=== PATIENT | male | born 1945 | race Caucasian/White ===

== ENCOUNTER 2017-11-07 10:35 | Inpatient (IN) | payer MEDICARE, OTHER ==
[~2017-11-07] VITALS: Ht 175.3 cm; Wt 120.2 kg
[2017-11-07] MEDS ORDERED: SODIUM CHLORIDE 0.9% 1000ML 1,000 ML IV STA ×2 (11:22→12:30)
[2017-11-07] MEDS ORDERED: ASPIRIN 81 MG CHEW TAB PO ONE (11:30)
[2017-11-07 11:51] LABS: BASOPHILS % 0.3 % (0.0-1.0); EOSINOPHILS # (AUTO) 0.1 (0.0-0.4); EOSINOPHILS % 0.4 % (0.0-6.0); HEMOGLOBIN 16.9 g/dL (14.0-18.0); LYMPHOCYTES # (AUTO) 1.8 (1.0-3.2); LYMPHOCYTES % 12.8 % (18.0-39.1); MEAN CORPUSCULAR HEMOGLOBIN 32.1 pg (28-32); MEAN CORPUSCULAR HGB CONC 33.8 g/dL (31-35); MEAN CORPUSCULAR VOLUME 95.1 fL (81-99); NEUTROPHILS # (AUTO) 10.8 (2.1-6.9); NEUTROPHILS % 78.9 % (38.7-80.0); PLATELET COUNT 319 x10e3/uL (140-360); RED BLOOD COUNT 5.26 x10e6/uL (4.3-5.7); RED CELL DISTRIBUTION WIDTH 13.7 % (11.7-14.4)
[2017-11-07 12:06] LABS: INR 1.09; PROTHROMBIN TIME 13.3 seconds (11.9-14.5)
[2017-11-07 12:07] LABS: PARTIAL THROMBOPLASTIN TIME 24.9 seconds (23.8-35.5)
[2017-11-07 12:14] LABS: ALBUMIN 3.8 g/dL (3.5-5.0); ALBUMIN/GLOBULIN RATIO 1.1 (0.8-2.0); ANION GAP 17.7 mmol/L (8-16); CALCIUM 10.5 mg/dL (8.4-10.2); CREATININE, SERUM 1.89 mg/dL (0.72-1.25); MAGNESIUM 1.9 MG/DL (1.3-2.1); POTASSIUM 4.7 mmol/L (3.5-5.1)
--- NOTE | 2017-11-07 12:25 | Diagnostic Imaging Report ---
PROCEDURE:CHEST SINGLE (PORTABLE) TECHNIQUE:Portable AP chest INDICATION:Low blood pressure COMPARISON:None. FINDINGS: Lungs are clear and symmetrically inflated. No pleural effusions. Normal heart size, mediastinal contour, and pulmonary vasculature for technique. Mild aortic arch calcification. Grossly intact skeleton. CONCLUSION: No acute abnormality. Dictated by: Gurpreet Schrader M.D. on 11/07/2017 at 12:25 Electronically approved by: Gurpreet Schrader M.D. on 11/07/2017 at 12:25
[2017-11-07 12:34] LABS: CREATINE KINASE MB 5.2 ng/mL (0-5.0); THYROID STIMULATING HORMONE 4.863 uIU/mL (0.350-4.940)
[2017-11-07] MEDS ORDERED: SODIUM CHLORIDE FLUSH 10 ML SYR INJ PRN (16:30)
[2017-11-07] MEDS ORDERED: ASPIRIN 81 MG CHEW TAB PO NR ×2 (16:30)
[2017-11-07] MEDS ORDERED: SIMVASTATIN20 MG PO (20:04)
[2017-11-07] MEDS ORDERED: METFORMIN HCL500 MG PO (20:04)
[2017-11-07] MEDS: SODIUM CHLORIDE 0.9% 1000ML 1,000 ML IV SCH (20:05)
--- OUTSIDE RECORDS SUMMARY | 2017-11-07 20:24 | XMS REPORT ---
Author Author [facility] Address Unknown Phone Unavailable Care Team Providers Care Marketing Services Vice President Name Role Phone ALCIDES LATIF Unavailable Unavailable Problems This patient has no known problems. Allergies, Adverse Reactions, Alerts This patient has no known allergies or adverse reactions. Medications This patient has no known medications. Results Test Description Test Time Test Comments Text Results Atomic Results Result Comments CHEST SINGLE (PORTABLE) [place] [id number] Patient Name: VILLA LINDSAY JR MR #: [id number] : 1945 Age/Sex: 72/M Req #: [id number] Adm Physician: Ordered by: VILLA WHELAN PROFESSOR OF SOCIAL WORK Report #: [id number] Location: ER Room/Bed: Procedure: [id number] DX/CHEST SINGLE (PORTABLE) Exam Date: 11/07/17 Exam Time: 1155 REPORT STATUS: Signed PROCEDURE: CHEST SINGLE (PORTABLE) TECHNIQUE: Portable AP chest INDICATION: Low blood pressure COMPARISON: None. FINDINGS: Lungs are clear and symmetrically inflated. No pleural effusions. Normal heart size, mediastinal contour, and pulmonary vasculature for technique. Mild aortic arch calcification. Grossly intact skeleton. CONCLUSION: No acute abnormality. Dictated by: Timo Schrader M.D. on 11/07/2017 at 12:25 Electronically approved by: Timo Schrader M.D. on 2017 at 12:25 Dictated By: TIMO SCHRADER MD 1226 Transcribed By: LORRAINE on 1226 COPY TO: VILLA WHELAN NP
[2017-11-07 20:29] LABS: CREATINE KINASE MB 5.4 ng/mL (0-5.0)
[2017-11-07] MEDS ORDERED: DEXTROSE 50% SYRINGE 50 ML IV PRN (20:30)
--- NOTE | 2017-11-07 21:12 | Consultation ---
DATE OF CONSULTATION: No Dictation 00:03 seconds. Job#: [id number]
[2017-11-07] MEDS: INSULIN REGULAR, HUMAN 100 UNIT/1 ML 3ML VIAL SQ SCH (22:30)
[2017-11-08] VITALS (7 sets, daily range): BP systolic 120–141; BP diastolic 66–82
[2017-11-08] MEDS: SODIUM CHLORIDE 0.9% 1000ML 1,000 ML IV SCH (02:30)
[2017-11-08 05:33] LABS: BILIRUBIN,URINE NEGATIVE (NEGATIVE); KETONES,URINE NEGATIVE (NEGATIVE); LEUKOCYTE ESTERASE ,URINE 2+ (NEGATIVE); URINE UROBILINOGEN 0.2 mg/dL (0.2 - 1)
[2017-11-08 05:34] LABS: CLARITY,URINE CLOUDY (CLEAR); COLOR,URINE YELLOW (YELLOW); NITRITE,URINE POSITIVE (NEGATIVE); PROTEIN,URINE DIPSTICK 1+ (NEGATIVE)
[2017-11-08 05:47] LABS: BACTERIA,URINE MODERATE /HPF; EPITHELIAL CELLS,URINE RARE /LPF; WBC,URINE (MAN) >50 /HPF (0-5)
[2017-11-08 06:22] LABS: BASOPHILS % 0.4 % (0.0-1.0); EOSINOPHILS # (AUTO) 0.1 (0.0-0.4); EOSINOPHILS % 1.3 % (0.0-6.0); HEMOGLOBIN 14.5 g/dL (14.0-18.0); LYMPHOCYTES # (AUTO) 1.7 (1.0-3.2); LYMPHOCYTES % 16.2 % (18.0-39.1); MEAN CORPUSCULAR HEMOGLOBIN 32.1 pg (28-32); MEAN CORPUSCULAR HGB CONC 32.2 g/dL (31-35); MEAN CORPUSCULAR VOLUME 99.6 fL (81-99); MONOCYTES # (AUTO) 1.1 (0.2-0.8); MONOCYTES % 10.8 % (4.4-11.3); NEUTROPHILS # (AUTO) 7.2 (2.1-6.9); NEUTROPHILS % 70.2 % (38.7-80.0); PLATELET COUNT 269 x10e3/uL (140-360); RED BLOOD COUNT 4.52 x10e6/uL (4.3-5.7)
[2017-11-08 06:56] LABS: CREATINE KINASE MB 4.3 ng/mL (0-5.0)
[2017-11-08] MEDS: INSULIN REGULAR, HUMAN 100 UNIT/1 ML 3ML VIAL SQ SCH ×2 (07:54→12:41)
--- NOTE | 2017-11-08 09:33 | History and Physical ---
CHIEF COMPLAINT: Dizziness, syncope. HPI: Mr. Mackey is a 72-year-old male who presented to the emergency room with episode of dizziness and syncope and blackout. He has been having difficulty balancing himself for last few days, but today he had this near syncopal episode, so he decided to come to the emergency room. He has a history of diabetes, hypertension, and coronary artery disease. He also has carotid stents, and his address change clerk has told him that he has peripheral arterial disease as well. He denies any chest pain, nausea, vomiting, diarrhea. REVIEW OF SYSTEMS: GENERAL: Denies any fever or chills. HEAD: Denies any head trauma, head injury. ENT: Denies any earache, nosebleed, throat pain. CVS: Denies any chest pain. RESPIRATORY: Denies any shortness of breath. GI: Denies any nausea, vomiting. The rest of the review of systems is negative except as in HPI. PAST MEDICAL HISTORY: Hypertension, coronary artery disease. PAST SURGICAL HISTORY: Knee replacement and tonsillectomy. FAMILY AND SOCIAL HISTORY: He lives by himself. 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 He never smoked in his life. Denies any alcohol use. Family history is significant for hypertension and heart disease. PHYSICAL EXAMINATION: VITAL SIGNS: Temperature 97.6, pulse is 78, blood pressure 127/67, respiratory rate of 18, O2 sat 96% on 2 liters. SKIN: Warm and dry. CHEST: Clear to auscultation bilaterally. No wheezing. NECK: Supple. No JVD. Thyroid not enlarged. No cervical lymphadenopathy. ABDOMEN: Soft, nontender, nondistended. Bowel sounds audible. No hepatosplenomegaly. EXTREMITIES: No clubbing, cyanosis. Trace pedal edema. NEUROLOGICAL: Awake and alert. No focal neurologic deficits. Cranial nerves II through XII intact. LABS: White count of 13,000; hemoglobin 16.9; platelets 319,000. Chemistry: Sodium 142, potassium 4.7, chloride 103, bicarb 26, BUN 30, creatinine 1.89. AST and ALT normal. CK-MB 5.20. BNP 748.2. INR is 1.09. Influenza is negative. Chest x-ray is not showing any infiltrate. ASSESSMENT: Mr. Mackey is a 72-year-old male who presented to the emergency room with syncope. Patient has history of coronary artery disease, could be cardiogenic versus neurogenic, episodes of dizziness and imbalance for last few days. PLAN: 1. Neurology consult, cardiology consult. 2. MRI of the head. 3. Will continue the patient on IV hydration. Patient's creatinine is 1.89. Will follow closely. May need nephrology evaluation as well, and the symptoms can be due to dehydration. Job#: [id number]
[2017-11-08 09:35] LABS: ANION GAP 16.3 mmol/L (8-16); CALCIUM 9.2 mg/dL (8.4-10.2); CREATININE, SERUM 1.26 mg/dL (0.72-1.25); POTASSIUM 5.3 mmol/L (3.5-5.1)
--- NOTE | 2017-11-08 12:40 | Consultation ---
DATE OF CONSULTATION: November 08, 2017 CARDIOLOGY CONSULTATION ATTENDING PHYSICIAN: Dr. Sommers. Thank you so much for asking me to see this nice man in consultation. Mr. Mackey is a pleasant 72-year-old man who has been retired for many years and has adult-onset diabetes. CHIEF COMPLAINT: He presented to the emergency room. 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 By morning, he reports that he did not feel any better, feeling weak and decided to come to the emergency room where they found hypotension. HISTORY OF PRESENT ILLNESS: Patient denies any chest pain, palpitations or madeleine syncope. He denies any dysuria. PAST MEDICAL HISTORY: Is complex. Longstanding diabetes that he reports that he had his diabetic medications changed in the last weeks and months due to insurance change. He had previously been using Levemir and Humalog but changed these to a combination of Novolin N and regular insulin. He was cautioned against low blood sugars and checks his fingerstick blood sugar about 4 times a day. Past medical history otherwise significant for carotid stenting in 1994 and with a coronary stent in 2002, both performed at [facility] in [facility] by Dr. Bartlett. He has had remote tonsillectomy and remote knee surgeries with arthroscope on the right knee and open left knee surgery 1976. He reports that he has had bilateral cataract surgeries with the right one going well, but on the left one in January of 2016 he has had continued problems with poor healing of his cornea or sclera. Takes multiple eyedrops and insulins as mentioned above plus metformin 500 mg b.i.d. and simvastatin 20 mg daily. PERSONAL AND SOCIAL HISTORY: He does not smoke nor drink. He lives at home with his . REVIEW OF SYSTEMS: CARDIAC: He denies any chest pain or palpitations since his coronary stenting. NEUROLOGIC: He reports that before the carotid stenting he had amaurosis but no repeat since that time. PHYSICAL EXAMINATION: GENERAL: At this time shows a pleasant, obese man who is 5 feet 9 inches tall and weighs 265 pounds, sitting in a chair. VITALS: Blood pressure 130/80. Temp is 99.8. HEENT: Unremarkable. NECK: No jugular venous distention, no bruits. THORAX: Heart sounds S1 and S2 are equal. No murmurs. Lungs are clear. ABDOMEN: Markedly protuberant. Normal bowel sounds. EXTREMITIES: Show the healed incision on the left knee but no cyanosis, clubbing or edema. EKG shows sinus rhythm with PVCs and nonspecific ST and T-wave changes. Echocardiogram shows good left ventricular function and mild left ventricular hypertrophy. Urinalysis shows 11 to 20 red blood cells per high power field, greater than 50 white cells, with 4+ blood and positive for nitrites. Cardiac enzymes are normal times 3. BNP is elevated at 748. TSH is normal. ASSESSMENT: 1. Hypotensive episode with blood pressure recorded at 71/41 on presenting to the emergency room. 2. Urinary tract infection. 3. Type 2 adult-onset diabetes with complex regimen including metformin and insulin. 4. Carotid disease, clinically stable after carotid stenting. 5. Coronary disease, clinically stable after coronary stenting. PLAN: Will await urine culture and check carotid Doppler scan and monitor on telemetry. Thank you for asking me to see him in consultation. Job#: [id number] DARLENE
[2017-11-08] MEDS: CEFTRIAXONE SOD 1 GM VIAL IV SCH ×2 (12:44→21:00)
--- NOTE | 2017-11-08 13:10 | Diagnostic Imaging Report ---
Examination: MRI BRAIN WITHOUT CONTRAST History: Dizziness. Imbalance. Near syncope. Comparison studies: None Technique: Sagittal T2; axial DWI, FLAIR, GRE or SWI, T1, Coronal FLAIR. Intravenous contrast: None Findings: Scalp: No abnormal signal. No masses. Bone marrow: Normal in signal intensity. Brain volume: Mild volume loss volume loss. Ventricles: Normal in size and configuration. No hydrocephalus. Extra-axial spaces: No abnormalities. Parenchyma: There are patchy and confluent areas of T2/FLAIR hyperintensity in the periventricular and subcortical white matter, nonspecific. Chronic lacunar infarct (7.5 mm anteroposterior dimension) in the left lateral putamen. No masses, hemorrhage, or acute vascular insults. Suprasellar and sellar region: No abnormalities. Craniocervical junction: No abnormalities. The foramen magnum is patent. No Chiari malformations. Vessels: Normal flow-voids in the arteries and sinuses. Additional findings:Bilateral slitlike orbital lenses. IMPRESSION: 1. No acute intracranial abnormalities. 2. Mild volume loss and microvascular ischemic change. 3. Chronic lacunar infarct of the left putamen. Signed by: Dr. Anna Borja M.D. on 11/08/2017 1:07 PM
--- NOTE | 2017-11-08 14:22 | Diagnostic Imaging Report ---
PROCEDURE: CHEST SINGLE (PORTABLE) COMPARISON: Patients [facility], DX, CHEST SINGLE (PORTABLE), 11/07/2017, 11:58. INDICATIONS: SHORTNESS OF BREATH FINDINGS: LUNGS: Exam is characterized by a poor inspiration. There is right basilar subsegmental atelectasis. No consolidation. PLEURA: No effusions or pneumothorax. HEART \T\ MEDIASTINUM: The heart is within normal size-limits. BONES \T\ SOFT TISSUES: No acute findings. CONCLUSION: Right basilar subsegmental atelectasis. César Alonso D.O. Dictated by: César Alonso D.O. on 11/08/2017 at 14:21 Electronically approved by: César Alonso D.O. on 11/08/2017 at 14:21
--- NOTE | 2017-11-08 14:24 | Consultation ---
DATE OF CONSULTATION: November 08, 2017 ENDOCRINE CONSULTATION This is a patient of Dr. Sommers. Thank you very much for referring this patient. HISTORY OF PRESENT ILLNESS: This is a 72-year-old white male who is referred to me for evaluation of diabetes mellitus. The patient reported he is a known diabetic for almost 12 years and takes a combination of Levemir insulin 100 units at bedtime and 30 to 60 units of Humalog with each meal depending upon the blood sugars. Patient came to the hospital with a history of syncopal episode and was found to have a urinary tract infection. Patient also has history of coronary artery disease, congestive cardiac failure and stent placement. He also has history of hyperlipidemia. Patient also takes metformin at home. PHYSICAL EXAMINATION: GENERAL: Today the patient is alert, awake, a little bit apprehensive. He is moderately overweight. VITAL SIGNS: His heart rate is around 78. His blood pressure is 140/80 mmHg. HEENT: Examination essentially unremarkable. Thyroid is palpable. Clinically he is near euthyroid. CHEST: Bilateral vesicular breathing. He has mild bronchospasm. CARDIAC: Both 1st and 2nd heart sounds. There is no 3rd or 4th heart sound. Ejection sound grade 2/6. EXTREMITIES: Patient has evidence of diabetic sensory neuropathy in both lower extremities. CLINICAL IMPRESSION: 1. Diabetes mellitus type 2, uncontrolled with complications. 2. Syncopal episode. 3. Hypotension. 4. Urinary tract infection. 5. Coronary artery disease and congestive cardiac failure. The plan at this time is to do a hemoglobin A1c, thyroid function test. Hold the metformin for now because his creatinine was significantly elevated at the time of admission. Will just start him on the Humalog and the Levemir combination but much lower dose. Thanks for referring this patient. I will be following this patient with you. Job#: [id number] EV AMRITA
[2017-11-08 14:25] LABS: FREE T4 (FREE THYROXINE) 0.99 ng/dL (0.9-1.8); THYROID STIMULATING HORMONE 0.803 uIU/mL (0.350-4.940)
[2017-11-08] MEDS: INSULIN LISPRO 100 UNIT/1 ML 3ML VIAL SQ SCH ×2 (16:18→21:00)
--- NOTE | 2017-11-08 16:44 | Consultation ---
DATE OF CONSULTATION: November 08, 2017, at 2:15 in the evening. NEUROLOGICAL CONSULTATION This is a patient of Dr. Lalit Sommers. REASON FOR CONSULTATION: Hypertension, presyncope. This is a 72-year-old male who has a many-year history of diabetes. In the last several days, he started feeling generalized weak. Because of that, they brought him to the hospital for further evaluation and management. The blood pressure apparently was low in the 70s. The patient feels like he is going to black out but never passes out. PAST HISTORY: He denies history of hypertension. He has a history of diabetes mellitus and heart condition. He has a history of coronary artery stent and carotid artery stent. He has also a history of bilateral cataract surgery and tonsillectomy. PERSONAL AND SOCIAL HISTORY: He lives alone. He does not smoke or drink. PHYSICAL EXAMINATION VITAL SIGNS: At the time of this examination, blood pressure is 141/82, pulse 78, temperature 100.5. The patient is overweight. He weighs about 265 pounds. LUNGS: Clear to auscultation. HEART: Regular sinus rhythm. No murmur. ABDOMEN: Soft and nontender. No organomegaly. MUSCULOSKELETAL: Lower extremities have no edema, no cyanosis and no clubbing. NEUROLOGIC EXAMINATION: He is alert. He is oriented times 3. Speech is clear. No dysarthria. No dysphagia. CRANIAL NERVES: Pupils are both equal and reactive. The extraocular movements are full. Visual cox are normal. No facial weakness. Facial sensation noted. Tongue protrudes in the midline. Palatal movement is normal bilaterally. MOTOR POWER: Upper extremities show no evidence of muscle wasting in either the proximal or distal muscles. Abduction of the arms 5/5. Flexion and extension of the arms 5/5. Dorsiflexion of the wrists 5/5. Finger extension 5/5. Hand professional system administrator 5/5. Lower extremities: Flexion of the hips 5/5. Flexion and extension of the knees 5/5. Dorsiflexion of the ankles 5/5. Plantar flexion 5/5. Toe extension 5/5 bilaterally. DEEP TENDON REFLEXES: Triceps, biceps and radials are 1+. Knee jerks absent. Ankle jerks absent bilaterally. Plantar stimulation is down bilaterally. COORDINATION: [id number]-mj-[id number] is normal. The patient has been ambulating with help of physical therapy today. HEAD: Normocephalic. NECK: Supple. Carotid pulsations are present bilaterally. There are no bruits. LABORATORY WORKUP: CBC shows white count 10,200 with hemoglobin 14.5, hematocrit 45, platelets 269,000. Chemistry: Sodium and potassium normal. BUN 31.8, creatinine 1.26. Glucose 157. Calcium 9.2. Liver enzymes are normal. Urinalysis: Protein 1+, blood 4+, number of WBCs greater than 50, bacteria moderately high. MRI of the brain shows no evidence of acute pathology. No acute infarction or acute hemorrhage. There is moderate small vessel disease seen bilaterally. MRI of the brain, as mentioned, shows no evidence of acute pathology. Carotid Doppler shows no evidence of any major stenosis. IMPRESSION 1. Episode of hypertension. 2. Rule out hypoglycemia. 3. Presyncope. 4. Diabetes mellitus, type 2. 5. Obesity. 6. Status post right carotid stent and coronary artery stent. We discussed with the patient. I do not think we are dealing with any cerebrovascular problem, no symptoms of TIA, no symptoms of possibility of stroke. The patient was instructed to follow the advice, take his medications regularly, follow a diet to control the blood sugar and undergo any required laboratory evaluation. Job#: [id number]
[2017-11-08] MEDS ORDERED: METFORMIN HCL 500 MG TAB PO SCH (17:00)
[2017-11-08] MEDS ORDERED: INSULIN DETEMIR 100 UNIT/ML PEN SQ SCH ×2 (21:00)
[2017-11-08] MEDS: SIMVASTATIN 20 MG TAB PO SCH (21:00)
[2017-11-09] VITALS (7 sets, daily range): BP systolic 112–167; BP diastolic 72–90
[2017-11-09 06:38] LABS: BASOPHILS % 0.3 % (0.0-1.0); EOSINOPHILS # (AUTO) 0.2 (0.0-0.4); HEMATOCRIT 45.3 % (38.2-49.6); HEMOGLOBIN 14.7 g/dL (14.0-18.0); LYMPHOCYTES # (AUTO) 1.5 (1.0-3.2); LYMPHOCYTES % 16.2 % (18.0-39.1); MEAN CORPUSCULAR HEMOGLOBIN 31.7 pg (28-32); MEAN CORPUSCULAR HGB CONC 32.5 g/dL (31-35); MEAN CORPUSCULAR VOLUME 97.6 fL (81-99); MONOCYTES # (AUTO) 0.9 (0.2-0.8); MONOCYTES % 9.4 % (4.4-11.3); NEUTROPHILS # (AUTO) 6.7 (2.1-6.9); NEUTROPHILS % 71.6 % (38.7-80.0); PLATELET COUNT 237 x10e3/uL (140-360); RED BLOOD COUNT 4.64 x10e6/uL (4.3-5.7); RED CELL DISTRIBUTION WIDTH 13.8 % (11.7-14.4)
[2017-11-09 06:56] LABS: ANION GAP 12.5 mmol/L (8-16); BLOOD UREA NITROGEN 27 mg/dL (7-26); BUN/CREATININE RATIO 29 (6-25); CALCIUM 9.2 mg/dL (8.4-10.2); CARBON DIOXIDE 27 mmol/L (22-29); CHLORIDE 105 mmol/L (98-107); CREATININE, SERUM 0.92 mg/dL (0.72-1.25); EST GLOMERULAR FILTRATION RATE > 60 ML/MIN (60-); GLUCOSE 159 mg/dL (74-118); POTASSIUM 4.5 mmol/L (3.5-5.1); SODIUM 140 mmol/L (136-145)
[2017-11-09] MEDS: INSULIN LISPRO 100 UNIT/1 ML 3ML VIAL SQ SCH ×5 (07:30→20:51)
[2017-11-09] MEDS: CEFTRIAXONE SOD 1 GM VIAL IV SCH ×2 (08:18→20:50)
[2017-11-09] MEDS: ALBUTEROL SULF 0.083% NEB SOLN 3 ML NEB NEB SCH ×2 (13:00→19:06)
[2017-11-09] MEDS ORDERED: SALMETEROL/FLUTICASONE 500/50 INH SCH (19:00)
--- NOTE | 2017-11-09 20:06 | Cardiology Report ---
DATE OF STUDY: November 08, 2017 DOPPLER SCAN OF CAROTIDS Left carotid artery shows velocity 1.4 meters per second in the left distal internal carotid artery. Left vertebral flow appears antegrade. Right carotid artery shows a stent in the mid right internal carotid artery with velocity 1.8 meters per second consistent with mild stenosis. Right vertebral flow appears to be antegrade. CONCLUSIONS 1. A stent is present in the right mid internal carotid artery with velocity of 1.84 meters per second consistent with mild to moderate stenosis in the range of 50% to 70%. 2. Mild stenosis involving the left distal internal carotid artery with velocity of 1.4 meters per second. The degree of stenosis is once again in the range of 50% to 70%. 3. Borderline elevated velocity in the right external carotid artery with velocity of 1.3 meters per second. 4. Vertebral flow appears to be in normal direction bilaterally. Job#: [id number] cc:HEMANT BALDWIN M.D.
[2017-11-09] MEDS: SIMVASTATIN 20 MG TAB PO SCH (20:51)
[2017-11-09] MEDS ORDERED: MONTELUKAST SODIUM 10 MG TAB PO SCH (21:00)
[2017-11-09] MEDS ORDERED: INSULIN DETEMIR 100 UNIT/ML PEN SQ SCH (21:00)
[2017-11-09] MEDS ORDERED: THEOPHYLLINE 300 MG TABSR PO SCH (21:00)
[2017-11-09] MEDS ORDERED: ATORVASTATIN 20 MG TAB PO SCH (21:00)
[2017-11-09] MEDS ORDERED: ISOSORBIDE DINITRATE 20 MG TAB PO SCH (21:00)
[2017-11-10 00:10] VITALS: BP 169/97
[2017-11-10] MEDS: ALBUTEROL SULF 0.083% NEB SOLN 3 ML NEB NEB SCH ×2 (02:40→07:00)
[2017-11-10 04:00] VITALS: BP 153/67
[2017-11-10] MEDS ORDERED: LEVOTHYROXINE SODIUM 50 MCG TAB PO SCH (06:00)
[2017-11-10 07:00] VITALS: BP 149/87
[2017-11-10] MEDS: INSULIN LISPRO 100 UNIT/1 ML 3ML VIAL SQ SCH ×4 (07:30→12:00)
--- NOTE | 2017-11-10 07:58 | Diagnostic Imaging Report ---
EXAM: Single AP view of the chest (Portable). COMPARISON: Chest radiograph from 11/08/2017 INDICATION: Hypoxia FINDINGS: Single portable AP view of the chest. The visualized bones and soft tissues, cardiac silhouette , pleura appear unchanged. IMPRESSION: 1. Lines/tubes: None 2. Worsening bibasilar airspace opacity with mild volume loss due to worsening atelectasis or interval aspiration. Signed by: Dr. Prema Mcneal M.D. on 11/10/2017 7:55 AM
[2017-11-10] MEDS: CEFTRIAXONE SOD 1 GM VIAL IV SCH (08:40)
[2017-11-10] MEDS ORDERED: LOSARTAN POTASSIUM 25 MG TAB PO SCH (09:00)
[2017-11-10] MEDS ORDERED: VERAPAMIL HCL 240 MG TABSR PO SCH (09:00)
[2017-11-10] MEDS ORDERED: CLOPIDOGREL BISULFATE 75 MG TAB PO SCH (09:00)
[2017-11-10 11:19] VITALS: BP 149/87
[2017-11-10] MEDS ORDERED: LEVAQUIN500 MG PO (14:08)
--- NOTE | 2017-11-10 14:17 | Discharge Summary ---
FINAL DIAGNOSES 1. Urinary tract infection. 2. Carotid stenosis. 3. Hypertension. 4. Diabetes. 5. Dehydration. 6. Acute kidney injury, resolved with IV hydration. ADMISSION HISTORY AND HOSPITAL COURSE: Mr. Mackey is a 72-year-old man who presented to the emergency room with dizziness and near syncope with hypotensive IV hydration given. The patient was continued with IV Rocephin and the patient improved with treatment. Dizziness resolved and renal failure resolved. Cardiology, neurology and endocrinology evaluated the patient and cleared the patient for discharge. The patient will be discharged home to follow up with his primary care physician. Discharge medication reviewed. HEMANT BALDWIN MD Job#: [id number] GH
[2017-11-10] MEDS ORDERED: HYDRALAZINE HCL 100 MG TABLET PO SCH (19:00)
== END 2017-11-10 15:17 | disposition home or self-care (01) | DRG 690 ==
LOC: ER 10:35 → ERHOLD 20:20 → IMCU 11-08 00:51
PROVIDERS: ADMIT Internal Medicine; ATTEND Internal Medicine
DX: N39.0 Urinary tract infection, site not specified (principal); N17.9 Acute kidney failure, unspecified; E11.65 Type 2 diabetes mellitus with hyperglycemia; I11.9 Hypertensive heart disease without heart failure; I65.29 Occlusion and stenosis of unspecified carotid artery; I25.10 Atherosclerotic heart disease of native coronary artery without angina pectoris; I73.9 Peripheral vascular disease, unspecified; E66.9 Obesity, unspecified; E86.0 Dehydration; Z68.39 Body mass index [BMI] 39.0-39.9, adult
CPT/HCPCS: 36415; 70551; 71045; 71046; 80048; 80053; 81001; 82270; 82550; 82553; 82948; 83036; 83735; 83880; 84439; 84443; 84484; 85025; 85379; 85610; 85730; 86850; 86900; 87086; 87186; 87400; 93005; 93306; 93880; 94640; 96367; 96372; 97139; 99284; J0696; J7030

== ENCOUNTER 2018-08-21 10:42 | Inpatient (IN) | payer MEDICARE, OTHER ==
[~2018-08-21] VITALS: Ht 175.3 cm; Wt 109.3 kg
[~2018-08-21 10:42] MED LIST: LEVAQUIN500 MG PO; METFORMIN HCL500 MG PO; SIMVASTATIN20 MG PO
--- OUTSIDE RECORDS SUMMARY | 2018-08-21 10:47 | XMS REPORT ---
Author Author Yareli Alford Organization [employer] Address Unknown Phone Unavailable Care Team Providers Care Travel Consultant Name Role Phone Yareli Alford CP Unavailable Allergies, Adverse Reactions, Alerts Substance Reaction Event Type N.K.D.A. Info Not Available Non Drug Allergy Problems Problem Type Condition Code Onset Dates Condition Status Problem Diabetes E11.9 Active Problem BPH (benign prostatic hyperplasia) N40.0 Active Problem HTN (hypertension) I10 Active Assessment Diabetes E11.9 Active Assessment HTN (hypertension) I10 Active Problem Carotid arterial disease I77.9 Active Assessment BPH (benign prostatic hyperplasia) N40.0 Active Medications Medication Code System Code Instructions Start Date End Date Status Dosage Clopidogrel Bisulfate [facility] [address]-12 Active not defined Simvastatin [facility] [address]-29 Active not defined Metoprolol Succinate ER [facility] [address]-59 Active not defined Tamsulosin HCl [facility] [address]-07 0.4 MG Orally Once a day Active 1 capsule Ramipril [facility] [address]-78 Active not defined Metformin HCl [facility] [address]-74 Active not defined Vital Signs Date/Time: January 24, 2017 BMI 37.45 Index Weight 261 lbs Height 70 in Temperature 98.3 F Blood Pressure Diastolic 67 mm Hg Blood Pressure Systolic 109 mm Hg Results No Known Results Summary Purpose [employer] Submission
--- OUTSIDE RECORDS SUMMARY | 2018-08-21 10:47 | XMS REPORT ---
Author Author Gil Mar [facility] [employer] Address Unknown Phone Unavailable Care Team Providers Care Ceramic Restorer Name Role Phone Gil Mar Unavailable Allergies, Adverse Reactions, Alerts Substance Reaction Event Type N.K.D.A. Info Not Available Non Drug Allergy Problems Problem Type Condition Code Onset Dates Condition Status Assessment Body mass index (BMI) 38.0-38.9, adult Z68.38 Active Assessment Obesity, unspecified E66.9 Active Problem Postprocedural PCI status V45.82 Active Assessment Type 2 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.51 Active Problem Carotid stenosis 433.10 Active Assessment Abnormal electrocardiogram [ECG] [EKG] R94.31 Active Problem Chronic diastolic heart failure 428.32 Active Problem Occlusion and stenosis of right carotid artery I65.21 Active Problem Abnormal electrocardiogram [ECG] [EKG] R94.31 Active Problem Obesity, unspecified E66.9 Active Problem CHF, chronic systolic I50.22 Active Assessment Occlusion and stenosis of right carotid artery I65.21 Active Assessment Peripheral vascular disease, unspecified I73.9 Active Problem Body mass index (BMI) 38.0-38.9, adult Z68.38 Active Assessment Coronary angioplasty status Z98.61 Active Problem Peripheral vascular disease, unspecified I73.9 Active Problem Type 2 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.51 Active Problem Coronary angioplasty status Z98.61 Active Problem Atherosclerotic heart disease of [place] coronary artery without angina pectoris I25.10 Active Problem Coronary atherosclerosis of [place] coronary artery 414.01 Active Problem Peripheral vascular disease 443.9 Active Assessment CHF, chronic systolic I50.22 Active Assessment Atherosclerotic heart disease of [place] coronary artery without angina pectoris I25.10 Active Problem Diabetes mellitus type II 250.00 Active Problem Abnormal ECG 794.31 Active Problem Morbid obesity 278.01 Active Problem Mixed hyperlipidemia 272.2 Active Medications Medication Code System Code Instructions Start Date End Date Status Dosage Aspirin [facility] 50775579503 81 MG Orally Once a day Active 1 tablet Metformin HCl [facility] 64518989487 500 MG Orally Twice a day Active 1 tablet with meals Metoprolol Succinate ER [facility] 27714635248 50 MG Orally Once a day Active 1 tablet Clopidogrel Bisulfate [facility] 73783871804 75 MG Orally Once a day Active 1 tablet Levemir [facility] 57582806131 100 UNIT/ML Subcutaneous Active not defined Tradjenta [facility] 13291794375 Orally Once a day Active 1 tablet Losartan Potassium [facility] 04534461278 50 MG Orally Once a day Active 1 tablet Ramipril [facility] 17341184883 10 MG Orally Once a day Active 1 capsule Simvastatin [facility] 01712515834 10 mg Orally Once a day Active 1 tablet in the evening Fish Oil [facility] 71202346965 500 MG Orally Twice a day Active 1 capsule Humalog [facility] 43235642260 100 UNIT/ML Subcutaneous Active not defined Vital Signs Date/Time: Jun 13, 2017 BMI 38.02 Index Weight 265 lbs Height 5ft 10in in Cardiac Monitoring Heart Rate 78 /min Blood Pressure Diastolic 65 mm Hg Blood Pressure Systolic 138 mm Hg Results No Known Results Summary Purpose [employer] Submission
--- OUTSIDE RECORDS SUMMARY | 2018-08-21 10:47 | XMS REPORT ---
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 Info Not Available Non Drug Allergy Problems Problem Type Condition Code Onset Dates Condition Status Assessment Body mass index (BMI) 38.0-38.9, adult Z68.38 Active Problem Postprocedural PCI status V45.82 Active [...] Z98.61 Active Problem Atherosclerotic heart disease of [place] coronary artery without angina pectoris I25.10 Active Problem Coronary atherosclerosis of [place] coronary artery 414.01 Active Problem Peripheral vascular disease 443.9 Active Assessment CHF, chronic systolic I50.22 Active Assessment Atherosclerotic heart disease of [place] coronary artery without angina pectoris I25.10 Active Problem Diabetes mellitus type II 250.00 Active Problem Abnormal ECG 794.31 Active Problem Morbid obesity 278.01 Active Problem Mixed hyperlipidemia 272.2 Active Medications Medication Code System Code Instructions Start Date End Date Status Dosage Aspirin [facility] 02188821597 81 MG Orally Once a day Active 1 tablet Metoprolol Succinate ER ND 79977976545 50 MG Orally Once a day Active 1 tablet Tradjenta [facility] 05327774821 Orally Once a day Active 1 tablet Metformin HCl [facility] 73236472147 500 MG Orally Twice a day Active 1 tablet with meals Clopidogrel Bisulfate [facility] 04177368870 75 mg Orally Once a day Active 1 tablet Simvastatin [facility] 98585665360 10 mg Orally Once a day Active 1 tablet in the evening Humalog [facility] 26022114697 100 UNIT/ML Subcutaneous Active not defined Levemir [facility] 74229727190 100 UNIT/ML Subcutaneous Active not defined Fish Oil [facility] 82902367745 500 MG Orally Twice a day Active 1 capsule Losartan Potassium [facility] 71234622287 50 MG Orally Once a day Active 1 tablet Vital Signs Date/Time: December 26, 2017 BMI 38.02 Index Weight 265 lbs Height 5ft 10in in Cardiac Monitoring Heart Rate 77 /min Blood Pressure Diastolic 88 mm Hg Blood Pressure Systolic 140 mm Hg Results No Known Results Summary Purpose eClinicalWorks Submission
--- OUTSIDE RECORDS SUMMARY | 2018-08-21 10:47 | XMS REPORT | Summary of Care ---
Author Organization Unknown Address Unknown Phone Unavailable Encounter SANDI Germain(ISAK) [id number] Date(s): 02/24/15 - 02/27/15 [facility] [address] [place] [address]- Discharge Disposition: Home Physician Attending: Moe Garber DO Physician Admitting: Moe Garber DO Vital Signs 1 2 3 Most recent to oldest [Reference Range]: 177.8 cm (02/25/15 5:46 AM) 177.8 cm (02/24/15 9:48 PM) Height 98 DegF (02/27/15 12:03 PM) 98 DegF (02/27/15 8:00 AM) 97.4 DegF (02/27/15 3:36 AM) Temperature Oral [96.4-99.1 DegF] 187/88 mmHg *HI* (02/27/15 12:03 PM) 163/82 mmHg *HI* (02/27/15 3:36 AM) Blood Pressure [90-140/60-90 mmHg] 151 mmHg *HI* (02/27/15 8:00 AM) Systolic Blood Pressure [90-140 mmHg] 95 mmHg *HI* (02/27/15 8:00 AM) Diastolic Blood Pressure [60-90 mmHg] 18 BRMIN (02/27/15 12:03 PM) 18 BRMIN (02/27/15 8:00 AM) 16 BRMIN (02/27/15 7:09 AM) Respiratory Rate [14-20 BRMIN] 46 bpm *LOW* (02/27/15 12:03 PM) 51 bpm *LOW* (02/27/15 8:00 AM) 90 bpm (02/27/15 3:36 AM) Peripheral Pulse Rate [60-100 bpm] 114.318 kg (02/25/15 5:46 AM) 122.727 kg (02/24/15 9:48 PM) Weight 36.16 m2 (02/25/15 5:46 AM) 38.82 m2 (02/24/15 9:48 PM) Body Mass Index Problem List Condition Effective Dates Status Health Status Informant Diabetes(Confirmed) Resolved Diabetes(Confirmed) Active Hypercholesterolemia Active (Confirmed) Hypertension(Confirm Active ed) Allergies, Adverse Reactions, Alerts Substance Reaction Severity Status NKDA Active Medications amLODIPine PO, Daily, 0 Refill(s) Start Date: 02/25/15 Status: Suspended amLODIPine 2.5 mg, 1 tab, Route: PO, Drug form: TAB, Daily, Dosing Weight 114.318, kg, Star t date: 02/26/15 9:00:00, Duration: 30 day, Stop date: 03/27/15 9:00:00 Notes: (Same as: Norvasc) Start Date: 02/26/15 Stop Date: 02/27/15 Status: Discontinued aspirin 81 mg, 1 tab, Route: PO, Drug form: CHEWTAB, Daily, Dosing Weight 114.318, kg, S tart date: 02/26/15 9:00:00, Duration: 30 day, Stop date: 03/27/15 9:00:00 Notes: Take with food. Start Date: 02/26/15 Stop Date: 02/26/15 Status: Discontinued aspirin 81 mg, 1 tab, Route: PO, Drug form: ECTAB, Daily, Dosing Weight 122.727, kg, Sta rt date: 02/25/15 9:00:00, Duration: 30 day, Stop date: 03/26/15 9:00:00 Notes: Do not crush or chew.(Same As: Ecotrin) Start Date: 02/25/15 Stop Date: 02/27/15 Status: Discontinued aspirin 81 mg, PO, Daily, 0 Refill(s) Start Date: 02/25/15 Status: Suspended atropine 0.5 mg, 5 mL, Route: IVP, Drug form: INJ, PRN, PRN Bradycardia, Start date: 02/07 05/24 6:05:00, Duration: 30 day, Stop date: 03/27/15 6:04:00 Start Date: 02/25/15 Stop Date: 02/27/15 Status: Discontinued azithromycin 500 mg, 250 mL, Route: IVPB, Drug form: PDR/INJ, [id number], Dosing Weight 122.727, kg, Start date: 02/25/15 6:00:00, Duration: 30 day, Stop date: 03/26/15 6:00:00 Notes: Same as: Zithromax Start Date: 02/25/15 Stop Date: 02/27/15 Status: Discontinued Crestor PO, Bedtime, 0 Refill(s) Start Date: 02/25/15 Status: Suspended Dextrose 50% Syringe 12.5 gm, 25 mL, Route: IVP, Drug Form: INJ, Dosing Weight 122.727, kg, PRN, PRN Blood Glucose Results, Start date: 02/25/15 5:25:00, Duration: 30 day, Stop date : 03/27/15 5:24:00 Start Date: 02/25/15 Stop Date: 02/25/15 Status: Discontinued Dextrose 50% Syringe 25 gm, 50 mL, Route: IVP, Drug Form: INJ, Dosing Weight 122.727, kg, PRN, PRN Bl ood Glucose Results, Start date: 02/25/15 5:25:00, Duration: 30 day, Stop date: 03/27/15 5:24:00 Start Date: 02/25/15 Stop Date: 02/25/15 Status: Discontinued Dextrose 50% Syringe 12.5 gm, 25 mL, Route: IVP, Drug Form: INJ, Dosing Weight 114.318, kg, PRN, PRN Blood Glucose Results, Start date: 02/25/15 17:24:00, Duration: 30 day, Stop tay e: 03/27/15 17:23:00 Start Date: 02/25/15 Stop Date: 02/27/15 Status: Discontinued Dextrose 50% Syringe 25 gm, 50 mL, Route: IVP, Drug Form: INJ, Dosing Weight 114.318, kg, PRN, PRN Bl ood Glucose Results, Start date: 02/25/15 17:24:00, Duration: 30 day, Stop date: 03/27/15 17:23:00 Start Date: 02/25/15 Stop Date: 02/27/15 Status: Discontinued DuoNeb inhalation solution 3 ml, Route: NEB, Drug Form: SOLN, Dosing Weight 122.727, kg, PRN, PRN Respirato ry Protocol, Start date: 02/25/15 1:25:00, Duration: 30 day, Stop date: 03/27/15 1:24:00 Notes: (Same as: Duoneb) Start Date: 02/25/15 Stop Date: 02/25/15 Status: Discontinued DuoNeb inhalation solution 3 ml, Route: NEB, Drug Form: SOLN, Dosing Weight 122.727, kg, PRN, PRN Respirato ry Protocol, Start date: 02/25/15 1:24:00, Duration: 30 day, Stop date: 03/27/15 1:23:00 Notes: (Same as: Duoneb) Start Date: 02/25/15 Stop Date: 02/25/15 Status: Discontinued glucagon 1 mg, Route: IM, Drug form: PDR/INJ, PRN, Dosing Weight 122.727, kg, PRN Blood G lucose Results, Start date: 02/25/15 5:25:00, Duration: 30 day, Stop date: 03/27 5:24:00 Start Date: 02/25/15 Stop Date: 02/25/15 Status: Discontinued glucagon 1 mg, Route: IM, Drug form: PDR/INJ, PRN, Dosing Weight 114.318, kg, PRN Blood G lucose Results, Start date: 02/25/15 17:24:00, Duration: 30 day, Stop date: 03/09 05/24 17:23:00 Start Date: 02/25/15 Stop Date: 02/27/15 Status: Discontinued Humalog Route: SUB-Q, Before Lunch, Dosing Weight 114.318, kg, Start date: 02/26/15 11:3 0:00, Duration: 30 day, Stop date: 03/27/15 11:30:00 Start Date: 02/26/15 Stop Date: 02/25/15 Status: Deleted Humalog Route: SUB-Q, Before Breakfast, Dosing Weight 114.318, kg, Start date: 02/26/15 7:30:00, Duration: 30 day, Stop date: 03/27/15 7:30:00 Start Date: 02/26/15 Stop Date: 02/25/15 Status: Deleted Humalog Route: SUB-Q, Before Dinner, Dosing Weight 114.318, kg, Start date: 02/25/15 16: 30:00, Duration: 30 day, Stop date: 03/26/15 16:30:00 Start Date: 02/25/15 Stop Date: 02/25/15 Status: Deleted Humalog 20 unit, Route: SUB-Q, PRN, Dosing Weight 114.318, kg, PRN With Snack, Start tay e: 02/25/15 14:52:00, Duration: 30 day, Stop date: 03/27/15 14:51:00 Start Date: 02/25/15 Stop Date: 02/25/15 Status: Discontinued Humalog 100 units/mL 40, SUB-Q, Before Lunch, 0 Refill(s) Start Date: 02/25/15 Status: Suspended Humalog 100 units/mL 20, SUB-Q, PRN, with snacks, 0 Refill(s) Special Instructions: with snacks Start Date: 02/25/15 Stop Date: 02/25/15 Status: Discontinued Humalog 100 units/mL 36, SUB-Q, Before Breakfast, 0 Refill(s) Start Date: 02/25/15 Status: Suspended Humalog 100 units/mL 45, SUB-Q, Before Dinner, 0 Refill(s) Start Date: 02/25/15 Status: Suspended insulin aspart 1 unit, 0.01 mL, Route: SUB-Q, Drug form: SOLN, TID-Before Meals, Dosing Weight 122.727, kg, PRN Blood Glucose Results, Start date: 02/25/15 5:25:00, Duration: 30 day, Stop date: 03/27/15 5:24:00 Notes: Roll in palms of hands gently; Do not shake vigorously. (Same as: NovoLO G)"single patient use only" Stable for 28 days at room temperature.Expires in _ ____ days from Date Start Date: 02/25/15 Stop Date: 02/25/15 Status: Discontinued insulin aspart 2 unit, 0.02 mL, Route: SUB-Q, Drug form: SOLN, TID-Before Meals, Dosing Weight 122.727, kg, PRN Blood Glucose Results, Start date: 02/25/15 5:25:00, Duration: 30 day, Stop date: 03/27/15 5:24:00 Notes: Roll in palms of hands gently; Do not shake vigorously. (Same as: NovoLO G)"single patient use only" Stable for 28 days at room temperature.Expires in _ ____ days from Date Start Date: 02/25/15 Stop Date: 02/25/15 Status: Discontinued insulin aspart 3 unit, 0.03 mL, Route: SUB-Q, Drug form: SOLN, TID-Before Meals, Dosing Weight 122.727, kg, PRN Blood Glucose Results, Start date: 02/25/15 5:25:00, Duration: 30 day, Stop date: 03/27/15 5:24:00 Notes: Roll in palms of hands gently; Do not shake vigorously. (Same as: NovoLO G)"single patient use only" Stable for 28 days at room temperature.Expires in _ ____ days from Date Start Date: 02/25/15 Stop Date: 02/25/15 Status: Discontinued insulin aspart 4 unit, 0.04 mL, Route: SUB-Q, Drug form: SOLN, TID-Before Meals, Dosing Weight 122.727, kg, PRN Blood Glucose Results, Start date: 02/25/15 5:25:00, Duration: 30 day, Stop date: 03/27/15 5:24:00 Notes: Roll in palms of hands gently; Do not shake vigorously. (Same as: NovoLO G)"single patient use only" Stable for 28 days at room temperature.Expires in _ ____ days from Date Start Date: 02/25/15 Stop Date: 02/25/15 Status: Discontinued insulin aspart 5 unit, 0.05 mL, Route: SUB-Q, Drug form: SOLN, TID-Before Meals, Dosing Weight 122.727, kg, PRN Blood Glucose Results, Start date: 02/25/15 5:25:00, Duration: 30 day, Stop date: 03/27/15 5:24:00 Notes: Roll in palms of hands gently; Do not shake vigorously. (Same as: NovoLO G)"single patient use only" Stable for 28 days at room temperature.Expires in _ ____ days from Date Start Date: 02/25/15 Stop Date: 02/25/15 Status: Discontinued insulin aspart 12 unit, 0.12 mL, Route: SUB-Q, Drug form: SOLN, TID-Before Meals, Dosing Weight 114.318, kg, PRN Blood Glucose Results, Start date: 02/25/15 17:24:00, Duration: 30 day, Stop date: 03/27/15 17:23:00 Notes: Roll in palms of hands gently; Do not shake vigorously. (Same as: NovoLO G)"single patient use only" Stable for 28 days at room temperature.Expires in _ ____ days from Date Start Date: 02/25/15 Stop Date: 02/27/15 Status: Discontinued insulin aspart 15 unit, 0.15 mL, Route: SUB-Q, Drug form: SOLN, TID-Before Meals, Dosing Weight 114.318, kg, PRN Blood Glucose Results, Start date: 02/25/15 17:24:00, Duration: 30 day, Stop date: 03/27/15 17:23:00 Notes: Roll in palms of hands gently; Do not shake vigorously. (Same as: NovoLO G)"single patient use only" Stable for 28 days at room temperature.Expires in _ ____ days from Date Start Date: 02/25/15 Stop Date: 02/27/15 Status: Discontinued insulin aspart 6 unit, 0.06 mL, Route: SUB-Q, Drug form: SOLN, TID-Before Meals, Dosing Weight 114.318, kg, PRN Blood Glucose Results, Start date: 02/25/15 17:24:00, Duration: 30 day, Stop date: 03/27/15 17:23:00 Notes: Roll in palms of hands gently; Do not shake vigorously. (Same as: NovoLO G)"single patient use only" Stable for 28 days at room temperature.Expires in _ ____ days from Date Start Date: 02/25/15 Stop Date: 02/27/15 Status: Discontinued insulin aspart 9 unit, 0.09 mL, Route: SUB-Q, Drug form: SOLN, TID-Before Meals, Dosing Weight 114.318, kg, PRN Blood Glucose Results, Start date: 02/25/15 17:24:00, Duration: 30 day, Stop date: 03/27/15 17:23:00 Notes: Roll in palms of hands gently; Do not shake vigorously. (Same as: NovoLO G)"single patient use only" Stable for 28 days at room temperature.Expires in _ ____ days from Date Start Date: 02/25/15 Stop Date: 02/27/15 Status: Discontinued insulin aspart 3 unit, 0.03 mL, Route: SUB-Q, Drug form: SOLN, TID-Before Meals, Dosing Weight 114.318, kg, PRN Blood Glucose Results, Start date: 02/25/15 17:24:00, Duration: 30 day, Stop date: 03/27/15 17:23:00 Notes: Roll in palms of hands gently; Do not shake vigorously. (Same as: NovoLO G)"single patient use only" Stable for 28 days at room temperature.Expires in _ ____ days from Date Start Date: 02/25/15 Stop Date: 02/27/15 Status: Discontinued ipratropium 0.5 mg, 2.5 mL, Route: NEB, Drug form: SOLN, PRN, Dosing Weight 122.727, kg, PRN Respiratory Protocol, Start date: 02/25/15 5:07:00, Duration: 30 day, Stop date: 03/27/15 5:06:00 Notes: SEE RT DOCUMENTATION(Same as:Atrovent) Start Date: 02/25/15 Stop Date: 02/27/15 Status: Discontinued Levemir 110, SUB-Q, Bedtime, 0 Refill(s) Start Date: 02/25/15 Status: Suspended Levemir FlexPen 110 unit, 1.1 mL, Route: SUB-Q, Drug form: INJ, Bedtime, Dosing Weight 114.318, kg, Start date: 02/25/15 21:00:00, Duration: 30 day, Stop date: 03/26/15 21:00:0 0 Notes: Same as LevemirDo not hold insulin without contacting prescriber "single patient use only" Start Date: 02/25/15 Stop Date: 02/27/15 Status: Discontinued metFORMIN 250 mg, PO, BID, 0 Refill(s) Start Date: 02/25/15 Status: Suspended methylPREDNISolone SODium SUCCinate 125 mg, 2 mL, Route: IVP, Drug form: INJ, ONCE, Dosing Weight 122.727, kg, Prior ity: STAT, Start date: 02/25/15 1:25:00, Stop date: 02/25/15 1:25:00 Notes: (Same as:Solu-MEDROL, A-Methapred) Start Date: 02/25/15 Stop Date: 02/25/15 Status: Completed nitroglycerin 0.4 mg sublingual tablet 0.4 mg, 1 tab, Route: SL, Drug form: TAB, Q5Min, PRN Chest Pain, Start date: 6:05:00, Duration: 30 day, Stop date: 03/27/15 6:04:00 Notes: (Same as:Nitroquick, Nitrostat)"Do Not Crush" Sublingual tablet Start Date: 02/25/15 Stop Date: 02/27/15 Status: Discontinued normal saline 0.9% IV 1,000 mL 1,000 mL, Rate: 100 ml/hr, Infuse over: 10 hr, Route: IV, Dosing Weight 122.727 kg, Total Volume: 1,000, Start date: 02/25/15 5:11:00, Duration: 30 day, Stop da te: 03/27/15 5:10:00 Start Date: 02/25/15 Stop Date: 02/27/15 Status: Discontinued NovoLOG FlexPen 45 unit, 0.45 mL, Route: SUB-Q, Drug form: SOLN, Before Dinner, Start date: 02/07 05/24 16:30:00, Duration: 30 day, Stop date: 03/26/15 16:30:00 Notes: Roll in palms of hands gently; Do not shake vigorously. (Same as: NovoLO G)"single patient use only" Stable for 28 days at room temperature.Expires in _ ____ days from Date Start Date: 02/25/15 Stop Date: 02/27/15 Status: Discontinued NovoLOG FlexPen 40 unit, 0.4 mL, Route: SUB-Q, Drug form: SOLN, Before Lunch, Start date: 11:30:00, Duration: 30 day, Stop date: 03/27/15 11:30:00 Notes: Roll in palms of hands gently; Do not shake vigorously. (Same as: NovoVIRGILIO G)"single patient use only" Stable for 28 days at room temperature.Expires in _ ____ days from Date Start Date: 02/26/15 Stop Date: 02/27/15 Status: Discontinued NovoLOG FlexPen 36 unit, 0.36 mL, Route: SUB-Q, Drug form: SOLN, Before Breakfast, Start date: 0 02/26/15 7:30:00, Duration: 30 day, Stop date: 03/27/15 7:30:00 Notes: Roll in palms of hands gently; Do not shake vigorously. (Same as: NovoVIRGILIO G)"single patient use only" Stable for 28 days at room temperature.Expires in _ ____ days from Date Start Date: 02/26/15 Stop Date: 02/27/15 Status: Discontinued NS (Bolus) IV 1,000 mL, 1,000 ml/hr, Infuse Over: 1 hr, Route: IV, 1,000, Drug form: INJ, ONCE , Priority: STAT, Dosing Weight 122.727 kg, Start date: 02/25/15 4:57:00, Durati on: 1 doses or times, Stop date: 02/25/15 4:57:00 Start Date: 02/25/15 Stop Date: 02/27/15 Status: Completed Plavix 75 mg, 1 tab, Route: PO, Drug form: TAB, Daily, Dosing Weight 122.727, kg, Start date: 02/25/15 9:00:00, Duration: 30 day, Stop date: 03/26/15 9:00:00 Notes: (Same As: Plavix) Start Date: 02/25/15 Stop Date: 02/27/15 Status: Discontinued pneumococcal 23-valent vaccine 0.5 mL, Route: IM, Drug Form: INJ, Daily, Start date: 02/25/15 9:00:00, Duration : 1 doses or times, Stop date: 02/25/15 9:00:00 Notes: (Same as: Pneumovax 23) Refrigerate Start Date: 02/25/15 Stop Date: 02/25/15 Status: Completed predniSONE 60 mg, 3 tab, Route: PO, Drug form: TAB, Breakfast, Dosing Weight 122.727, kg, S tart date: 02/25/15 8:00:00, Duration: 30 day, Stop date: 03/26/15 8:00:00 Notes: Take with food. Start Date: 02/25/15 Stop Date: 02/25/15 Status: Discontinued ramipril 10 mg, PO, BID, 0 Refill(s) Start Date: 02/25/15 Status: Suspended Saline Flush 0.9% 10 mL, Route: IVP, Drug Form: INJ, Dosing Weight 122.727, kg, PRN, PRN Line Flus h, Start date: 02/24/15 22:46:00, Duration: 30 day, Stop date: 03/26/15 22:45:00 Notes: preservative free. Start Date: 02/24/15 Stop Date: 02/26/15 Status: Discontinued Xopenex 1.25 mg, 3 mL, Route: NEB, Drug form: SOLN, PRN, Dosing Weight 122.727, kg, PRN Respiratory Protocol, Start date: 02/25/15 5:07:00, Duration: 30 day, Stop date: 03/27/15 5:06:00 Notes: SEE RT DOCUMENTATION (Same as:Xopenex)Non-Formulary Start Date: 02/25/15 Stop Date: 02/27/15 Status: Discontinued Zithromax 500 mg, 250 mL, Route: IVPB, Drug form: PDR/INJ, ONCE, Dosing Weight 122.727, kg , Priority: STAT, Start date: 02/25/15 4:10:00, Stop date: 02/25/15 4:10:00 Notes: Same as: Zithromax Start Date: 02/25/15 Stop Date: 02/25/15 Status: Completed Results ELECTROLYTES 1 2 3 Most recent to oldest [Reference Range]: 143 mEq/L (02/27/15 4:00 AM) 138 mEq/L (02/26/15 5:06 AM) 137 mEq/L (02/25/15 5:11 AM) Sodium Lvl [135-145 mEq/L] 4.4 mEq/L (02/27/15 4:00 AM) 4.8 mEq/L (02/26/15 5:06 AM) 4.6 mEq/L (02/25/15 5:11 AM) Potassium Lvl [3.5-5.1 mEq/L] 109 mEq/L (02/27/15 4:00 AM) 104 mEq/L (02/26/15 5:06 AM) 103 mEq/L (02/25/15 5:11 AM) Chloride Lvl [95-109 mEq/L] 30 mEq/L (02/27/15 4:00 AM) 25 mEq/L (02/26/15 5:06 AM) 27 mEq/L (02/25/15 5:11 AM) CO2 [24-32 mEq/L] 8.4 mEq/L *LOW* (02/27/15 4:00 AM) 13.8 mEq/L (02/26/15 5:06 AM) 11.6 mEq/L (02/25/15 5:11 AM) AGAP [10.0-20.0 mEq/L] CHEM PANEL 1 2 3 Most recent to oldest [Reference Range]: 1.1 mg/dL (02/27/15 4:00 AM) 1.4 mg/dL (02/26/15 5:06 AM) 1.4 mg/dL (02/25/15 5:11 AM) Creatinine Lvl [0.5-1.4 mg/dL] 68 mL/min/1.73m2 1 *NA* (02/27/15 4:00 AM) 51 mL/min/1.73m2 2 *NA* (02/26/15 5:06 AM) 51 mL/min/1.73m2 3 *NA* (02/25/15 5:11 AM) eGFR 39 mg/dL *HI* (02/27/15 4:00 AM) 46 mg/dL *HI* (02/26/15 5:06 AM) 24 mg/dL *HI* (02/25/15 5:11 AM) BUN [7-22 mg/dL] 35 *HI* (02/27/15 4:00 AM) 15 (02/24/15 9:59 PM) B/C Ratio [6-25] 126 mg/dL 4 *HI* (02/27/15 4:00 AM) 318 mg/dL 5 *HI* (02/26/15 5:06 AM) 261 mg/dL 6 *HI* (02/25/15 5:11 AM) Glucose Lvl [70-99 mg/dL] 5.9 g/dL *LOW* (02/27/15 4:00 AM) 7.1 g/dL (02/24/15 9:59 PM) Total Protein [6.4-8.4 g/dL] 2.7 g/dL *LOW* (02/27/15 4:00 AM) 3.4 g/dL *LOW* (02/24/15 9:59 PM) Albumin Lvl [3.5-5.0 g/dL] 3.2 g/dL (02/27/15 4:00 AM) 3.7 g/dL (02/24/15 9:59 PM) Globulin [2.0-4.0 g/dL] 0.8 (02/27/15 4:00 AM) 0.9 (02/24/15 9:59 PM) A/G Ratio [0.7-1.6] 8.6 mg/dL (02/27/15 4:00 AM) 9.0 mg/dL (02/26/15 5:06 AM) 9.5 mg/dL (02/25/15 5:11 AM) Calcium Lvl [8.5-10.5 mg/dL] 74 unit/L *HI* (02/27/15 4:00 AM) 28 unit/L (02/24/15 9:59 PM) ALT [0-65 unit/L] 78 unit/L *HI* (02/27/15 4:00 AM) 32 unit/L (02/24/15 9:59 PM) AST [0-37 unit/L] 66 unit/L (02/27/15 4:00 AM) 56 unit/L (02/24/15 9:59 PM) Alk Phos [39-136 unit/L] 1.1 mg/dL (02/27/15 4:00 AM) 1.7 mg/dL *HI* (02/24/15 9:59 PM) Bili Total [0.2-1.3 mg/dL] 4.06 ng/mL 7 *CRIT* (02/25/15 10:50 PM) Procalcitonin Lvl [0.00-0.10 ng/mL] 1Result Comment: The eGFR is calculated using the CKD-EPI formula. In most young, healthy individuals the eGFR will be >90 mL/min/1.73m2. The eGFR declines with age. An eGFR of 60-89 may be normal in some populations, particularly the elderly, for whom the CKD-EPI formula has not been extensively validated. Use of the eGFR is not recommended in the following populations: Individuals with unstable creatinine concentrations, including patients and those with serious co-morbid conditions. Patients with extremes in muscle mass or diet. The data above are obtained from the National Kidney Disease Education Program ( NKDEP) which additionally recommends that when the eGFR is used in patients with extremes of body mass index for purposes of drug dosing, the eGFR should be mul tiplied by the estimated BMI. 2Result Comment: The eGFR is calculated using the CKD-EPI formula. In most young, healthy individuals the eGFR will be >90 mL/min/1.73m2. The eGFR declines with age. An eGFR of 60-89 may be normal in some populations, particularly the elderly, for whom the CKD-EPI formula has not been extensively validated. Use of the eGFR is not recommended in the following populations: Individuals with unstable creatinine concentrations, including patients and those with serious co-morbid conditions. Patients with extremes in muscle mass or diet. The data above are obtained from the National Kidney Disease Education Program ( NKDEP) which additionally recommends that when the eGFR is used in patients with extremes of body mass index for purposes of drug dosing, the eGFR should be mul tiplied by the estimated BMI. 3Result Comment: The eGFR is calculated using the CKD-EPI formula. In most young, healthy individuals the eGFR will be >90 mL/min/1.73m2. The eGFR declines with age. An eGFR of 60-89 may be normal in some populations, particularly the elderly, for whom the CKD-EPI formula has not been extensively validated. Use of the eGFR is not recommended in the following populations: Individuals with unstable creatinine concentrations, including patients and those with serious co-morbid conditions. Patients with extremes in muscle mass or diet. The data above are obtained from the National Kidney Disease Education Program ( NKDEP) which additionally recommends that when the eGFR is used in patients with extremes of body mass index for purposes of drug dosing, the eGFR should be mul tiplied by the estimated BMI. 4Interpretive Data: Adult reference range values reflect the clinical guidelines of the [place] [employer]. 5Interpretive Data: Adult reference range values reflect the clinical guidelines of the [place] [employer]. 6Interpretive Data: Adult reference range values reflect the clinical guidelines of the [place] [employer]. 7Result Comment: Critical Result(s) called to Cecilia Keyes at 02/26/2015 10:00 byky. Read back OK. CARDIAC ENZYMES 1 2 3 Most recent to oldest [Reference Range]: 909 unit/L *HI* (02/27/15 4:00 AM) 1494 unit/L *HI* (02/26/15 5:06 AM) 1805 unit/L *HI* (02/25/15 10:50 PM) Total CK [12-191 unit/L] 6.8 ng/mL *HI* (02/25/15 10:51 AM) 4.1 ng/mL *HI* (02/25/15 5:11 AM) 2.8 ng/mL (02/24/15 9:59 PM) CK MB [0.5-3.6 ng/mL] 0.4 (02/25/15 10:51 AM) 0.2 (02/25/15 5:11 AM) 0.3 (02/24/15 9:59 PM) CK MB Index [0.0-2.5] 0.04 ng/mL (02/25/15 10:51 AM) 0.05 ng/mL (02/25/15 5:11 AM) 0.05 ng/mL (02/24/15 9:59 PM) Troponin-I [0.00-0.40 ng/mL] 565 pg/mL 8 *HI* (02/24/15 9:59 PM) BNP [<=100 pg/mL] 8Interpretive Data: Elevated results are in line with increasing severity of congestive heart failure. Minor elevations between 100 and 300 may be seen with Myocardial Ischemia, Sodium retaining drugs, and compensated/treated heart failure. LIPIDS 1 2 3 Most recent to oldest [Reference Range]: 9.44 *HI* (02/26/15 5:06 AM) CHD Risk [4.00-7.30] 85 mg/dL (02/26/15 5:06 AM) Chol [<=199 mg/dL] 257 mg/dL *HI* (02/26/15 5:06 AM) Trig [<=149 mg/dL] 9 mg/dL *LOW* (02/26/15 5:06 AM) HDL [>=61 mg/dL] 25 mg/dL (02/26/15 5:06 AM) LDL (Calculated) [<=99 mg/dL] 51 *NA* (02/26/15 5:06 AM) VLDL SPECIAL CHEMISTRY 1 2 3 Most recent to oldest [Reference Range]: 6.6 % *HI* (02/25/15 5:11 AM) Hgb A1C [<=5.6 %] URINE AND STOOL 1 2 3 Most recent to oldest [Reference Range]: Marked *ABN* (02/26/15 6:42 AM) UA Turbidity [Clear] Yellow *NA* (02/26/15 6:42 AM) UA Color [Yellow] 5.0 (02/26/15 6:42 AM) UA pH [5.0-8.0] 1.020 (02/26/15 6:42 AM) UA Spec Grav [<=1.030] 500 mg/dL *ABN* (02/26/15 6:42 AM) UA Glucose [Negative mg/dL] Large *ABN* (02/26/15 6:42 AM) UA Blood [Negative] Negative mg/dL *NA* (02/26/15 6:42 AM) UA Ketones [Negative mg/dL] 30 mg/dL *ABN* (02/26/15 6:42 AM) UA Protein [Negative mg/dL] <=1.0 mg/dL *NA* (02/26/15 6:42 AM) UA Urobilinogen [0.1-1.0 mg/dL] Negative *NA* (02/26/15 6:42 AM) UA Bili [Negative] Trace *ABN* (02/26/15 6:42 AM) UA Leuk Est [Negative] Negative (02/26/15 6:42 AM) UA Nitrite [Negative] 26 /HPF *HI* (02/26/15 6:42 AM) UA WBC [0-5 /HPF] 1 /HPF (02/26/15 6:42 AM) UA RBC [0-2 /HPF] Many /HPF *ABN* (02/26/15 6:42 AM) UA Bacteria [None Seen /HPF] Occasional /LPF *NA* (02/26/15 6:42 AM) UA Sq Epi [Few /LPF] 3 /LPF *HI* (02/26/15 6:42 AM) UA Hyal Cast [0-2 /LPF] Few /LPF *NA* (02/26/15 6:42 AM) UA Mucus [None Seen /LPF] IMMUNOLOGY 1 2 3 Most recent to oldest [Reference Range]: Negative *NA* (02/25/15 5:09 AM) [place]-Hep C Ab [Negative] HEMATOLOGY 1 2 3 Most recent to oldest [Reference Range]: 15.2 K/CMM *HI* (02/27/15 4:00 AM) 24.6 K/CMM *HI* (02/26/15 5:06 AM) 24.3 K/CMM *HI* (02/25/15 5:11 AM) WBC [3.7-10.4 K/CMM] 4.57 M/CMM *LOW* (02/27/15 4:00 AM) 4.55 M/CMM *LOW* (02/26/15 5:06 AM) 4.89 M/CMM (02/25/15 5:11 AM) RBC [4.70-6.10 M/CMM] 14.4 g/dL (02/27/15 4:00 AM) 14.6 g/dL (02/26/15 5:06 AM) 15.5 g/dL (02/25/15 5:11 AM) Hgb [14.0-18.0 g/dL] 43.2 % (02/27/15 4:00 AM) 43.1 % (02/26/15 5:06 AM) 45.9 % (02/25/15 5:11 AM) Hct [42.0-54.0 %] 94.5 fL *HI* (02/27/15 4:00 AM) 94.7 fL *HI* (02/26/15 5:06 AM) 94.0 fL (02/25/15 5:11 AM) MCV [80.0-94.0 fL] 31.5 pg *HI* (02/27/15 4:00 AM) 32.1 pg *HI* (02/26/15:06 AM) 31.8 pg *HI* (02/25/15:11 AM) MCH [27.0-31.0 pg] 33.3 g/dL (02/27/15 4:00 AM) 33.9 g/dL (02/26/15:06 AM) 33.8 g/dL (02/25/15 5:11 AM) MCHC [32.0-36.0 g/dL] 15.8 % *HI* (02/27/15 4:00 AM) 15.9 % *HI* (02/26/15:06 AM) 15.9 % *HI* (02/25/15 5:11 AM) RDW [11.5-14.5 %] 211 K/CMM (02/27/15 4:00 AM) 201 K/CMM (02/26/15 5:06 AM) 196 K/CMM (02/25/15 5:11 AM) Platelet [133-450 K/CMM] 8.3 fL (02/27/15 4:00 AM) 8.6 fL (02/26/15 5:06 AM) 8.0 fL (02/25/15 5:11 AM) MPV [7.4-10.4 fL] 84.1 % *HI* (02/27/15 4:00 AM) 90.7 % *HI* (02/26/15 5:06 AM) 95.1 % *HI* (02/25/15 5:11 AM) Segs [45.0-75.0 %] 7.0 % *LOW* (02/27/15 4:00 AM) 3.4 % *LOW* (02/26/15 5:06 AM) 1.9 % *LOW* (02/25/15 5:11 AM) Lymphocytes [20.0-40.0 %] 8.7 % (02/27/15 4:00 AM) 5.8 % (02/26/15 5:06 AM) 3.0 % (02/25/15 5:11 AM) Monocytes [2.0-12.0 %] 0.1 % (02/27/15 4:00 AM) Eosinophils [0.0-4.0 %] 0.1 % (02/27/15 4:00 AM) 0.1 % (02/26/15 5:06 AM) 0.1 % (02/24/15 9:59 PM) Basophils [0.0-1.0 %] 12.7 K/CMM *HI* (02/27/15 4:00 AM) 22.3 K/CMM *HI* (02/26/15 5:06 AM) 23.1 K/CMM *HI* (02/25/15 5:11 AM) Segs-Bands # [1.5-8.1 K/CMM] 1.1 K/CMM (02/27/15 4:00 AM) 0.8 K/CMM *LOW* (02/26/15 5:06 AM) 0.5 K/CMM *LOW* (02/25/15 5:11 AM) Lymphocytes # [1.0-5.5 K/CMM] 1.3 K/CMM *HI* (02/27/15 4:00 AM) 1.4 K/CMM *HI* (02/26/15 5:06 AM) 0.7 K/CMM (02/25/15 5:11 AM) Monocytes # [0.0-0.8 K/CMM] Normal (02/25/15 5:11 AM) RBC Morph Normal (02/25/15 5:11 AM) Plt Morph 16.7 seconds *HI* (02/24/15 9:59 PM) PT [12.0-14.7 seconds] 1.34 9 *HI* (02/24/15 9:59 PM) INR [0.85-1.17] 32.0 seconds 10 (02/24/15 9:59 PM) PTT [22.9-35.8 seconds] 9Interpretive Data: RECOMMENDED RANGES FOR PROTIME INR: 2.0-3.0 for most medical and surgical thromboembolic states. 2.5-3.5 for artificial heart valves and recurrent embolism. INR SHOULD BE USED ONLY FOR PATIENTS ON STABLE ANTICOAGULANT THERAPY. 10Interpretive Data: Heparin Therapeutic Range: 57 - 92 Seconds Immunizations Vaccine Date Refusal Reason pneumococcal 23-valent vaccine 02/27/15 Patient Refuses Procedures Procedure Date Related Diagnosis Body Site Procedure on knee Tonsillectomy Social History Social History Type Response Alcohol Never Smoking Status Former smoker; Exposure to Tobacco Smoke None; Cigarette Smoking Last 365 Days No; Reg Smoking Cessation Counseling No Assessment and Plan Extracted from: Title: Clinical Document Author: Moe Garber DO Date: 02/26/15 Progress Daily [facility] SUBJECTIVE Pt is feeling well with no more SOB and ambulating well with no acute complaint. denies fever or chills OBJECTIVE Vital Signs (last 24 hrs) Last Charted Temp Oral98.4 DegF (FEB 26 07:58) Heart Rate Qvfjmipjqe15 bpm (FEB 26 07:58) Resp Rate 17 BRMIN (FEB 26 07:58) SBPH 160mmHg (FEB 26 07:58) DBPH 94mmHg (FEB 26 07:58) Labs (Last four charted values) WBC H 24.6(FEB 20)H 24.3(BENNIE 19)H 24.3(FEB 18) Hgb 14.6(BENNIE 20)15.5(BENNIE 19)15.7(BENNIE 18) Hct 43.1(BENNIE 20)45.9(BENNIE 19)46.0(BENNIE 18) Plt 201(BENNIE 20)196(BENNIE 19)215(BENNIE 18) Na 138(BENNIE 20)137(BENNIE 19)137(BENNIE 18) K 4.8(BENNIE 20)4.6(BENNIE 19)4.3(BENNIE 18) CO2 25(BENNIE 20)27(BENNIE 19)L 22(BENNIE 18) Cl 104(FEB 26)103(FEB 25)104(FEB 24) Cr 1.4(FEB 26)1.4(FEB 25)H 1.5(FEB 24) BUN H 46(FEB 26)H 24(FEB 25)22(FEB 24) Glucose Random H 318(FEB 26)H 261(FEB 25)H 236(FEB 24) Ca 9.0(FEB 26)9.5(FEB 25)9.3(FEB 24) PT H 16.7(FEB 24) INR H 1.34(FEB 24) PTT 32.0(FEB 24) Troponin 0.04(FEB 25)0.05(FEB 25)0.05(FEB 24) CK MB H 6.8(FEB 25)H 4.1(FEB 25)2.8(FEB 24) Total CK H 1494(FEB 26)H 1805(FEB 25)H 2036(FEB 25)H 1914(FEB 25) Input/Output RecordInOutBal 02/1924hr Tot 258 0 258 02/1824hr Tot 58 0 58 ASSESSMENT & EXAM Gen. Pt is AOX4 in no acute distress HEET: Normocephalic, nontraumatic. NECK: Supple, no JVD or Lymphadenopathy LUNGS: Clear on auscultation B/l with no wheezing or crackles HEART: S1, S2.RRR with no murmurs ABDOMEN: Soft, NT/ND with good BS CENTRAL NERVOUS SYSTEM: Patient moving all extremities grossly well. LOWER EXTREMITIES: No C/C/E PLAN & TREATMENT Pt admitted with acute bronchitis and noted with Rhabdomyolysis with KOTA -C/w IVF -Ck remains very elevated -Will D/c crestor which might be causing rabdo -C/w ABX and Neb DIAGNOSES & PROBLEMS Acute Bronchitis Rhabdomyolysis KOTA CAD DM Obesity HTN Scheduled Meds (8):amLODIPine, aspirin, azithromycin, clopidogrel (Plavix), insulin aspart (NovoLOG FlexPen), insulin aspart (NovoLOG FlexPen), insulin aspart (NovoLOG FlexPen), insulin detemir (Levemir FlexPen) Unscheduled Meds: None PRN Meds (13):Dextrose 50% in Water IV (Dextrose 50% Syringe), Dextrose 50% in Water IV (Dextrose 50% Syringe), atropine, glucagon, insulin aspart, insulin aspart, insulin aspart, insulin aspart, insulin aspart, ipratropium, levalbuterol (Xopenex), nitroglycerin (nitroglycerin 0.4 mg sublingual tablet), sodium chloride (Saline Flush 0.9%) One Time Meds (3):(Ordered) Sodium Chloride 0.9% IV (NS (Bolus) IV), (not done) azithromycin (Zithromax), (Completed) methylPREDNISolone (methylPREDNISolone SODium SUCCinate) Continuous Infusions (1):Sodium Chloride 0.9% IV 1,000 mL (normal saline 0.9% IV 1,000 mL) Extracted from: Title: Clinical Document Author: Jeffery Ludwig MD Date: 02/25/15 History and Physical Attending: Moe Garber: Service: Internal Medicine Code status: None Specified=FULL CODE Reason for Admission: DYSPNEA, ACUTE BRONCHITIS Working DRG: None Documented Isolation: None Documented Consulting Physicians: (none on file) CC: difficulty breathing HPI: This is a 69 yo w/ below PMHx who p/w few day h/o SOB. SOB occurs at rest and on exertion, makes no difference. Has cough w/ whitish sputum for a while. Decreased energy. Has not had these symptoms before. Denies CP, lightheadedness/dizziness, abd pain, N/V, bowel/urinary changes, fevers. No sick contacts. In the ER, noted to be hypoxic to upper 80s% on RA during ambulation. PMHx: T2DM CAD HTN HLD PSHx: Tonsillectomy cardiac stent FHx: reviewed and noncontributory SHx: Former heavy drinker, quit 30yrs ago Denies tobacco, illicit drugs Exposed to second hand smoker when younger but not recently Meds: Medication List Active Medications Ordered albuterol-ipratropium: 3 ml, NEB, PRN, PRN: Respiratory Protocol. albuterol-ipratropium: 3 ml, NEB, PRN, PRN: Respiratory Protocol. azithromycin: 500 mg, 250 mL, 166.67 ml/hr, IVPB, ONCE. sodium chloride: 10 mL, IVP, PRN, PRN: Line Flush. Medications Inactivated in the Last 72 Hours iodixanol: 100 mL, PYXIS, ONCE. methylPREDNISolone: 125 mg, 2 mL, IVP, ONCE. methylPREDNISolone: 125 mg, 2 mL, PYXIS, ONCE. Sodium Chloride 0.9% IV: 100 mL, PYXIS, ONCE. Allergies: NKDA ROS: See HPI. All other systems reviewed by myself are negative unless noted above. Physical Exam: VitalsTmp(F)[id number] 02/25 01:42 2297 3.0L/m 02/24 21:[id number]--- 24 Hr Tmax: 98.0F (36.67c) at 02/24 21:48Vital Signs are the last 5 in the past 48 hours. General: NAD, nontoxic appearing HEENT: NCAT, PERRL, MMM, no JVD Cardiovascular: RRR, S1S2 Respiratory: scattered expiratory wheezes Abdomen: +BS, NT/ND Extremities: no b/l LE edema Skin: no rashes Neurologic: comprehension and speech intact, CN III-XII grossly intact Musculoskeletal: symmetric strength in all extremities Labs: 24hr Labs 02/24 2159 Sodium Xax698 Potassium Lvl4.3 Chloride Ojm155 CO222 L AGAP15.3 Glucose Fah364 H Creatinine Lvl1.5 H BUN22 B/C Ratio15 Total Protein7.1 Albumin Lvl3.4 L Globulin3.7 A/G Ratio0.9 Calcium Lvl9.3 ALT28 AST32 Alk Phos56 Bili Total1.7 H eGFR47 Troponin-I0.05 CK MB2.8 Total BN9861 H CK MB Index0.3 ACD096 H WBC24.3 H RBC4.92 Hgb15.7 Hct46.0 MCV93.5 MCH31.8 H MCHC34.0 RDW15.7 H Tnvlsqlp004 MPV7.7 Segs88.5 H Monocytes8.4 Lymphocytes3.0 L Basophils0.1 Segs-Bands #21.5 H Lymphocytes #0.7 L Monocytes #2.0 H PT16.7 H INR1.34 H PTT32.0 Micro: none Imaging: CXR: The hypoinflated lungs are clear of consolidation, pleural effusion, and pneumothorax. Mild bilateral basilar subsegmental atelectasis. Mildly elevated right hemidiaphragm. The heart size is at the upper limits of normal to mildly enlarged. CT chest: 1. Suboptimal contrast opacification of the peripheral pulmonary arteries. No central pulmonary artery embolism is seen. 2. Respiratory motion artifact limits evaluation of the lungs. No definite pneumonia or edema. No pleural effusion. 3. Coronary artery calcifications. Mild cardiomegaly. 4. No bulky adenopathy. 5. Spondylosis thoracic spine. EKG: sinus tachy, no major ST abnormalities Assessment and Plan: 69 yo p/w SOB and cough. No prior h/o COPD/asthma or other pulmonary issues. Pt is admitted because of persistent hypoxia. CK 1000, BNP 500 Pt was hypoxic on RA so requiring NC. No PE or pnuemonia found on imaging. Has leukocytosis w/ elevated segs but no source of bacterial infection found. Has BNP 500 but no fluid seen on chest imaging, no JVD. # acute bronchitis: xopenex, ipratropium, steroids, azithromycin, oxygen # KOTA: iv fluids and recheck # elevated CK but no myalgias or other associated symptoms: iv fluids, reheck CK # DM: SSI # CAD/HTN: c/w home regimen Prophylaxis: ambulation Diet: diabetic Jeffery Ludwig [employer]
--- OUTSIDE RECORDS SUMMARY | 2018-08-21 10:47 | XMS REPORT ---
Author Author Gil Mar [facility] eClinicalWorks Address Unknown Phone Unavailable Care Team Providers Care Imaging Assistant Name Role Phone Gil Mar Unavailable Allergies No Known Allergies Problems Problem Type Condition Code Onset Dates Condition Status Problem Chronic diastolic heart failure 428.32 Active Problem Occlusion and stenosis of right carotid artery I65.21 Active Problem Abnormal electrocardiogram [ECG] [EKG] R94.31 Active Problem Obesity, unspecified E66.9 Active Problem CHF, chronic systolic I50.22 Active Problem Body mass index (BMI) 38.0-38.9, adult Z68.38 Active Problem Peripheral vascular disease, unspecified I73.9 Active Problem Type 2 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.51 Active Problem Coronary angioplasty status Z98.61 Active Problem Atherosclerotic heart disease of [place] coronary artery without angina pectoris I25.10 Active Problem Coronary atherosclerosis of [place] coronary artery 414.01 Active Problem Peripheral vascular disease 443.9 Active Problem Diabetes mellitus type II 250.00 Active Problem Abnormal ECG 794.31 Active Problem Morbid obesity 278.01 Active Problem Postprocedural PCI status V45.82 Active Problem Mixed hyperlipidemia 272.2 Active Problem Carotid stenosis 433.10 Active Medications Medication Code System Code Instructions Start Date End Date Status Dosage Aspirin [facility] 23421398274 81 MG Orally Once a day Active 1 tablet Clopidogrel Bisulfate [facility] 00605054855 75 MG Orally Once a day Active 1 tablet Fish Oil [facility] 26649093581 500 MG Orally Twice a day Active 1 capsule Metformin HCl [facility] 27024479933 500 MG Orally Twice a day Active 1 tablet with meals Metoprolol Succinate ER ND 26243480197 50 MG Orally Once a day Active 1 tablet Simvastatin [facility] 76628831434 10 mg Orally Once a day Active 1 tablet in the evening Humalog [facility] 69700995754 100 UNIT/ML Subcutaneous Active not defined Tradjenta [facility] 95142673148 Orally Once a day Active 1 tablet Levemir [facility] 72091018875 100 UNIT/ML Subcutaneous Active not defined Losartan Potassium [facility] 49483278513 50 MG Orally Once a day Active 1 tablet Results No Known Results Summary Purpose eClinicalWorks Submission
--- OUTSIDE RECORDS SUMMARY | 2018-08-21 10:47 | XMS REPORT ---
Author Author Gil Mar Organization e[employer] Address Unknown Phone Unavailable Care Team Providers Care Machine Precision Etcher Name Role Phone Gil Mar CP Unavailable Allergies No Known Allergies Problems Problem [...] Z98.61 Active Problem Atherosclerotic heart disease of [place] coronary artery without angina pectoris I25.10 Active Problem Coronary atherosclerosis of [place] coronary artery 414.01 Active Problem Peripheral vascular disease 443.9 Active Problem Diabetes mellitus type II 250.00 Active Problem Abnormal ECG 794.31 Active Problem Morbid obesity 278.01 Active Problem Postprocedural PCI status V45.82 Active Problem Mixed hyperlipidemia 272.2 Active Problem Carotid stenosis 433.10 Active Medications Medication Code System Code Instructions Start Date End Date Status Dosage Clopidogrel Bisulfate [facility] 39524797111 75 mg Orally Once a day Active 1 tablet Simvastatin [facility] 93394870950 10 mg Orally Once a day Active 1 tablet in the evening Results No Known Results Summary Purpose eClinicalWorks Submission
--- OUTSIDE RECORDS SUMMARY | 2018-08-21 10:47 | XMS REPORT ---
Author Author Yareli Alford Organization e[employer] Address Unknown Phone Unavailable Care Team Providers Care Screen Handler Name Role Phone Yareli Alford CP Unavailable Allergies, Adverse Reactions, Alerts Substance Reaction Event Type N.K.D.A. Info Not Available Non Drug Allergy Problems Problem Type Condition Code Onset Dates Condition Status Assessment PAD (peripheral artery disease) I73.9 Active Assessment Pain in left knee M25.562 Active Assessment Other chronic pain G89.29 Active Assessment Diabetes E11.9 Active Problem PAD (peripheral artery disease) I73.9 Active Problem Carotid arterial disease I77.9 Active Problem Other chronic pain G89.29 Active Problem Diabetes E11.9 Active Assessment BPH (benign prostatic hyperplasia) N40.0 Active Problem HTN (hypertension) I10 Active Problem BPH (benign prostatic hyperplasia) N40.0 Active Medications Medication Code System Code Instructions Start Date End Date Status Dosage Tamsulosin HCl [facility] 61490274452 0.4 MG Orally Once a day Active 1 capsule Ramipril [facility] [address]-02 Active not defined Metformin HCl [facility] [address]-37 Active not defined Metoprolol Succinate ER [facility] [address]-89 Active not defined Simvastatin [facility] [address]-17 Active not defined Clopidogrel Bisulfate [facility] [address]-30 Active not defined Vital Signs Date/Time: Aug 13, 2017 BMI 38.16 Index Weight 266 lbs Height 70 in Temperature 97.5 F Blood Pressure Diastolic 91 mm Hg Blood Pressure Systolic 164 mm Hg Results No Known Results Summary Purpose eClinicalWorks Submission
--- OUTSIDE RECORDS SUMMARY | 2018-08-21 10:47 | XMS REPORT | Continuity of Care Document ---
Author Author [facility] Interface Address Unknown Phone Unavailable Problems Problem Status Onset Date Classification Date Reported Comments Source SOB Active 02/24/2015 [facility] DYSPNEA, ACUTE BRONCHITIS Active 02/24/2015 [facility] Diabetes Resolved Problem 03/02/2015 [facility] Hypercholesterolemia Active Problem 03/02/2015 [facility] Hypertension Active Problem 03/02/2015 [facility] Diabetes Active Problem 08/15/2018 Enayet Rahim BPH Active Problem 08/15/2018 Enayet Rahim HTN Active Problem 08/15/2018 Enayet Rahim Carotid arterial disease Active Problem 08/15/2018 Enayet Rahim Body mass index 38.0-38.9, adult Active Problem 07/02/2018 Gil Mar MD, PA Obesity, unspecified Active Problem 07/02/2018 Gil Mar MD, [place] Postprocedural PCI status Active Problem 07/02/2018 Gil Mar MD, PA Type 2 diabetes mellitus with 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 gangrene Active Diagnosis 07/02/2018 Gil Mar MD, PA Carotid stenosis Active Problem 07/02/2018 Gil Mar MD, PA Abnormal electrocardiogram [ECG] [EKG] Active Problem 07/02/2018 Gil Mar MD, PA Chronic diastolic heart failure Active Problem 07/02/2018 Gil Mar MD, PA Occlusion and stenosis of right carotid artery Active Diagnosis 07/02/2018 Gil Mar MD, PA CHF, chronic systolic Active Diagnosis 07/02/2018 Gil Mar MD, PA Peripheral vascular disease, unspecified Active Diagnosis 07/02/2018 Gil Mar MD PA Coronary angioplasty status Active Diagnosis 07/02/2018 Gil Mar MD, PA Atherosclerotic heart disease of [place] coronary artery without angina pectoris Active Problem 07/02/2018 Gil Mar MD PA Coronary atherosclerosis of [place] coronary artery Active Problem 07/02/2018 Gil Mar MD, PA Peripheral vascular disease Active Problem 07/02/2018 Gil Mar MD, [place] Diabetes mellitus type II Active Problem 07/02/2018 Gil Mar MD, PA Abnormal ECG Active Problem 07/02/2018 Gil Mar MD, PA Morbid obesity Active Problem 07/02/2018 Gil Mar MD, PA Mixed hyperlipidemia Active Problem 07/02/2018 Gil Mar MD, PA Atrial fibrillation- Chronic Active Problem 07/02/2018 Gil Mar MD, PA Paroxysmal atrial fibrillation Active Problem 07/02/2018 Gil Mar MD, PA PAD Active Problem 08/15/2018 Enayet Rahim Pain in left knee Active Diagnosis 08/21/2017 Enayet Rahim Other chronic pain Active Problem 08/15/2018 Enayet Rahim Perforated right tympanic membrane on examination Active Diagnosis 07/02/2018 Enayet Rahim Fall, initial encounter Active Diagnosis 02/13/2018 Enayet Rahim Acute pain of right shoulder Active Diagnosis 02/13/2018 Enayet Raniurkam Body mass index 37.0-37.9, adult Active Diagnosis 07/02/2018 Gil Mar MD, PA Chronic systolic CHF Active Problem 08/15/2018 Enayet Rahim Well controlled diabetes mellitus Active Problem 08/15/2018 Enayet Rahim PAF Active Problem 08/15/2018 Enayet Rahim Other bilateral secondary osteoarthritis of knee Active Diagnosis 11/01/2016 Enayet Rahim CHF Active Problem 11/10/2017 [facility] Hypotension Active Problem 11/10/2017 [facility] RESPIRATORY ABNORM NEC Active [facility] Medications Medication Details Route Status Patient Instructions Ordering Provider Order Date Source Ciprodex 4 drops into affected ear Otic Active 0.3-0.1 % Otic Twice a day [facility] 06/26/2018 Enayet Rahim Furosemide 1 tablet Orally Active 40 mg Orally Once a day [facility] 03/13/2018 Gil Mar MD, PA Eliquis 1 tablet Orally Active 5 MG Orally twice a day (bid) [facility] 03/13/2018 Gil Mar MD, PA Aspirin 1 tablet Orally Active 81 MG Orally Once a day [facility] 03/13/2018 Gil Mar MD, PA Tramadol HCl 1 tablet as needed Orally Active 50 MG Orally every 12 hrs as needed [facility] 02/06/2018 Enayet Rahihaim Tamsulosin HCl 1 capsule Orally Active 0.4 MG Orally once a day [facility] 10/24/2016 Griselda Jesus Humalog Route: SUB-Q, Before Lunch, Dosing Weight 114.318, kg, Start date: 02/26/15 11:30:00, Duration: 30 day, Stop date: 03/27/15 11:30:00 No Longer Active 02/26/2015 [facility] NovoLOG FlexPen 40 unit, 0.4 mL, Route: SUB-Q, Drug form: SOLN, Before Lunch, Start date: 02/26/15 11:30:00, Duration: 30 day, Stop date: 03/27/15 11:30:00Notes: Roll in palms of hands gently; Do not shake vigorous ly. (Same as: NovoLOG) "single patient use only" Stable for 28 days at room temperature. Expires in days from Date No Longer Active 02/26/2015 [facility] Amlodipine 2.5 mg, 1 tab, Route: PO, Drug form: TAB, Daily, Dosing Weight 114.318, kg, Start date: 02/26/15 9:00:00, Duration: 30 day, Stop date: 03/27/15 9:00:00Notes: (Same as: Norvasc) No Longer Active 02/26/2015 [facility] Aspirin 81 mg, 1 tab, Route: PO, Drug form: CHE[place]AB, Daily, Dosing Weight 114.318, kg, Start date: 02/26/15 9:00:00, Duration: 30 day, Stop date: 03/27/15 9:00:00Notes: Take with food. Inactive 02/26/2015 [facility] Humalog Route: SUB-Q, Before Breakfast, Dosing Weight 114.318, kg, Start date: 02/26/15 7:30:00, Duration: 30 day, Stop date: 03/27/15 7:30:00 No Longer Active 02/26/2015 [facility] NovoLOG FlexPen 36 unit, 0.36 mL, Route: SUB-Q, Drug form: SOLN, Before Breakfast, Start date: 02/26/15 7:30:00, Duration: 30 day, Stop date: 03/27/15 7:30:00Notes: Roll in palms of hands gently; Do not shake vigor ously. (Same as: NovoLOG) "single patient use only" Stable for 28 days at room temperature. Expires in days from Date No Longer Active 02/26/2015 [facility] Levemir FlexPen 110 unit, 1.1 mL, Route: SUB-Q, Drug form: INJ, Bedtime, Dosing Weight 114.318, kg, Start date: 02/25/15 21:00:00, Duration: 30 day, Stop date: 03/26/15 21:00:00Notes: Same as Levemir Do not hold insulin without contacting prescriber "single patient use only" No Longer Active 02/26/2015 [facility] Insulin, Aspart, Human 12 unit, 0.12 mL, Route: SUB-Q, Drug form: SOLN, TID-Before Meals, Dosing Weight 114.318, kg, PRN Blood Glucose Results, Start date: 02/25/15 17:24:00, Duration: 30 day, Stop date: 03/27/15 17:23:00Notes: Roll in palms of hands gently; Do not shake vigorously. (Same as: NovoLOG) "single patient use only" Stable for 28 days at room temperature. Expires in days from Date No Longer Active 02/25/2015 [facility] Dextrose 50% Syringe 12.5 gm, 25 mL, Route: IVP, Drug Form: INJ, Dosing Weight 114.318, kg, PRN, PRN Blood Glucose Results, Start date: 02/25/15 17:24:00, Duration: 30 day, Stop date: 03/27/15 17:23:00 No Longer Active 02/25/2015 [facility] Glucagon 1 mg, Route: IM, Drug form: PDR/INJ, PRN, Dosing Weight 114.318, kg, PRN Blood Glucose Results, Start date: 02/25/15 17:24:00, Duration: 30 day, Stop date: 03/27/15 17:23:00 No Longer Active 02/25/2015 [facility] NovoLOG FlexPen 45 unit, 0.45 mL, Route: SUB-Q, Drug form: SOLN, Before Dinner, Start date: 02/25/15 16:30:00, Duration: 30 day, Stop date: 03/26/15 16:30:00Notes: Roll in palms of hands gently; Do not shake vigorously. (Same as: NovoLOG) "single patient use only" Stable for 28 days at room temperature. Expires in days from Date No Longer Active 02/25/2015 [facility] Humalog Route: SUB-Q, Before Dinner, Dosing Weight 114.318, kg, Start date: 02/25/15 16:30:00, Duration: 30 day, Stop date: 03/26/15 16:30:00 Inactive 02/25/2015 [facility] Humalog 20 unit, Route: SUB-Q, PRN, Dosing Weight 114.318, kg, PRN With Snack, Start date: 02/25/15 14:52:00, Duration: 30 day, Stop date: 03/27/15 14:51:00 Inactive 02/25/2015 [facility] Humalog 100 units/mL 40, SUB-Q, Before Lunch, 0 Refill(s) On Hold 02/25/2015 [facility] Levemir 110, SUB-Q, Bedtime, 0 Refill(s) On Hold 02/25/2015 [facility] Ramipril 10 mg, PO, BID, 0 Refill(s) On Hold 02/25/2015 [facility] Plavix 75 mg, 1 tab, Route: PO, Drug form: TAB, Daily, Dosing Weight 122.727, kg, Start date: 02/25/15 9:00:00, Duration: 30 day, Stop date: 03/26/15 9:00:00Notes: (Same As: Plavix) No Longer Active 02/25/2015 [facility] Aspirin 81 mg, 1 tab, Route: PO, Drug form: ECTAB, Daily, Dosing Weight 122.727, kg, Start date: 02/25/15 9:00:00, Duration: 30 day, Stop date: 03/26/15 9:00:00Notes: Do not crush or chew. (Same As: Ecotrin) No Longer Active 02/25/2015 [facility] pneumococcal capsular polysaccharide type 1 vaccine / pneumococcal capsular polysaccharide type 10A vaccine / pneumococcal capsular polysaccharide type 11A vaccine / pneumococcal capsular polysaccharide type 12F vaccine / pneumococcal capsular polysacchar 0.5 mL, Route: IM, Drug Form: INJ, Daily, Start date: 02/25/15 9:00:00, Duration: 1 doses or times, Stop date: 02/25/15 9:00:00Notes: (Same as: Pneumovax 23) Refrigerate Inactive 02/25/2015 [facility] Prednisone 60 mg, 3 tab, Route: PO, Drug form: TAB, Breakfast, Dosing Weight 122.727, kg, Start date: 02/25/15 8:00:00, Duration: 30 day, Stop date: 03/26/15 8:00:00Notes: Take with food. Inactive 02/25/2015 [facility] nitroglycerin 0.4 mg sublingual tablet 0.4 mg, 1 tab, Route: SL, Drug form: TAB, Q5Min, PRN Chest Pain, Start date: 02/25/15 6:05:00, Duration: 30 day, Stop date: 03/27/15 6:04:00Notes: (Same as:Nitroquick, Nitrostat) "Do Not Crush" Sublingual tablet No Longer Active 02/25/2015 [facility] atropine 0.5 mg, 5 mL, Route: IVP, Drug form: INJ, PRN, PRN Bradycardia, Start date: 02/25/15 6:05:00, Duration: 30 day, Stop date: 03/27/15 6:04:00 No Longer Active 02/25/2015 [facility] Azithromycin 500 mg, 250 mL, Route: IVPB, Drug form: PDR/INJ, [id number], Dosing Weight 122.727, kg, Start date: 02/25/15 6:00:00, Duration: 30 day, Stop date: 03/26/15 6:00:00Notes: Same as: Zithromax No Longer Active 02/25/2015 [facility] Crestor PO, Bedtime, 0 Refill(s) On Hold 02/25/2015 [facility] Amlodipine PO, Daily, 0 Refill(s) On Hold 02/25/2015 [facility] Metformin 250 mg, PO, BID, 0 Refill(s) On Hold 02/25/2015 [facility] Aspirin 81 mg, PO, Daily, 0 Refill(s) On Hold 02/25/2015 [facility] Insulin, Aspart, Human 1 unit, 0.01 mL, Route: SUB-Q, Drug form: SOLN, TID-Before Meals, Dosing Weight 122.727, kg, PRN Blood Glucose Results, Start date: 02/25/15 5:25:00, Duration: 30 day, Stop date: 03/27/15 5:24:00Notes: Roll in palms of hands gently; Do not shake vigorously. (Same as: NovoLOG) "single patient use only" Stable for 28 days at room temperature. Expires in days from Date Inactive 02/25/2015 [facility] Glucagon 1 mg, Route: IM, Drug form: PDR/INJ, PRN, Dosing Weight 122.727, kg, PRN Blood Glucose Results, Start date: 02/25/15 5:25:00, Duration: 30 day, Stop date: 03/27/15 5:24:00 Inactive 02/25/2015 [facility] Dextrose 50% Syringe 12.5 gm, 25 mL, Route: IVP, Drug Form: INJ, Dosing Weight 122.727, kg, PRN, PRN Blood Glucose Results, Start date: 02/25/15 5:25:00, Duration: 30 day, Stop date: 03/27/15 5:24:00 Inactive 02/25/2015 [facility] normal saline 0.9% IV 1,000 mL 1,000 mL, Rate: 100 ml/hr, Infuse over: 10 hr, Route: IV, Dosing Weight 122.727 kg, Total Volume: 1,000, Start date: 02/25/15 5:11:00, Duration: 30 day, Stop date: 03/27/15 5:10:00 No Longer Active 02/25/2015 [facility] Ipratropium 0.5 mg, 2.5 mL, Route: NEB, Drug form: SOLN, PRN, Dosing Weight 122.727, kg, PRN Respiratory Protocol, Start date: 02/25/15 5:07:00, Duration: 30 day, Stop date: 03/27/15 5:06:00Notes: SEE RT DOCUMEN TATION (Same as:Atrovent) No Longer Active 02/25/2015 [facility] Xopenex 1.25 mg, 3 mL, Route: NEB, Drug form: SOLN, PRN, Dosing Weight 122.727, kg, PRN Respiratory Protocol, Start date: 02/25/15 5:07:00, Duration: 30 day, Stop date: 03/27/15 5:06:00Notes: SEE RT DOCUMENT ATION (Same as:Xopenex) Non-Formulary No Longer Active 02/25/2015 [facility] Sodium Chloride 0.154 MEQ/ML Injectable Solution 1,000 mL, 1,000 ml/hr, Infuse Over: 1 hr, Route: IV, 1,000, Drug form: INJ, ONCE, Priority: STAT, Dosing Weight 122.727 kg, Start date: 02/25/15 4:57:00, Duration: 1 doses or times, Stop date: 02/25/15 4:57:00 No Longer Active 02/25/2015 [facility] Zithromax 500 mg, 250 mL, Route: IVPB, Drug form: PDR/INJ, ONCE, Dosing Weight 122.727, kg, Priority: STAT, Start date: 02/25/15 4:10:00, Stop date: 02/25/15 4:10:00Notes: Same as: Zithromax Inactive 02/25/2015 [facility] methylPREDNISolone SODium SUCCinate 125 mg, 2 mL, Route: IVP, Drug form: INJ, ONCE, Dosing Weight 122.727, kg, Priority: STAT, Start date: 02/25/15 1:25:00, Stop date: 02/25/15 1:25:00Notes: (Same as:Solu-MEDROL, A-Methapred) Inactive 02/25/2015 [facility] Albuterol 0.833 MG/ML / Ipratropium [place] 0.167 MG/ML Inhalant Solution [DuoNeb] 3 ml, Route: NEB, Drug Form: SOLN, Dosing Weight 122.727, kg, PRN, PRN Respiratory Protocol, Start date: 02/25/15 1:25:00, Duration: 30 day, Stop date: 03/27/15 1:24:00Notes: (Same as: Duoneb) Inactive 02/25/2015 [facility] Albuterol 0.833 MG/ML / Ipratropium [place] 0.167 MG/ML Inhalant Solution [DuoNeb] 3 ml, Route: NEB, Drug Form: SOLN, Dosing Weight 122.727, kg, PRN, PRN Respiratory Protocol, Start date: 02/25/15 1:24:00, Duration: 30 day, Stop date: 03/27/15 1:23:00Notes: (Same as: Duoneb) Inactive 02/25/2015 [facility] Saline Flush 0.9% 10 mL, Route: IVP, Drug Form: INJ, Dosing Weight 122.727, kg, PRN, PRN Line Flush, Start date: 02/24/15 22:46:00, Duration: 30 day, Stop date: 03/26/15 22:45:00Notes: preservative free. No Longer Active 02/25/2015 [facility] Clopidogrel Bisulfate not defined NA Active [facility] Simvastatin not defined NA Active [facility] Metoprolol Succinate ER not defined NA Active [facility] Tamsulosin HCl 1 capsule Orally Active 0.4 MG Orally Once a day [facility] Ramipril not defined NA Active [facility] Metformin HCl not defined NA Active [facility] Aspirin 1 tablet Orally Active 81 MG Orally Once a day Isabela Mar MD, YVON Metformin HCl 1 tablet with meals Orally Active 500 MG Orally Twice a day Isabela Mar MD, YVON Metoprolol Succinate ER 1 tablet Orally Active 50 MG Orally Once a day Isabela Mar MD, YVON Levemir not defined Subcutaneous Active 100 UNIT/ML Subcutaneous Isabela Mar MD, PA Tradjenta 1 tablet Orally Active Orally Once a day Isabela Mar MD, PA Losartan Potassium 1 tablet Orally Active 50 MG Orally Once a day Isabela Mar MD, PA Ramipril 1 capsule Orally Active 10 MG Orally Once a day Isabela Mar MD, YVON Simvastatin 1 tablet in the evening Orally Active 10 mg Orally Once a day Isabela Mar MD, YVON Fish Oil 1 capsule Orally Active 500 MG Orally Twice a day Isabela Mar MD, YVON Humalog not defined Subcutaneous Active 100 UNIT/ML Subcutaneous Isabela Mar MD, YVON Metoprolol Succinate ER 1 tablet Orally Active 100 MG Orally Once a day Isabela Mar MD, YVON Tamsulosin HCl 1 capsule Orally Active 0.4 MG Orally Once a day [facility] Finchyosef Conroyhilary Metformin HCl 1 tablet with meals Orally Active 500 MG Orally Twice a day Rocíosilas Jesus Losartan Potassium not defined NA Active [facility] Clopidogrel Bisulfate 1 tablet Orally Active 75 MG Orally Once a day Rocío Mar MD, YVON,Enjhet Rahi Simvastatin not defined NA Active [facility] Metoprolol Succinate ER not defined NA Active Rocío Villalobos Raidhaim Furosemide not defined NA Active [facility] Josetteyosef Tawnya Ramipril 1 capsule Orally Active 10 MG Orally Once a day Isabela Mar MD, PA Metoprolol Succinate ER 1 tablet Orally Active 50 MG Orally Once a day Isabela Mar MD, YVON Levemir Unknown Subcutaneous Active 100 UNIT/ML Subcutaneous Isabela Mar MD, PA Metformin HCl 1 tablet with meals Orally Active 500 MG Orally Twice a day Isabela Mar MD, [place] Clopidogrel Bisulfate 1 tablet Orally Active 75 MG Orally Once a day Isabela Mar MD, PA Januvia 2 tablets Orally Active 50 MG Orally Once a day Isabela Mar MD, PA Humalog Unknown Subcutaneous Active 100 UNIT/ML Subcutaneous Isabela Mar MD, PA Fish Oil 1 capsule Orally Active 500 MG Orally Twice a day Isabela Mar MD, PA Simvastatin 1 tablet in the evening Orally Active 10 mg Orally Once a day Isabela Mar MD, PA Tradjenta 1 tablet Orally Active Orally Once a day Isabela Mar MD, PA Aspirin 1 tablet Orally Active 81 MG Orally Once a day Isabela Mar MD, YVON Levofloxacin (Levaquin) [address] [facility] Metformin Hcl 500 Mg Tablet Twice A Day [facility] Simvastatin 20 Mg Tablet Today At 9:00PM [facility] Allergies, Adverse Reactions, Alerts Substance Category Reaction Severity Reaction type Status Date Reported Comments Source N.K.D.A. Adverse Reaction Info Not Available Adverse Reaction Active 08/13/2018 Enayet Rahim Immunizations Immunization Date Given Site Status Last Updated Comments Source pneumococcal 23-valent vaccine 02/27/2015 Not Given Wali Uriostegui Results Order Name Results Value Reference Range Date Interpretation Comments Source Capillary blood glucose measurement by glucometer (mass/volume) Capillary blood glucose measurement by glucometer (mass/volume) 160 70 - 120 11/10/2017 [facility] Fibrin D-dimer DDU measurement in platelet poor plasma (mass/volume) Fibrin D-dimer DDU measurement in platelet poor plasma (mass/volume) 0.48 0.00 - 0.45 11/09/2017 [facility] B-Type Natriuretic Peptide 115.9 0 - 100 11/09/2017 [facility] Automated blood basophil count (count/volume) Automated blood basophil count (count/volume) 0.0 0.0 - 0.1 11/09/2017 [facility] Automated blood basophil count as percentage of total leukocytes Automated blood basophil count as percentage of total leukocytes 0.3 0.0 - 1.0 11/09/2017 [facility] Automated blood eosinophil count Automated blood eosinophil count 0.2 0.0 - 0.4 11/09/2017 [facility] Automated blood eosinophil count as percentage of total leukocytes Automated blood eosinophil count as percentage of total leukocytes 2.0 0.0 - 6.0 11/09/2017 [facility] Automated blood hematocrit (volume fraction) Automated blood hematocrit (volume fraction) 45.3 38.2 - 49.6 11/09/2017 [facility] Automated blood lymphocyte count as percentage ot total leukocytes Automated blood lymphocyte count as percentage ot total leukocytes 16.2 18.0 - 39.1 11/09/2017 [facility] Automated blood monocyte count as percentage of total leukocytes Automated blood monocyte count as percentage of total leukocytes 9.4 4.4 - 11.3 11/09/2017 [facility] Automated blood neutrophil count Automated blood neutrophil count 6.7 2.1 - 6.9 11/09/2017 [facility] Automated blood platelet count (count/volume) Automated blood platelet count (count/volume) 237 140 - 360 11/09/2017 [facility] Automated blood segmented neutrophil count as percentage of total leukocytes Automated blood segmented neutrophil count as percentage of total leukocytes 71.6 38.7 - 80.0 11/09/2017 [facility] Automated erythrocyte mean corpuscular hemoglobin (mass per erythrocyte) Automated erythrocyte mean corpuscular hemoglobin (mass per erythrocyte) 31.7 28 - 32 11/09/2017 [facility] Automated erythrocyte mean corpuscular hemoglobin concentration measurement (mass/volume) Automated erythrocyte mean corpuscular hemoglobin concentration measurement (mass/volume) 32.5 31 - 35 11/09/2017 [facility] Automated erythrocyte mean corpuscular volume Automated erythrocyte mean corpuscular volume 97.6 81 - 99 11/09/2017 [facility] Blood erythrocytes automated count (number/volume) Blood erythrocytes automated count (number/volume) 4.64 4.3 - 5.7 11/09/2017 [facility] Blood hemoglobin measurement (moles/volume) Blood hemoglobin measurement (moles/volume) 14.7 14.0 - 18.0 11/09/2017 [facility] Blood leukocytes automated count (number/volume) Blood leukocytes automated count (number/volume) 9.34 4.8 - 10.8 11/09/2017 [facility] Blood lymphocytes count (number/volume) Blood lymphocytes count (number/volume) 1.5 1.0 - 3.2 11/09/2017 [facility] Blood monocytes automated count (number/volume) Blood monocytes automated count (number/volume) 0.9 0.2 - 0.8 11/09/2017 [facility] Estimated glomerular filtration rate (GFR) determination Estimated glomerular filtration rate (GFR) determination null 60 11/09/2017 [facility] Glucose measurement Glucose measurement 159 74 - 118 11/09/2017 [facility] Serum or plasma anion gap Serum or plasma anion gap 12.5 8 - 16 11/09/2017 [facility] Serum or plasma calcium measurement (mass/volume) Serum or plasma calcium measurement (mass/volume) 9.2 8.4 - 10.2 11/09/2017 [facility] Serum or plasma carbon dioxide, total measurement (moles/volume) Serum or plasma carbon dioxide, total measurement (moles/volume) 27 22 - 29 11/09/2017 [facility] Serum or plasma chloride measurement (moles/volume) Serum or plasma chloride measurement (moles/volume) 105 98 - 107 11/09/2017 [facility] Serum or plasma creatinine measurement (mass/volume) Serum or plasma creatinine measurement (mass/volume) 0.92 0.72 - 1.25 11/09/2017 [facility] Serum or plasma potassium measurement (moles/volume) Serum or plasma potassium measurement (moles/volume) 4.5 3.5 - 5.1 11/09/2017 [facility] Serum or plasma sodium measurement (moles/volume) Serum or plasma sodium measurement (moles/volume) 140 136 - 145 11/09/2017 [facility] Serum or plasma urea nitrogen measurement (mass/volume) Serum or plasma urea nitrogen measurement (mass/volume) 27 7 - 26 11/09/2017 [facility] Serum or plasma urea nitrogen/creatinine mass ratio Serum or plasma urea nitrogen/creatinine mass ratio 29 6 - 25 11/09/2017 [facility] Red Cell Distribution Width 13.8 11.7 - 14.4 11/09/2017 [facility] IM GRANULOCYTES % 0.5 0.0 - 1.0 11/09/2017 [facility] Absolute Immature Granulocyte (auto 0.05 0 - 0.1 11/09/2017 [facility] Serum or plasma creatine kinase MB measurement (mass/volume) Serum or plasma creatine kinase MB measurement (mass/volume) 4.30 0 - 5.0 11/08/2017 [facility] Serum or plasma creatine kinase measurement (enzymatic activity/volume) Serum or plasma creatine kinase measurement (enzymatic activity/volume) 236 30 - 200 11/08/2017 [facility] Serum or plasma thyrotropin measurement by detection limit <=0.005 miu/l (units/volume) Serum or plasma thyrotropin measurement by detection limit <=0.005 miu/l (units/volume) 0.803 0.350 - 4.940 11/08/2017 [facility] Serum or plasma thyroxine (T4) free measurement (mass/volume) Serum or plasma thyroxine (T4) free measurement (mass/volume) 0.99 0.9 - 1.8 11/08/2017 [facility] Troponin I measurement by highly sensitive enzyme immunoassay Troponin I measurement by highly sensitive enzyme immunoassay 0.047 0 - 0.300 11/08/2017 [facility] Hemoglobin A1c Percent 6.9 4.0 - 7.0 11/08/2017 [facility] Automated urine sediment leukocyte count by microscopy (number/high power field) Automated urine sediment leukocyte count by microscopy (number/high power field) null 0 - 5 11/08/2017 [facility] Bacteria detection in urine sediment by light microscopy Bacteria detection in urine sediment by light microscopy MODERATE NONE 11/08/2017 [facility] Bacterial urine culture Bacterial urine culture Organism: ESCHERICHIA COLI 11/08/2017 [facility] Epithelial cells detection in urine sediment by light microscopy Epithelial cells detection in urine sediment by light microscopy RARE NONE 11/08/2017 [facility] Erythrocytes detection in urine sediment by light microscopy Erythrocytes detection in urine sediment by light microscopy null 0 - 5 11/08/2017 [facility] Specific gravity of Urine by Test strip Specific gravity of Urine by Test strip 1.020 1.010 - 1.025 11/08/2017 [facility] Urine clarity Urine clarity CLOUDY CLEAR 11/08/2017 [facility] Urine color determination Urine color determination YELLOW YELLOW 11/08/2017 [facility] Urine erythrocytes detection Urine erythrocytes detection 4+ NEGATIVE 11/08/2017 [facility] Urine glucose detection Urine glucose detection NEGATIVE NEGATIVE 11/08/2017 [facility] Urine ketones detection by automated test strip Urine ketones detection by automated test strip NEGATIVE NEGATIVE 11/08/2017 [facility] Urine leukocyte esterase detection by dipstick Urine leukocyte esterase detection by dipstick 2+ NEGATIVE 11/08/2017 [facility] Urine nitrite detection Urine nitrite detection POSITIVE NEGATIVE 11/08/2017 [facility] Urine pH measurement by automated test strip Urine pH measurement by automated test strip 5 5 - 7 11/08/2017 [facility] Urine protein measurement by test strip (mass/volume) Urine protein measurement by test strip (mass/volume) 1+ NEGATIVE 11/08/2017 [facility] Urine total bilirubin measurement (mass/volume) Urine total bilirubin measurement (mass/volume) NEGATIVE NEGATIVE 11/08/2017 [facility] Urine urobilinogen measurement by test strip (mass/volume) Urine urobilinogen measurement by test strip (mass/volume) 0.2 0.2 - 1 11/08/2017 [facility] Stool gastrointestinal hemoglobin detection Stool gastrointestinal hemoglobin detection NEGATIVE NEGATIVE 11/07/2017 [facility] Influenza virus A and B antigen identification by immunofluorescence Influenza virus A and B antigen identification by immunofluorescence NEGATIVE NEGATIVE 11/07/2017 [facility] Activated partial thromboplastin time (aPTT) in platelet poor plasma bycoagulation assay Activated partial thromboplastin time (aPTT) in platelet poor plasma bycoagulation assay 24.9 23.8 - 35.5 11/07/2017 [facility] INR in Platelet poor plasma by Coagulation assay INR in Platelet poor plasma by Coagulation assay 1.09 11/07/2017 [facility] Plasma globulin measurement (mass/volume) Plasma globulin measurement (mass/volume) 3.6 2.3 - 3.5 11/07/2017 [facility] Prothrombin time (PT) in platelet poor plasma by coagulation assay Prothrombin time (PT) in platelet poor plasma by coagulation assay 13.3 11.9 - 14.5 11/07/2017 [facility] Serum or plasma alanine aminotransferase measurement (enzymatic activity/volume) Serum or plasma alanine aminotransferase measurement (enzymatic activity/volume) 27 0 - 55 11/07/2017 [facility] Serum or plasma albumin measurement (mass/volume) Serum or plasma albumin measurement (mass/volume) 3.8 3.5 - 5.0 11/07/2017 [facility] Serum or plasma albumin/globulin mass ratio Serum or plasma albumin/globulin mass ratio 1.1 0.8 - 2.0 11/07/2017 [facility] Serum or plasma alkaline phosphatase measurement (enzymatic activity/volume) Serum or plasma alkaline phosphatase measurement (enzymatic activity/volume) 46 40 - 150 11/07/2017 [facility] Serum or plasma magnesium measurement (mass/volume) Serum or plasma magnesium measurement (mass/volume) 1.9 1.3 - 2.1 11/07/2017 [facility] Serum or plasma protein measurement (mass/volume) Serum or plasma protein measurement (mass/volume) 7.4 6.5 - 8.1 11/07/2017 [facility] Serum or plasma total bilirubin measurement (mass/volume) Serum or plasma total bilirubin measurement (mass/volume) 0.9 0.2 - 1.2 11/07/2017 [facility] Aspartate Amino Transf (AST/SGOT) 24 5 - 34 11/07/2017 [facility] Liver US Liver US Liver US HX: Abdominal pain, chronic COMPARISON: NONE FINDINGS: Views the gallbladder show no evidence of cholelithiasis or dilatation of bile ducts. The gallbladder is mildly distended. The liver homogeneous. The common hepatic duct measures 4 mm in diameter which is within normal limits. The pancreas is not well-seen due to midline bowel gas. The patient was also unable to cooperate with breath hold instructions. IMPRESSION: 1. No focal liver lesion identified. 2. Mildly distended gallbladder is otherwise unremarkable. 3. Pancreas not well-seen. SL: 12 02/27/2015 - - Read by: Octavio Torres MD Dictated Date/time: 02/27/15 14:12 Electronically Signed by: Octavio Torres MD 02/27/15 14:13 FINAL REPORT [facility] CARDIAC ENZYMES Total CK 909 unit/L 12 - 191 02/27/2015 [facility] ELECTROLYTES AGAP 8.4 meq/L 10.0 - 20.0 02/27/2015 [facility] ELECTROLYTES CO2 30 meq/L 24 - 32 02/27/2015 [facility] ELECTROLYTES AST 78 unit/L 0 - 37 02/27/2015 [facility] ELECTROLYTES Bili Total 1.1 mg/dL 0.2 - 1.3 02/27/2015 [facility] ELECTROLYTES Alk Phos 66 unit/L 39 - 136 02/27/2015 [facility] ELECTROLYTES B/C Ratio 35 6 - 25 02/27/2015 [facility] ELECTROLYTES Albumin Lvl 2.7 g/dL 3.5 - 5.0 02/27/2015 [facility] ELECTROLYTES Total Protein 5.9 g/dL 6.4 - 8.4 02/27/2015 [facility] ELECTROLYTES Globulin 3.2 g/dL 2.0 - 4.0 02/27/2015 [facility] ELECTROLYTES ALT 74 unit/L 0 - 65 02/27/2015 [facility] ELECTROLYTES A/G Ratio 0.8 0.7 - 1.6 02/27/2015 [facility] ELECTROLYTES Glucose Lvl 126 mg/dL 70 - 99 02/27/2015 4Interpretive Data: Adult reference range values reflect the clinical guidelines of the [place] [employer]. [facility] ELECTROLYTES BUN 39 mg/dL 7 - 22 02/27/2015 [facility] ELECTROLYTES eGFR 68 mL/min/1.73m2 02/27/2015 1Result Comment: The eGFR is calculated using [...] from the National Kidney Disease Education Program (NKDEP) which additionally recommends that when the eGFR is used in patients with extremes of body mass index for purposes of drug dosing, the eGFR should be multiplied by the estimated BMI. [facility] ELECTROLYTES Sodium Lvl 143 meq/L 135 - 145 02/27/2015 [facility] ELECTROLYTES Creatinine Lvl 1.1 mg/dL 0.5 - 1.4 02/27/2015 [facility] ELECTROLYTES Calcium Lvl 8.6 mg/dL 8.5 - 10.5 02/27/2015 [facility] ELECTROLYTES Chloride Lvl 109 meq/L 95 - 109 02/27/2015 [facility] ELECTROLYTES Potassium Lvl 4.4 meq/L 3.5 - 5.1 02/27/2015 [facility] HEMATOLOGY Monocytes # 1.3 K/CMM 0.0 - 0.8 02/27/2015 [facility] HEMATOLOGY Basophils 0.1 % 0.0 - 1.0 02/27/2015 [facility] HEMATOLOGY Segs-Bands # 12.7 K/CMM 1.5 - 8.1 02/27/2015 [facility] HEMATOLOGY Lymphocytes # 1.1 K/CMM 1.0 - 5.5 02/27/2015 [facility] HEMATOLOGY Eosinophils 0.1 % 0.0 - 4.0 02/27/2015 [facility] HEMATOLOGY Monocytes 8.7 % 2.0 - 12.0 02/27/2015 [facility] HEMATOLOGY Lymphocytes 7.0 % 20.0 - 40.0 02/27/2015 [facility] HEMATOLOGY Segs 84.1 % 45.0 - 75.0 02/27/2015 [facility] HEMATOLOGY Hct 43.2 % 42.0 - 54.0 02/27/2015 [facility] HEMATOLOGY MCV 94.5 fL 80.0 - 94.0 02/27/2015 [facility] HEMATOLOGY MCH 31.5 pg 27.0 - 31.0 02/27/2015 [facility] MCHC 33.3 g/dL 32.0 - 36.0 02/27/2015 [facility] HEMATOLOGY Hgb 14.4 g/dL 14.0 - 18.0 02/27/2015 [facility] HEMATOLOGY WBC 15.2 K/CMM 3.7 - 10.4 02/27/2015 [facility] HEMATOLOGY RBC 4.57 M/CMM 4.70 - 6.10 02/27/2015 [facility] HEMATOLOGY Platelet 211 K/CMM 133 - 450 02/27/2015 [facility] HEMATOLOGY MPV 8.3 fL 7.4 - 10.4 02/27/2015 [facility] HEMATOLOGY RDW 15.8 % 11.5 - 14.5 02/27/2015 [facility] URINE AND STOOL UA Turbidity Marked *ABN* (02/26/15 6:42 AM) Clear 02/26/2015 [facility] URINE AND STOOL UA Spec Grav 1.020 <=1.030 02/26/2015 [facility] URINE AND STOOL UA WBC 26 /HPF 0 - 5 02/26/2015 [facility] URINE AND STOOL UA Bacteria Many /HPF None Seen /HPF 02/26/2015 [facility] URINE AND STOOL UA Mucus Few /LPF None Seen /LPF 02/26/2015 [facility] URINE AND STOOL UA Hyal Cast 3 /LPF 0 - 2 02/26/2015 [facility] URINE AND STOOL UA Nitrite Negative (02/26/15 6:42 AM) Negative 02/26/2015 [facility] URINE AND STOOL UA Leuk Est Trace *ABN* (02/26/15 6:42 AM) Negative 02/26/2015 [facility] URINE AND STOOL UA Sq Epi Occasional /LPF Few /LPF 02/26/2015 [facility] URINE AND STOOL UA RBC 1 /HPF 0 - 2 02/26/2015 [facility] URINE AND STOOL UA Protein 30 mg/dL Negative mg/dL 02/26/2015 [facility] URINE AND STOOL UA Color Yellow *NA* (02/26/15 6:42 AM) Yellow 02/26/2015 [facility] URINE AND STOOL UA Ketones Negative mg/dL Negative mg/dL 02/26/2015 [facility] URINE AND STOOL UA Glucose 500 mg/dL Negative mg/dL 02/26/2015 [facility] URINE AND STOOL UA Bili Negative *NA* (02/26/15 6:42 AM) Negative 02/26/2015 [facility] URINE AND STOOL UA Blood Large *ABN* (02/26/15 6:42 AM) Negative 02/26/2015 [facility] URINE AND STOOL UA pH 5.0 5.0 - 8.0 02/26/2015 [facility] URINE AND STOOL UA Urobilinogen <=1.0 mg/dL 0.1 - 1.0 02/26/2015 [facility] CARDIAC ENZYMES Total CK 1494 unit/L 12 - 191 02/26/2015 [facility] CHEM PANEL eGFR 51 mL/min/1.73m2 02/26/2015 2Result Comment: The eGFR is calculated using [...] from the National Kidney Disease Education Program (NKDEP) which additionally recommends that when the eGFR is used in patients with extremes of body mass index for purposes of drug dosing, the eGFR should be multiplied by the estimated BMI. [facility] CHEM PANEL BUN 46 mg/dL 7 - 22 02/26/2015 [facility] CHEM PANEL CO2 25 meq/L 24 - 32 02/26/2015 [facility] CHEM PANEL Creatinine Lvl 1.4 mg/dL 0.5 - 1.4 02/26/2015 [facility] CHEM PANEL AGAP 13.8 meq/L 10.0 - 20.0 02/26/2015 [facility] CHEM PANEL Calcium Lvl 9.0 mg/dL 8.5 - 10.5 02/26/2015 [facility] CHEM PANEL Glucose Lvl 318 mg/dL 70 - 99 02/26/2015 5Interpretive Data: Adult reference range values reflect the clinical guidelines of the [place] [employer]. [facility] CHEM PANEL Chloride Lvl 104 meq/L 95 - 109 02/26/2015 [facility] CHEM PANEL Potassium Lvl 4.8 meq/L 3.5 - 5.1 02/26/2015 [facility] CHEM PANEL Sodium Lvl 138 meq/L 135 - 145 02/26/2015 [facility] HEMATOLOGY Monocytes 5.8 % 2.0 - 12.0 02/26/2015 [facility] HEMATOLOGY Basophils 0.1 % 0.0 - 1.0 02/26/2015 [facility] Lymphocytes 3.4 % 20.0 - 40.0 02/26/2015 [facility] HEMATOLOGY Segs 90.7 % 45.0 - 75.0 02/26/2015 [facility] Lymphocytes # 0.8 K/CMM 1.0 - 5.5 02/26/2015 [facility] HEMATOLOGY Monocytes # 1.4 K/CMM 0.0 - 0.8 02/26/2015 [facility] Segs-Bands # 22.3 K/CMM 1.5 - 8.1 02/26/2015 [facility] WBC 24.6 K/CMM 3.7 - 10.4 02/26/2015 [facility] Hgb 14.6 g/dL 14.0 - 18.0 02/26/2015 [facility] RBC 4.55 M/CMM 4.70 - 6.10 02/26/2015 [facility] HEMATOLOGY MPV 8.6 fL 7.4 - 10.4 02/26/2015 [facility] HEMATOLOGY Platelet 201 K/CMM 133 - 450 02/26/2015 [facility] HEMATOLOGY RDW 15.9 % 11.5 - 14.5 02/26/2015 [facility] HEMATOLOGY MCV 94.7 fL 80.0 - 94.0 02/26/2015 [facility] HEMATOLOGY Hct 43.1 % 42.0 - 54.0 02/26/2015 [facility] HEMATOLOGY MCHC 33.9 g/dL 32.0 - 36.0 02/26/2015 [facility] HEMATOLOGY MCH 32.1 pg 27.0 - 31.0 02/26/2015 [facility] LIPIDS LDL (Calculated) 25 mg/dL <=99 mg/dL 02/26/2015 [facility] LIPIDS VLDL 51 02/26/2015 [facility] LIPIDS CHD Risk 9.44 4.00 - 7.30 02/26/2015 [facility] LIPIDS HDL 9 mg/dL >=61 mg/dL 02/26/2015 [facility] LIPIDS Trig 257 mg/dL <=149 mg/dL 02/26/2015 [facility] LIPIDS Chol 85 mg/dL <=199 mg/dL 02/26/2015 [facility] CARDIAC ENZYMES Total CK 1805 unit/L 12 - 191 02/26/2015 [facility] CHEM PANEL Procalcitonin Lvl 4.06 ng/mL 0.00 - 0.10 02/26/2015 7Result Comment: Critical Result(s) called to Cecilia Keyes at 02/26/2015 10:00 bykyh. Read back OK. [facility] CARDIAC ENZYMES Troponin-I 0.04 ng/mL 0.00 - 0.40 02/25/2015 [facility] CARDIAC ENZYMES CK MB Index 0.4 0.0 - 2.5 02/25/2015 [facility] CARDIAC ENZYMES CK MB 6.8 ng/mL 0.5 - 3.6 02/25/2015 [facility] CARDIAC ENZYMES Troponin-I 0.05 ng/mL 0.00 - 0.40 02/25/2015 [facility] CARDIAC ENZYMES CK MB Index 0.2 0.0 - 2.5 02/25/2015 [facility] CARDIAC ENZYMES CK MB 4.1 ng/mL 0.5 - 3.6 02/25/2015 [facility] ELECTROLYTES AGAP 11.6 meq/L 10.0 - 20.0 02/25/2015 [facility] ELECTROLYTES eGFR 51 mL/min/1.73m2 02/25/2015 3Result Comment: The eGFR is calculated using [...] from the National Kidney Disease Education Program (NKDEP) which additionally recommends that when the eGFR is used in patients with extremes of body mass index for purposes of drug dosing, the eGFR should be multiplied by the estimated BMI. [facility] ELECTROLYTES CO2 27 meq/L 24 - 32 02/25/2015 [facility] ELECTROLYTES Chloride Lvl 103 meq/L 95 - 109 02/25/2015 [facility] ELECTROLYTES BUN 24 mg/dL 7 - 22 02/25/2015 [facility] ELECTROLYTES Potassium Lvl 4.6 meq/L 3.5 - 5.1 02/25/2015 [facility] ELECTROLYTES Sodium Lvl 137 meq/L 135 - 145 02/25/2015 [facility] ELECTROLYTES Creatinine Lvl 1.4 mg/dL 0.5 - 1.4 02/25/2015 [facility] ELECTROLYTES Glucose Lvl 261 mg/dL 70 - 99 02/25/2015 6Interpretive Data: Adult reference range values reflect the clinical guidelines of the [place] [employer]. [facility] ELECTROLYTES Calcium Lvl 9.5 mg/dL 8.5 - 10.5 02/25/2015 [facility] HEMATOLOGY Segs-Bands # 23.1 K/CMM 1.5 - 8.1 02/25/2015 [facility] HEMATOLOGY Monocytes 3.0 % 2.0 - 12.0 02/25/2015 [facility] HEMATOLOGY Monocytes # 0.7 K/CMM 0.0 - 0.8 02/25/2015 [facility] HEMATOLOGY Lymphocytes # 0.5 K/CMM 1.0 - 5.5 02/25/2015 [facility] HEMATOLOGY Segs 95.1 % 45.0 - 75.0 02/25/2015 [facility] HEMATOLOGY Plt Morph Normal (02/25/15 5:11 AM) 02/25/2015 [facility] Lymphocytes 1.9 % 20.0 - 40.0 02/25/2015 [facility] HEMATOLOGY RBC Morph Normal (02/25/15 5:11 AM) 02/25/2015 [facility] HEMATOLOGY MPV 8.0 fL 7.4 - 10.4 02/25/2015 [facility] HEMATOLOGY Platelet 196 K/CMM 133 - 450 02/25/2015 [facility] HEMATOLOGY RDW 15.9 % 11.5 - 14.5 02/25/2015 [facility] HEMATOLOGY MCHC 33.8 g/dL 32.0 - 36.0 02/25/2015 [facility] HEMATOLOGY MCH 31.8 pg 27.0 - 31.0 02/25/2015 [facility] HEMATOLOGY MCV 94.0 fL 80.0 - 94.0 02/25/2015 [facility] HEMATOLOGY WBC 24.3 K/CMM 3.7 - 10.4 02/25/2015 [facility] HEMATOLOGY Hgb 15.5 g/dL 14.0 - 18.0 02/25/2015 [facility] Hct 45.9 % 42.0 - 54.0 02/25/2015 [facility] RBC 4.89 M/CMM 4.70 - 6.10 02/25/2015 [facility] SPECIAL CHEMISTRY Hgb A1C 6.6 % <=5.6 % 02/25/2015 [facility] IMMUNOLOGY Cecil-Hep C Ab Negative *NA* (02/25/15 5:09 AM) Negative 02/25/2015 [facility] CARDIAC ENZYMES CK MB Index 0.3 0.0 - 2.5 02/25/2015 [facility] CARDIAC ENZYMES BNP 565 pg/mL <=100 pg/mL 02/25/2015 8Interpretive Data: Elevated results are in line with increasing severity of congestive heart failure. Minor elevations between 100 and 300 may be seen with Myocardial Ischemia, Sodium retaining drugs, and compensated/treated heart failure. [facility] CARDIAC ENZYMES Troponin-I 0.05 ng/mL 0.00 - 0.40 02/25/2015 [facility] CARDIAC ENZYMES CK MB 2.8 ng/mL 0.5 - 3.6 02/25/2015 [facility] CHEM PANEL A/G Ratio 0.9 0.7 - 1.6 02/25/2015 [facility] CHEM PANEL Globulin 3.7 g/dL 2.0 - 4.0 02/25/2015 [facility] CHEM PANEL Bili Total 1.7 mg/dL 0.2 - 1.3 02/25/2015 [facility] CHEM PANEL AST 32 unit/L 0 - 37 02/25/2015 [facility] CHEM PANEL Alk Phos 56 unit/L 39 - 136 02/25/2015 [facility] CHEM PANEL B/C Ratio 15 6 - 25 02/25/2015 [facility] CHEM PANEL Total Protein 7.1 g/dL 6.4 - 8.4 02/25/2015 [facility] CHEM PANEL Albumin Lvl 3.4 g/dL 3.5 - 5.0 02/25/2015 [facility] CHEM PANEL ALT 28 unit/L 0 - 65 02/25/2015 [facility] PTT 32.0 s 22.9 - 35.8 02/25/2015 10Interpretive Data: Heparin Therapeutic Range: 57 - 92 Seconds [facility] INR 1.34 0.85 - 1.17 02/25/2015 9Interpretive Data: RECOMMENDED RANGES FOR PROTIME INR: 2.0-3.0 for most medical and surgical thromboembolic states. 2.5-3.5 for artificial heart valves and recurrent embolism. INR SHOULD BE USED ONLY FOR PATIENTS ON STABLE ANTICOAGULANT THERAPY. [facility] HEMATOLOGY PT 16.7 s 12.0 - 14.7 02/25/2015 [facility] Basophils 0.1 % 0.0 - 1.0 02/25/2015 [facility] Chest Pulmonary Embolism CTA Chest Pulmonary Embolism CTA EXAM: CT pulmonary arteries and routine CT chest HISTORY: Chest pain, possible pulmonary embolism. COMPARISON: Chest regress 02/24/2015. TECHNIQUE: Thin collimation axial images obtained through the pulmonary arteries with sagittal and coronal reformats and 3D volume rendered images; routine CT chest then performed. IV contrast given. FINDINGS: 1. Suboptimal contrast opacification of the peripheral pulmonary arteries. No central pulmonary artery embolism is seen. 2. Respiratory motion artifact limits evaluation of the lungs. No definite pneumonia or edema. No pleural effusion. 3. Coronary artery calcifications. Mild cardiomegaly. 4. No bulky adenopathy. 5. Spondylosis thoracic spine. SL: 12 02/25/2015 - - Read by: Shakeel Bowen MD Dictated Date/time: 02/25/15 01:00 Electronically Signed by: Shakeel Bowen MD 02/25/15 01:04 FINAL REPORT [facility] Chest 1view DX Chest 1view DX EXAMINATION: Chest 1view CLINICAL HISTORY: Shortness of Breath COMPARISON: No prior similar examinations are currently available for comparison. The hypoinflated lungs are clear of consolidation, pleural effusion, and pneumothorax. Mild bilateral basilar subsegmental atelectasis. Mildly elevated right hemidiaphragm. The heart size is at the upper limits of normal to mildly enlarged. SL:17 02/24/2015 - - Read by: Sarmad Parikh MD Dictated Date/time: 02/24/15 22:27 Electronically Signed by: Sarmad Parikh MD 02/24/15 22:28 FINAL REPORT [facility] Bacterial urine culture Bacterial urine culture Urine Culture [facility] Vital Signs Vital Sign Value Date Comments Source Weight 258 08/13/2018 Enayet Rahim Height 70 08/13/2018 Enayet Rahim Temperature Oral (F) 98.6 F 08/13/2018 Enayet Rahim Diastolic (mm Hg) 67 08/13/2018 Enayet Rahim Systolic (mm Hg) 107 08/13/2018 Enayet Rahim Weight 258 07/01/2018 Gil Mar MD, [place] Heart Rate 63 07/01/2018 Gil Mar MD, [place] Diastolic (mm Hg) 80 07/01/2018 Gil Mar MD, [place] Systolic (mm Hg) 141 07/01/2018 Gil Mar MD, [place] Weight 258 06/26/2018 Enayet Rahim Height 70 06/26/2018 Enayet Rahim Temperature Oral (F) 98.7 F 06/26/2018 Enayet Rahim Diastolic (mm Hg) 66 06/26/2018 Enayet Rahim Systolic (mm Hg) 116 06/26/2018 Enayet Rahim Weight 260 03/27/2018 Gil Mar MD, [place] Heart Rate 84 03/27/2018 Gil Mar MD, [place] Diastolic (mm Hg) 70 03/27/2018 Gil Mar MD, [place] Systolic (mm Hg) 110 03/27/2018 Gil Mar MD, [place] Weight 270 03/13/2018 Gil Mar MD, [place] Heart Rate 92 03/13/2018 Gil Mar MD, [place] Diastolic (mm Hg) 80 03/13/2018 Gil Mar MD, [place] Systolic (mm Hg) 140 03/13/2018 Gil Mar MD, [place] Weight 263 02/06/2018 Enayet Rahim Height 70 02/06/2018 Enayet Rahim Temperature Oral (F) 98.4 F 02/06/2018 Enayet Rahim Diastolic (mm Hg) 89 02/06/2018 Enayet Rahim Systolic (mm Hg) 150 02/06/2018 Enayet Rahim Weight 265 12/26/2017 Gil Mar MD, [place] Heart Rate 77 12/26/2017 Gil Mar MD, [place] Diastolic (mm Hg) 88 12/26/2017 Gil Mar MD, [place] Systolic (mm Hg) 140 12/26/2017 Gil Mar MD, [place] Weight 266 08/13/2017 Enayet Rahim Height 70 08/13/2017 Enayet Rahim Temperature Oral (F) 97.5 F 08/13/2017 Enayet Rahim Diastolic (mm Hg) 91 08/13/2017 Enayet Rahim Systolic (mm Hg) 164 08/13/2017 Enayet Rahim Weight 265 06/13/2017 Gil Mar MD, [place] Heart Rate 78 06/13/2017 Gil Mar MD, [place] Diastolic (mm Hg) 65 06/13/2017 Gil Mar MD, [place] Systolic (mm Hg) 138 06/13/2017 Gil Mar MD, [place] Weight 261 01/24/2017 Enayet Rahim Height 70 01/24/2017 Enayet Rahim Temperature Oral (F) 98.3 F 01/24/2017 Enayet Rahim Diastolic (mm Hg) 67 01/24/2017 Enayet Rahim Systolic (mm Hg) 109 01/24/2017 Enayet Rahim Weight 265 09/13/2016 Gil Mar MD, [place] Heart Rate 76 09/13/2016 Gil Mar MD, [place] Diastolic (mm Hg) 85 09/13/2016 Gil Mar MD, [place] Systolic (mm Hg) 133 09/13/2016 Gil Mar MD, [place] Weight 264 04/27/2016 Enayet Rahim Height 70 04/27/2016 Enayet Rahim Temperature Oral (F) 99.1 F 04/27/2016 Enayet Rahim Diastolic (mm Hg) 55 04/27/2016 Enayet Rahim Systolic (mm Hg) 140 04/27/2016 Enayet Rahim Weight 270 03/15/2016 Gil Mar MD, [facility] Heart Rate 85 03/15/2016 Gil Mar MD, [facility] Diastolic (mm Hg) 85 03/15/2016 Gil Mar MD, [facility] Systolic (mm Hg) 115 03/15/2016 Gil Mar MD, [facility] Weight 270 09/12/2015 Gil Mar MD, [facility] Heart Rate 78 09/12/2015 Gil Mar MD, [facility] Diastolic (mm Hg) 70 09/12/2015 Gil Mar MD, [facility] Systolic (mm Hg) 125 09/12/2015 Gil Mar MD, [facility] Systolic (mm Hg) 187 02/27/2015 [facility] Diastolic (mm Hg) 88 02/27/2015 [facility] Temperature Oral (F) 98 F 02/27/2015 [facility] Respitory Rate 18 02/27/2015 [facility] Heart Rate 46 02/27/2015 [facility] Temperature Oral (F) 98 F 02/27/2015 [facility] Respitory Rate 18 02/27/2015 [facility] Diastolic (mm Hg) 95 02/27/2015 [facility] Heart Rate 51 02/27/2015 [facility] Systolic (mm Hg) 151 02/27/2015 [facility] Respitory Rate 16 02/27/2015 [facility] Systolic (mm Hg) 163 02/27/2015 [facility] Diastolic (mm Hg) 82 02/27/2015 [facility] Heart Rate 90 02/27/2015 [facility] Temperature Oral (F) 97.4 F 02/27/2015 [facility] Height 177.8 cm 02/25/2015 [facility] Weight 114.318 02/25/2015 [facility] BMI Calculated 36.16 02/25/2015 [facility] BMI Calculated 38.82 02/25/2015 [facility] Height 177.8 cm 02/25/2015 [facility] Weight 122.727 02/25/2015 [facility] Encounters Location Location Details Encounter Type Encounter Number Reason For Visit Attending Provider ADM Date DC Date Status Source [facility] Inpatient [id number] Moe Teqwimuah 02/25/2015 02/27/2015 [facility] TROUBLE URINATING [id number] 03/14/2015 03/14/2015 Gil Mar MD, PA [facility] TROUBLE URINATING [id number] 03/14/2015 03/14/2015 Gil Mar MD, [facility] TROUBLE URINATING [id number] 03/14/2015 03/14/2015 Griselda [facility] TROUBLE URINATING [id number] 03/14/2015 03/14/2015 Gil Mar MD, PA [facility] TROUBLE URINATING [id number] 03/14/2015 03/14/2015 Gil Mar MD, [facility] Unknown [id number] 06/03/2015 06/03/2015 Gil Mar MD, PA [facility] Unknown [id number] 06/03/2015 06/03/2015 Gil Mar MD, PA [facility] Unknown [id number] 06/03/2015 06/03/2015 [facility] [id number] 06/03/2015 06/03/2015 Gil Mar MD, PA [facility] Unknown [id number] 06/03/2015 06/03/2015 Gil Mar MD, PA Gil Mar MD, PA Follow-Up [id number] 09/12/2015 09/12/2015 Gil Mar MD, PA Gil Mar MD, PA Follow-Up [id number] 09/12/2015 09/12/2015 Gil Mar MD, PA Gli Mar MD, PA Follow-Up [id number] 09/12/2015 09/12/2015 Griselda Mar MD, PA Follow-Up [id number] 09/12/2015 09/12/2015 Gil Mar MD, PA Gil Mar MD, PA Follow-Up [id number] 09/12/2015 09/12/2015 Gil Mar MD, PA Gil Mar MD, PA Follow-Up [id number] 03/15/2016 03/15/2016 Gil Mar MD, PA Gil Mar MD, PA echo/carotid/arterial dopplers [id number] 03/15/2016 03/15/2016 Gil Mar MD, PA Gil Mar MD, PA echo/carotid/arterial dopplers [id number] 03/15/2016 03/15/2016 Gil Mar MD, PA Gil Mar MD, PA Follow-Up [id number] 03/15/2016 03/15/2016 Griselda Mar MD, PA Follow-Up [id number] 03/15/2016 03/15/2016 Gil Mar MD, PA Gil Mar MD, PA echo/carotid/arterial dopplers [id number] 03/15/2016 03/15/2016 Griselda Mar MD, PA echo/carotid/arterial dopplers [id number] 03/15/2016 03/15/2016 Gil Mar MD, PA Griselda Jesus MD, PA NEW PT [id number] 04/27/2016 04/27/2016 Griselda Mar MD, PA Follow-Up [id number] 09/13/2016 09/13/2016 Griselda Mar MD, PA Follow-Up [id number] 09/13/2016 09/13/2016 Gil Mar MD, PA Discharged Inpatient [id number] HEMANT BALDWIN MD 11/07/2017 11/10/2017 [facility] Procedures Procedure Code Date Perfomer Comments Source X-ray of chest, two views [id number] 11/10/2017 CECILIA [facility] Magnetic resonance imaging of brain without contrast [id number] 11/08/2017 DENNY [facility] Procedure on knee [id number] [facility] Tonsillectomy [id number] [facility]
--- OUTSIDE RECORDS SUMMARY | 2018-08-21 10:48 | XMS REPORT ---
Author Author Yareli Alford Organization e[employer] Address Unknown Phone Unavailable Care Team Providers Care Cloud Software Engineer Name Role Phone Yareli Alford CP Unavailable Allergies, Adverse Reactions, Alerts Substance Reaction Event Type N.K.D.A. Info Not Available Non Drug Allergy Problems Problem Type Condition Code Onset Dates Condition Status Assessment Fall, initial encounter W19.XXXA Active Assessment BPH (benign prostatic hyperplasia) N40.0 Active Problem PAD (peripheral artery disease) I73.9 Active Problem Carotid arterial disease I77.9 Active Problem Other chronic pain G89.29 Active Problem Diabetes E11.9 Active Assessment Acute pain of right shoulder M25.511 Active Problem HTN (hypertension) I10 Active Problem BPH (benign prostatic hyperplasia) N40.0 Active Medications Medication Code System Code Instructions Start Date End Date Status Dosage Clopidogrel Bisulfate [facility] [address]-60 Active not defined Metoprolol Succinate ER [facility] [address]-80 Active not defined Metformin HCl [facility] 02647679682 500 MG Orally Twice a day Active 1 tablet with meals Tamsulosin HCl [facility] 75506375986 0.4 MG Orally Once a day Active 1 capsule Simvastatin [facility] [address]-89 Active not defined Ramipril [facility] [address]-37 Active not defined Losartan Potassium [facility] [address]-77 Active not defined Tramadol HCl [facility] 39154290189 50 MG Orally every 12 hrs as needed February 06, 2018 February 16, 2018 Active 1 tablet as needed Vital Signs Date/Time: February 06, 2018 BMI 37.73 Index Weight 263 lbs Height 70 in Temperature 98.4 F Blood Pressure Diastolic 89 mm Hg Blood Pressure Systolic 150 mm Hg Results No Known Results Summary Purpose eClinicalWorks Submission
--- OUTSIDE RECORDS SUMMARY | 2018-08-21 10:48 | XMS REPORT ---
Author Author Gil Mar [facility] eClinicalWorks Address Unknown Phone Unavailable Care Team Providers Care Automation Qa Tester Name Role Phone Gil Mar Unavailable Allergies, Adverse Reactions, Alerts Substance Reaction Event Type N.K.D.A. Info Not Available Non Drug Allergy Problems Problem Type Condition Code Onset Dates Condition Status Assessment Body mass index (BMI) 38.0-38.9, adult Z68.38 Active Assessment Type 2 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.51 Active Problem Carotid stenosis 433.10 Active Assessment Coronary angioplasty status Z98.61 Active Problem Chronic diastolic heart failure 428.32 Active Assessment Peripheral vascular disease, unspecified I73.9 Active Problem Coronary angioplasty status Z98.61 Active Problem Abnormal electrocardiogram [ECG] [EKG] R94.31 Active Problem CHF, chronic systolic I50.22 Active Problem Obesity, unspecified E66.9 Active Problem Body mass index (BMI) 38.0-38.9, adult Z68.38 Active Assessment Atherosclerotic heart disease of [place] coronary artery without angina pectoris I25.10 Active Assessment CHF, chronic systolic I50.22 Active Problem Atrial fibrillation- Chronic I48.2 Active Assessment Occlusion and stenosis of right carotid artery I65.21 Active Problem Type 2 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.51 Active Problem Occlusion and stenosis of right carotid artery I65.21 Active Problem Atherosclerotic heart disease of [place] coronary artery without angina pectoris I25.10 Active Problem Peripheral vascular disease, unspecified I73.9 Active Problem Peripheral vascular disease 443.9 Active Problem Morbid obesity 278.01 Active Assessment Atrial fibrillation- Chronic I48.2 Active Problem Coronary atherosclerosis of [place] coronary artery 414.01 Active Problem Abnormal ECG 794.31 Active Problem Postprocedural PCI status V45.82 Active Problem Mixed hyperlipidemia 272.2 Active Problem Diabetes mellitus type II 250.00 Active Medications Medication Code System Code Instructions Start Date End Date Status Dosage Clopidogrel Bisulfate [facility] 57984459407 75 mg Orally Once a day Active 1 tablet Losartan Potassium NDC 79721237650 50 MG Orally Once a day Active 1 tablet Fish Oil [facility] 44347281958 500 MG Orally Twice a day Active 1 capsule Metformin HCl [facility] 93728819175 500 MG Orally Twice a day Active 1 tablet with meals Tradjenta [facility] 65195059679 Orally Once a day Active 1 tablet Metoprolol Succinate ER [facility] 63394871675 100 MG Orally Once a day Active 1 tablet Furosemide [facility] 08985123068 40 mg Orally Once a day March 13, 2018 Active 1 tablet Humalog [facility] 43633573500 100 UNIT/ML Subcutaneous Active not defined Simvastatin [facility] 17445336655 10 mg Orally Once a day Active 1 tablet in the evening Levemir [facility] 99552923926 100 UNIT/ML Subcutaneous Active not defined Aspirin [facility] 83953119390 81 MG Orally Once a day March 13, 2018 Inactive 1 tablet Eliquis [facility] 12731394641 5 MG Orally twice a day (bid) March 13, 2018 Active 1 tablet Vital Signs Date/Time: March 13, 2018 BMI 38.74 Index Weight 270 lbs Height 5ft 10in in Cardiac Monitoring Heart Rate 92 /min Blood Pressure Diastolic 80 mm Hg Blood Pressure Systolic 140 mm Hg Results No Known Results Summary Purpose eClinicalWorks Submission
--- OUTSIDE RECORDS SUMMARY | 2018-08-21 10:48 | XMS REPORT ---
Author Author Gil Mar Organization e[employer] Address Unknown Phone Unavailable Care Team Providers Care Business Case Analyst Name Role Phone Gil aMr CP Unavailable Encounters Encounter Location Date echo/carotid/arterial dopplers Gil Mar MD, [place] March 15, 2016 TROUBLE URINATING [facility] March 14, 2015 Unknown [facility] Jun 03, 2015 Follow-Up Gil Mar MD, [place] Sep 12, 2015 Problems Problem Type Condition ICD-9 Code Onset Dates Condition Status Problem Postprocedural PCI status V45.82 Active Problem Chronic diastolic heart failure 428.32 Active Problem Coronary atherosclerosis of [place] coronary artery 414.01 Active Problem CHF, chronic systolic I50.22 Active Problem Occlusion and stenosis of right carotid artery I65.21 Active Problem Atherosclerotic heart disease of [place] coronary artery without angina pectoris I25.10 Active Problem Abnormal electrocardiogram [ECG] [EKG] R94.31 Active Problem Type 2 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.51 Active Problem Peripheral vascular disease, unspecified I73.9 Active Problem Coronary angioplasty status Z98.61 Active Problem Mixed hyperlipidemia 272.2 Active Problem Abnormal ECG 794.31 Active Problem Diabetes mellitus type II 250.00 Active Problem Carotid stenosis 433.10 Active Problem Morbid obesity 278.01 Active Problem Peripheral vascular disease 443.9 Active Social History Social History Element Qualifiers Date Reported Tobacco Use: . Are you a: never smoker March 15, 2016 Marital Status: . March 15, 2016 Do you drink alcohol? . Status: No March 15, 2016 Summary Purpose eClinicalWorks Submission
--- OUTSIDE RECORDS SUMMARY | 2018-08-21 10:48 | XMS REPORT ---
Author Author Yareli Alford Organization [employer] Address Unknown Phone Unavailable Care Team Providers Care Sales Donor Recruitment Representative Name Role Phone Yareli Alford CP Unavailable Allergies, Adverse Reactions, Alerts Substance Reaction Event Type N.K.D.A. Info Not Available Non Drug Allergy Problems Problem Type Condition Code Onset Dates Condition Status Assessment Perforated right tympanic membrane on examination H72.91 Active Problem PAD (peripheral artery disease) I73.9 Active Problem Carotid arterial disease I77.9 Active Problem Other chronic pain G89.29 Active Problem Diabetes E11.9 Active Problem HTN (hypertension) I10 Active Problem BPH (benign prostatic hyperplasia) N40.0 Active Medications Medication Code System Code Instructions Start Date End Date Status Dosage Metformin HCl [facility] 13215777587 500 MG Orally Twice a day Active 1 tablet with meals Ciprodex [facility] 48436581276 0.3-0.1 % Otic Twice a day Jun 26, 2018 Active 4 drops into affected ear Losartan Potassium [facility] [address]-15 Active not defined Tamsulosin HCl [facility] 33587207014 0.4 MG Orally Once a day Active 1 capsule Clopidogrel Bisulfate [facility] 53409854914 75 MG Orally Once a day Active 1 tablet Simvastatin [facility] [address]-65 Active not defined Vital Signs Date/Time: Jun 26, 2018 BMI 37.02 Index Weight 258 lbs Height 70 in Temperature 98.7 F Blood Pressure Diastolic 66 mm Hg Blood Pressure Systolic 116 mm Hg Results No Known Results Summary Purpose eClinicalWorks Submission
--- OUTSIDE RECORDS SUMMARY | 2018-08-21 10:48 | XMS REPORT ---
Author Author Gil Mar [facility] eClinicalWorks Address Unknown Phone Unavailable Care Team Providers Care Outboard Motor Tester Name Role Phone Gil Mar CP Unavailable Allergies No Known Allergies Problems Problem Type Condition Code Onset Dates Condition Status Problem CHF, chronic systolic I50.22 Active Problem Occlusion and stenosis of right carotid artery I65.21 Active Problem Abnormal electrocardiogram [ECG] [EKG] R94.31 Active Problem Atrial fibrillation- Chronic I48.2 Active Problem Obesity, unspecified E66.9 Active Problem Paroxysmal atrial fibrillation I48.0 Active Problem Peripheral vascular disease, unspecified I73.9 Active Problem Type 2 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.51 Active Problem Body mass index (BMI) 38.0-38.9, adult Z68.38 Active Problem Atherosclerotic heart disease of [place] coronary artery without angina pectoris I25.10 Active Problem Morbid obesity 278.01 Active Problem Mixed hyperlipidemia 272.2 Active Problem Coronary atherosclerosis of [place] coronary artery 414.01 Active Problem Peripheral vascular disease 443.9 Active Problem Postprocedural PCI status V45.82 Active Problem Carotid stenosis 433.10 Active Problem Diabetes mellitus type II 250.00 Active Problem Chronic diastolic heart failure 428.32 Active Problem Abnormal ECG 794.31 Active Problem Coronary angioplasty status Z98.61 Active Medications Medication Code System Code Instructions Start Date End Date Status Dosage Humalog [facility] 30989359381 100 UNIT/ML Subcutaneous Active not defined Losartan Potassium ND 20269513408 50 MG Orally Once a day Active 1 tablet Clopidogrel Bisulfate ND 26120550191 75 mg Orally Once a day Active 1 tablet Levemir ND 93161953923 100 UNIT/ML Subcutaneous Active not defined Furosemide ND 84020435770 40 mg Orally Once a day March 13, 2018 Active 1 tablet Simvastatin ND 27396708741 10 mg Orally Once a day Active 1 tablet in the evening Eliquis [facility] 53866044073 5 MG Orally twice a day (bid) March 13, 2018 Active 1 tablet Tradjenta [facility] 39264371697 Orally Once a day Active 1 tablet Metformin HCl [facility] 05292769217 500 MG Orally Twice a day Active 1 tablet with meals Metoprolol Succinate ER [facility] 92984939555 100 MG Orally Once a day Active 1 tablet Fish Oil [facility] 41712632325 500 MG Orally Twice a day Active 1 capsule Results No Known Results Summary Purpose eClinicalWorks Submission
--- OUTSIDE RECORDS SUMMARY | 2018-08-21 10:48 | XMS REPORT ---
Author Author Gil Mar Organization eClinicalWorks Address Unknown Phone Unavailable Care Team Providers Care Membership Director Name Role Phone Gil Mar Unavailable Allergies, Adverse Reactions, Alerts Substance Reaction Event Type N.K.D.A. Info Not Available Non Drug Allergy Problems Problem Type Condition Code Onset Dates Condition Status Assessment Body mass index (BMI) 37.0-37.9, adult Z68.37 Active Assessment Type 2 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.51 Active Assessment Coronary angioplasty status Z98.61 Active Assessment Peripheral vascular disease, unspecified I73.9 Active Assessment Occlusion and stenosis of right carotid artery I65.21 Active Problem Peripheral vascular disease, unspecified I73.9 Active Assessment CHF, chronic systolic I50.22 Active Problem Atherosclerotic heart disease of [place] coronary artery without angina pectoris I25.10 Active Assessment Atherosclerotic heart disease of [place] coronary artery without angina pectoris I25.10 Active Problem Abnormal electrocardiogram [ECG] [EKG] R94.31 Active Problem Type 2 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.51 Active Problem Occlusion and stenosis of right carotid artery I65.21 Active Problem Atrial fibrillation- Chronic I48.2 Active Problem Body mass index (BMI) 37.0-37.9, adult Z68.37 Active Problem Coronary atherosclerosis of [place] coronary artery 414.01 Active Problem Paroxysmal atrial fibrillation I48.0 Active Assessment Paroxysmal atrial fibrillation I48.0 Active Problem CHF, chronic systolic I50.22 Active Problem Coronary angioplasty status Z98.61 Active Problem Body mass index (BMI) 38.0-38.9, adult Z68.38 Active Problem Obesity, unspecified E66.9 Active Problem Mixed hyperlipidemia 272.2 Active Problem Diabetes mellitus type II 250.00 Active Problem Peripheral vascular disease 443.9 Active Problem Morbid obesity 278.01 Active Problem Carotid stenosis 433.10 Active Problem Chronic diastolic heart failure 428.32 Active Problem Abnormal ECG 794.31 Active Problem Postprocedural PCI status V45.82 Active Medications Medication Code System Code Instructions Start Date End Date Status Dosage Metformin HCl [facility] 30918688099 500 MG Orally Twice a day Active 1 tablet with meals Tradjenta [facility] 36806211642 Orally Once a day Active [address] [facility] 66181640180 10 mg Orally Once a day Active 1 tablet in the evening Fish Oil [facility] 35198416874 500 MG Orally Twice a day Active [address] [facility] 69986821943 5 MG Orally twice a day (bid) March 13, 2018 Active 1 tablet Clopidogrel Bisulfate [facility] 45597322430 75 mg Orally Once a day Active [address] [facility] 71712778364 40 mg Orally Once a day March 13, 2018 Active 1 tablet Losartan Potassium [facility] 74504157254 50 MG Orally Once a day Active [address] [facility] 84807270116 100 UNIT/ML Subcutaneous Active not defined Levemir [facility] 04263262212 100 UNIT/ML Subcutaneous Active not defined Metoprolol Succinate ER [facility] 45114195206 100 MG Orally Once a day Active 1 tablet Vital Signs Date/Time: Jul 01, 2018 BMI 37.02 Index Weight 258 lbs Height 5ft 10in in Cardiac Monitoring Heart Rate 63 /min Blood Pressure Diastolic 80 mm Hg Blood Pressure Systolic 141 mm Hg Results No Known Results Summary Purpose eClinicalWorks Submission
--- OUTSIDE RECORDS SUMMARY | 2018-08-21 10:48 | XMS REPORT ---
Author Author Gil Mar Organization eClinicalWorks Address Unknown Phone Unavailable Care Team Providers Care Buckler And Lacer Name Role Phone Gil Mar Unavailable Allergies, Adverse Reactions, Alerts Substance Reaction Event Type N.K.D.A. Info Not Available Non Drug Allergy Encounters Encounter Location Date echo/carotid/arterial dopplers Gil Mar MD, [place] March 15, 2016 Follow-Up Gil Mar [place], [place] March 15, 2016 TROUBLE URINATING [facility] March 14, 2015 Unknown [facility] Jun 03, 2015 Follow-Up Gil Mar MD, [place] Sep 12, 2015 Problems Problem Type Condition ICD-9 Code Onset Dates Condition Status Problem Postprocedural PCI status V45.82 Active Problem Chronic diastolic heart failure 428.32 Active Problem Coronary atherosclerosis of [place] coronary artery 414.01 Active Problem CHF, chronic systolic I50.22 Active Assessment Coronary angioplasty status Z98.61 Active Problem Occlusion and stenosis of right carotid artery I65.21 Active Assessment Abnormal electrocardiogram [ECG] [EKG] R94.31 Active Assessment Type 2 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.51 Active Problem Atherosclerotic heart disease of [place] coronary artery without angina pectoris I25.10 Active Problem Abnormal electrocardiogram [ECG] [EKG] R94.31 Active Problem Type 2 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.51 Active Problem Peripheral vascular disease, unspecified I73.9 Active Problem Coronary angioplasty status Z98.61 Active Assessment CHF, chronic systolic I50.22 Active Assessment Atherosclerotic heart disease of [place] coronary artery without angina pectoris I25.10 Active Assessment Peripheral vascular disease, unspecified I73.9 Active Assessment Occlusion and stenosis of right carotid artery I65.21 Active Problem Mixed hyperlipidemia 272.2 Active Problem Abnormal ECG 794.31 Active Problem Diabetes mellitus type II 250.00 Active Problem Carotid stenosis 433.10 Active Problem Morbid obesity 278.01 Active Problem Peripheral vascular disease 443.9 Active Medications Medication Code System Code Instructions Start Date End Date Status Dosage Simvastatin [facility] [address]-80 10 mg Orally Once a day Active 1 tablet in the evening Ramipril [facility] [address]-90 10 MG Orally Once a day Active 1 capsule Levemir [facility] [address]-85 100 UNIT/ML Subcutaneous Active Unknown Humalog [facility] [address]-47 100 UNIT/ML Subcutaneous Active Unknown Metoprolol Succinate ER [facility] [address]-31 50 MG Orally Once a day Active 1 tablet Clopidogrel Bisulfate [facility] [address]-16 75 MG Orally Once a day Active 1 tablet Metformin HCl [facility] [address]-09 500 MG Orally Twice a day Active 1 tablet with meals Tradjenta [facility] [address]-43 Orally Once a day Active 1 tablet Fish Oil [facility] [address]-21 500 MG Orally Twice a day Active 1 capsule Aspirin [facility] [address]35-[address]33 81 MG Orally Once a day Active 1 tablet Social History Social History Element Qualifiers Date Reported Tobacco Use: . Are you a: never smoker March 15, 2016 Marital Status: . March 15, 2016 Do you drink alcohol? . Status: No March 15, 2016 Vital Signs Date/Time: March 15, 2016 Weight 270 lbs Cardiac Monitoring Heart Rate 85 /min Blood Pressure Diastolic 85 mm Hg Blood Pressure Systolic 115 mm Hg Summary Purpose eClinicalWorks Submission
--- OUTSIDE RECORDS SUMMARY | 2018-08-21 10:48 | XMS REPORT ---
Author Author Yareli Alford [facility] eClinicalWorks Address Unknown Phone Unavailable Care Team Providers Care Attache Name Role Phone Yareli Alford Unavailable Allergies, Adverse Reactions, Alerts Substance Reaction Event Type N.K.D.A. Info Not Available Non Drug Allergy Encounters Encounter Location Date echo/carotid/arterial dopplers [place] March 15, 2016 Follow-Up [place], [place] March 15, 2016 Follow-Up Gil Mar [place], [place] Sep 13, 2016 NEW PT Griselda Jesus [place], [place] Apr 27, 2016 TROUBLE URINATING [facility] March 14, 2015 Unknown [facility] Jun 03, 2015 Follow-Up [place] Mar [place], [place] Sep 12, 2015 Problems Problem Type Condition ICD-9 Code Onset Dates Condition Status Assessment Carotid arterial disease I77.9 Active Assessment Other bilateral secondary osteoarthritis of knee M17.4 Active Problem Diabetes E11.9 Active Problem BPH (benign prostatic hyperplasia) N40.0 Active Problem HTN (hypertension) I10 Active Assessment Diabetes E11.9 Active Assessment BPH (benign prostatic hyperplasia) N40.0 Active Problem Carotid arterial disease I77.9 Active Assessment HTN (hypertension) I10 Active Medications Medication Code System Code Instructions Start Date End Date Status Dosage Tamsulosin HCl [facility] [address]-28 0.4 MG Orally once a day Oct 24, 2016 Active 1 capsule Social History Social History Element Qualifiers Date Reported Tobacco Use: . Are you a: Never Smoker Apr 27, 2016 Marital Status: . Apr 27, 2016 Caffeine intake? . Status: Yes, What type: Tea Apr 27, 2016 Do you exercise? . Answer: No Apr 27, 2016 Do you drink alcohol? . Do you drink alcohol? No Apr 27, 2016 Travel outside [place]: . NO Apr 27, 2016 Occupation: . retired Apr 27, 2016 Family history Qualifier Description Comment Date Reported Maternal Grandmother Comment not available Apr 27, 2016 Paternal Grandmother Comment not available Apr 27, 2016 Children Comment not available Apr 27, 2016 Maternal Grandfather Comment not available Apr 27, 2016 Father Comment not available Apr 27, 2016 Brother(s) Comment not available Apr 27, 2016 Mother Comment not available Apr 27, 2016 Paternal Grandfather Comment not available Apr 27, 2016 Sister(s) alive Comment not available Apr 27, 2016 Other: Comment not available Apr 27, 2016 General Family History Comment not available Apr 27, 2016 Vital Signs Date/Time: Apr 27, 2016 Weight 264 lbs Height 70 in Temperature 99.1 F Blood Pressure Diastolic 55 mm Hg Blood Pressure Systolic 140 mm Hg Summary Purpose eClinicalWorks Submission
--- OUTSIDE RECORDS SUMMARY | 2018-08-21 10:48 | XMS REPORT ---
Author Author Yareli Alford Organization eClinicalWorks Address Unknown Phone Unavailable Care Team Providers Care Vegetable Scullion Name Role Phone Yareli Alford Unavailable Allergies, Adverse Reactions, Alerts Substance Reaction Event Type N.K.D.A. Info Not Available Non Drug Allergy Problems Problem Type Condition Code Onset Dates Condition Status Problem Diabetes E11.9 Active Problem Carotid arterial disease I77.9 Active Problem Chronic systolic CHF (congestive heart failure) I50.22 Active Problem Well controlled diabetes mellitus E11.9 Active Problem PAF (paroxysmal atrial fibrillation) I48.0 Active Problem HTN (hypertension) I10 Active Problem BPH (benign prostatic hyperplasia) N40.0 Active Problem PAD (peripheral artery disease) I73.9 Active Problem Other chronic pain G89.29 Active Assessment Well controlled diabetes mellitus E11.9 Active Assessment Chronic systolic CHF (congestive heart failure) I50.22 Active Assessment PAF (paroxysmal atrial fibrillation) I48.0 Active Assessment BPH (benign prostatic hyperplasia) N40.0 Active Medications Medication Code System Code Instructions Start Date End Date Status Dosage Furosemide [facility] [address]-43 Active not defined Simvastatin [facility] [address]-10 Active not defined Metformin HCl [facility] 59605635372 500 MG Orally Twice a day Active 1 tablet with meals Tamsulosin HCl [facility] 59781442601 0.4 MG Orally Once a day Active 1 capsule Clopidogrel Bisulfate [facility] 70983973442 75 MG Orally Once a day Active 1 tablet Losartan Potassium [facility] [address]-12 Active not defined Ciprodex [facility] 17589754008 0.3-0.1 % Otic Twice a day Jun 26, 2018 Active 4 drops into affected ear Vital Signs Date/Time: Aug 13, 2018 BMI 37.02 Index Weight 258 lbs Height 70 in Temperature 98.6 F Blood Pressure Diastolic 67 mm Hg Blood Pressure Systolic 107 mm Hg Results No Known Results Summary Purpose eClinicalWorks Submission
--- OUTSIDE RECORDS SUMMARY | 2018-08-21 10:48 | XMS REPORT ---
Author Author Gil Mar [facility] eClinicalWorks Address Unknown Phone Unavailable Care Team Providers Care Eastern Philosophy Professor Name Role Phone Gil Mar Unavailable Allergies, Adverse Reactions, Alerts Substance Reaction Event Type N.K.D.A. Info Not Available Non Drug Allergy Encounters Encounter Location Date echo/carotid/arterial dopplers [place] Mar [place], [place] March 15, 2016 Follow-Up Gil Mar [place], [place] March 15, 2016 Follow-Up Gil Mar [place], [place] Sep 13, 2016 TROUBLE URINATING [facility] March 14, 2015 Unknown [facility] Jun 03, 2015 Follow-Up [place] Mar [place], [place] Sep 12, 2015 Problems Problem Type Condition ICD-9 Code Onset Dates Condition Status Problem Postprocedural PCI status V45.82 Active Problem Chronic diastolic heart failure 428.32 Active Problem Coronary atherosclerosis of [place] coronary artery 414.01 Active Problem CHF, chronic systolic I50.22 Active Assessment Coronary angioplasty status Z98.61 Active Problem Occlusion and stenosis of right carotid artery I65.21 Active Assessment Abnormal electrocardiogram [ECG] [EKG] R94.31 Active Assessment Type 2 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.51 Active Problem Atherosclerotic heart disease of [place] coronary artery without angina pectoris I25.10 Active Problem Abnormal electrocardiogram [ECG] [EKG] R94.31 Active Problem Type 2 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.51 Active Problem Peripheral vascular disease, unspecified I73.9 Active Problem Coronary angioplasty status Z98.61 Active Assessment CHF, chronic systolic I50.22 Active Assessment Atherosclerotic heart disease of [place] coronary artery without angina pectoris I25.10 Active [...] Instructions Start Date End Date Status Dosage Levemir [facility] [address]-11 100 UNIT/ML Subcutaneous Active Unknown Metformin HCl [facility] [address]-27 500 MG Orally Twice a day Active 1 tablet with meals Fish Oil [facility] [address]-79 500 MG Orally Twice a day Active 1 capsule Metoprolol Succinate ER [facility] [address]-33 50 MG Orally Once a day Active 1 tablet Tradjenta [facility] [address]-71 Orally Once a day Active 1 tablet Clopidogrel Bisulfate [facility] [address]-46 75 MG Orally Once a day Active 1 tablet Simvastatin [facility] [address]-98 10 mg Orally Once a day Active 1 tablet in the evening Humalog [facility] [address]-78 100 UNIT/ML Subcutaneous Active Unknown Ramipril [facility] [address]-20 10 MG Orally Once a day Active 1 capsule Aspirin [facility] 43991-30546 81 MG Orally Once a day Active 1 tablet Social History Social History Element Qualifiers Date Reported Tobacco Use: . Are you a: never smoker Sep 13, 2016 Marital Status: . Sep 13, 2016 Do you drink alcohol? . Status: No Sep 13, 2016 Vital Signs Date/Time: Sep 13, 2016 Weight 265 lbs Cardiac Monitoring Heart Rate 76 /min Blood Pressure Diastolic 85 mm Hg Blood Pressure Systolic 133 mm Hg Summary Purpose eClinicalWorks Submission
--- OUTSIDE RECORDS SUMMARY | 2018-08-21 10:48 | XMS REPORT ---
Author Author Gil Mar [facility] eClinicalWorks Address Unknown Phone Unavailable Care Team Providers Care Cream Ripener Name Role Phone Gil Mar CP Unavailable Allergies, Adverse Reactions, Alerts Substance [...] Problem Coronary angioplasty status Z98.61 Active Assessment Occlusion and stenosis of right carotid artery I65.21 Active Problem CHF, chronic systolic I50.22 Active Problem Occlusion and stenosis of right carotid artery I65.21 Active Problem Abnormal electrocardiogram [ECG] [EKG] R94.31 Active Problem Atrial fibrillation- Chronic I48.2 Active Problem Obesity, unspecified E66.9 Active Assessment Paroxysmal atrial fibrillation I48.0 Active Assessment Atherosclerotic heart disease of [place] coronary artery without angina pectoris I25.10 Active Problem Paroxysmal atrial fibrillation I48.0 Active Assessment CHF, chronic systolic I50.22 Active Problem Peripheral vascular disease, unspecified I73.9 Active Problem Type 2 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.51 Active Problem Body mass index (BMI) 38.0-38.9, adult Z68.38 Active Problem Atherosclerotic heart disease of [place] coronary artery without angina pectoris I25.10 Active Problem Morbid obesity 278.01 Active Problem Mixed hyperlipidemia 272.2 Active Problem Coronary atherosclerosis of [place] coronary artery 414.01 Active Problem Peripheral vascular disease 443.9 Active Problem Postprocedural PCI status V45.82 Active Problem Carotid stenosis 433.10 Active Problem Diabetes mellitus type II 250.00 Active Problem Abnormal ECG 794.31 Active Medications Medication Code System Code Instructions Start Date End Date Status Dosage Simvastatin [facility] 90233843792 10 mg Orally Once a day Active 1 tablet in the evening Fish Oil [facility] 35827400569 500 MG Orally Twice a day Active 1 capsule Eliquis [facility] 78828217240 5 MG Orally twice a day (bid) March 13, 2018 Active 1 tablet Clopidogrel Bisulfate [facility] 83157002876 75 mg Orally Once a day Active 1 tablet Humalog [facility] 88961920453 100 UNIT/ML Subcutaneous Active not defined Levemir [facility] 27354896603 100 UNIT/ML Subcutaneous Active not defined Tradjenta [facility] 44882015572 Orally Once a day Active 1 tablet Losartan Potassium [facility] 09511804256 50 MG Orally Once a day Active 1 tablet Metoprolol Succinate ER [facility] 51332338988 100 MG Orally Once a day Active 1 tablet Furosemide [facility] 72046914107 40 mg Orally Once a day March 13, 2018 Active 1 tablet Metformin HCl [facility] 49250749334 500 MG Orally Twice a day Active 1 tablet with meals Vital Signs Date/Time: March 27, 2018 BMI 37.30 Index Weight 260 lbs Height 5ft 10in in Cardiac Monitoring Heart Rate 84 /min Blood Pressure Diastolic 70 mm Hg Blood Pressure Systolic 110 mm Hg Results No Known Results Summary Purpose eClinicalWorks Submission
--- OUTSIDE RECORDS SUMMARY | 2018-08-21 10:48 | XMS REPORT ---
Author Author Gil Mar Organization eClinicalWorks Address Unknown Phone Unavailable Care Team Providers Care Trial Paralegal Name Role Phone Gil Mar Unavailable Allergies, Adverse Reactions, Alerts Substance Reaction Event Type N.K.D.A. Info Not Available Non Drug Allergy Encounters Encounter Location Date TROUBLE URINATING [facility] March 14, 2015 Unknown [facility] Jun 03, 2015 Follow-Up Gil Mar [place], [place] Sep 12, 2015 Problems Problem Type Condition ICD-9 Code Onset Dates Condition Status Problem Postprocedural PCI status V45.82 Active Problem Chronic diastolic heart failure 428.32 Active Problem Coronary atherosclerosis of [place] coronary artery 414.01 Active Problem CHF, chronic systolic I50.22 Active Assessment Coronary angioplasty status Z98.61 Active Problem Occlusion and stenosis of right carotid artery I65.21 Active Assessment Abnormal electrocardiogram [ECG] [EKG] R94.31 Active Assessment Type 2 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.51 Active Problem Atherosclerotic heart disease of [place] coronary artery without angina pectoris I25.10 Active Problem Abnormal electrocardiogram [ECG] [EKG] R94.31 Active Problem Type 2 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.51 Active Problem Peripheral vascular disease, unspecified I73.9 Active Problem Coronary angioplasty status Z98.61 Active Assessment CHF, chronic systolic I50.22 Active Assessment Atherosclerotic heart disease of [place] coronary artery without angina pectoris I25.10 Active [...] Instructions Start Date End Date Status Dosage Ramipril [facility] [address]-48 10 MG Orally Once a day Active 1 capsule Metoprolol Succinate [facility] [address]-49 50 MG Orally Once a day Active [address] [facility] [address]-95 100 UNIT/ML Subcutaneous Active Unknown Metformin HCl [facility] [address]-61 500 MG Orally Twice a day Active 1 tablet with meals Clopidogrel Bisulfate [facility] [address]-33 75 MG Orally Once a day Active [address] [facility] [address]-77 50 MG Orally Once a day Active [address]al[address] [facility] [address]-72 100 UNIT/ML Subcutaneous Active Unknown Fish Oil [facility] [address]-10 500 MG Orally Twice a day Active 1 capsule Simvast[address] [facility] [address]-67 10 mg Orally Once a day Active 1 tablet in the evening Tradjenta [facility] [address]-59 Orally Once a day Active [address] [facility] 94788-81281 81 MG Orally Once a day Active 1 tablet Social History Social History Element Qualifiers Date Reported Tobacco Use: . Are you a: never smoker Sep 13, 2015 Marital Status: . Sep 13, 2015 Do you drink alcohol? . Status: No Sep 13, 2015 Vital Signs Date/Time: Sep 12, 2015 Weight 270 lbs Cardiac Monitoring Heart Rate 78 /min Blood Pressure Diastolic 70 mm Hg Blood Pressure Systolic 125 mm Hg Summary Purpose eClinicalWorks Submission
[2018-08-21] MEDS ORDERED: ALBUTEROL/IPRATROPIUM 3 ML NEB NEB ONE (11:15)
[2018-08-21] MEDS ORDERED: METHYLPREDNISOLONE SOD SUCC 125 MG/2ML VIAL IV ONE (11:15)
[2018-08-21] MEDS ORDERED: SODIUM CHLORIDE 0.9% 1000ML 1,000 ML IV SCH ×3 (11:15→12:15)
--- NOTE | 2018-08-21 11:22 | NUR ---
RT aware of ABG and Bipap order
[2018-08-21 11:24] LABS: BASOPHILS # (AUTO) 0.1 (0.0-0.1); BASOPHILS % 0.5 % (0.0-1.0); HEMATOCRIT 46.5 % (38.2-49.6); HEMOGLOBIN 15.5 g/dL (14.0-18.0); LYMPHOCYTES # (AUTO) 1.7 (1.0-3.2); MEAN CORPUSCULAR HEMOGLOBIN 33.3 pg (28-32); MEAN CORPUSCULAR HGB CONC 33.3 g/dL (31-35); MEAN CORPUSCULAR VOLUME 99.8 fL (81-99); MONOCYTES # (AUTO) 1.5 (0.2-0.8); MONOCYTES % 8.4 % (4.4-11.3); NEUTROPHILS # (AUTO) 13.5 (2.1-6.9); NEUTROPHILS % 78.6 % (38.7-80.0); PLATELET COUNT 380 x10e3/uL (140-360); RED BLOOD COUNT 4.66 x10e6/uL (4.3-5.7)
[2018-08-21] MEDS ORDERED: VANCOMYCIN 1GM/NS 250 ML 250 ML IV NR (11:30)
[2018-08-21 11:38] LABS: INR 1.76; PARTIAL THROMBOPLASTIN TIME 30.9 seconds (23.8-35.5); PROTHROMBIN TIME 21.9 seconds (11.9-14.5)
--- NOTE | 2018-08-21 11:44 | Diagnostic Imaging Report ---
Examination: Single AP view of the chest. COMPARISON: 11/10/2017 INDICATION: Short of breath DISCUSSION: Lungs are well-inflated. No consolidation, pleural effusion, or pneumothorax. Tortuosity of the thoracic aorta with otherwise normal cardiomediastinal contour for portable, AP technique. No acute osseous abnormality. IMPRESSION: 1. No acute cardiopulmonary abnormalities. Signed by: Dr. Gus Alvarenga M.D. on 08/21/2018 11:41 AM
[2018-08-21 11:47] LABS: ALBUMIN 2.6 g/dL (3.5-5.0); ALBUMIN/GLOBULIN RATIO 0.5 (0.8-2.0); ANION GAP 18.2 mmol/L (8-16); CREATININE, SERUM 1.28 mg/dL (0.72-1.25); MAGNESIUM 2.2 MG/DL (1.3-2.1); POTASSIUM 4.2 mmol/L (3.5-5.1)
[2018-08-21 11:53] LABS: B-TYPE NATRIURETIC PEPTIDE2 338.7 pg/mL (0-100)
[2018-08-21 11:55] LABS: CREATINE KINASE MB 10.9 ng/mL (0-5.0)
[2018-08-21] MEDS ORDERED: CEFEPIME HCL 1 GM VIAL IV SCH ×2 (12:15→14:00)
[2018-08-21] MEDS ORDERED: VANCOMYCIN HCL 1GM/NS 250 ML BAG IV SCH (12:15)
[2018-08-21 12:45] LABS: BAND NEUTROPHILS % (MANUAL) 1 %; LYMPHOCYTES % (MANUAL) 5 % (19-48); MONOCYTES % (MANUAL) 9 % (3.4-9.0); NEUTROPHILS % (MANUAL) 84 % (40-74)
[2018-08-21 12:46] LABS: ANISOCYTOSIS SLIGHT; PLATELET ESTIMATE ADEQUATE; PLATELET MORPHOLOGY COMMENT NORMAL; POLYCHROMASIA FEW; RBC MORPHOLOGY COMMENT NORMAL
--- NOTE | 2018-08-21 13:10 | Diagnostic Imaging Report ---
EXAMINATION: CT of the chest with contrast, PE protocol. TECHNIQUE: Spiral CT images of the chest were performed from the lung apices through the level of the adrenal glands after the IV administration of 100 cc of Isovue-370. Thin section reconstructions were obtained with special concentration on the pulmonary arteries. COMPARISON: Chest radiograph same day CLINICAL HISTORY:Shortness of breath, concern for pulmonary embolus DISCUSSION: Vasculature: The main pulmonary artery, right and left pulmonary arteries, and their visualized lobar and segmental pulmonary arteries are patent, without filling defect. The pulmonary outflow tract is of normal caliber. No ectasia or aneurysmal dilatation of the thoracic aorta. Atherosclerotic calcification of the thoracic aorta and great vessel origins, with great vessel origin tortuosity. [place] coronary artery calcifications. Lungs: Groundglass and reticular opacities in the dependent lower lobes left greater than right, compatible with subsegmental atelectasis. Scattered left upper lobe groundglass opacities for example on series 3 image 47. Linear opacity medially within the right middle lobe and in the inferior lingula, compatible with subsegmental atelectasis. Airways: Trachea, mainstem bronchi, and central lobar and segmental bronchi are patent. Pleura: <There is no evidence of pleural effusion or pneumothorax.> Heart and mediastinum: No hilar, mediastinal, or axillary lymphadenopathy. There is concentric wall thickening of the esophagus at the thoracic inlet, exemplified on series 2 image 23. Normal heart size. Abdomen: Visualized portions of the liver, gallbladder, spleen, pancreas, adrenals are unremarkable. Left upper pole renal cyst partially visualized. Bones and soft tissues: No focal soft tissue abnormalities. No osseous destructive lesions. IMPRESSION: No CT evidence of pulmonary embolus to the level of the segmental branch pulmonary arteries. Groundglass opacities in the left upper and lower lobes may indicate atelectasis, aspiration pneumonitis, or atypical infection in the appropriate clinical setting. Questionable esophageal wall thickening at the thoracic inlet may relate to peristalsis. Correlate for symptoms of dysphagia. Gastroenterology consultation for potential upper endoscopy is suggested to exclude presence of a mass lesion. Atherosclerotic vascular disease. Signed by: Dr. Gus Alvarenga M.D. on 08/21/2018 1:07 PM
[2018-08-21] MEDS: SODIUM CHLORIDE 0.9% 1000ML 1,000 ML IV SCH (13:15)
[2018-08-21] MEDS: CEFEPIME 1GM/NS 0.9% 50 ML 50 ML IV SCH (13:15)
[2018-08-21 14:06] LABS: CLARITY,URINE SL CLOUDY (CLEAR); COLOR,URINE YELLOW (YELLOW)
[2018-08-21 14:07] LABS: BILIRUBIN,URINE NEGATIVE (NEGATIVE); KETONES,URINE 1+ (NEGATIVE); LEUKOCYTE ESTERASE ,URINE NEGATIVE (NEGATIVE); NITRITE,URINE NEGATIVE (NEGATIVE); PROTEIN,URINE DIPSTICK NEGATIVE (NEGATIVE); URINE UROBILINOGEN 0.2 mg/dL (0.2 - 1)
[2018-08-21 14:17] LABS: BACTERIA,URINE MODERATE /HPF; EPITHELIAL CELLS,URINE FEW /LPF; RBC,URINE 0-5 /HPF (0-5)
[2018-08-21] MEDS ORDERED: SODIUM CHLORIDE 0.9% 50ML 50 ML ONE ×2 (14:20→19:37)
[2018-08-21] MEDS ORDERED: IOPAMIDOL 370 MG/ML 200 ML INFUS..BTL INJ ONE ×2 (14:20→19:37)
[2018-08-21] MEDS ORDERED: METOPROLOL SUC100 MG PO (15:48)
[2018-08-21] MEDS ORDERED: ELIQUIS PO (15:48)
[2018-08-21] MEDS ORDERED: LOSARTAN POTASS50 MG PO (15:48)
[2018-08-21] MEDS ORDERED: TAMSULOSIN HCL0.4 MG PO (15:48)
[2018-08-21] MEDS ORDERED: NOVOLIN R100 UNIT/1 SQ (15:48)
[2018-08-21] MEDS ORDERED: FUROSEMIDE40 MG PO (15:48)
[2018-08-21 17:30] LABS: ABG HCO3 30 mmol/L (23-28); ABG PCO2 54 mmHg (41-51); ABG PH 7.35 (7.31-7.41); ABG PO2 200 mmHg (80-105)
[2018-08-21 18:38] LABS: CREATINE KINASE MB 9.9 ng/mL (0-5.0)
[2018-08-21 21:00] VITALS: BP 110/69
[2018-08-22] MEDS: SODIUM CHLORIDE 0.9% 1000ML 1,000 ML IV SCH ×3 (00:17→18:30)
[2018-08-22] MEDS: CEFEPIME 1GM/NS 0.9% 50 ML 50 ML IV SCH ×2 (02:50→12:27)
[2018-08-22 03:18] LABS: CREATINE KINASE MB 10.5 ng/mL (0-5.0)
[2018-08-22 04:50] LABS: ABG HCO3 29 mmol/L (23-28); ABG PCO2 60 mmHg (41-51); ABG PH 7.29 (7.31-7.41); ABG PO2 89 mmHg (80-105)
--- NOTE | 2018-08-22 05:49 | NUR ---
WALKING ROUNDS WITH DR PARMAR, INFORMED HIM OF THIS SHIFTS ABG OCCURENCE AND BIPAP ADJUSTEMENTS MADE IN THE ED.
--- NOTE | 2018-08-22 06:03 | History and Physical ---
REASONS FOR ADMISSION 1. Respiratory failure. 2. Sepsis. HISTORY OF PRESENT ILLNESS: Patient is , who presented with acute respiratory distress, who was noted to have evidence of possible sepsis with an elevated white count. Patient was placed on BiPAP, as well as IV antibiotics. He has been admitted for further evaluation. Currently states he is doing much better. PAST MEDICAL HISTORY: Significant for diabetes, chronic kidney disease history. MEDICATIONS: See MAR. ALLERGIES: SEE MAR. SOCIAL: Nonsmoker and nondrinker. FAMILY HISTORY: Noncontributory. PHYSICAL EXAM VITALS: 98.6, blood pressure 126/74, pulse of 110 and irregular, sats are 94% on BiPAP. GENERAL: He is no apparent distress, lying in bed. around while he is on the BiPAP. NECK: Supple. No lymphadenopathy. CARDIOVASCULAR: Irregularly irregular. LUNGS: Decreased breath sounds bilaterally. No wheezing or rhonchi noted. ABDOMEN: Good bowel sounds, soft and nontender. EXTREMITIES: No clubbing or cyanosis. NEUROLOGICAL: Nonfocal. ASSESSMENT AND PLAN 1. Acute respiratory failure. Will continue bilevel positive airway pressure and consult pulmonary. 2. Sepsis. Will continue with antibiotics . 3. Leukocytosis. Will continue to monitor white count. 4. Chronic kidney disease, stage 3. Continue to monitor. 5. Diabetes. Continue with the current care and monitoring. 6. Atrial fibrillation with rapid ventricular response. Will consult cardiology. Continue with telemetry. Please see hospital chart for full details. Job#: [id number]
[2018-08-22 06:44] LABS: BASOPHILS # (AUTO) 0.1 (0.0-0.1); BASOPHILS % 0.4 % (0.0-1.0); HEMATOCRIT 41.3 % (38.2-49.6); HEMOGLOBIN 13.2 g/dL (14.0-18.0); LYMPHOCYTES # (AUTO) 1.1 (1.0-3.2); LYMPHOCYTES % 8.5 % (18.0-39.1); MEAN CORPUSCULAR HEMOGLOBIN 32.8 pg (28-32); MEAN CORPUSCULAR VOLUME 102.5 fL (81-99); MONOCYTES % 8.1 % (4.4-11.3); NEUTROPHILS # (AUTO) 10.2 (2.1-6.9); NEUTROPHILS % 80.3 % (38.7-80.0); PLATELET COUNT 312 x10e3/uL (140-360); RED BLOOD COUNT 4.03 x10e6/uL (4.3-5.7); RED CELL DISTRIBUTION WIDTH 14.2 % (11.7-14.4)
[2018-08-22 06:53] LABS: ANION GAP 15.5 mmol/L (8-16); BLOOD UREA NITROGEN 37 mg/dL (7-26); BUN/CREATININE RATIO 40 (6-25); CALCIUM 8.4 mg/dL (8.4-10.2); CARBON DIOXIDE 22 mmol/L (22-29); CHLORIDE 106 mmol/L (98-107); CREATININE, SERUM 0.92 mg/dL (0.72-1.25); EST GLOMERULAR FILTRATION RATE > 60 ML/MIN (60-); GLUCOSE 319 mg/dL (74-118); POTASSIUM 4.5 mmol/L (3.5-5.1); SODIUM 139 mmol/L (136-145)
--- NOTE | 2018-08-22 07:10 | NUR ---
ASSUMED CARE AT THIS TIME. PATIENT LAYING IN BED WITH EYES CLOSED. SKIN WARM AND DRY. RESP EVEN AND UNLABORED. NO SIGNS OF ACUTE DISTRESS NOTED AT THIS TIME. BIPAP IN PLACE, TOLERATING WELL.
--- NOTE | 2018-08-22 07:48 | NUR ---
RESPIRATORY AT BEDSIDE FOR ABG.
--- NOTE | 2018-08-22 07:49 | NUR ---
DR ANTON AT BEDSIDE FOR PATIENT EVAL
[2018-08-22 08:06] LABS: ABG HCO3 27 mmol/L (23-28); ABG PCO2 54 mmHg (41-51); ABG PH 7.31 (7.31-7.41); ABG PO2 114 mmHg (80-105)
[2018-08-22] MEDS ORDERED: METOPROLOL TARTRATE INJ 1 MG/ML VIAL IV PRN (08:30)
--- NOTE | 2018-08-22 08:30 | NUR ---
PATIENT AWAKE AND ALERT SITTING IN BED. RESP EVEN AND UNLABORED. SKIN WARM AND DRY. NO SIGNS OF ACUTE DISTRESS NOTED AT THIS TIME. STATES, "I FEEL BETTER", BIPAP REMOVED, ORAL CARE PROVIDED, TOLERATED WELL. BIPAP MASK READJUSTED AND PLACED, TOLERATING WELL.
--- NOTE | 2018-08-22 08:50 | NUR ---
BIPAP REMOVED FOR PATIENT TO EAT BREAKFAST TRAY, N/C 4L APPLIED, TOLERATING WELL. INSTRUCTED PATIENT TO NOTIFY NURSE FOR SOB OR DIFFICULTY BREATHING, VERBALIZED UNDERSTANDNG. NO SIGNS OF ACUTE DISTRESS NOTED AT THIS TIME.
[2018-08-22] MEDS ORDERED: NON-FORMULARY MEDICATION (Losartan Potassium 50 MG) PO SCH (09:00)
[2018-08-22] MEDS ORDERED: NON-FORMULARY MEDICATION ([Eliquis] 5 MG) PO SCH (09:00)
[2018-08-22] MEDS ORDERED: LOSARTAN POTASSIUM 25 MG TAB PO SCH (09:00)
[2018-08-22] MEDS ORDERED: NON-FORMULARY MEDICATION (Metoprolol Succinate 100 MG) PO SCH (09:00)
[2018-08-22 09:21] LABS: CREATINE KINASE MB 9.5 ng/mL (0-5.0)
--- NOTE | 2018-08-22 09:50 | NUR ---
PT DOES NOT WANT TO PUT HIS BIPAP MASK BACK ON STATING "I NEED A BREAK" - PT CURRENTLY 98% RA, SITTING ON EDGE OF BED WITH NAD NOTED; WILL CONTINUE TO MONITOR - PT INSTRUCTED TO USE CALL LIGHT FOR ASSISTANCE
[2018-08-22 09:53] LABS: LYMPHOCYTES % (MANUAL) 7 % (19-48); MONOCYTES % (MANUAL) 7 % (3.4-9.0); MYELOCYTES % (MANUAL) 1 % (0-0); NEUTROPHILS % (MANUAL) 82 % (40-74); NUCLEATED RED BLOOD CELLS 2
[2018-08-22 09:54] LABS: ANISOCYTOSIS SLIGHT; HYPOCHROMASIA SLIGHT; PLATELET ESTIMATE ADEQUATE; PLATELET MORPHOLOGY COMMENT NORMAL; RBC MORPHOLOGY COMMENT NORMAL
--- NOTE | 2018-08-22 10:19 | NUR ---
PATIENT AWAKE AND ALERT SITTING IN BED, RESP EVEN AND UNLABORED. SKIN WARM AND DRY. NO SIGNS OF ACUTE DISTRESS NOTED AT THIS TIME. PATIENT REFUSING TO WEAR BIPAP AT THIS TIME, STATES "I NEED A BREAK". N/C 4L IN PLACE, TOLERATING WELL. INSTRUCTED TO NOTIFY NURSE FOR C/O SOB OR DIFFICULTY BREATHING, VERBALIZED UNDERSTANDING.
--- NOTE | 2018-08-22 10:19 | Consultation ---
DATE OF CONSULTATION: August 22, 2018 REASON FOR CONSULTATION: AFib. CONSULTING PHYSICIAN: Dr. Skaggs HPI: This is a morbidly obese 73-year-old male that presented with dyspnea. According to the patient, for 1 week now he has shortness of breath, difficulty to carry out activities of daily living that he decided to come into the emergency room for evaluation. He stated that he was treated with some antibiotics, some steroids for bronchitis, but the symptoms keep getting worse. He has a history of diastolic CHF, carotid disease in the past. He denied any chest pain, any palpitation, any diaphoresis, or headache. He stated also lately he has been having multiple falls. Troponin was negative. EKG showed AFib. BNP was 338. He was found to be in AFib with RVR, and cardiology was consulted. PAST MEDICAL HISTORY: Hypertension, diabetes, diastolic CHF, carotid disease, obesity, and falls. PAST SURGICAL HISTORY: Bilateral carotid stenting. FAMILY HISTORY: Positive for CAD. SOCIAL HISTORY: No smoking, no drinking. He lives at home with the . MEDICATIONS: He was on Lasix, insulin, metformin, losartan, metoprolol, simvastatin, Eliquis, and tamsulosin. ALLERGIES: HE IS NOT ALLERGIC TO ANY MEDICATION. REVIEW OF THE SYSTEMS: He was positive for shortness of breath and dyspnea. PHYSICAL EXAMINATION: VITAL SIGNS: Temperature 97, heart rate 102, blood pressure 125/72, respirations 23, on BiPAP. GENERAL: He is awake, alert, and oriented x3, but very lethargic. HEENT: Mucous membranes moist. NECK: Supple. LUNGS: Bilaterally with decreased breath sounds. CARDIOVASCULAR: Irregularly irregular. ABDOMEN: Soft. NEUROLOGICAL: He is able to move all extremities. EXTREMITIES: Bilateral lower extremities with no edema. LABS: Sodium 139, potassium 4.5, chloride 106, CO2 22, BUN 37, creatinine 0.92, glucose 319. CK 611, CK-MB 10.50, and troponin was negative. IMPRESSION: 1. Atrial fibrillation. 2. Chronic diastolic heart failure. 3. Hypertension. 4. Diabetes. 5. Obesity. 6. Respiratory distress. 7. Elevated liver function tests. 8. Elevated CK and CK-MB. 9. History of carotid disease and stenting. 10. History of fall. ASSESSMENT AND PLAN: Will go ahead and continue IV diuresis. He had an echocardiogram done in November 2017 that showed normal systolic function, EF 50 to 55%. Will continue beta [place]. He was on Eliquis, will go ahead and resume the same. Will check his liver function tests, and he is on BiPAP, will continue the same. Due to the elevated liver function tests, will go ahead and hold the statin. Further cardiac workup pending clinical course. Thank you for this consultation. Dictated by: Idris Estrada NP Job#: [id number]
[2018-08-22] MEDS: METOPROLOL SUCCINATE 50 MG TAB XL PO SCH (10:36)
[2018-08-22] MEDS: APIXABAN 5 MG TABLET PO SCH ×2 (10:36→17:00)
[2018-08-22] MEDS: TAMSULOSIN HCL 0.4 MG CAP PO SCH (10:50)
--- NOTE | 2018-08-22 11:27 | NUR ---
VERBAL REPORT GIVEN TO AYANA DE LA CRUZ.
--- NOTE | 2018-08-22 11:27 | NUR ---
rec'd report in walking rounds with dennis sol
[2018-08-22] MEDS: VANCOMYCIN 1GM/NS 250 ML 250 ML IV SCH (14:04)
--- NOTE | 2018-08-22 16:33 | Consultation ---
DATE OF CONSULTATION: August 22, 2018 PULMONARY CONSULTATION REASON FOR THE CONSULT: Shortness of breath. HISTORY OF PRESENT ILLNESS: Mr. Mackey is a 73-year-old male who presented to the emergency room with worsening shortness of breath. Patient reports that for 3 to 4 days he was having cough productive of greenish phlegm. He felt that he was getting cold. He denies any chest pain, nausea, vomiting. He went to his primary care physician where he was prescribed prednisone and possibly antibiotic. He had an echocardiogram done here last time which showed EF of 55% with LVH, left atrium dilatation. He had a CT scan done in the emergency room which showed evidence of pneumonia and did not show any PE. He denies any chest pain, nausea, vomiting or diarrhea. He has been having cough and shortness of breath. He is a lifelong nonsmoker. REVIEW OF SYSTEMS GENERAL: Denies any fever or chills. HEAD: Denies any head trauma. ENT: Denies any earache. CVS: Denies any chest pain. RESPIRATORY: Shortness of breath. GI: Denies any nausea or vomiting. REMAINDER: The rest of the review of systems are negative except as in the HPI. PAST MEDICAL HISTORY 1. Hypertension. 2. Hyperlipidemia. 3. Chronic kidney disease. 4. Diastolic heart failure. 5. Previous echo here shows evidence of diastolic heart failure with LA dilated. 6. History of coronary artery disease, cardiac cath in the past. His leather production artisan is Dr. Bartlett. PAST SURGICAL HISTORY 1. Knee replacement. 1. Tonsillectomy. FAMILY AND SOCIAL HISTORY: He lives by himself. 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 Never smoked in his life. He denies any alcohol use. Family history is significant for hypertension and heart disease. PHYSICAL EXAMINATION VITAL SIGNS: Temperature 98.6, pulse of 104, blood pressure 105/84, respiratory rate of 18, O2 sat 99%. HEENT: Head atraumatic, normocephalic. NECK: Supple. CHEST: Clear to auscultation bilaterally. No wheezing. His air entry is reduced. Crackles bilaterally in the upper lobe. HEART: S1/S2 audible. ABDOMEN: Soft, nontender, nondistended. EXTREMITIES: No pedal edema. NEUROLOGICALLY: He is awake and alert. LABS: White count of 17,000 has come down to 12.75. Hemoglobin 15.5. Platelets 380. CHEMISTRY: Sodium 139, potassium 4.5, chloride 106, BUN 37, creatinine 0.92. Creatine kinase 657, CK-MB was 9.50, troponin negative. BNP 338.7. His liver function tests showed AST of 45, ALT of 60, alk phos of 83. Lactic acid was [address] of the chest: I have reviewed the images showing evidence of pneumonia in the upper lobes. Serum Gram stain has been sent and is pending. Urine is also pending. Creatinine 1.28, BUN 43. Creatinine was 0.92 in November when he was discharged and today again is 0.92. He came in with this creatinine. He received IV hydration. It has normalized. ASSESSMENT: Mr. Mackey is a 73-year-old male who presented with increasing cough, phlegm, leukocytosis. Failed outpatient treatment for pneumonia. He received Zithromax and prednisone by his primary care physician. CURRENT PROBLEMS 1. Sepsis due to pneumonia which was present on admission. 2. Respiratory failure. 3. High likelihood of obstructive sleep apnea. 4. Hypertension. 5. Hyperlipidemia. 6. History of coronary artery disease. 7. History of chronic diastolic heart failure. 8. Elevated CK-MB and CK with liver function test abnormality could be due to medications. PLAN 1. Agree with IV vancomycin and cefepime that has been ordered. 2. BiPAP use as needed. 3. Continue home medications with apixaban, metoprolol. Patient is on anticoagulation. 4. Cardiology consult reviewed. Critical care time spent 40 minutes. Job#: [id number] DARLENE
[2018-08-22 20:30] VITALS: BP 110/69
[2018-08-22 21:00] VITALS: BP 110/69
[2018-08-22] MEDS ORDERED: SIMVASTATIN 20 MG TAB PO SCH (21:00)
[2018-08-22] MEDS ORDERED: DEXTROSE 50% SYRINGE 50 ML IV PRN (21:00)
[2018-08-22] MEDS: INSULIN LISPRO 100 UNIT/1 ML 3ML VIAL SQ SCH (22:09)
[2018-08-23] VITALS (9 sets, daily range): BP systolic 107–164; BP diastolic 56–96
[2018-08-23] MEDS: CEFEPIME 1GM/NS 0.9% 50 ML 50 ML IV SCH ×2 (01:50→13:06)
[2018-08-23] MEDS: SODIUM CHLORIDE 0.9% 1000ML 1,000 ML IV SCH ×3 (04:21→23:24)
[2018-08-23] MEDS ORDERED: INSULIN REGULAR, HUMAN 100 UNIT/1 ML 3ML VIAL SQ SCH (07:30)
--- NOTE | 2018-08-23 07:35 | Progress Note ---
DATE: August 23, 2018 COVERING FOR: Dr. Skaggs. SUBJECTIVE: Patient comes in with congestive heart failure and also bronchitis. Patient is currently doing better. Shortness of breath is much better. No chest pains. No orthopnea. No PND. Slight exertional dyspnea is noted. OBJECTIVE VITAL SIGNS: Temperature is 98.6, pulse of 75, blood pressure 144/78, and pulse ox is 98%. GENERAL: The patient is alert and oriented x3. HEENT: Normocephalic, atraumatic. Patient has O2 support, was on BiPAP, currently on O2 via nasal cannula. CVS: S1 and S2 normal. Regular rate and rhythm. Positive for an S3. LUNGS: Good air entry. Positive for some minimal inspiratory wheezes present. ABDOMEN: Soft, nontender, and protuberant. EXTREMITIES: Trace edema present. LABORATORY DATA: Patient's last was yesterday, white count of 12,000, which is trending down from 17,000, neutrophil count 80.3. Coags were normal. INR is 1.76. Chemistries, sodium of 139, potassium is 4.5, glucose is 319. Creatinine kinase was elevated at 497, troponin has always trended down, and CK-MB was 9.50. MICROBIOLOGY: Sputum culture is pending. Urine culture preliminary was no growth after the 48 hours. Blood cultures, no growth after 24 hours for 2 of them. IMAGING STUDIES: Patient's echocardiogram shows an EF of 50%-55% with mild concentric left ventricular hypertrophy, left atrium mild dilatation. ASSESSMENT 1. Sepsis due to pneumonia, which we will continue on antibiotics. The patient is on Cefepime. 2. Respiratory failure, on BiPAP and also on oxygen support. Patient has a very high likelihood of sleep apnea with morbid obesity. We will continue monitoring it and possibly need a CPAP evaluation as an outpatient. 3. Hypertension: Antihypertensive will be continued. 4. Hyperlipidemia: We will continue on his antihyperlipidemic agents. 5. Patient has a history of coronary artery disease: Follow up with Dr. Patel on an outpatient basis. Patient can continue doing that. IV diuresis and also cardiology representation in-house by Dr. Patel. Further recommendations per clinical course. We will continue to diurese the patient. A GI consult has also been done. For possible aspiration, patient is to have an MBS to be done on Doug. Further recommendations per clinical course. Patient's medications at this time are Cefepime, vancomycin, metoprolol 100 mg, apixaban 5 mg twice a day (Eliquis), metformin 500 mg twice a day, hydralazine 10 mg q.6h. p.r.n., and as needed. Patient is also diabetic and is currently on an insulin sliding scale. We will also restart his home medications. For further information, look in the chart. Job#: [id number] MITALI
[2018-08-23] MEDS: TAMSULOSIN HCL 0.4 MG CAP PO SCH (07:50)
[2018-08-23] MEDS: METOPROLOL SUCCINATE 50 MG TAB XL PO SCH (07:50)
[2018-08-23] MEDS: METFORMIN HCL 500 MG TAB PO SCH ×2 (07:50→16:50)
[2018-08-23] MEDS: APIXABAN 5 MG TABLET PO SCH ×2 (07:50→16:50)
[2018-08-23] MEDS: INSULIN LISPRO 100 UNIT/1 ML 3ML VIAL SQ SCH ×4 (07:52→20:48)
--- NOTE | 2018-08-23 12:22 | NUR ---
Nutrition Screen Note RD Recommendation for Physician: Continue diet as ordered Plan of Care: RD following, monitoring for adequacy and tolerance Nutrition reason for involvement: Nutrition Risk Trigger MST score Primary Diagnose(s): acute respiratory failure Ht:69 in Wt:lbs BMI:39.2 kg/m2 IBW:145lbs RD Assessment:08/23/2018 Initial encounter with patient. Pt denies having any nausea, vomiting or diarrhea, nor has any difficulty chewing or swallowing. Pt reports a good appetite. Pt denies any wt changes Current Diet: Cardiac diet Malnutrition Evaluation (08/23/2018) The patient does not meet criteria for a specified degree of malnutrition at this time. Will re-evaluate at follow-up as appropriate. Diet Education Needs Assessment: Diet education not indicated. Diet Adequacy: Meeting calorie needs, Meeting protein needs Tolerance: Tolerating PO Nutrition Care Level: Melquiades Wilson RD, LD, CNSC
[2018-08-23] MEDS: VANCOMYCIN 1GM/NS 250 ML 250 ML IV SCH (13:06)
--- NOTE | 2018-08-23 19:50 | NUR ---
Report received from AM nurse Audrey. Patient received sitting at edge of the bed. Denied pain and no SOB. No respiratory distress noted, continued on 3liters oxygen via nasal canula/ BIPAP PRN. Bed in lower position,locked. Call leung within reach. Will continue to monitor.
[2018-08-23] MEDS: HYDRALAZINE HCL 20 MG/ML VIAL IV PRN (20:48)
[2018-08-24] VITALS (8 sets, daily range): BP systolic 81–170; BP diastolic 41–90
[2018-08-24] MEDS: CEFEPIME 1GM/NS 0.9% 50 ML 50 ML IV SCH ×2 (00:54→12:52)
[2018-08-24 04:41] LABS: BASOPHILS # (AUTO) 0.1 (0.0-0.1); BASOPHILS % 0.4 % (0.0-1.0); EOSINOPHILS # (AUTO) 0.1 (0.0-0.4); EOSINOPHILS % 0.4 % (0.0-6.0); HEMATOCRIT 42.9 % (38.2-49.6); HEMOGLOBIN 13.6 g/dL (14.0-18.0); LYMPHOCYTES # (AUTO) 1.6 (1.0-3.2); MEAN CORPUSCULAR HEMOGLOBIN 33.1 pg (28-32); MEAN CORPUSCULAR HGB CONC 31.7 g/dL (31-35); MEAN CORPUSCULAR VOLUME 104.4 fL (81-99); MONOCYTES # (AUTO) 1.4 (0.2-0.8); MONOCYTES % 9.9 % (4.4-11.3); NEUTROPHILS # (AUTO) 10.9 (2.1-6.9); NEUTROPHILS % 76.9 % (38.7-80.0); PLATELET COUNT 284 x10e3/uL (140-360); RED BLOOD COUNT 4.11 x10e6/uL (4.3-5.7)
[2018-08-24 04:50] LABS: ANION GAP 13.5 mmol/L (8-16); BLOOD UREA NITROGEN 23 mg/dL (7-26); BUN/CREATININE RATIO 29 (6-25); CALCIUM 8.7 mg/dL (8.4-10.2); CARBON DIOXIDE 26 mmol/L (22-29); CHLORIDE 108 mmol/L (98-107); CREATININE, SERUM 0.78 mg/dL (0.72-1.25); EST GLOMERULAR FILTRATION RATE > 60 ML/MIN (60-); GLUCOSE 185 mg/dL (74-118); POTASSIUM 4.5 mmol/L (3.5-5.1); SODIUM 143 mmol/L (136-145)
[2018-08-24] MEDS: HYDRALAZINE HCL 20 MG/ML VIAL IV PRN (05:10)
[2018-08-24 05:13] LABS: FREE THYROXINE INDEX 3.9694 (1.4-3.8); THYROID STIMULATING HORMONE 0.031 uIU/mL (0.350-4.940)
--- NOTE | 2018-08-24 07:02 | NUR ---
Report given to upcoming nurse Audrey.
[2018-08-24] MEDS: METOPROLOL SUCCINATE 50 MG TAB XL PO SCH (07:55)
--- NOTE | 2018-08-24 07:58 | Progress Note ---
DATE: August 24, 2018 SUBJECTIVE: Patient is here for congestive heart failure, acute respiratory failure, and sepsis. Patient is currently doing better. Shortness of breath is better, still feels weak and tired and is only able to walk few steps with the walker. On O2 support and BiPAP at night time. OBJECTIVE VITAL SIGNS: Temperature is 97.9, pulse of 84, blood pressure is 160/90, and pulse oximetry 90% on 3 liters of oxygen. HEENT: Normocephalic, atraumatic. Pupils are reactive to light and accommodation. CVS: S1 and S2, regular. ABDOMEN: Nontender, nondistended. EXTREMITIES: No clubbing. No cyanosis. No edema. Positive for edema in the lower extremities. LABORATORY VALUES: Today, his white count is 14,000, hemoglobin of 13.6, and hematocrit of 42.9. Chemistries; sodium 143, potassium 4.5, chloride 108, BUN of 23, and creatinine of 0.78. Glucose has been running high at 264. TSH is 0.031. MEDICATIONS: Include; 1. Hydralazine p.r.n. 2. Cefepime 1 g b.i.d. 3. Sodium chloride, patient is on 100 mL per hour, we will go ahead and stop that. 4. Lisinopril. 5. Insulin lispro. 6. Metformin 500 mg. 7. Apixaban 5 mg. 8. Vancomycin 1 g. 9. Metoprolol 100 mg. 10. Tamsulosin 0.4 mg. 11. Dextrose 50. 12. Metoprolol 25 as needed. IMAGING STUDIES: Chest x-ray from is ground-glass opacities. No CT evidence of pulmonary embolism and questionable esophageal wall thickening. ASSESSMENT 1. Sepsis secondary to pneumonia. We will continue on antibiotics, patient is on two, cefepime and vancomycin. 2. Respiratory failure, on BiPAP and oxygen support. We will continue with possible home O2 evaluation. 3. Hypertension. Antihypertensives. 4. Hyperlipidemia. Continue with medications. 5. Patient also has coronary artery disease. Patient is on Eliquis. We will continue with Eliquis. 6. Patient also has an esophageal thickening, probably need an outpatient evaluation for this and it has been stressed to the patient. Needs physical therapy for conditioning and also his fluids will be stopped at this time. Further recommendations per clinical course. We will continue monitoring the patient along with the consultants. Job#: [id number] MITALI
[2018-08-24] MEDS: INSULIN LISPRO 100 UNIT/1 ML 3ML VIAL SQ SCH ×4 (08:02→21:56)
[2018-08-24] MEDS: TAMSULOSIN HCL 0.4 MG CAP PO SCH (08:02)
[2018-08-24] MEDS: METFORMIN HCL 500 MG TAB PO SCH ×2 (08:02→16:09)
[2018-08-24] MEDS: APIXABAN 5 MG TABLET PO SCH ×2 (08:02→16:09)
[2018-08-24] MEDS: VANCOMYCIN 1GM/NS 250 ML 250 ML IV SCH (13:03)
[2018-08-24] MEDS: FUROSEMIDE INJ 10 MG/ML 4 ML VIAL IV SCH (16:09)
[2018-08-24] MEDS: POTASSIUM CHLORIDE 10MEQ EA PO SCH (16:10)
--- NOTE | 2018-08-24 19:05 | NUR ---
Report received from AM nurse Audrey. Patient received sitting on chair at the bedside with continuing 3liters oxygen via nasal canula, Spo2 maintained 92%. Denied pain and no SOB. No respiratory distress noted. Patient had blisters on bilateral lower legs( metatarsal phalangeal site). Patient assisted to sit in bed and elevated legs with helps of pillows. Patient assisted to changed gown and put diaper on as patient's wish. Patient stated "I feel so good now". Bed in lower position,locked. Call leung within reach. Will continue to monitor. Addendum: 08/25/18 at 0016 by Adilene Esteban RN double charting
--- NOTE | 2018-08-24 23:15 | NUR ---
Patient took off all leads and oxygen, sitting at edge of the bed and hanged foot on the floor. Patient complained that "I feel upset,when Dr. rubio see my feet". Patient assisted to connected all leads back and reassure to make him calm down. V/S WNL. Patient refused to go back to bed and elevated legs att his time.Patient friend arrived in the room. Patient seemed calm down after see his friends. Bed in lower position,locked. Call leung within reach. Will continue to monitor.
[2018-08-25] MEDS: CEFEPIME 1GM/NS 0.9% 50 ML 50 ML IV SCH ×2 (01:21→13:00)
[2018-08-25 04:53] VITALS: BP 127/86
--- NOTE | 2018-08-25 07:08 | NUR ---
Report given to AM nurse Milly,walking round done.
[2018-08-25] MEDS: INSULIN LISPRO 100 UNIT/1 ML 3ML VIAL SQ SCH ×4 (07:30→20:13)
[2018-08-25] MEDS: METFORMIN HCL 500 MG TAB PO SCH ×2 (07:47→17:00)
[2018-08-25 07:55] VITALS: BP 143/71
[2018-08-25] MEDS: APIXABAN 5 MG TABLET PO SCH ×2 (09:00→19:15)
[2018-08-25] MEDS: POTASSIUM CHLORIDE 10MEQ EA PO SCH ×2 (09:00→19:14)
[2018-08-25 10:07] LABS: ANION GAP 14.6 mmol/L (8-16); BLOOD UREA NITROGEN 21 mg/dL (7-26); BUN/CREATININE RATIO 27 (6-25); CARBON DIOXIDE 26 mmol/L (22-29); CHLORIDE 107 mmol/L (98-107); CREATININE, SERUM 0.79 mg/dL (0.72-1.25); EST GLOMERULAR FILTRATION RATE > 60 ML/MIN (60-); GLUCOSE 190 mg/dL (74-118); POTASSIUM 4.6 mmol/L (3.5-5.1); SODIUM 143 mmol/L (136-145)
[2018-08-25 10:32] VITALS: BP 143/71
[2018-08-25 11:42] LABS: FOLATE 16.4 ng/mL (7.0-15.4)
[2018-08-25 12:40] VITALS: BP 140/70
[2018-08-25] MEDS: FUROSEMIDE INJ 10 MG/ML 4 ML VIAL IV SCH ×2 (13:46→19:15)
[2018-08-25] MEDS: VANCOMYCIN 1GM/NS 250 ML 250 ML IV SCH ×2 (13:46→13:50)
--- NOTE | 2018-08-25 14:16 | NUR ---
WOUND CARE CONSULTATION: THIS IS A 73 YEAR OLD MALE PATIENT ADMITTED TO [facility] FOR ACUTE RESPIRATORY FAILURE, DYSPNEA, AND SEPSIS. HEAD TO TOE SKIN ASSESSMENT PERFORMED. PATIENT HAS BILATERAL LOWER EXTRIMITY 3+ PITTING EDEMA; PULSES PALPABLE AND STRONG BILATERALLY. PATIENT HAS A RIGHT DORSAL FOOT BLISTER MEASURING 7X12.5CM. PATIENT HAS A LEFT DORSAL FOOT BLISTER MEASURING 3.4X7.8CM. PATIENT HAS A BRUISE NOTED TO HIS RIGHT FOREARM. LABS: WBC14.13 [id number] SPUTUM CULTURE (+) YEAST. URINE AND BLOOD CULTURE BOTH NEGATIVE. MEDICATIONS: CEFEPIME VANCOMYCIN RECOMMENDED: -CONTINUE ALTERNATING PRESSURE RELIEF MATTRESS. -APPLY BILATERAL HEEL PROTECTORS WITH PILLOW SUSPENSION. -TURN EVERY 2 HOURS AND PRN. -NURSING TO CONTINUE TO MONITOR BLISTERS TO BILATERAL FEET. THANK YOU FOR THIS WOUND CARE CONSULT. Addendum: 08/25/18 at 1438 by Alanna Mendez RN Amended: Links added.
--- NOTE | 2018-08-25 16:50 | Diagnostic Imaging Report ---
PROCEDURE: BARIUM SWALLOW was performed with Sodium Carbonate and Barium. OPERATORS: COMPARISON: CT scan of the chest dated 08/21/2018 INDICATIONS: Esophageal wall thickening FINDINGS: The swallowing mechanism was grossly normal. The esophagus was normally distensible and the mucosa was within normal limits. Esophageal motility was within normal limits. No intrinsic or extrinsic abnormality involving the esophagus. No mucosal abnormality or intraluminal mass. There is a small hiatal hernia present. No reflux identified. The visualized portion of the stomach and proximal small bowel are unremarkable. Fluoroscopy time: 1.3 minutes. Total dose: 54.66 mGy IMPRESSION: 1. Small hiatal hernia. 2. No esophageal mass. César Alonso D.O. Dictated by: César Alonso D.O. on 08/25/2018 at 17:00 Electronically approved by: César Alonso D.O. on 08/25/2018 at 17:00
--- NOTE | 2018-08-25 17:00 | NUR ---
PATIENT DID NOT EAT DINNER HELD GLUCOPHAGE
[2018-08-25] MEDS: TAMSULOSIN HCL 0.4 MG CAP PO SCH (19:12)
[2018-08-25] MEDS: METOPROLOL SUCCINATE 50 MG TAB XL PO SCH (19:13)
[2018-08-25 20:00] VITALS: BP 177/92
--- NOTE | 2018-08-25 20:32 | NUR ---
Received change of shift report from AM nurse. Walking rounds completed.
--- NOTE | 2018-08-25 22:17 | NUR ---
Patient in bed. AAOx3 ambulates to bathroom with use of walker. Denies pain at this time. O2 at 2-3L via n/c. IV to left AC dry, intact and patent. Patient frequent urination. +2 edema to lower legs. Blisters noted to feet bilaterally. BS 158 insulin given as ordered by MD to left upper arm. Patient with no noted distress. Continue monitor.
[2018-08-26] VITALS (7 sets, daily range): BP systolic 130–184; BP diastolic 68–99
[2018-08-26] MEDS: CEFEPIME 1GM/NS 0.9% 50 ML 50 ML IV SCH ×3 (00:19→15:00)
--- NOTE | 2018-08-26 03:50 | NUR ---
Patient became confused and removed all connection and IV. Pt sat at 91% at this time. Patient placed on bipap. Will restart IV. Oriented patient. Patient state "I dont know why I did this".
--- NOTE | 2018-08-26 05:50 | NUR ---
Dr Skaggs on the floor to see patient. F/U on any orders.
[2018-08-26] MEDS: INSULIN LISPRO 100 UNIT/1 ML 3ML VIAL SQ SCH ×4 (08:21→21:00)
[2018-08-26] MEDS: METFORMIN HCL 500 MG TAB PO SCH ×2 (08:23→17:17)
[2018-08-26] MEDS: APIXABAN 5 MG TABLET PO SCH ×2 (09:51→17:17)
[2018-08-26] MEDS: FUROSEMIDE INJ 10 MG/ML 4 ML VIAL IV SCH ×2 (09:51→18:33)
[2018-08-26] MEDS: POTASSIUM CHLORIDE 10MEQ EA PO SCH ×2 (09:51→17:18)
[2018-08-26] MEDS: TAMSULOSIN HCL 0.4 MG CAP PO SCH (09:51)
[2018-08-26] MEDS: METOPROLOL SUCCINATE 50 MG TAB XL PO SCH (09:52)
[2018-08-26] MEDS: VANCOMYCIN 1GM/NS 250 ML 250 ML IV SCH (12:46)
--- NOTE | 2018-08-26 19:17 | NUR ---
Received change of shift report from AM nurse. Walking rounds completed.
--- NOTE | 2018-08-26 20:21 | NUR ---
Patient in bed in sitting position. Family at bedside. IV intact to left FA 20G. O2 on at 2-3L n/c. Dressing to feet bilaterally intact. Patient denies pain at this time. Continue monitor.
[2018-08-27] VITALS (8 sets, daily range): BP systolic 124–163; BP diastolic 70–96
[2018-08-27] MEDS: CEFEPIME 1GM/NS 0.9% 50 ML 50 ML IV SCH ×2 (03:00→16:04)
[2018-08-27] MEDS ORDERED: SODIUM CHLORIDE 0.9% 250ML 250 ML ONE (03:14)
[2018-08-27] MEDS: INSULIN LISPRO 100 UNIT/1 ML 3ML VIAL SQ SCH ×4 (08:30→21:00)
[2018-08-27] MEDS: METFORMIN HCL 500 MG TAB PO SCH ×2 (09:04→17:33)
[2018-08-27] MEDS: FUROSEMIDE INJ 10 MG/ML 4 ML VIAL IV SCH ×2 (09:05→17:33)
[2018-08-27] MEDS: TAMSULOSIN HCL 0.4 MG CAP PO SCH (09:05)
[2018-08-27] MEDS: APIXABAN 5 MG TABLET PO SCH ×2 (09:05→17:33)
[2018-08-27] MEDS: METOPROLOL SUCCINATE 50 MG TAB XL PO SCH (09:07)
[2018-08-27] MEDS: POTASSIUM CHLORIDE 10MEQ EA PO SCH ×2 (09:08→17:34)
[2018-08-27] MEDS: VANCOMYCIN 1GM/NS 250 ML 250 ML IV SCH (13:12)
--- NOTE | 2018-08-27 19:00 | NUR ---
Report received from AM nurse Audrey. Patient received resting in his bed. Denied pain and no SOB. No respiration distress noted. Bed in lower position,locked. Call leung within reach. Call leung within reach.
[2018-08-27] MEDS: HYDRALAZINE HCL 20 MG/ML VIAL IV PRN ×2 (23:42→23:45)
[2018-08-28] VITALS (7 sets, daily range): BP systolic 143–160; BP diastolic 77–90
--- NOTE | 2018-08-28 01:00 | NUR ---
round the patient at this time.NNO.
--- NOTE | 2018-08-28 02:40 | NUR ---
Patient Spo2 88% with 2liters oxygen via NC during sleeping.Patient refused BIPAP at this time. Assisted to increased oxygen @4liters via NC. Notified to charge nurse Yahaira and RT.Will continue to monitor.
[2018-08-28] MEDS: CEFEPIME 1GM/NS 0.9% 50 ML 50 ML IV SCH (03:46)
[2018-08-28 05:08] LABS: BASOPHILS % 0.4 % (0.0-1.0); EOSINOPHILS # (AUTO) 0.1 (0.0-0.4); EOSINOPHILS % 1.3 % (0.0-6.0); HEMATOCRIT 41.6 % (38.2-49.6); HEMOGLOBIN 13.4 g/dL (14.0-18.0); LYMPHOCYTES # (AUTO) 1.3 (1.0-3.2); LYMPHOCYTES % 11.8 % (18.0-39.1); MEAN CORPUSCULAR HEMOGLOBIN 32.3 pg (28-32); MEAN CORPUSCULAR HGB CONC 32.2 g/dL (31-35); MEAN CORPUSCULAR VOLUME 100.2 fL (81-99); MONOCYTES % 8.9 % (4.4-11.3); NEUTROPHILS # (AUTO) 8.2 (2.1-6.9); NEUTROPHILS % 76.9 % (38.7-80.0); PLATELET COUNT 265 x10e3/uL (140-360); RED BLOOD COUNT 4.15 x10e6/uL (4.3-5.7); RED CELL DISTRIBUTION WIDTH 13.7 % (11.7-14.4)
[2018-08-28 05:39] LABS: ANION GAP 14.7 mmol/L (8-16); BLOOD UREA NITROGEN 20 mg/dL (7-26); BUN/CREATININE RATIO 24 (6-25); CALCIUM 9.1 mg/dL (8.4-10.2); CARBON DIOXIDE 31 mmol/L (22-29); CHLORIDE 96 mmol/L (98-107); CREATININE, SERUM 0.85 mg/dL (0.72-1.25); EST GLOMERULAR FILTRATION RATE > 60 ML/MIN (60-); GLUCOSE 207 mg/dL (74-118); POTASSIUM 3.7 mmol/L (3.5-5.1); SODIUM 138 mmol/L (136-145)
--- NOTE | 2018-08-28 06:12 | Diagnostic Imaging Report ---
CHEST 2 VIEWS, Technique: CHEST 2 VIEWS Comparison: 08/21/2018 Clinical history: Follow-up CHF DISCUSSION: Limited by soft tissue attenuation. Contrast is noted in the bowel in the upper abdomen. IMPRESSION: 1. Stable mildly enlarged cardiomediastinal silhouette. 2. Low lung volumes with bibasilar vascular crowding/atelectasis. 3. No effusion or pneumothorax. Signed by: Dr Yudith Lyon MD on 08/28/2018 6:09 AM
--- NOTE | 2018-08-28 06:58 | NUR ---
Bedside report given to upcoming nurse Alla.No issued noted.
[2018-08-28] MEDS: METFORMIN HCL 500 MG TAB PO SCH ×2 (08:26→17:19)
[2018-08-28] MEDS: INSULIN LISPRO 100 UNIT/1 ML 3ML VIAL SQ SCH ×4 (08:26→21:50)
[2018-08-28] MEDS: APIXABAN 5 MG TABLET PO SCH ×2 (08:26→17:19)
[2018-08-28] MEDS: POTASSIUM CHLORIDE 10MEQ EA PO SCH ×2 (08:26→17:19)
[2018-08-28] MEDS: TAMSULOSIN HCL 0.4 MG CAP PO SCH (08:26)
[2018-08-28] MEDS: FUROSEMIDE INJ 10 MG/ML 4 ML VIAL IV SCH ×2 (08:26→17:19)
[2018-08-28] MEDS: METOPROLOL SUCCINATE 50 MG TAB XL PO SCH (08:27)
[2018-08-28] MEDS: VANCOMYCIN 1GM/NS 250 ML 250 ML IV SCH (11:40)
--- NOTE | 2018-08-28 12:15 | NUR ---
Orders received from attending physician for LTAC evaluation. Case management made aware.
--- NOTE | 2018-08-28 14:14 | NUR ---
Nutrition Screen Note RD Recommendation for Physician: -Continue cardiac diet as ordered Plan of Care: RD following, monitoring for adequacy and tolerance Nutrition reason for involvement: Follow up Primary Diagnose(s): acute respiratory failure Ht:69 in Wt: 241.06lbs BMI:35.6 kg/m2 IBW: 154lbs RD Assessment: 08/28 Chart reviewed. Labs and meds reviewed. Currently on IV abx and diuretics. Visited pt in the room. Pt reports fair appetite with ~50% observed meal intake. Pt doesnt like hospital foods therefore he is not eating as much as he used to. Pt complains of constipation with LBM 08/25. No other GI complains noted. RN is notified. Will continue to monitor and follow. 08/23/2018 Initial encounter with patient. Pt denies having any nausea, vomiting or diarrhea, nor has any difficulty chewing or swallowing. Pt reports a good appetite. Pt denies any wt changes Current Diet: Cardiac diet Malnutrition Evaluation (08/23/2018) The patient does not meet criteria for a specified degree of malnutrition at this time. Will re-evaluate at follow-up as appropriate. Diet Education Needs Assessment: Diet education not indicated. Diet Adequacy: Meeting calorie needs, Meeting protein needs Tolerance: Tolerating PO Nutrition Care Level: Low Latisha Munroe MS, RD, LD Addendum: 08/28/18 at 1418 by Latisha Munroe DIET Consider Ensure Compact BID if PO <50% consistently.
--- NOTE | 2018-08-28 14:42 | Consultation ---
DATE OF CONSULTATION: August 26, 2018 CHIEF COMPLAINT/HISTORY OF CHIEF COMPLAINT: Mr. Mackey is a most pleasant 73-year-old gentleman who is in today complaining of very large bullous lesions on the dorsal aspect of both left and right feet, greater on the right than on the left. These lesions he states have been present for the last several days and are getting larger. He was hospitalized for congestive heart failure, acute respiratory failure, sepsis. The patient feels he is doing much better. He is on IV antibiotics and continued support. Primary history with regards to his pneumonia is available through chart review. PHYSICAL EXAMINATION OF LOWER EXTREMITIES VASCULAR STATUS: The patient has mildly palpable pedal pulses, both dorsalis pedis and posterior tib. Skin temperature is warm. Cap refill is adequate. NEUROLOGIC: The patient has what appears to be a loss of protective sensation bilaterally with some D[place] Katiuska testing. Bilateral pedal edema is present as well. DERMATOLOGIC: Very large bullous lesions. The right measuring 8 cm x 5 cm and 5 cm in depth. There is a thin appearance to the dorsal skin over this mass with an obvious liquid underneath, clear in nature. Similar lesion is present on the dorsum of the left foot. This one is 7 cm x 4 cm x 4 cm in depth. MUSCULOSKELETAL: Otherwise deferred at this point. The patient is sitting in a chair with his feet hanging down. He states he is able to walk on a walker, but has been limiting that due to the bullous lesions on his feet. DIAGNOSIS: Superficial bulla, bilateral feet in a diabetic patient with pneumonia, chronic obstructive pulmonary disease and excessive pedal edema. TREATMENT TODAY: An I and D was performed utilizing a sterile prep and a #15 blade and expression of a significant volume of superficial fluid from these large bullous lesions on the dorsal aspect of both feet. In order to facilitate drying, a Betadine wet-to-dry dressing was applied. This is to be changed twice daily. The patient complained of no discomfort from the procedure. Did feel a mild burning with application of the Betadine, but this was primarily on the right foot and not on the left. The wound depth once de-roofed was noted to be full-thickness skin, but without significant extension into deep tissues. No extension into subcutaneous tissue. No exposed tendon or muscle. This should heal fairly quickly at this point. The patient is on Eliquis. There was no bleeding whatsoever. The appropriate topical dressings are initiated. We will follow while he is in-house. Job#: [id number] RI
--- NOTE | 2018-08-28 14:45 | Operative Report ---
DATE OF PROCEDURE: August 28, 2018 PODIATRY PROGRESS NOTE SUBJECTIVE: The patient is in today for followup of the I&D of the superficial bullous lesions on the dorsal aspect of both left and right feet. The patient is sitting once again with feet dependent. There is pedal edema but no new significant fluid buildup within the superficial tissues of the distal forefoot. The lancing and deroofing of the bulla appear to have successfully drained the excess fluid from both left and right bullous lesions. The left foot is almost completely void of redness. However, the right foot still has a fairly significant amount of redness surrounding the bullous lesion. The patient is currently wearing wet-to-dry dressings with Betadine to dry. Will try something more soothing and switch to a Silvadene wet-to-dry and discontinue the Betadine at this point. The patient is well on his way to full recovery and will need to see me within 2 weeks of discharge. It is understood that he has put in a request to go to [facility] and will likely be heading out for [facility] before or on the weekend. The same wound care there with Silvadene wet-to-dry. Culture results are still pending from the bullous lesion and will be evaluated and reacted to appropriately. Job#: [id number] DARLENE
--- NOTE | 2018-08-28 16:12 | NUR ---
CM SPOKE TO PATIENT AT BEDSIDE REGARDING ASSISTED ACUTE CARE PLACEMENT ORDER. CM INFORMED PATIENT OF LTAC SERVICES AND LOC. PATIENT VERBALLY UNDERSTOOD AND AGREED TO TRANSFER TO LTAC. PATIENT GIVEN CHOICES FOR LTAC. PATIENT CHOSE [facility] IN [place], [place]. CHOICE LETTER SIGNED AND PLACED IN CHART. CLINICAL PICKED UP BY LEONIDES LARES, LIAISON FOR [facility]. PENDING ACCEPTANCE. MOT INITIATED AND PLACED IN PACKET ON CHART PATIENT TO BE TRANSFERRED TO [facility]IENT [facility] FACILITY: [facility] Address: [address], [place] [address]
[2018-08-28] MEDS: SILVER SULFADIAZINE 50GM CREAM TOP SCH (17:20)
--- NOTE | 2018-08-28 23:57 | NUR ---
Report given to AYANA Mancini. Patient transferred to medical surgical unit([id number])at 2350 by bed with stable condition. V/S WNL.
[2018-08-29] VITALS: BP 126/73
[2018-08-29 04:00] VITALS: BP 155/83
[2018-08-29] MEDS: INSULIN LISPRO 100 UNIT/1 ML 3ML VIAL SQ SCH ×3 (07:30→17:00)
[2018-08-29 08:00] VITALS: BP 147/76
[2018-08-29] MEDS: SILVER SULFADIAZINE 50GM CREAM TOP SCH ×2 (09:00→17:45)
--- NOTE | 2018-08-29 09:22 | NUR ---
Patient left the floor to the OR.
--- NOTE | 2018-08-29 10:52 | NUR ---
Received recovery report from Kassie. Patient is s/p EGD and is coming to room 205.
--- NOTE | 2018-08-29 11:18 | NUR ---
Patient arrived back to the floor from recovery. He is awake alert and oriented x3, he is not in any distress. He has no complaints at this time. He knows he is no longer NPO. He was given some fresh ice water and denies needing anything else at this time, family member is in the room, call light in reach, bed locked.
--- NOTE | 2018-08-29 11:27 | Operative Report ---
DATE OF PROCEDURE: August 29, 2018 REFERRING PHYSICIAN: Dr. Mihir Parmar PROCEDURE PERFORMED: Esophagogastroduodenoscopy. INDICATIONS FOR EGD: Focal thickening of esophagus on CT scan of the chest. MEDICATION: Patient was done under MAC. Please see anesthesiologist's note. PROCEDURE: With the patient in the left lateral decubitus position, the flexible fiberoptic Olympus gastroscope was introduced into the esophagus under direct visualization without any difficulty. There was some patchy erythema noted in the distal esophagus. There was no obvious thickening noted in the esophageal mucosa noted throughout the esophagus. The scope was then advanced with ease into the stomach, traversing a small hiatal hernia. Mucosa overlying the antrum and the body revealed some patchy erythema and low-grade edema, and biopsies were obtained and sent to stain for H. pylori. The pylorus was of normal contour and shape. It was intubated with ease, and the scope was advanced all the way to the 2nd portion of the duodenum. The scope was then withdrawn slowly. Mucosa overlying the proximal 2nd portion and the duodenal bulb appeared to be within normal limits. The scope was then withdrawn back into the stomach and retroflexed. Mucosa overlying the fundus and cardia appeared to be within normal limits. The scope was then straightened out. It was subsequently withdrawn. Patient tolerated the procedure well. IMPRESSION 1. Mild distal esophagitis and no obvious focal thickening noted. 2. Small sliding hiatal hernia. 3. Gastritis, biopsied. Biopsies sent to stain for H. pylori. PLAN: Follow up histology. Initiate Protonix 40 mg 1 p.o. q.a.m. a.c. Job#: [id number] cc:MIHIR PARMAR MD
[2018-08-29 12:00] VITALS: BP 154/73
[2018-08-29] MEDS: APIXABAN 5 MG TABLET PO SCH ×2 (12:05→17:44)
[2018-08-29] MEDS: TAMSULOSIN HCL 0.4 MG CAP PO SCH (12:05)
[2018-08-29] MEDS: METOPROLOL SUCCINATE 50 MG TAB XL PO SCH (12:05)
[2018-08-29] MEDS: POTASSIUM CHLORIDE 10MEQ EA PO SCH ×2 (12:05→17:44)
[2018-08-29] MEDS: FUROSEMIDE INJ 10 MG/ML 4 ML VIAL IV SCH ×2 (12:05→17:00)
[2018-08-29] MEDS: METFORMIN HCL 500 MG TAB PO SCH ×2 (12:05→17:44)
--- NOTE | 2018-08-29 12:54 | NUR ---
RECEIVED MOT FOR LTAC [facility] Address: [address], [place] [address] Mihir Skaggs to attend Admin: Lester Valadez, [employer] MOT information received from Babita Baptiste with [place] [facility] completed and placed at nurses station. Nursing notified.
--- NOTE | 2018-08-29 14:25 | NUR ---
Telemetry reported 8 beat run of v-tach. Paged Dr. Patel, awaiting call back.
--- NOTE | 2018-08-29 14:25 | NUR ---
Patient has a room ready at [place]. Dr Skaggs also notified of tele reporting run of v tach. Will hold off on transfer until cardiology is notified.
--- NOTE | 2018-08-29 14:48 | NUR ---
Notified cardiology that patient tele reported 8 beat run of v-tach. New orders received
[2018-08-29] MEDS ORDERED: GLUCAGON FOR INJ 1 MG VIAL ONE (15:32)
[2018-08-29] MEDS ORDERED: PROPOFOL IV EMULSION 10 MG/ML 50 ML VIAL ONE (15:32)
--- NOTE | 2018-08-29 15:35 | NUR ---
12 lead ekg was obtained and tele strip was reviewed by . According to cardiology no SVT Per cardiology OK to transfer patient to [place] at this time. Dr. Skaggs also notified
[2018-08-29 16:00] VITALS: BP 164/71
--- NOTE | 2018-08-29 17:08 | NUR ---
Report called to Vern , he is going to room 219
[2018-08-29 18:45] VITALS: BP 164/71
== END 2018-08-29 19:21 | DRG 871 ==
LOC: ER 10:42 → ERHOLD 12:15 → IMCU 08-22 20:19 → MED/SURG2 08-28 23:51
PROVIDERS: ADMIT Internal Medicine; ATTEND Internal Medicine
PROC: 0H9NXZX Drainage of Left Foot Skin, External Approach, Diagnostic (ICD-10-PCS; principal; 2018-08-26)
PROC: 0H9MXZX Drainage of Right Foot Skin, External Approach, Diagnostic (ICD-10-PCS; 2018-08-26)
PROC: 0DB78ZX Excision of Stomach, Pylorus, Via Natural or Artificial Opening Endoscopic, Diagnostic (ICD-10-PCS; 2018-08-29)
DX: A41.9 Sepsis, unspecified organism (principal); J18.9 Pneumonia, unspecified organism; J96.00 Acute respiratory failure, unspecified whether with hypoxia or hypercapnia; J44.0 Chronic obstructive pulmonary disease with (acute) lower respiratory infection; J44.1 Chronic obstructive pulmonary disease with (acute) exacerbation; I13.0 Hypertensive heart and chronic kidney disease with heart failure and stage 1 through stage 4 chronic kidney disease, or unspecified chronic kidney disease; I50.32 Chronic diastolic (congestive) heart failure; L02.612 Cutaneous abscess of left foot; L02.611 Cutaneous abscess of right foot; E66.01 Morbid (severe) obesity due to excess calories; Z68.35 Body mass index [BMI] 35.0-35.9, adult; Z79.4 Long term (current) use of insulin; K22.8 Other specified diseases of esophagus; E78.5 Hyperlipidemia, unspecified; G47.33 Obstructive sleep apnea (adult) (pediatric); N18.3 Chronic kidney disease, stage 3 (moderate); E11.22 Type 2 diabetes mellitus with diabetic chronic kidney disease; K44.9 Diaphragmatic hernia without obstruction or gangrene; K29.70 Gastritis, unspecified, without bleeding; E11.628 Type 2 diabetes mellitus with other skin complications; R65.20 Severe sepsis without septic shock
CPT/HCPCS: 36415; 36600; 43239; 71045; 71046; 71260; 74220; 80048; 80053; 80202; 81001; 82550; 82553; 82607; 82746; 82805; 82948; 83036; 83090; 83605; 83735; 83880; 84436; 84443; 84479; 84484; 85025; 85610; 85730; 87040; 87070; 87071; 87086; 87205; 88305; 88312; 93005; 93970; 94640; 94660; 96372; 99284; J0360; J0692; J1610; J1940; J2930; J3370; J7030; J7050; Q9967

== ENCOUNTER 2020-08-06 12:38 | Inpatient (IN) | payer MEDICARE, OTHER ==
[~2020-08-06] VITALS: Ht 175.3 cm; Wt 115.0 kg
[~2020-08-06 12:38] MED LIST changes: +ELIQUIS PO; +FUROSEMIDE40 MG PO; +LOSARTAN POTASS50 MG PO; +METOPROLOL SUC100 MG PO; +NOVOLIN R100 UNIT/1 SQ; +TAMSULOSIN HCL0.4 MG PO
--- OUTSIDE RECORDS SUMMARY | 2020-08-06 12:48 | XMS REPORT | Continuity of Care Document ---
Author Author [facility] t Organization [facility] Address [address] [place] [address] [address] [place] [address] Phone Unavailable Care Team Providers Care Physical Testing Supervisor Name Role Phone LUZ ELENA ELLISON M.D. PCP BARBIE PARMAR Attphys Unavailable DENNY, MARCOS Attphys Unavailable BARBIE PARMAR Admphys Unavailable DENNY, MARCOS Admphys Unavailable Payers Payer Name Policy Type Policy Number Effective Date Expiration Date S kalli Miscellaneous o [id number] 2015 00:00:00 [facility] Medicare A & B [id number] 2010 00:00:00 [facility] Problems Condition Name Condition Details Condition Category Status Onset Date Resolution Date Last Treatment Date Treating Clinician Comments Source Congestive heart failure CHF (congestive heart failure) Problem Active [facility] Hypotension Hypotension Problem Active [facility] Acute respiratory failure Acute respiratory failure Problem Active [facility] Dyspnea Dyspnea Problem Active [facility] Sepsis Sepsis Problem Active [facility] Diabetes Diab etes Active Problem 08/03/2020 Enayet Rahim Problem Active 2020-08-03 05:11:04 [facility] BPH (benign prostatic hyperplasia) BPH (benign prostatic hyperplasia) Active Problem 08/03/2020 Enayet Rahim Problem Active 2020-08-03 05:11:04 [facility] HTN (hypertension) HTN (hypertension) Active Problem 08/03/2020 Enayet Rahim Problem Active 2020-08-03 05:11:04 [facility] Carotid arterial disease Chicas tid arterial disease Active Problem 08/03/2020 Enayet Rahim Problem Active 2020-08-03 05:1 1:04 Kita Dwyer PAD (peripheral artery disease) PAD (peripheral artery disease) Active Problem 08/03/2020 Griselda Jesus Problem Active 2020-08-03 05:11:04 Kita Dwyer Pain in left knee Pain in left knee Active Diagnosis 08/21/2017 Griselda Jesus Diagnosis Active 2017-08-21 05:10:49 Kita Dwyer Other chronic pain Othe r chronic pain Active Problem 08/03/2020 Griselda Jesus Problem Active 2020-08-03 05:11:04 Kita Dwyer Fall, initial encounter Fall , initial encounter Active Diagnosis 08/03/2020 Griselda Jesus Diagnosis Active 2020-08-03 05 :10:53 Kita Dwyer Acute pain of right shoulder A cute pain of right shoulder Active Diagnosis 02/13/2018 Griselda Jesus Diagnosis Active 2018-02-13 04:11:19 Kita Reymundo Chronic diastolic heart failure Chronic diastolic heart failure Active Problem 05/20/2020 Gil Mar MD, PA Problem Active 2020-05-20 04:10:09 Kita Dwyer Occlusion and stenosis of right carotid artery Occlusion and stenosis of right carotid artery Active Problem 05/20/2020 Gil Mar MD, PA Problem Active 2020-05-20 04:10:09 Robert Dwyer Abnormal electrocardiogram [ECG] [EKG] Abnormal electrocardiogram [ECG] [EKG] Active Problem 05/20/2020 Gil Mar MD, PA Problem Active 2020-05-20 04:10:09 Kita Dwyer Obesity, unspecified Obes ity, unspecified Active Problem 05/20/2020 Gil Mar MD, PA Problem Active 2020-05-20 04 :10:09 [facility] Body mass index (BMI) 38.0-38.9, adult Body mass index (BMI) 38.0-38.9, adult Active Problem 05/20/2020 Gil Mar MD, PA Problem Active 2020-05-20 04:10:09 Bea Dwyer Type 2 diabetes mellitus with diabetic peripheral juany opathy without gangrene Type 2 diabetes mellitus with 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 gangrene Active Problem 05/20/2020 Gil Mar MD, PA Problem Active 2020-05-20 04:10:09 Kita Dwyer Coronary angioplasty status Co ronary angioplasty status Active Problem 05/20/2020 Gil Mar MD, PA Problem Active 2020-05-20 04:10:09 [facility] Coronary atherosclerosis of citizen [place] coronary artery Coronary atherosclerosis of [place] coronary artery Active Problem 05/20/2020 Gil Mar MD, PA Problem Active 2020-05-20 04:10:09 [facility] Peripheral vascular disease Pe ripheral vascular disease Active Problem 05/20/2020 Gil Mar MD, PA Problem Active 2020-05-20 04:10:09 [facility] Diabetes mellitus type II Diab etes mellitus type II Active Problem 05/20/2020 Gil Mar MD, PA Problem Active 2020-05-20 04:10:09 [facility] Abnormal ECG Abno rmal ECG Active Problem 05/20/2020 Gil Mar MD, PA Problem Active 2020-05-20 04:10:09 [facility] Morbid obesity Morb id obesity Active Problem 05/20/2020 Gil Mar MD, PA Problem Active 2020-05-20 04:10:09 [facility] Postprocedural PCI status Post procedural PCI status Active Problem 05/20/2020 Gil Mar MD, PA Problem Active 2020-05-20 04:10:09 [facility] Mixed hyperlipidemia Mixe d hyperlipidemia Active Problem 05/20/2020 Gil Mar MD, PA Problem Active 2020-05-20 04 :10:09 [facility] Carotid stenosis Chicas tid stenosis Active Problem 05/20/2020 Gil Mar MD, PA Problem Active 2020-05-20 04:10:09 [facility] Chronic systolic CHF (congestive heart failure) Chronic systolic CHF (congestive heart failure) Active Problem 08/03/2020 Enayet Rahim Problem Active 2020-08-03 05:11:04 [facility] PAF (paroxysmal atrial fibrillation) PAF (paroxysmal atrial fibrillation) Active Problem 08/03/2020 Enayet Rahim Problem Active 2020-08-03 05:11:04 [facility] Atrial fibrillation- Chronic A trial fibrillation- Chronic Active Problem 05/20/2020 Gil Mar MD, PA Problem Active 2020-05-20 04:10:09 [facility] Perforated right tympanic membrane on examination Perforated right tympanic membrane on examination Active Diagnosis 07/02/2018 Enayet Rahim Diagnosis Active 2018-07-02 04:10:34 [facility] Body mass index (BMI) 37.0-37.9, adult Body mass index (BMI) 37.0-37.9, adult Active Problem 05/20/2020 Gil Mar MD, PA Problem Active 2020-05-20 04:10:09 Shauncharlene mckeonlorna Dwyer Other bilateral secondary osteoarthritis of knee Other bilateral secondary osteoarthritis of knee Active Diagnosis 11/01/2016 Endougie Bowlingm Diagnosis Active 2016-11-01 05:33:23 Kita Dwyer Acute tracheobronchitis Acut e tracheobronchitis Active Problem 08/03/2020 Enjhet Rahim Problem Active 2020-08-03 05:1 1:04 Kita Dwyer Other obesity due to excess calories Other obesity due to excess calories Active Problem 05/20/2020 Gil Mar MD, PA Problem Active 2020-05-20 04:10:09 [facility] [place] BMI 35.0-35.9,adult BMI 35.0-35.9,adult Active Problem 08/03/2020 Endougie Bowlingm Problem Active 2020-08-03 05:11:04 Kita Dwyer Flu vaccine need Flu vaccine need Active Diagnosis 08/21/2019 Endouige Bowlingm Diagnosis Active 2019-08-21 05:11:17 Kita Dwyer Risk for falls Risk for falls Active Diagnosis 08/03/2020 Endougie Bowlingm Diagnosis Active 2020-08-03 05:10:53 Kita Dwyer Eye exam abnormal Eye exam abnormal Active Diagnosis 05/19/2019 Griselda Bowlingm Diagnosis Active 2019-05-19 04:10:50 Kita wDyer Pulmonary hypertension, unspecified Pulmonary hypertension, unspecified Active Problem 05/20/2020 Gil Mar MD, PA Problem Active 2020-05-20 04:10:09 Kita Dwyer CAD (coronary artery disease) CAD (coronary artery disease) Active Problem 08/03/2020 Enjhet him Problem Active 2020-08-03 05:11:04 Kita Dwyer Bilateral leg edema Bila teral leg edema Active Diagnosis 12/03/2019 Enjhet Tawnyam Diagnosis Active 2019-12-03 04:11:12 [facility] BMI 36.0-36.9,adult BMI 36.0-36.9,adult Active Problem 08/03/2020 Enjhet Tawnyam Problem Active 2020-08-03 05:11:04 [facility] Cellulitis of leg without foot, left Cellulitis of leg without foot, left Active Diagnosis 07/27/2020 Griselda Jesus Diagnosis Acti ve 2020-07-27 05:11:08 Kita golden Hematoma of left lower extremity, initial encounter Hematoma of left lower extremity, initial encounter Active Diagnosis 08/03/2020 Griselda Jesus Diagnosis Active 2020-08-03 05:10:53 [facility] Transient Ischemic Attack Wilder sient Ischemic Attack Active 11/18/2013 [facility] Problem Active 2013-11-18 22:03: 04 [facility] Diabetes Mellitus With Peripheral Circulatory Disorder 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 11/18/2013 [facility] Problem Active 2013-11-18 22:03:04 [facility] Hypertension Hype rtension Active 11/18/2013 [facility] Problem Active 2013-11-18 22:03:04 [facility] Coronary Artery Disease Sia nary Artery Disease Active 11/18/2013 [facility] Problem Active 2013-11-18 22:03: 04 [facility] Thyroid Function Tests Nonspecific Abnormal Findings Thyroid Function Tests Nonspecific Abnormal Findings Active 11/18/2013 [facility] Problem Active 2013-11-18 22:03:04 [facility] Vaccines Prophylactic Need Against Influenza Vaccines Prophylactic Need Against Influenza Active 11/18/2013 [facility] Problem Active 2013-11-18 22:03:04 Bea Dwyer Vitamin D Deficiency Cece min D Deficiency Active 11/18/2013 [facility] Problem Active 2013-11-18 22:03:04 [facility] Acute Bronchitis Acut e Bronchitis Active 11/18/2013 [facility] Problem Active 2013-11-18 22:03:04 [facility] Allergies, Adverse Reactions, Alerts Allergy Name Allergy Type Status Severity Reaction(s) Onset Date Inacti ve Date Treating Clinician Comments Source N.Brennon.A. N.K.D.A. Active Info Not Available 2020-08-02 00:00:00 Kita Dwyer No Known Drug Allergies No Known Drug Allergies Active [facility] Family History Family Member Diagnosis Comments Start Date Stop Date Source Unknown Family Member Family History 2012-12-19 04:46:23 2 04:46:23 [facility] Social History Social Habit Start Date Stop Date Quantity Comments Source TobaccoUse: 2016-04-27 00:00:00 2016-04-27 00:00:00 [facility] Social History 2013-11-18 22:03:04 2013-11-18 22:03:04 [facility] Medications Ordered Medication Name Filled Medication Name Start Date Stop Da te Current Medication? Ordering Clinician Indication Dosage Frequency Signature (SIG) Comments Components Source Metformin HCl 2020-08-03 05:10:53 Yes Luz Elena Rocío 1 tablet with meals [facility] Clopidogrel Bisulfate 2020-08-03 05:10:53 Yes Luz Elena Rocío 1 tablet [facility] Losartan Potassium 2020-08-03 05:10:53 Yes Luz Elena Rocío 1 tablet [facility] Furosemide 2020-08-03 05:10:53 Yes Luz Elena Rocío 1 tablet [facility] Novolin N 2020-08-03 05:10:53 Yes Luz Elena Rocío 20 -25 units [facility] Novolin R 2020-08-03 05:10:53 Yes Luz Elena Rocío 36 units [facility] Eliquis 2020-08-03 05:10:53 Yes Luz Elena Rocío 1 ta blet [facility] Simvastatin 2020-08-03 05:10:53 Yes Luz Elena Rocío 1 tablet in the evening [facility] Tamsulosin HCl 2020-08-03 05:10:53 Yes Luz Elena Rocío 1 capsule [facility] Cephalexin 2020-07-19 00:00:00 Yes Luz Elena Rocío 1 capsule [facility] Fish Oil 2020-05-20 04:10:09 Yes Gil Braxtonyan 1 capsule [facility] Metformin HCl 2020-05-20 04:10:09 Yes Gil Chiang n 1 tablet with meals [facility] Humalog 2020-05-20 04:10:09 Yes Gil Minan Tayyan not defined [facility] Tradjenta 2020-05-20 04:10:09 Yes Gilsilas Billingswan Tayyan 1 tablet [facility] Levemir 2020-05-20 04:10:09 Yes Gil Minan Tayyan not defined [facility] Losartan Potassium 2020-05-20 04:10:09 Yes Gil Billingswan Tayyan 1 tablet [facility] Simvastatin 2020-05-20 04:10:09 Yes Gilsilas [place] Tayyan 1 tablet in the evening [facility] Furosemide 2020-05-20 04:10:09 Yes Gil Billingswan Tayyan 1 tablet [facility] Metoprolol Succinate ER 2020-05-20 04:10:09 Yes Gilsilas Bahena africanivia Tayyan 1 tablet [facility] Metoprolol Succinate ER 2020-04-30 04:10:12 Yes Gil Josef damaris Mar 1 tablet [facility] Furosemide 2020-03-29 04:10:27 Yes Gil Melina Mar TAKE 1 TABLET BY MOUTH ONCE DAILY FOR 30 DAYS [facility] Tamsulosin HCl 2020-03-04 04:11:14 Yes Luz Elena Rocío 1 capsule [facility] Simvastatin 2020-03-04 04:11:14 Yes Luz Elena Rocío 1 tablet in the evening [facility] Tamsulosin HCl 2020-02-13 00:00:00 Yes Luz Elena Rocío 1 capsule [facility] Isosorbide Mononitrate 2019-10-28 00:00:00 Yes Gil Mar 1 tablet [facility] Metoprolol Succinate ER 2018-12-10 04:10:07 Yes Gil Josef africanivia Isabela 1 tablet [facility] Simvastatin 2018-08-23 05:10:52 Yes Luz Elena Rocío not defined [facility] Losartan Potassium 2018-08-23 05:10:52 Yes Luz Elena Rocío not defined [facility] Azithromycin 2018-08-15 00:00:00 Yes Luz Elena Rocío 2 tablets on the first day, then 1 tablet daily for 4 days [facility] PredniSONE 2018-08-15 00:00:00 Yes Luz Elena Rocío 1 tablet [facility] Ciprodex 2018-06-26 00:00:00 Yes Luz Elenaleta Ellison 4 drops into affected ear [facility] Furosemide 2018-03-13 00:00:00 Yes Gil Mar 1 tablet [facility] Eliquis 2018-03-13 00:00:00 Yes Gil Mar 1 tablet [facility] Aspirin 2018-03-13 00:00:00 Yes Gil Mar 1 tablet [facility] Clopidogrel Bisulfate 2018-02-13 04:11:19 Yes Luz Elenaleta Stoddardw ar not defined [facility] Ramipril 2018-02-13 04:11:19 Yes Luz Elena Rocío not defined [facility] Metoprolol Succinate ER 2018-02-13 04:11:19 Yes Luz Elena Sa rwar not defined [facility] Tramadol HCl 2018-02-06 00:00:00 Yes Luz Elena Rocío 1 tablet as needed [facility] [place] Aspirin 2017-12-27 04:10:10 Yes Gil Braxtonyan 1 tablet [facility] [place] Metoprolol Succinate ER 2017-12-27 04:10:10 Yes Gil legernivia Tayyan 1 tablet [facility] Simvastatin 2017-08-21 05:10:49 Yes Luz Elena Rocío not defined [facility] Metoprolol Succinate ER 2017-08-21 05:10:49 Yes Luz Elena Sa rwar not defined [facility] Metformin HCl 2017-08-21 05:10:49 Yes Luz Elena Rocío not defined [facility] Ramipril 2017-06-21 04:10:15 Yes Gil Braxtonyan 1 capsule [facility] Tamsulosin HCl 2017-01-26 04:10:17 Yes Luz Elena Rocío 1 capsule [facility] Tamsulosin HCl 2016-10-24 00:00:00 Yes Luz Elena Rocío 1 capsule [facility] Ramipril 2016-09-14 05:14:09 Yes Gil Braxtonyan 1 capsule [facility] Metoprolol Succinate ER 2016-09-14 05:14:09 Yes Gil elgernivia Tayyan 1 tablet [facility] Levemir 2016-09-14 05:14:09 Yes Gil Braxtonyan Unknown [facility] Metformin HCl 2016-09-14 05:14:09 Yes Gil Chiang n 1 tablet with meals [facility] Clopidogrel Bisulfate 2016-09-14 05:14:09 Yes Gil gonzáles Tayyan 1 tablet [facility] Humalog 2016-09-14 05:14:09 Yes Gil Braxtonyan Unknown [facility] Fish Oil 2016-09-14 05:14:09 Yes Gil Braxtonyan 1 capsule [facility] Simvastatin 2016-09-14 05:14:09 Yes Gil Braxtonyan 1 tablet in the evening [facility] [place] Tradjenta 2016-09-14 05:14:09 Yes Gil Minan Tayyan 1 tablet [facility] Aspirin 2016-09-14 05:14:09 Yes Gil Minan Tayyan 1 tablet [facility] Januvia 2015-09-14 05:14:14 Yes Gil Braxtonyan 2 tablets [facility] Azithromycin 250 MG Oral Tablet 2013-08-27 06:00:00 Yes ; Start Date: 08/27/2013; End Date: (Active) Kita Dwyer Dexamethasone 4 MG Oral Tablet 2013-08-27 06:00:00 Yes ; Start Date: 08/27/2013; End Date: 09/06/2013 (Active) Kita Dwyer Accu-Chek Kamila In Vitro Strip 2012-07-11 05:00:00 Yes ; Start Date: 07/11/2012 (Active) Kita Dwyer Accu-Chek Multiclix Lancets Miscellaneous 2012-07-11 05:00:00 Yes ; Start Date: 07/11/2012 (Active) Kita Dwyer Pen [place] 5/16" 31G X 8 MM Miscellaneous 2012-07-11 05:00:00 Yes ; Start Date: 07/11/2012 (Active) [facility] Januvia 100 MG Oral Tablet 2012-07-11 05:00:00 Yes ; Start Date: 07/11/2012 (Active) Kita Dwyer MetFORMIN HCl 1000 MG Oral Tablet 2012-07-11 05:00:00 Yes ; Start Date: 07/11/2012 (Active) Kita Patel nn Levemir FlexPen 100 UNIT/ML Subcutaneous Solution 2012-07-11 05:00:00 Yes ; Start Date: 07/11/2012 (Active) Kita Dwyer Cyanocobalamin 2500 MCG Sublingual Tablet Sublingual 2 05:00:00 Yes ; Start Date: 07/11/2012 (Active) Kita Dwyer Clopidogrel Bisulfate 75 MG Oral Tablet 2012-07-11 05:00:00 Yes ; Start Date: 07/11/2012 (Active) Kita Dwyer Hydrochlorothiazide 12.5 MG Oral Tablet 2012-07-11 05:00:00 Yes ; Start Date: 07/11/2012 (Active) Kita Dwyer HumaLOG KwikPen 100 UNIT/ML Subcutaneous Solution 2012-07-11 05:00:00 Yes ; Start Date: 07/11/2012 (Active) Kita Dwyer Metoprolol Succinate ER 50 MG Oral Tablet Extended Release 2 4 Hour 2012-07-11 05:00:00 Yes ; Start Date: 07/11/2012 (Act kenji) Kita Dwyer Ramipril 10 MG Oral Capsule 2012-07-11 05:00:00 Yes ; Start Date: 07/11/2012 (Active) Kita Dwyer Crestor 20 MG Oral Tablet 2012-07-11 05:00:00 Yes ; Start Date: 07/11/2012 (Active) Kita Shortann Vitamin D 2000 UNIT Oral Capsule 2012-07-11 05:00:00 Yes ; Start Date: 07/11/2012 (Active) Kita Patel nn AmLODIPine Besylate 2.5 MG Oral Tablet 2012-07-11 05:00:00 Yes ; Start Date: 07/11/2012 (Active) Kita Dwyer Eliquis Eliquis Yes [address] [facility] Furosemide 40 Mg Tablet Furosemide 40 Mg Tablet Yes 40 Daily [facility] Losartan Potassium 50 Mg Tablet Losartan Potassium 50 Mg Tablet Yes 50 Daily [facility] Metformin Hcl 500 Mg Tablet Metformin Hcl 500 Mg Tablet Yes 500 Twice A Day [facility] Metoprolol Succinate 100 Mg Tab.er.24h Metoprolol Succinate 100 Mg Tab.er.24h Yes 100 Daily [facility] Simvastatin 20 Mg Tablet Simvastatin 20 Mg Tablet Yes 20 Today At 9:00PM [facility] Tamsulosin Hcl 0.4 Mg Cap.er.24h Tamsulosin Hcl 0.4 Mg Cap.er.24h Yes .4 Daily [facility] Insulin Regular, Human (Novolin R) 100 Unit/1 Ml Vial, 36 Units Sub-Q Insulin Regular, Human (Novolin R) 100 Unit/1 Ml Vial, 36 Units Sub-Q 2018-08-24 00:00:[address] [facility] Levofloxacin (Levaquin) 500 Mg Tablet, 500 Mg Oral Lev ofloxacin (Levaquin) 500 Mg Tablet, 500 Mg Oral 2018-08-21 00:00:00 No 500 D aily [facility] Vital Signs Vital Name Observation Time Observation Value Comments Source Weight 2020-08-02 21:15:00 Kita Dwyer Height 2020-08-02 21:15:00 Kita Dwyer Temperature Oral (F) 2020-08-02 21:15:00 97.4 F Kita Dwyer Diastolic (mm Hg) 2020-08-02 21:15:00 [facility] Systolic (mm Hg) 2020-08-02 21:15:00 Robert rial [facility] Weight 2020-07-19 20:30:00 [facility] Height 2020-07-19 20:30:00 [facility] Temperature Oral (F) 2020-07-19 20:30:00 98 F [facility] Diastolic (mm Hg) 2020-07-19 20:30:00 [facility] Systolic (mm Hg) 2020-07-19 20:30:00 Robert rial [facility] Weight 2020-07-05 21:15:00 [facility] [place] Height 2020-07-05 21:15:00 [facility] Temperature Oral (F) 2020-07-05 21:15:00 97.5 F [facility] [place] Diastolic (mm Hg) 2020-07-05 21:15:00 [facility] [place] Systolic (mm Hg) 2020-07-05 21:15:00 Robert [facility] [place] Weight 2020-04-27 18:15:00 [facility] [place] [facility] Heart Rate 2020-04-27 18:15:00 [facility] Diastolic (mm Hg) 2020-04-27 18:15:00 [facility] [place] Systolic (mm Hg) 2020-04-27 18:15:00 Robert rial [facility] Weight 2020-03-03 20:00:00 [facility] Height 2020-03-03 20:00:00 [facility] [place] [facility] Temperature Oral (F) 2020-03-03 20:00:00 97.3 F [facility] [place] [facility] Diastolic (mm Hg) 2020-03-03 20:00:00 [facility] Systolic (mm Hg) 2020-03-03 20:00:00 Robert rial [facility] Weight 2019-12-10 19:00:00 [facility] [place] Heart Rate 2019-12-10 19:00:00 [facility] Diastolic (mm Hg) 2019-12-10 19:00:00 [facility] Systolic (mm Hg) 2019-12-10 19:00:00 Robert rial [place] Weight 2019-11-23 14:00:00 [facility] [place] Height 2019-11-23 14:00:00 [facility] [place] Temperature Oral (F) 2019-11-23 14:00:00 97.5 F [facility] Diastolic (mm Hg) 2019-11-23 14:00:00 [facility] [place] Systolic (mm Hg) 2019-11-23 14:00:00 Robert rial [place] Weight 2019-10-28 20:15:00 [facility] Heart Rate 2019-10-28 20:15:00 [facility] Diastolic (mm Hg) 2019-10-28 20:15:00 [facility] [place] Systolic (mm Hg) 2019-10-28 20:15:00 Robert rial [place] Weight 2019-10-07 20:15:00 [facility] Heart Rate 2019-10-07 20:15:00 [facility] Diastolic (mm Hg) 2019-10-07 20:15:00 [facility] Systolic (mm Hg) 2019-10-07 20:15:00 Robert rial [place] Weight 2019-08-17 19:45:00 [facility] [place] Height 2019-08-17 19:45:00 [facility] [place] Temperature Oral (F) 2019-08-17 19:45:00 97.5 F [facility] [place] Diastolic (mm Hg) 2019-08-17 19:45:00 [facility] Systolic (mm Hg) 2019-08-17 19:45:00 Robert rial [place] Weight 2019-06-10 18:30:00 [facility] Heart Rate 2019-06-10 18:30:00 [facility] [place] Diastolic (mm Hg) 2019-06-10 18:30:00 [facility] Systolic (mm Hg) 2019-06-10 18:30:00 Robert rial [facility] Weight 2019-05-13 21:00:00 [facility] [place] Height 2019-05-13 21:00:00 [facility] Temperature Oral (F) 2019-05-13 21:00:00 98.2 F [facility] [place] Diastolic (mm Hg) 2019-05-13 21:00:00 [facility] [place] Systolic (mm Hg) 2019-05-13 21:00:00 Robert rial [place] Weight 2019-03-05 20:15:00 [facility] Height 2019-03-05 20:15:00 [facility] [place] Temperature Oral (F) 2019-03-05 20:15:00 97.0 F [facility] [place] Diastolic (mm Hg) 2019-03-05 20:15:00 [facility] [place] Systolic (mm Hg) 2019-03-05 20:15:00 Robert heber [place] Weight 2018-12-09 15:15:00 [facility] [place] Heart Rate 2018-12-09 15:15:00 [facility] Diastolic (mm Hg) 2018-12-09 15:15:00 [facility] Systolic (mm Hg) 2018-12-09 15:15:00 Robert darwinl [place] Weight 2018-08-15 15:45:00 [facility] Height 2018-08-15 15:45:00 [facility] Temperature Oral (F) 2018-08-15 15:45:00 102.1 F [facility] [place] Diastolic (mm Hg) 2018-08-15 15:45:00 [facility] Systolic (mm Hg) 2018-08-15 15:45:00 Robert darwinl [place] Weight 2018-08-13 20:00:00 [facility] [place] Height 2018-08-13 20:00:00 [facility] Temperature Oral (F) 2018-08-13 20:00:00 98.6 F [facility] Diastolic (mm Hg) 2018-08-13 20:00:00 [facility] Systolic (mm Hg) 2018-08-13 20:00:00 Robert rial [place] Weight 2018-07-01 16:00:00 [facility] Heart Rate 2018-07-01 16:00:00 [facility] [place] Diastolic (mm Hg) 2018-07-01 16:00:00 [facility] [place] Systolic (mm Hg) 2018-07-01 16:00:00 Robert rial [facility] Weight 2018-06-26 18:45:00 [facility] [place] Height 2018-06-26 18:45:00 [facility] [place] Temperature Oral (F) 2018-06-26 18:45:00 98.7 F [facility] Diastolic (mm Hg) 2018-06-26 18:45:00 [facility] Systolic (mm Hg) 2018-06-26 18:45:00 Robert heber [place] Weight 2018-03-27 19:15:00 [facility] [place] Heart Rate 2018-03-27 19:15:00 [facility] Diastolic (mm Hg) 2018-03-27 19:15:00 [facility] Systolic (mm Hg) 2018-03-27 19:15:00 Robert heber [facility] Weight 2018-03-13 21:00:00 [facility] Heart Rate 2018-03-13 21:00:00 [facility] [place] Diastolic (mm Hg) 2018-03-13 21:00:00 [facility] [place] Systolic (mm Hg) 2018-03-13 21:00:00 Robert rial [facility] Weight 2018-02-06 18:15:00 [facility] Height 2018-02-06 18:15:00 [facility] Temperature Oral (F) 2018-02-06 18:15:00 98.4 F [facility] Diastolic (mm Hg) 2018-02-06 18:15:00 [facility] Systolic (mm Hg) 2018-02-06 18:15:00 [facility] Weight 2017-12-26 18:15:00 [facility] Heart Rate 2017-12-26 18:15:00 [facility] Diastolic (mm Hg) 2017-12-26 18:15:00 [facility] Systolic (mm Hg) 2017-12-26 18:15:00 [facility] Weight 2017-08-13 20:45:00 [facility] Height 2017-08-13 20:45:00 [facility] Temperature Oral (F) 2017-08-13 20:45:00 97.5 F [facility] Diastolic (mm Hg) 2017-08-13 20:45:00 [facility] Systolic (mm Hg) 2017-08-13 20:45:00 [facility] Weight 2017-06-13 18:45:00 [facility] Heart Rate 2017-06-13 18:45:00 [facility] Diastolic (mm Hg) 2017-06-13 18:45:00 [facility] Systolic (mm Hg) 2017-06-13 18:45:00 [facility] Weight 2017-01-24 15:45:00 [facility] Height 2017-01-24 15:45:00 [facility] Temperature Oral (F) 2017-01-24 15:45:00 98.3 F [facility] Diastolic (mm Hg) 2017-01-24 15:45:00 [facility] Systolic (mm Hg) 2017-01-24 15:45:00 [facility] Weight 2016-09-13 20:00:00 [facility] Heart Rate 2016-09-13 20:00:00 [facility] Diastolic (mm Hg) 2016-09-13 20:00:00 [facility] Systolic (mm Hg) 2016-09-13 20:00:00 [facility] Weight 2016-04-27 22:02:00 [facility] Height 2016-04-27 22:02:00 [facility] Temperature Oral (F) 2016-04-27 22:02:00 99.1 F [facility] Diastolic (mm Hg) 2016-04-27 22:02:00 [facility] Systolic (mm Hg) 2016-04-27 22:02:00 [facility] Weight 2016-03-15 19:15:00 [facility] Heart Rate 2016-03-15 19:15:00 [facility] Diastolic (mm Hg) 2016-03-15 19:15:00 [facility] Systolic (mm Hg) 2016-03-15 19:15:00 [facility] Weight 2015-09-12 20:30:00 [facility] Heart Rate 2015-09-12 20:30:00 [facility] Diastolic (mm Hg) 2015-09-12 20:30:00 [facility] Systolic (mm Hg) 2015-09-12 20:30:00 [facility] Procedures Procedure Date / Time Performed Performing Clinician [facility] e EGD with biopsy 2018-08-29 00:00:00 ÁNGEL ANDREW [facility] X-ray of chest, two views 2018-08-28 00:00:00 MARIA G BROOKS CH [facility] Computed tomography of chest with contrast 2018-08-21 00:00:00 JUS TORRES [facility] X-ray of chest, two views 2017-11-10 00:00:00 MARIA G BROOKS CH [facility] Magnetic resonance imaging of brain without contrast 2017-11 00:00:00 HEMANT BALDWIN [facility] Plan of Care Planned Activity Planned Date Details Comments Source Future Scheduled Test 2013-05-18 15:34:07 Plan of Care [code = 1877 6-5] [facility] Encounters Start Date/Time End Date/Time Encounter Type Admission Type [facility] Department Encounter ID Source 2020-08-02 15:15:00 2020-08-02 15:15:00 Outpatient Inpatient Providers [facility] Inpatient [facility] [id number] eClinicalWo rk 2020-08-02 15:03:00 2020-08-02 15:03:00 Outpatient Inpatient Providers [facility] Inpatient [facility] [id number] eClinicalWo rk 2020-07-19 14:30:00 2020-07-19 14:30:00 [facility] [place] [facility] [id number] eClinicalWo rk 2020-07-05 15:15:00 2020-07-05 15:15:00 Outpatient Inpatient Providers [facility] [id number] eClinicalWo rk 2020-05-19 13:00:00 2020-05-19 13:00:00 Outpatient [facility] [id number] eClinicalWorks 2020-04-27 13:15:00 2020-04-27 13:15:00 [place] [id number] eClinicalWorks 2020-03-28 16:20:00 2020-03-28 16:20:00 [place] [id number] eClinicalWorks 2020-03-03 15:00:00 2020-03-03 15:00:00 Outpatient Inpatient Providers [facility] [id number] eClinicalWo rks 2019-12-10 14:00:00 2019-12-10 14:00:00 [place] [id number] eClinicalWorks 2019-11-23 09:00:00 2019-11-23 09:00:00 Outpatient Inpatient Providers [facility] [id number] eClinicalWo rks 2019-11-03 14:00:00 2019-11-03 14:00:00 [place] [id number] eClinicalWorks 2019-10-28 14:15:00 2019-10-28 14:15:00 Out[place] [id number] eClinicalWorks 2019-10-15 08:03:00 2019-10-15 08:03:00 Outpatient [id number] 2019-10-07 14:15:00 2019-10-07 14:15:00 Outpatient Gil Mello [id number] eClinicalWorks 2019-08-17 13:45:00 2019-08-17 13:45:00 [facility] [place] [facility]patient Providers [facility] [id number] eClinicalWo rk 2019-06-11 10:00:00 2019-06-11 10:00:00 [place] [id number] eClinicalWorks 2019-06-10 13:30:00 2019-06-10 13:30:00 [place] [id number] eClinicalWorks 2019-05-13 16:00:00 2019-05-13 16:00:00 [facility] [place] [facility] [id number] eClinicalWo rk 2019-03-05 15:15:00 2019-03-05 15:15:00 Outpatient Inpatient Providers of [facility] [id number] eClinicalWo rk 2019-03-05 09:15:00 2019-03-05 09:15:00 Out[place] [id number] eClinicalWorks 2018-12-09 10:15:00 2018-12-09 10:15:00 [place] [id number] eClinicalWorks 2018-09-18 10:22:00 2018-09-18 10:22:00 Outpatient [facility] [id number] eClinicalWor wi 2018-08-21 12:15:00 2018-08-29 19:21:00 Discharged Inpatient 1 AGATABARBIE [facility] [id number] [facility] 2018-08-15 09:45:00 2018-08-15 09:45:00 [facility] [place] [facility] Providers [facility] [id number] eClinicalWo rk 2018-08-13 14:00:00 2018-08-13 14:00:00 [facility]patient [facility] [place] [facility]patient Prov[facility] [id number] eClinicalWo rk 2018-07-01 11:00:00 2018-07-01 11:00:00 [place] [id number] eClinicalWorks 2018-06-26 13:45:00 2018-06-26 13:45:00 [facility]patient [facility] [place] Inpatient Providers [facility] [id number] eClinicalWo rks 2018-06-17 10:00:00 2018-06-17 10:00:00 Outpatient Gil Mello [id number] eClinicalWorks 2018-03-27 14:15:00 2018-03-27 14:15:00 [place] [id number] eClinicalWorks 2018-03-13 16:00:00 2018-03-13 16:00:00 [place] [id number] eClinicalWorks 2018-02-06 13:15:00 2018-02-06 13:15:00 Outpatient Inpatient Providers [facility] [id number] eClinicalWo rks 2017-12-26 13:15:00 2017-12-26 13:15:00 [place] [id number] eClinicalWorks 2017-11-12 11:47:00 2017-11-12 11:47:00 [place] [id number] eClinicalWorks 2017-11-07 20:20:00 2017-11-10 15:17:00 Discharged Inpatient HEMANT MANN [facility] [id number] [facility] 2017-08-13 14:45:00 2017-08-13 14:45:00 Outpatient Inpatient Providers of [facility] Providers [facility] [id number] eClinicalWo rks 2017-06-25 11:00:00 2017-06-25 11:00:00 [place] [id number] eClinicalWorks 2017-06-13 13:45:00 2017-06-13 13:45:00 [place] [id number] eClinicalWorks 2017-01-24 10:45:00 2017-01-24 10:45:00 Outpatient Inpatient Providers [facility] [id number] eClinicalWo rks 2016-09-13 14:00:00 2016-09-13 14:00:00 Out[place], [place] [id number] eClinicalWorks 2016-04-27 16:02:00 2016-04-27 16:02:00 Outpatient Griselda Jesus [place], [place] [id number] eClinicalWorks 2016-03-15 15:00:00 2016-03-15 15:00:00 Outpatient Gil Mar [place], [place] [id number] eClinicalWorks 2016-03-15 14:15:00 2016-03-15 14:15:00 Outpatient [place], [place] [id number] eClinicalWorks 2015-09-12 14:30:00 2015-09-12 14:30:00 Outpatient Gil Mar [place], [place] [id number] eClinicalWorks 2013-11-18 17:03:05 2013-11-18 17:03:04 Outpatient [facility] [id number] 2013-11-04 15:22:58 2013-11-04 15:22:57 Outpatient [facility] [id number] 2013-08-27 11:33:13 2013-08-27 11:33:13 Outpatient [facility] [id number] 2013-05-20 07:00:13 2013-05-20 07:00:13 Outpatient [facility] [id number] 2013-05-18 10:34:08 2013-05-18 10:34:07 Outpatient [facility] [id number] 2013-05-16 06:30:15 2013-05-16 06:30:14 Outpatient [facility] [id number] 2013-02-10 04:14:03 2013-02-10 04:13:44 Outpatient [facility] [id number] 2012-12-18 23:46:52 2012-12-18 23:46:23 Outpatient [facility] [id number] Results Test Description Test Time Test Comments Results Result Comments Source Bedside Glucose 2018-08-29 17:35:00 Test Item Bedside Glucose (test code = 58643-4) 257 70-120 H Meter ID: [id number] [facility] 2018-08-29 16:41:00* Test Item Value Reference Range Interpretation Comments Magnesium Level (test code = 72210-6) 1.6 1.3-2.1 [facility] CenterVancomycin Level Ntztch0625-58-95 11:10:00* Test Item Value Reference Range Interpretation Comments Vancomycin Level Trough (test code = 4092-3) 6.7 5.0-10.0 [facility] CenterCHEST 2 VBMQW6786-66-04 06:03:00 [facility] [address] [address] Patient Name: VILLA LINDSAY JR MR #: [id number] : 1945 Age/Sex: 73/M Req #: [id number] Adm Physician: BARBIE PARMAR MD Ordered by: MARIA G BROOKS MD Report #: [id number] Location: [facility] Room/Bed: [place] [address] Procedure: [id number] DX/ CHEST 2 VIEWS Exam Date: 08/28/18 Exam Time: 0545 REPORT STATUS: Signed CHEST 2 VIEW S, Technique: CHEST 2 VIEWS Comparison: 08/21/2018 Clinical history : Follow-up CHF DISCUSSION: Limited by soft tissue attenuation. Contras t is noted in the bowel in the upper abdomen. IMPRESSION: 1. Stable mil dly enlarged cardiomediastinal silhouette. 2. Low lung volumes with bibasilar vascular crowding/atelectasis. 3. No effusion or pneumothorax. Signed by: Dr Yina Barboza MD on 08/28/2018 6:09 AM Dictated By: YINA BARBOZA MD 8 Transcribed B y: MARIEL on 08/28/18608 COPY TO: MARIA G BROOKS MD Sodium Level 2018-08-28 05:41:00* Test Item Value Reference Range Interpretation Comments Sodium Level (test code = 2951-2) 138 136-145 [facility] CenterPotassium Bxlbg1500-39-35 05:41:00* Test Item Value Reference Range Interpretation Comments Potassium Level (test code = 2823-3) 3.7 3.5-5.1 [facility] CenterChloride Lpywc6004-02-84 05:41:00* Test Item Value Reference Range Interpretation Comments Chloride Level (test code = 2075-0) 96 98-107 L [facility] CenterCarbon Dioxide Aiypc5597-96-59 05:41:00* Test Item Value Reference Range Interpretation Comments Carbon Dioxide Level (test code = 2028-9) 31 22-29 H [facility] CenterAnion Ykm2696-65-15 05:41:00* Test Item Value Reference Range Interpretation Comments Anion Gap (test code = 65418-0) 14.7 8-16 [facility] CenterBlood Urea Seacqmlc9385-76-58 05:41:00* Test Item Value Reference Range Interpretation Comments Blood Urea Nitrogen (test code = 3094-0) 20 7-26 [facility] CenterCreatinine2018-12-20 05:41:00* Test Item Value Reference Range Interpretation Comments Creatinine (test code = 2160-0) 0.85 0.72-1.25 [facility] CenterBUN/Creatinine Dhnsp6727-70-25 05:41:00* Test Item Value Reference Range Interpretation Comments BUN/Creatinine Ratio (test code = 3097-3) 24 6-25 [facility] CenterEstimat Glomerular Filtration Rate 2018-08-28 05:41:00* Test Item Value Reference Range Interpretation Comments Estimat Glomerular Filtration Rate (test code = 271054596) > 60 >60 Ranges were taken from the National Kidney Disease Education Program and the [facility] Kid[facility] Foundation literature.Reference ranges:60 or greater: Bqfdry15-94 ( for 3 consecutive months): Chronic kidney disease 15 or less: Kidney failureLas Palmas Medical CenterGlucose Dmamv3785-93-04 05:41:00* Test Item Value Reference Range Interpretation Comments Glucose Level (test code = WCY6153) 207 74-118 H [facility] CenterCalcium Vpeex2849-39-56 05:41:00* Test Item Value Reference Range Interpretation Comments Calcium Level (test code = 75129-5) 9.1 8.4-10.2 [facility] CenterWhite Blood Iedyb1950-59-12 05:12:00* Test Item Value Reference Range Interpretation Comments White Blood Count (test code = 6690-2) 10.63 4.8-10.8 [facility] CenterRed Blood Xqujc1200-98-56 05:12:00* Test Item Value Reference Range Interpretation Comments Red Blood Count (test code = 789-8) 4.15 4.3-5.7 L [facility] CenterHemoglobin2018-12-20 05:12:00* Test Item Value Reference Range Interpretation Comments Hemoglobin (test code = 08663-1) 13.4 14.0-18.0 L [facility] CenterHematocrit2018-12-20 05:12:00* Test Item Value Reference Range Interpretation Comments Hematocrit (test code = 4544-3) 41.6 38.2-49.6 [facility] CenterMean Corpuscular Wcrdca2102-46-48 05:12:00* Test Item Value Reference Range Interpretation Comments Mean Corpuscular Volume (test code = 787-2) 100.2 81-99 H [facility] CenterMean Corpuscular Gbkitngqxf3870-91-04 05:12:00* Test Item Value Reference Range Interpretation Comments Mean Corpuscular Hemoglobin (test code = 785-6) 32.3 28-32 H [facility] CenterMean Corpuscular Hemoglobin Concent 2018-08-28 05:12:00* Test Item Value Reference Range Interpretation Comments Mean Corpuscular Hemoglobin Concent (test code = 786-4) 32.2 31-35 [facility] CenterRed Cell Distribution Vjmym1318-71-12 05:12:00* Test Item Value Reference Range Interpretation Comments Red Cell Distribution Width (test code = 98441-8) 13.7 11.7 -14.4 [facility] CenterPlatelet Hddzd1322-34-32 05:12:00* Test Item Value Reference Range Interpretation Comments Platelet Count (test code = 777-3) 265 140-360 [facility] CenterNeutrophils (%) (Auto)2018-08-28 05:12:00 * Test Item Value Reference Range Interpretation Comments Neutrophils (%) (Auto) (test code = 31105-6) 76.9 38.7-80.0 [facility] CenterLymphocytes (%) (Auto)2018-08-28 05:12:00 * Test Item Value Reference Range Interpretation Comments Lymphocytes (%) (Auto) (test code = 736-9) 11.8 18.0-39.1 L [facility] CenterMonocytes (%) (Auto)2018-08-28 05:12:00* Test Item Value Reference Range Interpretation Comments Monocytes (%) (Auto) (test code = 5905-5) 8.9 4.4-11.3 [facility] CenterEosinophils (%) (Auto)2018-08-28 05:12:00 * Test Item Value Reference Range Interpretation Comments Eosinophils (%) (Auto) (test code = 713-8) 1.3 0.0-6.0 [facility] CenterBasophils (%) (Auto)2018-08-28 05:12:00* Test Item Value Reference Range Interpretation Comments Basophils (%) (Auto) (test code = 706-2) 0.4 0.0-1.0 [facility] CenterIM GRANULOCYTES %2018-08-28 05:12:00* Test Item Value Reference Range Interpretation Comments IM GRANULOCYTES % (test code = IM GRANULOCYTES %) 0.7 0.0- 1.0 [facility] CenterNeutrophils # (Auto)2018-08-28 05:12:00* Test Item Value Reference Range Interpretation Comments Neutrophils # (Auto) (test code = 751-8) 8.2 2.1-6.9 H [facility] CenterLymphocytes # (Auto)2018-08-28 05:12:00* Test Item Value Reference Range Interpretation Comments Lymphocytes # (Auto) (test code = 85575-4) 1.3 1.0-3.2 [facility] CenterMonocytes # (Auto)2018-08-28 05:12:00* Test Item Value Reference Range Interpretation Comments Monocytes # (Auto) (test code = 742-7) 1.0 0.2-0.8 H [facility] CenterEosinophils # (Auto)2018-08-28 05:12:00* Test Item Value Reference Range Interpretation Comments Eosinophils # (Auto) (test code = 711-2) 0.1 0.0-0.4 [facility] CenterBasophils # (Auto)2018-08-28 05:12:00* Test Item Value Reference Range Interpretation Comments Basophils # (Auto) (test code = 704-7) 0.0 0.0-0.1 [facility] CenterAbsolute Immature Granulocyte (auto 2018-08-28 05:12:00* Test Item Value Reference Range Interpretation Comments Absolute Immature Granulocyte (auto (nikole t code = Absolute Immature Granulocyte (auto) 0.07 0-0.1 [facility] Clubputum Tlywqhd7303-79-45 07:56:00* Test Item Value Reference Range Interpretation Comments Sputum Culture (test code = 624-7) Organism: PAMELA ALBICANS [facility] CenterBlood Oqsateu9776-20-26 11:21:00* Test Item Value Reference Range Interpretation Comments Blood Culture (test code = 20722339) NO GROWTH AFTER 5 DAYS, FINAL REPORT [facility] CenterHomocysteine2018-12-18 11:19:00* Test Item Value Reference Range Interpretation Comments Homocysteine (test code = 49131-8) 11.3 0.0-15.0 Performed at: [facility] [id number] Director: sIra Carrizales MD, Phone: [phone] Palmas Medical CenterBARIUM KJKBUME1358-00-86 17:00:[address] [address] Patient Name: VILLA LINDSAY JR MR #: [id number] : 1945 Age/Sex: 73/M Req #: [id number] Adm Physician: BARBIE PARMAR MD Ordered by: ÁNGEL ANDREW MD Report #: [id number] Location: [facility] Room/Bed: [place] [address] Procedure: [id number] DX/BARIUM SWALLOW Exam Date: 08/25/18 Exam Time: 161 5 REPORT STATUS: Signed PROCEDUR E: BARIUM SWALLOW was performed with Sodium Carbonate and Barium. OPERA TORS: COMPARISON: CT scan of the chest dated 08/21/2018 INDICATION S: Esophageal wall thickening FINDINGS: The swallowing mechanism was cezar sly normal. The esophagus was normally distensible and the mucosa was within normal limits. Esophageal motility was within normal limits. No intrinsic or extrinsic abnormality involving the esophagus. No mucosal abnormality or intraluminal mass. There is a small hiatal hernia present. No reflux identifi ed. The visualized portion of the stomach and proximal small bowel are unremarkable. Fluoroscopy time: 1.3 minutes. Total dose: 54.66 mGy IMPRESSION: 1. Small hiatal hernia. 2. No esophageal mass. C israel Orellana D.O. Dictated by: César Orellana D.O. on 08/25/2018 at 17:00 Electronically approved by: César Orellana D.O. on 08/25/2018 at 17:00 Dictated By: CÉSAR ORELLANA DO 99 Transcribed By: LORRAINE on 08/25/181699 COPY T O: ÁNGEL ANDREW MD Vitamin B12 Ewvxf6360-81-89 11:44:00* Test Item Value Reference Range Interpretation Comments Vitamin B12 Level (test code = 79982-7) 1225 213-816 H [facility] CenterFolate2018-12-17 11:44:00* Test Item Value Reference Range Interpretation Comments Folate (test code = 2284-8) 16.4 7.0-15.4 H [facility] CenterFree Thyroxine Iqgvb9420-01-82 05:15:00* Test Item Value Reference Range Interpretation Comments Free Thyroxine Index (test code = 84266-3) 3.9694 1.4-3.8 H [facility] CenterThyroxine (T4)2018-08-24 05:15:00* Test Item Value Reference Range Interpretation Comments Thyroxine (T4) (test code = 3026-2) 9.51 4.5-10.9 [facility] CenterTriiodothyronine (T3) Zksjka6452-32-36 05:15:00* Test Item Value Reference Range Interpretation Comments Triiodothyronine (T3) Uptake (test code = 3050-2) 41.74 22.5 -37.0 H [facility] CenterThyroid Stimulating Hormone (TSH) 2018-08-24 05:15:00* Test Item Value Reference Range Interpretation Comments Thyroid Stimulating Hormone (TSH) (test code = 07634-2) 0.031 0.350-4.940 L [facility] CenterHemoglobin A1c Gviuhmf4842-00-66 07:40:00 * Test Item Value Reference Range Interpretation Comments Hemoglobin A1c Percent (test code = Hemoglobin A1c Percent) 7.2 4.0-7.0 H [facility] CenterDifferential Total Cells Counted 2018-08-22 09:55:00* Test Item Value Reference Range Interpretation Comments Differential Total Cells Counted (test code = Differen tial Total Cells Counted) 100 [facility] CenterNeutrophils % (Manual)2018-08-22 09:55:00 * Test Item Value Reference Range Interpretation Comments Neutrophils % (Manual) (test code = 33784-3) 82 40-74 H [facility] CenterLymphocytes % (Manual)2018-08-22 09:55:00 * Test Item Value Reference Range Interpretation Comments Lymphocytes % (Manual) (test code = 737-7) 7 19-48 L [facility] CenterMonocytes % (Manual)2018-08-22 09:55:00* Test Item Value Reference Range Interpretation Comments Monocytes % (Manual) (test code = 744-3) 7 3.4-9.0 [facility] CenterMyelocytes %2018-08-22 09:55:00* Test Item Value Reference Range Interpretation Comments Myelocytes % (test code = 749-2) 1 0-0 H [facility] CenterReactive Xmhflwxxsgf6160-46-73 09:55:00* Test Item Value Reference Range Interpretation Comments Reactive Lymphocytes (test code = 94007-2) 3 [facility] CenterNucleated Red Blood Bvndm8598-34-68 09:55:00* Test Item Value Reference Range Interpretation Comments Nucleated Red Blood Cells (test code = 05818-1) 2 [facility] CenterPlatelet Zfxwszbc7660-36-79 09:55:00* Test Item Value Reference Range Interpretation Comments Platelet Estimate (test code = 68195-9) ADEQUATE [facility] CenterPlatelet Morphology Otodlut5565-95-34 09:55:00* Test Item Value Reference Range Interpretation Comments Platelet Morphology Comment (test code = 08908-7) NORMAL [facility] CenterHypochromasia2018-12-14 09:55:00* Test Item Value Reference Range Interpretation Comments Hypochromasia (test code = 728-6) SLIGHT [facility] CenterAnisocytosis2018-12-14 09:55:00* Test Item Value Reference Range Interpretation Comments Anisocytosis (test code = 702-1) SLIGHT [facility] CenterRed Cell Morphology Btxggaj8792-51-93 09:55:00* Test Item Value Reference Range Interpretation Comments Red Cell Morphology Comment (test code = 6742-1) NORMAL [facility] CenterCreatine Kinase TH2558-93-32 09:22:00* Test Item Value Reference Range Interpretation Comments Creatine Kinase MB (test code = 49951-3) 9.50 0-5.0 H [facility] CenterTroponin C8081-40-96 09:22:00* Test Item Value Reference Range Interpretation Comments Troponin I (test code = EXU3715) 0.054 0-0.300 [facility] CenterCreatine Vbkgso9819-79-43 09:18:00* Test Item Value Reference Range Interpretation Comments Creatine Kinase (test code = 2157-6) 497 30-200 H [facility] CenterArterial Blood sX1213-01-70 08:07:00* Test Item Value Reference Range Interpretation Comments Arterial Blood pH (test code = 2744-1) 7.31 7.31-7.41 [facility] CenterArterial Blood Partial Pressure CO2 2018-08-22 08:07:00* Test Item Value Reference Range Interpretation Comments Arterial Blood Partial Pressure CO2 (test code = 2019-8) 54 41-51 H [facility] CenterArterial Blood Partial Pressure O2 2018-08-22 08:07:00* Test Item Value Reference Range Interpretation Comments Arterial Blood Partial Pressure O2 (test code = 2019-8) 114 80-105 H [facility] CenterArterial Blood UVA97799-98-00 08:07:00* Test Item Value Reference Range Interpretation Comments Arterial Blood HCO3 (test code = 1960-4) 27 23-28 [facility] CenterArterial Blood Base Ysyncw5439-42-38 08:07:00* Test Item Value Reference Range Interpretation Comments Arterial Blood Base Excess (test code = 1925-7) 1.0 -2-3 [facility] CenterArterial Blood Oxygen Saturation 2018-08-22 08:07:00* Test Item Value Reference Range Interpretation Comments Arterial Blood Oxygen Saturation (test code = 2708-6) 98.0 95-98 [facility] CenterFiO22018-12-14 08:07:00* Test Item Value Reference Range Interpretation Comments FiO2 (test code = FiO2) 50 PT ON BIPAP AT 14/6,R14,50%ENR2EYWLas [facility]mas Medical CenterUrine WBC 2018-08-21 14:17:00* Test Item Value Reference Range Interpretation Comments Urine WBC (test code = 5821-4) NONE 0-5 [facility] CenterUrine NIU9243-10-01 14:17:00* Test Item Value Reference Range Interpretation Comments Urine RBC (test code = 65687-5) 0-5 0-5 [facility] CenterUrine Tqrousaq5029-42-22 14:17:00* Test Item Value Reference Range Interpretation Comments Urine Bacteria (test code = 82155-4) MODERATE NONE H [facility] CenterUrine Epithelial Vtuod7091-33-18 14:17:00 * Test Item Value Reference Range Interpretation Comments Urine Epithelial Cells (test code = 42598-7) FEW NONE [facility] CenterUrine Hyaline Swunl8497-35-32 14:17:00* Test Item Value Reference Range Interpretation Comments Urine Hyaline Casts (test code = 42590-6) 6-10 0-1 H [facility] Pvqod3257-24-29 14:07:00* Test Item Value Reference Range Interpretation Comments Urine Color (test code = 5778-6) YELLOW YELLOW [facility] Bpwghod9952-64-95 14:07:00* Test Item Value Reference Range Interpretation Comments Urine Clarity (test code = 52137-5) SL CLOUDY CLEAR H [facility] CenterU[facility] Specific Ndtzxbe9552-18-72 14:07:00 * Test Item Value Reference Range Interpretation Comments Urine Specific [place] (test code = 5811-5) 1.010 1.010-1.02 5 [facility] gV6128-41-34 14:07:00* Test Item Value Reference Range Interpretation Comments Urine pH (test code = 40923-2) 6 5-7 [facility] Leukocyte Jmtockcw5987-59-41 14:07:00* Test Item Value Reference Range Interpretation Comments Urine Leukocyte Esterase (test code = 5799-2) NEGATIVE NEGATIVE [facility] Mjxiefr9035-54-23 14:07:00* Test Item Value Reference Range Interpretation Comments Urine Nitrite (test code = 35039-4) NEGATIVE NEGATIVE [facility] Ifrswez5371-82-85 14:07:00* Test Item Value Reference Range Interpretation Comments Urine Protein (test code = 5804-0) NEGATIVE NEGATIVE [facility] Center[facility] Glucose (UA)2018-08-21 14:07:00* Test Item Value Reference Range Interpretation Comments Urine Glucose (UA) (test code = 2349-9) 2+ NEGATIVE H [facility] CenterU[facility] Jkrykqa4629-47-04 14:07:00* Test Item Value Reference Range Interpretation Comments Urine Ketones (test code = 07351-8) 1+ NEGATIVE H [facility] Center[facility] Nqxryysaivgu3899-42-06 14:07:00* Test Item Value Reference Range Interpretation Comments Urine Urobilinogen (test code = 38384-6) 0.2 0.2-1 [facility] Sguvnaedb0328-59-70 14:07:00* Test Item Value Reference Range Interpretation Comments Urine Bilirubin (test code = 1978-6) NEGATIVE NEGATIVE [facility] Zprts8213-13-69 14:07:00* Test Item Value Reference Range Interpretation Comments Urine Blood (test code = 78678-5) 1+ NEGATIVE H [facility] CenterCT CHEST W1377-36-63 12:56:00 [place] [address] Patient Name: VILLA LINDSAY JR MR #: [id number] : 1945 Age/Sex: 73/M Req #: [id number] Adm Physician: BARBIE PARMAR MD Ordered by: JUS LITTLEJOHN MD Report #: [id number] Location: [facility] Room/Bed: [place] [address] Procedure: [id number] CT/CT CHEST W Exam Date: 08/21/18 Exam Time: 1235 REPORT STATUS: Signed EXAMINATION: CT of the chest with contrast, PE protocol. TECHNIQUE: Spiral CT images of the chest were performed from the lung apices through the level of the adrenal glands after the IV administration of 100 cc of Isovue-370. Thin section r econstructions were obtained with special concentration on the pulmonary arter ies. COMPARISON: Chest radiograph same day CLINICAL HISTORY:Shortness of breath, concern for pulmonary embolus DISCUSSION: Vasculature: The main pulmonary artery, right and left pulmonary arteries, and their visua lized lobar and segmental pulmonary arteries are patent, without filling defec t. The pulmonary outflow tract is of normal caliber. No ectasia or aneurysmal dilatation of the thoracic aorta. Atherosclerotic calcification of the thoraci c aorta and great vessel origins, with great vessel origin tortuosity. [place] coronary artery calcifications. Lungs: Groundglass and reticular opacities in the dependent lower lobes left greater than right, compatible with subsegm ental atelectasis. Scattered left upper lobe groundglass opacities for example on series 3 image 47. Linear opacity medially within the right middle lobe and in the inferior lingula, compatible with subsegmental atelectasis. Airw ays: Trachea, mainstem bronchi, and central lobar and segmental bronchi are p atent. Pleura: <There is no evidence of pleural effusion or pneumothorax.> Heart and mediastinum: No hilar, mediastinal, or axillary lymphadenopathy. There is concentric wall thickening of the esophagus at the thoracic inlet, exemplified on series 2 image 23. Normal heart size. Abdomen: Visualized portions of the liver, gallbladder, spleen, pancreas, adrenals are unremarkab le. Left upper pole renal cyst partially visualized. Bones and soft tissues : No focal soft tissue abnormalities. No osseous destructive lesions. IM PRESSION: No CT evidence of pulmonary embolus to the level of the segmental [place] pulmonary arteries. Groundglass opacities in the left upper and low er lobes may indicate atelectasis, aspiration pneumonitis, or atypical infecti on in the appropriate clinical setting. Questionable esophageal wall thic kening at the thoracic inlet may relate to peristalsis. Correlate for symptoms of dysphagia. Gastroenterology consultation for potential upper endoscopy is suggested to exclude presence of a mass lesion. Atherosclerotic vascular disease. Signed by: Dr. Maria G Alvarenga M.D. on 08/21/2018 1:07 PM Dictated By: MARIA G ALVARENGA MD 1307 Transcribed By: MARIEL on 08/21/18 1307 COPY TO: JUS CORONA MD Band Neutrophils %2018-08-21 12:46:00* Test Item Value Reference Range Interpretation Comments Band Neutrophils % (test code = 764-1) 1 [facility] CenterPolychromasia2018-12-13 12:46:00* Test Item Value Reference Range Interpretation Comments Polychromasia (test code = 96158-1) FEW [facility] CenterB-Type Natriuretic Oenfykg1218-29-45 11:55:00* Test Item Value Reference Range Interpretation Comments B-Type Natriuretic Peptide (test code = 81156-1) 338.7 0-100 H [facility] CenterProthrombin Rzvm3035-40-77 11:53:00* Test Item Value Reference Range Interpretation Comments Prothrombin Time (test code = 5902-2) 21.9 11.9-14.5 H [facility] CenterProthromb Time International Ratio 2018-08-21 11:53:00* Test Item Value Reference Range Interpretation Comments Prothromb Time International Ratio (test code = 6301-6) 1.76 Oral Anticoagulant Therapy INR Values:1. Low Intensity Therapy 1.5 - 2.02 . Moderate Intensity Therapy 2.0 - 3.03. High Intensity Therapy(1) 2.5 - 3. 54. High Intensity Therapy(2) 3.0 - 4.05. Panic Value INR > 5.0 [facility] CenterActivated Partial Thromboplast Time 2018-08-21 11:53:00* Test Item Value Reference Range Interpretation Comments Activated Partial Thromboplast Time (test code = 13388-9) 30.9 23.8-35.5 [facility] CenterTotal Raetttblr3425-70-04 11:52:00* Test Item Value Reference Range Interpretation Comments Total Bilirubin (test code = 1975-2) 1.8 0.2-1.2 H [facility] CenterAspartate Amino Transf (AST/SGOT) 2018-08-21 11:52:00* Test Item Value Reference Range Interpretation Comments Aspartate Amino Transf (AST/SGOT) (test code = Aspartate Amino Transf (AST/SGOT)) 45 5-34 H [facility] CenterAlanine Aminotransferase (ALT/SGPT) 2018-08-21 11:52:00* Test Item Value Reference Range Interpretation Comments Alanine Aminotransferase (ALT/SGPT) (test code = 1742-6) 60 0-55 H [facility] CenterTotal Jkxqbks8048-07-14 11:52:00* Test Item Value Reference Range Interpretation Comments Total Protein (test code = 2885-2) 7.4 6.5-8.1 [facility] CenterAlbumin2018-12-13 11:52:00* Test Item Value Reference Range Interpretation Comments Albumin (test code = 1751-7) 2.6 3.5-5.0 L [facility] CenterGlobulin2018-12-13 11:52:00* Test Item Value Reference Range Interpretation Comments Globulin (test code = 65930-6) 4.8 2.3-3.5 H [facility] CenterAlbumin/Globulin Rejoq5770-67-94 11:52:00 * Test Item Value Reference Range Interpretation Comments Albumin/Globulin Ratio (test code = 1759-0) 0.5 0.8-2.0 L [facility] CenterAlkaline Updtnqrkdcp4186-22-76 11:52:00* Test Item Value Reference Range Interpretation Comments Alkaline Phosphatase (test code = 6768-6) 83 40-150 [facility] CenterLactic Acid Ssrwf0367-35-64 11:40:00* Test Item Value Reference Range Interpretation Comments Lactic Acid Level (test code = Lactic Acid Level) 21.1 4.5- 19.8 NOTIFIED MADDI LOWERY 1140 on 08/21/18 by AN PONCE [facility]2018-08-21 11:40:00 [facility] [address] [place] [address] Patient Name: VILLA LINDSAY JR MR #: [id number] : 1945 Age/Sex: 73/M Req #: [id number] Adm Physician: Ordered by: KIERRA LOWERY FEED RESEARCH AIDE Report #: [id number] Location: ER Room/Bed: Procedure: [id number] DX/CHEST SINGLE (PORTABLE) Exam Date: Exam Time: REPORT STATUS: Signed Examinati on: Single AP view of the chest. COMPARISON: 11/10/2017 INDICATION: Shor t of breath DISCUSSION: Lungs are well-inflated. No consolidation , pleural effusion, or pneumothorax. Tortuosity of the thoracic aorta with oth erwise normal cardiomediastinal contour for portable, AP technique. No [place] osseous abnormality. IMPRESSION: 1. No acute cardiopulmonary ab normalities. Signed by: Dr. Maria G Alvarenga M.D. on 08/21/2018 11:41 AM Dictated By: MARIA G ALVARENGA MD 1141 Transcribed By: MARIEL on 08/21/18 1141 COPY TO: KIERRA LOWERY FEED RESEARCH AIDE Bedside Gwjmjqf9286-25-21 12:03:00* Test Item Value Reference Range Interpretation Comments Bedside Glucose (test code = 25211-5) 160 70-120 H Meter ID: [id number] [facility] Culture 2017-11-10 08:06:00* Test Item Value Reference Range Interpretation Comments Urine Culture (test code = 630-4) Organism: ESCHERICHIA COLI [facility]wallUrine Pmnmfdb6286-30-79 08:06:00* Test Item Value Reference Range Interpretation Comments Urine Culture (test code = 630-4) Organism: ESCHERICHIA COLI [facility]wallB-Type Natriuretic Whrcqzz4831-03-54 11:25:00* Test Item Value Reference Range Interpretation Comments B-Type Natriuretic Peptide (test code = 43827-1) 115.9 0-100 H [facility] CenterD-Dimer Quantitative (PE/DVT)2017-11-09 11:09:00* Test Item Value Reference Range Interpretation Comments D-Dimer Quantitative (PE/DVT) (test code = 75618-5) 0.48 0. 00-0.45 H [facility] CenterD-Dimer Quantitative (PE/DVT)2017-11-09 11:09:00* Test Item Value Reference Range Interpretation Comments D-Dimer Quantitative (PE/DVT) (test code = 17753-3) 0.48 0. 00-0.45 H [facility] Clubodium Afric0811-15-55 06:58:00* Test Item Value Reference Range Interpretation Comments Sodium Level (test code = 2951-2) 140 136-145 [facility] CenterPotassium Jmdgs9720-53-12 06:58:00* Test Item Value Reference Range Interpretation Comments Potassium Level (test code = 2823-3) 4.5 3.5-5.1 [facility] CenterChloride Xsswo3040-21-37 06:58:00* Test Item Value Reference Range Interpretation Comments Chloride Level (test code = 2075-0) 105 98-107 [facility] CenterCarbon Dioxide Vfcsm8104-79-18 06:58:00* Test Item Value Reference Range Interpretation Comments Carbon Dioxide Level (test code = 2028-9) 27 22-29 [facility] CenterAnion Ndr5259-95-27 06:58:00* Test Item Value Reference Range Interpretation Comments Anion Gap (test code = 01870-9) 12.5 8-16 [facility] CenterBlood Urea Tbpczrke8549-51-44 06:58:00* Test Item Value Reference Range Interpretation Comments Blood Urea Nitrogen (test code = 3094-0) 27 7-26 H [facility] CenterCreatinine2018-03-03 06:58:00* Test Item Value Reference Range Interpretation Comments Creatinine (test code = 2160-0) 0.92 0.72-1.25 [facility] CenterBUN/Creatinine Oisyl0307-84-27 06:58:00* Test Item Value Reference Range Interpretation Comments BUN/Creatinine Ratio (test code = 3097-3) 29 6-25 H [facility] CenterEstimat Glomerular Filtration Rate 2017-11-09 06:58:00* Test Item Value Reference Range Interpretation Comments Estimat Glomerular Filtration Rate (test code = 71444-7) 60- >60 Ranges were taken from the National Kidney Disease Education Program and the [facility] [employer] literature.Reference ranges:60 or greater: Hlkoul61-44 ( for 3 consecutive months): Chronic kidney disease 15 or less: Kidney failureLas Palmas Medical CenterGlucose Jvogb4302-43-85 06:58:00* Test Item Value Reference Range Interpretation Comments Glucose Level (test code = CDF2407) 159 74-118 H [facility] CenterCalcium Kkkxf5978-50-83 06:58:00* Test Item Value Reference Range Interpretation Comments Calcium Level (test code = 67309-7) 9.2 8.4-10.2 [facility] CenterWhite Blood Paphl9722-24-15 06:45:00* Test Item Value Reference Range Interpretation Comments White Blood Count (test code = 6690-2) 9.34 4.8-10.8 [facility] CenterRed Blood Kaias7791-61-27 06:45:00* Test Item Value Reference Range Interpretation Comments Red Blood Count (test code = 789-8) 4.64 4.3-5.7 [facility] CenterHemoglobin2018-03-03 06:45:00* Test Item Value Reference Range Interpretation Comments Hemoglobin (test code = 26780-7) 14.7 14.0-18.0 [facility] CenterHematocrit2018-03-03 06:45:00* Test Item Value Reference Range Interpretation Comments Hematocrit (test code = 4544-3) 45.3 38.2-49.6 [facility] CenterMean Corpuscular Wnjbge0428-79-02 06:45:00* Test Item Value Reference Range Interpretation Comments Mean Corpuscular Volume (test code = 787-2) 97.6 81-99 [facility] CenterMean Corpuscular Pridddqjit7539-49-29 06:45:00* Test Item Value Reference Range Interpretation Comments Mean Corpuscular Hemoglobin (test code = 785-6) 31.7 28-32 [facility] CenterMean Corpuscular Hemoglobin Concent 2017-11-09 06:45:00* Test Item Value Reference Range Interpretation Comments Mean Corpuscular Hemoglobin Concent (test code = 786-4) 32.5 31-35 [facility] CenterRed Cell Distribution Xggwx4730-66-97 06:45:00* Test Item Value Reference Range Interpretation Comments Red Cell Distribution Width (test code = 81803-1) 13.8 11.7 -14.4 [facility] CenterPlatelet Qyrby1273-31-48 06:45:00* Test Item Value Reference Range Interpretation Comments Platelet Count (test code = 777-3) 237 140-360 [facility] CenterNeutrophils (%) (Auto)2017-11-09 06:45:00 * Test Item Value Reference Range Interpretation Comments Neutrophils (%) (Auto) (test code = 74476-0) 71.6 38.7-80.0 [facility] CenterLymphocytes (%) (Auto)2017-11-09 06:45:00 * Test Item Value Reference Range Interpretation Comments Lymphocytes (%) (Auto) (test code = 736-9) 16.2 18.0-39.1 L [facility] CenterMonocytes (%) (Auto)2017-11-09 06:45:00* Test Item Value Reference Range Interpretation Comments Monocytes (%) (Auto) (test code = 5905-5) 9.4 4.4-11.3 [facility] CenterEosinophils (%) (Auto)2017-11-09 06:45:00 * Test Item Value Reference Range Interpretation Comments Eosinophils (%) (Auto) (test code = 713-8) 2.0 0.0-6.0 [facility] CenterBasophils (%) (Auto)2017-11-09 06:45:00* Test Item Value Reference Range Interpretation Comments Basophils (%) (Auto) (test code = 706-2) 0.3 0.0-1.0 [facility] CenterIM GRANULOCYTES %2017-11-09 06:45:00* Test Item Value Reference Range Interpretation Comments IM GRANULOCYTES % (test code = IM GRANULOCYTES %) 0.5 0.0- 1.0 [facility] CenterNeutrophils # (Auto)2017-11-09 06:45:00* Test Item Value Reference Range Interpretation Comments Neutrophils # (Auto) (test code = 751-8) 6.7 2.1-6.9 [facility] CenterLymphocytes # (Auto)2017-11-09 06:45:00* Test Item Value Reference Range Interpretation Comments Lymphocytes # (Auto) (test code = 56712-6) 1.5 1.0-3.2 [facility] CenterMonocytes # (Auto)2017-11-09 06:45:00* Test Item Value Reference Range Interpretation Comments Monocytes # (Auto) (test code = 742-7) 0.9 0.2-0.8 H [facility] CenterEosinophils # (Auto)2017-11-09 06:45:00* Test Item Value Reference Range Interpretation Comments Eosinophils # (Auto) (test code = 711-2) 0.2 0.0-0.4 [facility] CenterBasophils # (Auto)2017-11-09 06:45:00* Test Item Value Reference Range Interpretation Comments Basophils # (Auto) (test code = 704-7) 0.0 0.0-0.1 [facility] CenterAbsolute Immature Granulocyte (auto 2017-11-09 06:45:00* Test Item Value Reference Range Interpretation Comments Absolute Immature Granulocyte (auto (nikole t code = Absolute Immature Granulocyte (auto) 0.05 0-0.1 [facility] CenterFree Bgihiuzqv4363-81-44 14:26:00* Test Item Value Reference Range Interpretation Comments Free Thyroxine (test code = 3024-7) 0.99 0.9-1.8 [facility] CenterThyroid Stimulating Hormone (TSH) 2017-11-08 14:26:00* Test Item Value Reference Range Interpretation Comments Thyroid Stimulating Hormone (TSH) (test code = 18062-1) 0.803 0.350-4.940 [facility] CenterFree Kksjvrvzx6276-68-55 14:26:00* Test Item Value Reference Range Interpretation Comments Free Thyroxine (test code = 3024-7) 0.99 0.9-1.8 [facility] CenterHemoglobin A1c Mrelmfj4145-56-91 14:07:00 * Test Item Value Reference Range Interpretation Comments Hemoglobin A1c Percent (test code = Hemoglobin A1c Percent) 6.9 4.0-7.0 [facility] CenterCreatine Kinase GF1940-32-99 06:59:00* Test Item Value Reference Range Interpretation Comments Creatine Kinase MB (test code = 77271-9) 4.30 0-5.0 [facility] CenterTroponin Y7212-99-04 06:59:00* Test Item Value Reference Range Interpretation Comments Troponin I (test code = XCF5212) 0.047 0-0.300 [facility] CenterCreatine Hxgscc2713-07-35 06:48:00* Test Item Value Reference Range Interpretation Comments Creatine Kinase (test code = 2157-6) 236 30-200 H [facility] CenterUrine VAJ3443-14-39 05:47:00* Test Item Value Reference Range Interpretation Comments Urine WBC (test code = 5821-4) 50- 0-5 H [facility] CenterUrine LQF8279-37-50 05:47:00* Test Item Value Reference Range Interpretation Comments Urine RBC (test code = 19686-9) 11-20 0-5 H [facility] CenterUrine Ufhupehh1133-91-37 05:47:00* Test Item Value Reference Range Interpretation Comments Urine Bacteria (test code = 12874-6) MODERATE NONE H [facility] CenterUrine Epithelial Gpbwo9638-99-60 05:47:00 * Test Item Value Reference Range Interpretation Comments Urine Epithelial Cells (test code = 44054-1) RARE NONE [facility] CenterUrine Avyry8119-62-98 05:34:00* Test Item Value Reference Range Interpretation Comments Urine Color (test code = 5778-6) YELLOW YELLOW [facility] CenterUrine Pfdvyal1332-25-64 05:34:00* Test Item Value Reference Range Interpretation Comments Urine Clarity (test code = 77941-7) CLOUDY CLEAR H [facility] Specific Gdrpeol1918-22-75 05:34:00 * Test Item Value Reference Range Interpretation Comments Urine Specific [place] (test code = 5811-5) 1.020 1.010-1.02 5 [facility] CenterUrine vE4353-41-71 05:34:00* Test Item Value Reference Range Interpretation Comments Urine pH (test code = 65125-2) 5 5-7 [facility] Leukocyte Gkcnakal3460-82-62 05:34:00* Test Item Value Reference Range Interpretation Comments Urine Leukocyte Esterase (test code = 5799-2) 2+ NEGATIVE [facility] Qtzmtcb4310-61-27 05:34:00* Test Item Value Reference Range Interpretation Comments Urine Nitrite (test code = 36587-9) POSITIVE NEGATIVE [facility] Nzvvnla5548-53-47 05:34:00* Test Item Value Reference Range Interpretation Comments Urine Protein (test code = 5804-0) 1+ NEGATIVE H [facility] Glucose (UA)2017-11-08 05:34:00* Test Item Value Reference Range Interpretation Comments Urine Glucose (UA) (test code = 2349-9) NEGATIVE NEGATIVE [facility] CenterUrine Fakazjp0493-56-43 05:34:00* Test Item Value Reference Range Interpretation Comments Urine Ketones (test code = 56404-7) NEGATIVE NEGATIVE [facility] Cskuywwvdjlk5495-23-71 05:34:00* Test Item Value Reference Range Interpretation Comments Urine Urobilinogen (test code = 18041-9) 0.2 0.2-1 [facility] CenterUrine Himtqitdo5162-00-37 05:34:00* Test Item Value Reference Range Interpretation Comments Urine Bilirubin (test code = 1978-6) NEGATIVE NEGATIVE [facility] CenterUrine Jydck0047-43-12 05:34:00* Test Item Value Reference Range Interpretation Comments Urine Blood (test code = 96963-1) 4+ NEGATIVE H [facility] Occult Dwwnl5003-95-03 13:16:00* Test Item Value Reference Range Interpretation Comments Stool Occult Blood (test code = 2335-8) NEGATIVE NEGATIVE [facility] Nbhxy5934-88-63 13:16:00* Test Item Value Reference Range Interpretation Comments Stool Occult Blood (test code = 2335-8) NEGATIVE NEGATIVE [facility] CenterInfluenza Virus Types A,B Antigen 2017-11-07 12:42:00* Test Item Value Reference Range Interpretation Comments Influenza Virus Types A,B Antigen (test code = 91883-7) NEGATIVE NEGATIVE [facility] CenterInfluenza Virus Types A,B Antigen 2017-11-07 12:42:00* Test Item Value Reference Range Interpretation Comments Influenza Virus Types A,B Antigen (test code = 90930-9) NEGATIVE NEGATIVE [facility] CenterMagnesium Cthoj1875-68-56 12:16:00* Test Item Value Reference Range Interpretation Comments Magnesium Level (test code = 25447-0) 1.9 1.3-2.1 [facility] CenterTotal Yfkzbfnvk5096-34-81 12:16:00* Test Item Value Reference Range Interpretation Comments Total Bilirubin (test code = 1975-2) 0.9 0.2-1.2 [facility] CenterAspartate Amino Transf (AST/SGOT) 2017-11-07 12:16:00* Test Item Value Reference Range Interpretation Comments Aspartate Amino Transf (AST/SGOT) (test code = Aspartate Amino Transf (AST/SGOT)) 24 5-34 [facility] CenterAlanine Aminotransferase (ALT/SGPT) 2017-11-07 12:16:00* Test Item Value Reference Range Interpretation Comments Alanine Aminotransferase (ALT/SGPT) (test code = 1742-6) 27 0-55 [facility] CenterTotal Ypjmgfa2078-36-43 12:16:00* Test Item Value Reference Range Interpretation Comments Total Protein (test code = 2885-2) 7.4 6.5-8.1 [facility] CenterAlbumin2018-03-01 12:16:00* Test Item Value Reference Range Interpretation Comments Albumin (test code = 1751-7) 3.8 3.5-5.0 [facility] CenterGlobulin2018-03-01 12:16:00* Test Item Value Reference Range Interpretation Comments Globulin (test code = 28804-3) 3.6 2.3-3.5 H [facility] CenterAlbumin/Globulin Uykgj0244-07-62 12:16:00 * Test Item Value Reference Range Interpretation Comments Albumin/Globulin Ratio (test code = 1759-0) 1.1 0.8-2.0 [facility] CenterAlkaline Cgkosjntpkn9029-55-16 12:16:00* Test Item Value Reference Range Interpretation Comments Alkaline Phosphatase (test code = 6768-6) 46 40-150 [facility] CenterProthrombin Jzdf9880-39-52 12:07:00* Test Item Value Reference Range Interpretation Comments Prothrombin Time (test code = 5902-2) 13.3 11.9-14.5 [facility] CenterProthromb Time International Ratio 2017-11-07 12:07:00* Test Item Value Reference Range Interpretation Comments Prothromb Time International Ratio (test code = 6301-6) 1.09 Oral Anticoagulant Therapy INR Values:1. Low Intensity Therapy 1.5 - 2.02 . Moderate Intensity Therapy 2.0 - 3.03. High Intensity Therapy(1) 2.5 - 3. 54. High Intensity Therapy(2) 3.0 - 4.05. Panic Value INR > 5.0 [facility] CenterActivated Partial Thromboplast Time 2017-11-07 12:07:00* Test Item Value Reference Range Interpretation Comments Activated Partial Thromboplast Time (test code = 93164-7) 24.9 23.8-35.5 [facility] CenterCHEST 2 VIEWS [place] [address] Patient Name: VILLA LINDSAY JR MR #: [id number] : 1945 Age/Sex: 72/M Req #: [id number] Adm Physician: HEMANT BALDWIN MD Ordered by: MARIA G BROOKS MD Report #: [id number] Location: [facility] Room/Bed: [place] [address] Procedure: [id number] DX/CHEST 2 VIEWS Exam Date: 11/10/17 Exam Time: 0730 REPORT STATUS: Signed EXAM: Single AP view of the chest (Portable). COMPARISON: Chest radiograph from 11/08/2017 INDICATION: Hypoxia FI NDINGS: Single portable AP view of the chest. The visualized bones and soft ti ssues, cardiac silhouette , pleura appear unchanged. IMPRESSION: 1. Lines/tubes: None 2. Worsening bibasilar airspace opacity with mild volume lo ss due to worsening atelectasis or interval aspiration. Signed by: Dr. Queta Mcneal M.D. on 11/10/2017 7:55 AM Dictated By: CHIDI MCNEAL MD 075 Transcribed By: MARIEL on 11/10/17 0755 COPY TO: MARIA G BROOKS MD MRI BRAIN WO [place] [address] Patient Name: VILLA LINDSAY JR MR #: [id number] : 1945 Age/Sex: 72/M Req #: [id number] Adm Physician: HEMANT BALDWIN MD Ordered by: HEMANT BALDWIN MD Report #: [id number] Location: [facility] Room/Bed: IMCU 197-1 Procedure: 0302-0 005 MRI/MRI BRAIN WO Exam Date: Exam Time: R EPORT STATUS: Signed Examination: MRI BRAIN WITHOUT CONTRAST History: Dizzi ness. Imbalance. Near syncope. Comparison studies: None Technique: Sag ittal T2; axial DWI, FLAIR, GRE or SWI, T1, Coronal FLAIR. Intravenous contras t: None Findings: Scalp: No abnormal signal. No masses. Bone marrow : Normal in signal intensity. Brain volume: Mild volume loss volume loss. Ventricles: Normal in size and configuration. No hydrocephalus. Extra- axial spaces: No abnormalities. Parenchyma: There are patchy and conflu ent areas of T2/FLAIR hyperintensity in the periventricular and subcortical wh ite matter, nonspecific. Chronic lacunar infarct (7.5 mm anteroposterior dime nsion) in the left lateral putamen. No masses, hemorrhage, or acute vascular insults. Suprasellar and sellar region: No abnormalities. Craniocervical junction: No abnormalities. The foramen magnum is patent. No Chiari malformat ions. Vessels: Normal flow-voids in the arteries and sinuses. Additional findings:Bilateral slitlike orbital lenses. IMPRESSION: 1. No acute i ntracranial abnormalities. 2. Mild volume loss and microvascular ischemic change. 3. Chronic lacunar infarct of the left putamen. Signed by: Dr Andriy Borja M.D. on 11/08/2017 1:07 PM Dictated By: ERIC MCMAHON MD [id number] Transcribed By: MARIEL on 11/08/17 3302 COPY TO: HEMANT BALDWIN MD CAROTID DOPPLER [place] [address] Patient Name : VILLA LINDSAY JR MR #: [id number] : 1945 Age/Sex: 72/M Adm Physician : HEMANT BALDWIN MD Admit Date : 11/07/17 Location : [facility] Room/Bed : [place] [address] REPORT: Cardiology R eport DATE OF STUDY: November 08, 2017 DOPPLER SCAN OF CAROTIDS Left carotid artery shows velocity 1.4 meters per second in the left distal internal carotid artery. Left vertebral flow appears antegrade. Right chicas tid artery shows a stent in the mid right internal carotid artery with veloci ty 1.8 meters per second consistent with mild stenosis. Right vertebral flow appears to be antegrade. CONCLUSIONS 1. A stent is present in the right mid internal carotid artery with velocity of 1.84 meters per second consiste nt with mild to moderate stenosis in the range of 50% to 70%. 2. Mild steno sis involving the left distal internal carotid artery with velocity of 1.4 me ters per second. The degree of stenosis is once again in the range of 50% to 70%. 3. Borderline elevated velocity in the right external carotid artery with velocity of 1.3 meters per second. 4. Vertebral flow appears to be in nor mal direction bilaterally. Job#: [id number] cc: HEMANT BALDWIN M.D. Signature Date Dictated By: GEOFFREY GAN MD Transcribed By: [facility] on 11/09/17 <Electronically signed by GEOFFREY GAN MD><<Signature on File>>11/11/17 1052 COPY TO: CHEST [facility] (PORTABLE) [place] [address] Patient Name: VILLA LINDSAY JR MR #: [id number] : 1945 Age/Sex: 72/M Req #: [id number] Adm Physician: HEMANT BALDWIN MD Ordered by: HEMANT BALDWIN MD Report #: [id number] Location: [facility] Room/Bed: [place] [address] Procedure: 0302-0 022 DX/CHEST SINGLE (PORTABLE) Exam Date: 11/08/17 E xam Time: 1000 REPORT STATUS: Signed PROCEDURE: CHEST SINGLE (PORTABLE) COMPARISON: [facility], DX, CHEST SINGLE (PORTABLE), 8, 11:58. INDICATIONS: SHORTNESS OF BREATH FINDINGS: LUNGS: Exam is characterized by a poor inspiration. There is right basilar subsegmental atelectasis. No consolidation. PLEURA: No effusions or pneumothorax. HEART T MEDIASTINUM: The heart is within normal size-limits. BONES T SOFT TISSUES: No acute findings. CONCLUSION: Right basilar subsegmental atelectasis. César Orellana D.O. Dictated by: César Orellana D.O. on 11/08/2017 at 14:21 Electronically approved by: César grubbs D.O. on 11/08/2017 at 14:21 Dictated By: CÉSAR ORELLANA DO 1422 Transcribed By: LORRAINE on 11/08/17 1422 COPY TO: HEMANT BALDWIN MD CHEST SINGLE (PORTABLE) [place] [address] Patient Name: VILLA LINDSAY JR MR #: [id number] : 1945 Age/Sex: 72/M Req #: [id number] Adm Physician: Ordered by: VILLA WHELAN [employer] AIDE Report #: [id number] Location: ER Room/Bed: Procedure: [id number] DX/CHEST SINGLE (PORTABLE) Exam Date: 11/07/17 Exam Time: [address] ATUS: Signed PROCEDURE: CHEST SINGLE (PORTABLE) TECHNIQUE: Portable AP chest INDICATION: Low blood pressure COMPARISON: None. FINDINGS: Lungs are clear and symmetrically inflated. No pleural effusions. Normal hea rt size, mediastinal contour, and pulmonary vasculature for technique. Mild a ortic arch calcification. Grossly intact skeleton. CONCLUSION: No ac [place] abnormality. Dictated by: Timo Schrader M.D. on 11/08/19 18 at 12:25 Electronically approved by: Timo Schrader M.D. on 11/07 at 12:25 Dictated By: TIMO SCHRADER MD 1226 Transcribed By: LORRAINE on 11/07/17 1226 COPY TO: VILLA WHELAN NP
--- OUTSIDE RECORDS SUMMARY | 2020-08-06 12:48 | XMS REPORT | Continuity of Care Document ---
Author Author Dexterra Waqas Steward Organization [employer] Address Unknown Phone Unavailable Care Team Providers Care Sapphire Stylus Grinder Name Role Phone [employer] Unavailable Un available Problems Problem Status Onset Date Classification Date Reported Comments Source Diabetes Active Problem 08/03/2020 Enayet Rahim BPH (benign prostatic hyperplasia) Active Problem Enayet Rahim HTN (hypertension) Active Problem 08/03/2020 Enayet Rahim Carotid arterial disease Active Problem 08/03/2020 Enayet Rahim PAD (peripheral artery disease) Active Problem Enayet Rahim Pain in left knee Active Diagnosis 08/21/2017 Enayet Rahim Other chronic pain Active Problem 08/03/2020 Enayet Rahim Fall, initial encounter Active Diagnosis 08/03/2020 Enayet Rahim Acute pain of right shoulder A ctive Diagnosis 0 02/13/2018 Enayet Rahim Chronic diastolic heart failure Active Problem 07/2020 Gil Mar MD, PA Occlusion and stenosis of right carotid artery Active Problem 05/20/2020 Gil Mar MD, P A Abnormal electrocardiogram [ECG] [EKG] Active Problem 05/20/2020 Gil Mra MD P A Obesity, unspecified Active Problem 05/20/2020 Gil Mar MD, PA CHF, chronic systolic Active Problem 05/20/2020 Gil Mar MD, PA Body mass index (BMI) 38.0-38.9, adult Active Problem 05/20/2020 Gil Mar MD P A Peripheral vascular disease, unspecified Active Problem 05/20/2020 Gil Mar MD, P A Type 2 diabetes mellitus with diabetic p eripheral angiopathy without gangrene Active Problem 05/20/2020 Gil Mar MD, PA Coronary angioplasty status Ac tive Problem 07/2020 Gil Mar MD, PA Atherosclerotic heart disease of [place] coronary artery without angina pectoris Active Problem 05/20/2020 Gil Mar MD, PA Coronary atherosclerosis of [place] coronary artery Active Problem 05/20/2020 Gil Mar MD, PA Peripheral vascular disease Ac tive Problem 07/2020 Gil Mar MD, PA Diabetes mellitus type II Acti ve Problem 07/2020 Gil Mar MD, PA Abnormal ECG Active Problem 05/20/2020 Gil Mar MD, PA Morbid obesity Active Problem 05/20/2020 Gil Mar MD, PA Postprocedural PCI status Acti ve Problem 07/2020 Gil Mar MD, PA Mixed hyperlipidemia Active Problem 05/20/2020 Gil Mar MD, PA Carotid stenosis Active Problem 05/20/2020 Gil Mar MD, PA Chronic systolic CHF (congestive heart failure) Active Problem 08/03/2020 Enjhet Edin Well controlled diabetes mellitus Active Problem Enjhet Edin PAF (paroxysmal atrial fibrillation) Active Problem Endougie Jesus Atrial fibrillation- Chronic A ctive Problem 07/2020 Gil Mar MD, PA Paroxysmal atrial fibrillation Active Problem 07/2020 Gil Mar MD, PA Perforated right tympanic membrane on examination Active Diagnosis 07/02/2018 Griselda Jesus Body mass index (BMI) 37.0-37.9, adult Active Problem 05/20/2020 Gil Mar MD, P A Other bilateral secondary osteoarthritis of knee Active Diagnosis 11/01/2016 Griselda Jesus Acute tracheobronchitis Active Problem 08/03/2020 Griselda Jesus Other obesity due to excess calories Active Problem 07/2020 Gil Mar MD, PA BMI 35.0-35.9,adult Active Problem 08/03/2020 Griselda Jesus Flu vaccine need Active Diagnosis 08/21/2019 Griselda Jesus Risk for falls Active Diagnosis 08/03/2020 Griselda Jesus Eye exam abnormal Active Diagnosis 05/19/2019 Griselda Jesus Pulmonary hypertension, unspecified Active Problem 07/2020 Gil Mar MD, PA CAD (coronary artery disease) Active Problem Endougie Jesus Bilateral leg edema Active Diagnosis 12/03/2019 Griselda Jesus BMI 36.0-36.9,adult Active Problem 08/03/2020 Yohannesjhyosef Conroyniurkahaim Cellulitis of leg without foot, left Active Diagnosis 07/27/2020 Yohannesjhyosef Conroyniurkahaim Hematoma of left lower extremity, initial encounter Active Diagnosis 08/03/2020 Yohannesjhyosef Conroyniurkahaim Transient Ischemic Attack Acti ve 11/18/2013 [facility] 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 11/18/2013 [facility] Hypertension Active 11/18/2013 [facility] Mixed Hyperlipoproteinemia Act kenji 11/18/2013 [facility] Coronary Artery Disease Active 11/18/2013 [facility] Peripheral Vascular Disease Ac tive 11/18/2013 [facility] Thyroid Function Tests Nonspecific Abnormal Findings Active 11/18/2013 [facility] Vaccines Prophylactic Need Against Influenza Active 11/18/2013 [facility] Vitamin D Deficiency Active 11/18/2013 [facility] Acute Bronchitis Active 11/18/2013 [facility] Medications Medication Details Route Status Patient Instructions Ordering Provider Order Date Source Cephalexin 1 capsule Orally Active 500 MG Orally every 12 hrs [facility] 07/19/2020 Griselda Jesus Tamsulosin HCl 1 capsule Orally Active 0.4 MG Orally Once a da y [facility] 02/13/2020 Griselda Jesus Isosorbide Mononitrate 1 tablet Orally Active 10 MG Orally Twice a day [facility] 10/28/2019 Gil Mar MD, PA Azithromycin 2 tablets on the first day, then 1 tablet daily for 4 days Orally Active 250 MG Orally Once a day [facility] 08/15/2018 Griselda Bowlingm PredniSONE 1 tablet Orally Active 20 MG Orally Once a day [facility] 08/15/2018 Griselda Jesus Ciprodex 4 drops into affected ear Otic Active 0.3-0.1 % Otic Twice a day [facility] 06/26/2018 Griselda Bowlnigm Furosemide 1 tablet Orally Active 40 mg Orally Once a day [facility] 03/13/2018 Gil Mar MD, PA Eliquis 1 tablet Orally Active 5 MG Orally twice a day (bid) [facility] 03/13/2018 Gil Mar MD, PA Aspirin 1 tablet Orally Active 81 MG Orally Once a day [facility] 03/13/2018 Gil Mar MD, PA Tramadol HCl 1 tablet as needed Orally Active 50 MG Orally every 12 hrs as needed [facility] 02/06/2018 Griselda Jesus Tamsulosin HCl 1 capsule Orally Active 0.4 MG Orally once a da y [place] 10/24/2016 Griselda Jesus Azithromycin 250 MG Oral Tablet ; Start Date: 08/27/2013; End Date: (Active) Active 08/27/2013 [facility] Dexamethasone 4 MG Oral Tablet ; Start Date: 08/27/2013; End Date: 09/06/2013 (Active) Active 08/27/2013 [facility] Accu-Chek Kamila In Vitro Strip ; Start Date: 07/11/2012 (Active) Active 07/11/2012 [facility] Accu-Chek Multiclix Lancets Miscellaneous ; Start Date: 07/11/2012 (Active) Active 07/11/2012 [facility] Pen [place] 16" 31G X 8 MM Miscellaneous ; Start Date: 07/11/2012 (Active) Active 07/11/2012 [facility] Januvia 100 MG Oral Tablet ; S tart Date: 07/11/2012 (Active) Active 07/11/2012 [facility] MetFORMIN HCl 1000 MG Oral Tablet ; Start Date: 07/11/2012 (Active) Active 07/11/2012 [facility] Levemir FlexPen 100 UNIT/ML Subcutaneous Solution ; Start Date: 07/11/2012 (Active) Active 07/11/2012 [facility] Cyanocobalamin 2500 MCG Sublingual Tablet Sublingual ; Start Date: 07/11/2012 (Active) Active 07/11/2012 [facility] Clopidogrel Bisulfate 75 MG Oral Tablet ; Start Date: 07/11/2012 (Active) Active 07/11/2012 [facility] Hydrochlorothiazide 12.5 MG Oral Tablet ; Start Date: 07/11/2012 (Active) Active 07/11/2012 [facility] HumaLOG KwikPen 100 UNIT/ML Subcutaneous Solution ; Start Date: 07/11/2012 (Active) Active 07/11/2012 [facility] Metoprolol Succinate ER 50 MG Oral Table t Extended Release 24 Hour ; Start Date: 07/11/2012 (Active) Active 07/11/2012 [facility] Ramipril 10 MG Oral Capsule ; Start Date: 07/11/2012 (Active) Active 07/11/2012 [facility] Crestor 20 MG Oral Tablet ; St art Date: 07/11/2012 (Active) Active 07/11/2012 [facility] Vitamin D 2000 UNIT Oral Capsule ; Start Date: 07/11/2012 (Active) Active 07/11/2012 [facility] AmLODIPine Besylate 2.5 MG Oral Tablet ; Start Date: 07/11/2012 (Active) Active 07/11/2012 [facility] Clopidogrel Bisulfate not defi wesly NA Active [place] Finch et Edin Simvastatin not defined NA Active [place] Jesus Metoprolol Succinate ER not de fined NA Active [place] Finch et Edin Tamsulosin HCl 1 capsule Orally Active 0.4 MG Orally Once a da y Rocío Jesus Ramipril not defined NA Active Karri Jesus Metformin HCl not defined NA Active [place] Jesus Tamsulosin HCl 1 capsule Orally Active 0.4 MG Orally Once a da y Rocío Jesus Metoprolol Succinate ER not de fined NA Active [place] Finch et Edin Metformin HCl 1 tablet with me als Orally Active 500 MG Orally Twice a day Rocío Jesus Simvastatin not defined NA Active [place]ío Jesus Losartan Potassium not defined NA Active [place] Finch et Edin Aspirin 1 tablet Orally Active 81 MG Orally Once a day Isabela Mar MD, YVON Fish Oil 1 capsule Orally Active 500 MG Orally Twice a d Isabela Mar MD, YVON Metformin HCl 1 tablet with me als Orally Active 500 MG Orally Twice a day Isabela Mar MD, YVON Metoprolol Succinate ER 1 tabl et Orally Active 50 MG Orally Once a day Isabela Mra MD, YVON Humalog not defined Subcutaneous Active 100 UNIT/ML Subcutaneou s Isabela Mar MD, PA Tradjenta 1 tablet Orally Active Orally Once a day Isabela Mar MD, YVON Levemir not defined Subcutaneous Active 100 UNIT/ML Subcutaneou s Isabela Mar MD, PA Losartan Potassium 1 tablet Orally Active 50 MG Orally Once a day Isabela Mar MD, YVON Ramipril 1 capsule Orally Active 10 MG Orally Once a day Isabela Mar MD, YVON Clopidogrel Bisulfate 1 tablet Orally Active 75 MG Orally Once a day Gil Benson MD, PA Metoprolol Succinate ER 1 tabl et Orally Active 100 MG Orally Once a day Isabela Mar MD, YVON Losartan Potassium 1 tablet Orally Active 50 MG Orally Once a day [place]ío Jesus Furosemide 1 tablet Orally Active 40 MG Orally Once a day [place] Bradley Novolin N 20-25 units Subcutaneous Active 100 UNIT/ML Subcutaneous at night Rocío Jesus Novolin R 36 units Injection Active 100 UNIT/ML Injection T ID Rocío Jesus Eliquis 1 tablet Orally Active 5 MG Orally BID [place] Finch yosef Gil Jesus MD, YVON Simvastatin 1 tablet in the ev ening Orally Active 10 MG Orally Once a day Gil Benson MD, YVON Ramipril 1 capsule Orally Active 10 MG Orally Once a day Isabela Mar MD, YVON Metoprolol Succinate ER 1 tabl et Orally Active 50 MG Orally Once a day Isabela Mar MD, PA Levemir Unknown Subcutaneous Active 100 UNIT/ML Subcutaneou s Isabela Mar MD, YVON Metformin HCl 1 tablet with me als Orally Active 500 MG Orally Twice a day Isabela Mar MD, YVON Clopidogrel Bisulfate 1 tablet Orally Active 75 MG Orally Once a day Isabela Mar MD, YVON Januvia 2 tablets Orally Active 50 MG Orally Once a day Isabela Mar MD, YVON Humalog Unknown Subcutaneous Active 100 UNIT/[facility] Isabela Mar MD, YVON Fish Oil 1 capsule Orally Active 500 MG Orally Twice a d ay Isabela Mar MD, YVON Simvastatin 1 tablet in the ev ening Orally Active 10 mg Orally Once a day Isabela Mar MD, PA Tradjenta 1 tablet Orally Active Orally Once a day Isabela Mar MD, YVON Aspirin 1 tablet Orally Active 81 MG Orally Once a day Isabela Mar MD, YVON Metoprolol Succinate ER 1 tabl et Orally Active 100 mg Orally Once a day Isabela Mar MD, PA Furosemide TAKE 1 TABLET BY [facility] ONCE DAILY FOR 30 DAYS Orally Active 40MG Orally Once a day Isabela Mar MD, YVON Simvastatin 1 tablet in the ev ening Orally Active 10 mg Orally Once a day Isabela Mar MD, PA Simvastatin 1 tablet in the ev ening Orally Active 10 MG Orally Once a day [place] Endougie Conroyniurkahaim Tamsulosin HCl 1 capsule Orally Active 0.4 MG Orally Once a da y [place] Sheffieldjhyosef Conroyni[place] Furosemide 1 tablet Orally Active 40MG Orally Once a day Isabela Finch et Gil Jesus MD, PA Metoprolol Succinate ER 1 tabl et Orally Active 100MG Orally Once a day Isabela Mar MD, PA Allergies, Adverse Reactions, Alerts Substance Category Reaction Severity Reaction type Status Date Reported Comments Source N.K.D.A. Adverse Reaction Info Not Available Adverse Reaction 08/02/2020 Enayet Rahim No Known Drug Allergies drug a llergy drug aller gy Active [facility] Immunizations Immunization Date Given Site Status Last Updated Comments Source 2019 - 2020 FLUZONE IIV4 08/02 completed Enayet Rahim 2019 Single Syringe Fluecelvax Quad 08/17/2019 completed Enayet Rahim Fluzone Intramuscular Injectable 05/18/2013 completed [facility] Influenza completed [facility] Results No Data Provided for This Section Pathology Reports No Data Provided for This Section Diagnostic Reports No Data Provided for This Section Consultation Notes No Data Provided for This Section Discharge Summaries No Data Provided for This Section History and Physicals No Data Provided for This Section Vital Signs Vital Sign Value Date Comments Source Weight 252 08/02/2020 Enayet Rahim Height 70 1 10/02/2019 Enayet Rahim Temperature Oral (F) 97.4 F 08/02/2020 Enayet Rahim Diastolic (mm Hg) 72 08/02/2020 Enayet Rahim Systolic (mm Hg) 128 08/02/2020 Enayet Rahim Weight 254 07/19/2020 Enayet Rahim Height 70 1 09/18/2019 Enayet Rahim Temperature Oral (F) 98 F 07/19/2020 Enayet Rahim Diastolic (mm Hg) 73 07/19/2020 Enayet Rahim Systolic (mm Hg) 126 07/19/2020 Enayet Rahim Weight 257 07/05/2020 Enayet Rahim Height 70 1 Enayet Rahim Temperature Oral (F) 97.5 F 07/05/2020 Enayet Rahim Diastolic (mm Hg) 84 07/05/2020 Enayet Rahim Systolic (mm Hg) 148 07/05/2020 Enayet Rahim Weight 250 04/27/2020 Gil Mar MD, PA Heart Rate 70 04/27/2020 Gil Mar MD, PA Diastolic (mm Hg) 83 04/27/2020 Gil Mar MD, PA Systolic (mm Hg) 119 04/27/2020 Gil Mar MD, PA Weight 245 03/03/2020 Enayet Rahim Height 70 0 03/03/2020 Enayet Rahim Temperature Oral (F) 97.3 F 03/03/2020 Enayet Rahim Diastolic (mm Hg) 90 03/03/2020 Enayet Rahim Systolic (mm Hg) 147 03/03/2020 Enayet Rahim Weight 255 12/10/2019 Gil Mar MD, PA Heart Rate 75 12/10/2019 Gil Mar MD, PA Diastolic (mm Hg) 65 12/10/2019 Gil Mar MD, PA Systolic (mm Hg) 110 12/10/2019 Gil Mar MD, PA Weight 247 11/23/2019 Enayet Rahim Height 70 0 11/23/2019 Enayet Rahim Temperature Oral (F) 97.5 F 11/23/2019 Enayet Rahim Diastolic (mm Hg) 69 11/23/2019 Enayet Rahim Systolic (mm Hg) 124 11/23/2019 Enayet Rahim Weight 255 10/28/2019 Gil Mar MD, PA Heart Rate 79 10/28/2019 Gil Mar MD, PA Diastolic (mm Hg) 62 10/28/2019 Gil Mar MD, PA Systolic (mm Hg) 110 10/28/2019 Gil Mar MD, PA Weight 260 10/07/2019 Gil Mar MD, PA Heart Rate 76 10/07/2019 Gil Mar MD, PA Diastolic (mm Hg) 67 10/07/2019 Gil Mar MD, PA Systolic (mm Hg) 118 10/07/2019 Gil Mar MD, PA Weight 248 08/17/2019 Enayet Rahim Height 70 1 10/18/2018 Enayet Rahim Temperature Oral (F) 97.5 F 08/17/2019 Enayet Rahim Diastolic (mm Hg) 58 08/17/2019 Enayet Rahim Systolic (mm Hg) 92 08/17/2019 Enayet Rahim Weight 255 06/10/2019 Gil Mar MD, PA Heart Rate 59 06/10/2019 Gil Mar MD, PA Diastolic (mm Hg) 67 06/10/2019 Gil Mar MD, PA Systolic (mm Hg) 125 06/10/2019 Gil Mar MD, PA Weight 248 05/13/2019 Enayet Rahim Height 70 0 05/13/2019 Enayet Rahim Temperature Oral (F) 98.2 F 05/13/2019 Enayet Rahim Diastolic (mm Hg) 87 05/13/2019 Enayet Rahim Systolic (mm Hg) 155 05/13/2019 Enayet Rahim Weight 247 03/05/2019 Enayet Rahim Height 70 0 03/05/2019 Enayet Rahim Temperature Oral (F) 97.0 F 03/05/2019 Enayet Rahim Diastolic (mm Hg) 78 03/05/2019 Enayet Rahim Systolic (mm Hg) 126 03/05/2019 Enayet Rahim Weight 255 12/09/2018 Gil Mar MD, PA Heart Rate 66 12/09/2018 Gil Mar MD, PA Diastolic (mm Hg) 60 12/09/2018 Gil Mar MD, PA Systolic (mm Hg) 129 12/09/2018 Gil Mar MD, PA Weight 255 08/15/2018 Enayet Rahim Height 70 1 10/16/2017 Enayet Rahim Temperature Oral (F) 102.1 F 08/15/2018 Enayet Rahim Diastolic (mm Hg) 74 08/15/2018 Enayet Rahim Systolic (mm Hg) 111 08/15/2018 Enayet Rahim Weight 258 08/13/2018 Enayet Rahim Height 70 1 10/14/2017 Enayet Rahim Temperature Oral (F) 98.6 F [...] Weight 258 06/26/2018 Enayet Rahim Height 70 1 Enayet Rahim Temperature Oral (F) 98.7 F [...] Weight 263 02/06/2018 Enayet Rahim Height 70 0 02/06/2018 Enayet Rahim Temperature Oral (F) 98.4 [...] Weight 266 08/13/2017 Enayet Rahim Height 70 1 10/14/2016 Enayet Rahim Temperature Oral (F) 97.5 F [...] Weight 261 01/24/2017 Enayet Rahim Height 70 0 01/24/2017 Enayet Rahim Temperature Oral (F) 98.3 [...] Weight 264 04/27/2016 Enayet Rahim Height 70 0 04/27/2016 Enayet Rahim Temperature Oral (F) 99.1 [...] Hg) 125 09/12/2015 Gil Mar MD, PA Encounters Location Location Details Encounter Type Encounter Number Reason For Visit Attending Provider ADM Date DC Date Status Source AUDIT [id number] 12/18/2012 12/19/2012 [facility] AUDIT [id number] 02/10/2013 02/10/2013 [facility] E30, Provi itzel: WALLY,MOLLY, Status: Pen, Time: 10:15 AM [id number] 02/11/20 13 12/19/2012 [facility] AUDIT [id number] 05/16/2013 05/16/2013 [facility] E30, Provi itzel: WALLY,MOLLY, Status: Pen, Time: 9:45 AM [id number] 05/18/20 13 05/16/2013 [facility] AUDIT [id number] 05/18/2013 05/18/2013 [facility] AUDIT [id number] 05/20/2013 05/20/2013 [facility] E30, Provi itzel: WALLY,MOLLY, Status: Pen, Time: 1:00 PM [id number] 08/24/20 13 05/20/2013 [facility] AUDIT [id number] 08/27/2013 08/27/2013 [facility] AUDIT [id number] 11/04/2013 11/04/2013 [facility] AUDIT [id number] 11/18/2013 11/18/2013 [facility] E30, Provi itzel: WALLY,MOLLY, Status: Pen, Time: 10:15 AM [id number] 11/21/19 14 11/04/2013 [facility] WME, Provi itzel: CAS ARCOS, Status: Pen, Time: 10:15 AM [id number] 11/26/19 14 11/18/2013 [facility] E30, Provi itzel: WALLY,MOLLY, Status: Pen, Time: 1:00 PM [id number] 02/20/20 14 11/18/2013 [facility] TROUBLE URINATING [id number] 03/14/20 15 03/14/2015 Gil Mar MD, PA [facility] TROUBLE URINATING [id number] 03/14/20 15 03/14/2015 Gil Mar MD, PA [facility] TROUBLE URINATING [id number] 03/14/20 15 03/14/2015 Griselda Jesus [facility] TROUBLE URINATING [id number] 03/14/20 15 03/14/2015 Gil Mar MD, PA [facility] TROUBLE URINATING [id number] 03/14/20 15 03/14/2015 Gil Mar MD, PA [facility] Unknown [id number] 06/03/20 15 06/03/2015 Gil Mar MD, PA [facility] Unknown [id number] 06/03/20 15 06/03/2015 Gil Mar MD, PA [facility] Unknown [id number] 06/03/20 15 [facility]03[facility] [id number] 06/03/20 15 06/03/2015 Gil Mar MD, PA [facility] Unknown [id number] 06/03/20 15 06/03/2015 Gil Mar MD, PA Gil Mar MD, PA Follow-Up [id number] 09/12/19 16 09/12/2015 Gil Mar MD, PA Gil Mar MD, PA Follow-Up [id number] 09/12/19 16 09/12/2015 Gil Mar MD, PA Gil Mar MD, PA Follow-Up [id number] 09/12/19 16 09/12/2015 Griselda Mar MD, PA Follow-Up [id number] 09/12/19 16 09/12/2015 Gil aMr MD, PA Gil Mar MD, PA Follow-Up [id number] 09/12/19 16 09/12/2015 Gil Mar MD, PA Gil Mar MD, PA Follow-Up [id number] 03/15/20 16 03/15/2016 Gil Mar MD, PA Gil Mar MD, PA echo/carotid/arterial dopplers [id number] 03/15/2016 03/15/2016 Gil Mar MD, PA Gil Mar MD, PA echo/carotid/arterial dopplers [id number] 03/15/2016 03/15/2016 Gil Mar MD, PA Gil Mar MD, PA Follow-Up [id number] 03/15/20 16 03/15/2016 Griselda Mar MD, PA Follow-Up [id number] 03/15/20 16 03/15/2016 Gil Mar MD, PA Gil Mar MD, PA echo/carotid/arterial dopplers [id number] 03/15/2016 03/15/2016 Griselda Mar MD, PA echo/carotid/arterial dopplers [id number] 03/15/2016 03/15/2016 Gil Mar MD, PA Griselda Jesus MD, PA NEW PT [id number] 04/27/20 16 04/27/2016 Griselda Mar MD, PA Follow-Up [id number] 09/13/19 17 09/13/2016 Griselda Mar MD, PA Follow-Up [id number] 09/13/19 17 09/13/2016 Gil Mar MD, PA Procedures No Data Provided for This Section Assessment and Plan No Data Provided for This Section Plan of Care Plan of Care Date Source [QLH] TSH, 3RD GENERATION 05/18/2013 Rou brant[QLH] T4, FREE 05/18/2013 Routine[QLH] CMP W/EGFR 05/18/2013 Routine[QL] VITAMIN D, 25-HYDROXY, LC/MS/MS 05/18/2013 Routine 05/18/2013 [facility] Social History Social History Date Source Social History ElementQualifiersDate Rep orted Tobacco Use: . Are you a: never smoker Sep 13, 2016 Marital Status: . Sep 13, 2016 Do you drink alcohol? . Status: No Sep 13, 2016 09/13/2016 Gil Mar MD, P A Social History ElementQualifiersDate Rep orted Tobacco Use: . Are you a: Never [...] 2016 Occupation: . retired Apr 27, 2016 04/27/2016 Griselda Jesus Never A Smoker (Active) Never Drank Alcohol (Active) Marital History - (V61.03); (Active) 11/18/2013 [facility] Family History Value Date S ource QualifierDescriptionCommentDate Reported Maternal Grandmother Comment not available Apr [...] History Comment not available Apr 27, 2016 11/01/2016 Griselda Jesus Family history of Coronary Artery Diseas e (V17.49); (Active) Family history of Cerebral Artery Occlusion (Active) Family history of Diabetes Mellitus (V18.0); (Active) Family history of Hypertension (V17.49); (Active) Family history of Hyperlipidemia (Active) No Family history of Pancreatitis (Denied) No Family history of Thyroid Cancer (Denied) No Family history of Bladder Cancer (Denied) 11/18/2013 [facility] Family history of Coronary Artery Diseas e (V17.49); (Active) Family history of Cerebral Artery Occlusion (Active) Family history of Diabetes Mellitus (V18.0); (Active) Family history of Hypertension (V17.49); (Active) Family history of Hyperlipidemia (Active) No Family history of Pancreatitis (Denied) No Family history of Thyroid Cancer (Denied) 11/04/2013 [facility] Family history of Coronary Artery Diseas e (V17.49); (Active) Family history of Cerebral Artery Occlusion (Active) Family history of Diabetes Mellitus (V18.0); (Active) Family history of Hypertension (V17.49); (Active) Family history of Hyperlipidemia (Active) No Family history of Pancreatitis (Denied) No Family history of Thyroid Cancer (Denied) 08/27/2013 [facility] Family history of Coronary Artery Diseas e (V17.49); (Active) Family history of Cerebral Artery Occlusion (Active) Family history of Diabetes Mellitus (V18.0); (Active) Family history of Hypertension (V17.49); (Active) Family history of Hyperlipidemia (Active) No Family history of Pancreatitis (Denied) 05/20/2013 [facility] Family history of Coronary Artery Diseas e (V17.49); (Active) Family history of Cerebral Artery Occlusion (Active) Family history of Diabetes Mellitus (V18.0); (Active) Family history of Hypertension (V17.49); (Active) Family history of Hyperlipidemia (Active) No Family history of Pancreatitis (Denied) 05/18/2013 [facility] Family history of Coronary Artery Diseas e (V17.49); (Active) Family history of Cerebral Artery Occlusion (Active) Family history of Diabetes Mellitus (V18.0); (Active) Family history of Hypertension (V17.49); (Active) Family history of Hyperlipidemia (Active) No Family history of Pancreatitis (Denied) 05/16/2013 [facility] Family history of Coronary Artery Diseas e (V17.49); (Active) Family history of Cerebral Artery Occlusion (Active) Family history of Diabetes Mellitus (V18.0); (Active) Family history of Hypertension (V17.49); (Active) Family history of Hyperlipidemia (Active) No Family history of Pancreatitis (Denied) 02/10/2013 [facility] Family history of Cerebral Artery Occlus ion (Active) Family history of Coronary Artery Disease (V17.49); (Active) Family history of Diabetes Mellitus (V18.0); (Active) Family history of Hypertension (V17.49); (Active) Family history of Hyperlipidemia (Active) 12/19/2012 [facility] Advance Directives Order Name Results Value Date Source Advance Directives Advance Dir ectives No Advance Directives available. 11/18/2013 [facility] Advance Directives Advance Dir ectives No Advance Directives available. 11/04/2013 [facility] Advance Directives Advance Dir ectives No Advance Directives available. 08/27/2013 [facility] Advance Directives Advance Dir ectives No Advance Directives available. 05/20/2013 [facility] Advance Directives Advance Dir ectives No Advance Directives available. 05/18/2013 [facility] Advance Directives Advance Dir ectives No Advance Directives available. 05/16/2013 [facility] Advance Directives Advance Dir ectives No Advance Directives available. 02/10/2013 [facility] Advance Directives Advance Dir ectives No Advance Directives available. 12/19/2012 [facility] Functional Status No Data Provided for This Section
--- NOTE | 2020-08-06 13:24 | NUR ---
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 PATIENT NEEDS VENOUS DOPPLER TO LEFT LEG
[2020-08-06 13:35] LABS: BASOPHILS % 0.3 % (0.0-1.0); EOSINOPHILS % 0.3 % (0.0-6.0); HEMATOCRIT 37.2 % (38.2-49.6); HEMOGLOBIN 11.8 g/dL (14.0-18.0); LYMPHOCYTES # (AUTO) 1.5 (1.0-3.2); LYMPHOCYTES % 14.7 % (18.0-39.1); MEAN CORPUSCULAR HEMOGLOBIN 32.8 pg (28-32); MEAN CORPUSCULAR HGB CONC 31.7 g/dL (31-35); MEAN CORPUSCULAR VOLUME 103.3 fL (81-99); MONOCYTES % 10.2 % (4.4-11.3); NEUTROPHILS # (AUTO) 7.3 (2.1-6.9); NEUTROPHILS % 73.6 % (38.7-80.0); PLATELET COUNT 293 x10e3/uL (140-360); RED CELL DISTRIBUTION WIDTH 16.6 % (11.7-14.4)
[2020-08-06 13:48] LABS: INR 1.19; PROTHROMBIN TIME 15.7 seconds (11.9-14.5)
[2020-08-06 13:49] LABS: PARTIAL THROMBOPLASTIN TIME 26.3 seconds (23.8-35.5)
[2020-08-06 13:50] LABS: ALANINE AMINOTRANSFERASE 39 IU/L (0-55); ALBUMIN 3.2 g/dL (3.5-5.0); ALKALINE PHOSPHATASE 62 IU/L (40-150); ANION GAP 12.5 mmol/L (8-16); BLOOD UREA NITROGEN 32 mg/dL (7-26); BUN/CREATININE RATIO 27 (6-25); CALCIUM 8.8 mg/dL (8.4-10.2); CARBON DIOXIDE 30 mmol/L (22-29); CHLORIDE 104 mmol/L (98-107); CREATININE, SERUM 1.18 mg/dL (0.72-1.25); EST GLOMERULAR FILTRATION RATE 60 ML/MIN (60-); GLUCOSE 186 mg/dL (74-118); POTASSIUM 4.5 mmol/L (3.5-5.1); SODIUM 142 mmol/L (136-145)
[2020-08-06 13:52] LABS: CREATINE KINASE < 7 IU/L (30-200)
[2020-08-06] MEDS ORDERED: SODIUM CHLORIDE 0.9% 50ML 50 ML ONE (14:07)
[2020-08-06] MEDS ORDERED: IOPAMIDOL 370 MG/ML 200 ML INFUS..BTL INJ ONE (14:08)
[2020-08-06 14:24] LABS: CLARITY,URINE SL CLOUDY (CLEAR); COLOR,URINE YELLOW (YELLOW)
[2020-08-06 14:25] LABS: LEUKOCYTE ESTERASE ,URINE NEGATIVE (NEGATIVE); NITRITE,URINE NEGATIVE (NEGATIVE); PROTEIN,URINE DIPSTICK NEGATIVE (NEGATIVE)
[2020-08-06 14:26] LABS: BILIRUBIN,URINE NEGATIVE (NEGATIVE); KETONES,URINE TRACE (NEGATIVE); URINE UROBILINOGEN 1 mg/dL (0.2 - 1)
[2020-08-06 14:36] LABS: BACTERIA,URINE RARE /HPF; EPITHELIAL CELLS,URINE FEW /LPF; WBC,URINE (MAN) 0-5 /HPF (0-5)
--- NOTE | 2020-08-06 15:04 | Diagnostic Imaging Report ---
Exam: Head CT without contrast History: Trauma, fall on Eloquis Comparison studies: Brain MRI 11/08/2017 Technique: Axial images were obtained from the skull base to the vertex. Coronal and sagittal images reconstructed from the axial data. Dose modulation, iterative reconstruction, and/or weight based adjustment of the mA/kV was utilized to reduce the radiation dose to as low as reasonably achievable. Radiation dose: Total DLP: 921 mGy*cm. Estimated effective dose: DLP x 0.015 Intravenous contrast: None Findings: Scalp: No abnormalities. Bones: No fractures, blastic or lytic lesions. Brain sulci: Mildly prominent. Ventricles: Mild compensatory dilatation. No hydrocephalus. Extra-axial spaces: No masses, no fluid collection. Parenchyma: A few scattered hypodensities in the supratentorial white matter are nonspecific but are most compatible with chronic microvascular ischemic changes. Small chronic lacunar infarct in the left lateral putamen is unchanged. No mass, acute hemorrhage or acute or chronic cortical insults. Sellar/suprasellar region: No abnormalities. Craniocervical junction: Patent foramen magnum. No Chiari one malformation. Incidental findings: Bilateral intraocular lens replacements Atherosclerotic calcifications in the distal right cervical internal carotid artery, bilateral carotid siphons and left intradural vertebral artery. IMPRESSION: No acute intracranial abnormalities. Specifically, no acute intracranial hemorrhage. Chronic findings: 1. Minimal generalized parenchymal volume loss. 2. Chronic lacunar infarct in the left putamen. 3. Mild microvascular ischemic changes. Signed by: Dr. Gus Proctor M.D. on 08/06/2020 3:00 PM
--- NOTE | 2020-08-06 15:45 | Diagnostic Imaging Report ---
EXAMINATION: CHEST SINGLE (PORTABLE) INDICATION: ^FALL 9 D AGO ^[id number] ^1415 COMPARISON: Multiple prior chest radiograph including most recent on 08/28/2018. Chest CT on 08/21/2018. FINDINGS: TUBES and LINES: None. LUNGS: Low lung volumes with bronchovascular crowding. There is diffuse patchy airspace opacities and interstitial prominence bilaterally. PLEURA: No pleural effusion or pneumothorax. Left pleural scarring, unchanged. HEART AND MEDIASTINUM: The cardiomediastinal silhouette is unremarkable. There are atherosclerotic calcifications within the aorta. BONES AND SOFT TISSUES: No acute osseous lesion. Soft tissues are unremarkable. UPPER ABDOMEN: No free air under the diaphragm. IMPRESSION: Diffuse interstitial and patchy airspace opacities which may represent combination of bronchovascular crowding and subsegmental atelectasis. However, multifocal pneumonia can have a similar appearance and should be considered in the proper clinical context. Signed by: Yudy Weldon MD on 08/06/2020 3:41 PM
--- NOTE | 2020-08-06 15:55 | Diagnostic Imaging Report ---
EXAM: CT of the site without contrast INDICATION: Status post fall with left lower extremity pain and difficulty bearing weight. COMPARISON: None available. TECHNIQUE: Multidetector CT scanning of the site was performed. Coronal and sagittal multiplanar reformations were obtained. RADIATION DOSE: Total DLP: mGy*cm Estimated effective dose: (DLP x 0.014 x size factor) mSv CTDIvol has been reviewed. It is below the limits set by the Radiation Protocol Committee (RPC). Dose modulation, iterative reconstruction, and/or weight based adjustment of the mA/kV was utilized to reduce the radiation dose to as low as reasonably achievable. FINDINGS: Bones: No acute displaced fracture identified. Joints: There are mild to moderate degenerative changes of the left hip characterized by joint space narrowing and marginal osteophytes. There are severe tricompartmental degenerative changes of the left knee characterized by severe joint space narrowing, subchondral cystic changes, subchondral sclerosis and marginal/fragmented osteophytes. Soft Tissues: There is ill-defined mild prominence of the mid deep quadriceps muscles suggestive of intramuscular hematoma. No evidence of active extravasation. There is moderate to severe atherosclerotic calcification of the lower extremity vasculature. Others: The partially imaged pelvis is normal. IMPRESSION: 1. Ill-defined mild prominence of the mid deep quadriceps muscles suggestive of intramuscular hematoma. No evidence of active extravasation. 2. No acute fracture or evidence of dislocation. 3. Severe tricompartmental osteoarthritis of the left knee. Signed by: Yudy Weldon MD on 08/06/2020 3:51 PM
[2020-08-06] MEDS ORDERED: MORPHINE SULFATE 2 MG/ML SYR 1ML IV PRN (16:15)
[2020-08-06] MEDS ORDERED: ONDANSETRON HCL INJ 2MG/ML 2ML 2 MG/ML VIAL IV PRN (16:15)
--- OUTSIDE RECORDS SUMMARY | 2020-08-06 16:17 | XMS REPORT | Continuity of Care Document ---
Author Author Medabil Waqas Steward Organization [employer] Address Unknown Phone Unavailable Care Team Providers Care Strategic Business Development Name Role Phone [employer] Unavailable Un available Problems Problem [...] [ECG] [EKG] Active Problem 05/20/2020 Gil Mar MD P A Obesity, unspecified Active Problem [...] Mar MD, PA Atherosclerotic heart disease of [place] coronary artery without angina pectoris Active Problem 05/20/2020 Gil Mar MD, PA Coronary atherosclerosis of [place] coronary artery Active Problem 05/20/2020 Gil Mar [...] [place] Transient Ischemic Attack Acti ve 11/18/2013 [facility] 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 11/18/2013 [facility] Hypertension Active 11/18/2013 [facility] Mixed Hyperlipoproteinemia Act kenji 11/18/2013 [facility] Coronary Artery Disease Active 11/18/2013 [facility] Peripheral Vascular Disease Ac tive 11/18/2013 [facility] Thyroid Function Tests Nonspecific Abnormal Findings Active 11/18/2013 [facility] Vaccines Prophylactic Need Against Influenza Active 11/18/2013 [facility] Vitamin D Deficiency Active 11/18/2013 [facility] Acute Bronchitis Active 11/18/2013 [facility] Medications Medication Details Route Status Patient Instructions Ordering Provider Order Date Source Cephalexin 1 capsule Orally Active 500 MG Orally every 12 hrs [facility] 07/19/2020 Griselda Jesus Tamsulosin HCl 1 capsule Orally Active 0.4 MG Orally Once a da y [facility] 02/13/2020 Griselda Jesus Isosorbide Mononitrate 1 tablet Orally Active 10 MG Orally Twice a day [facility] 10/28/2019 Gil Mar MD, PA Azithromycin 2 tablets on the first day, then 1 tablet daily for 4 days Orally Active 250 MG Orally Once a day [facility] 08/15/2018 Griselda Bowlingm PredniSONE 1 tablet Orally Active 20 MG Orally Once a day [facility] 08/15/2018 Griselda Jesus Ciprodex 4 drops into affected ear Otic Active 0.3-0.1 % Otic Twice a day [facility] 06/26/2018 Griselda Bowlingm Furosemide 1 tablet Orally Active 40 mg Orally Once a day [facility] 03/13/2018 Gil Mar MD, PA Eliquis 1 tablet Orally Active 5 MG Orally twice a day (bid) [facility] 03/13/2018 Gil Mar MD, PA Aspirin 1 tablet Orally Active 81 MG Orally Once a day [facility] 03/13/2018 Gil Mar MD, PA Tramadol HCl 1 tablet as needed Orally Active 50 MG Orally every 12 hrs as needed [facility] 02/06/2018 Griselda Jesus Tamsulosin HCl 1 capsule [...] 07/11/2012 (Active) Active 07/11/2012 [facility] [place] 16" 31G X 8 MM Miscellaneous ; Start Date: 07/11/2012 (Active) Active 07/11/2012 [facility] Januvia 100 MG Oral Tablet ; S tart Date: 07/11/2012 (Active) Active 07/11/2012 [facility] MetFORMIN HCl 1000 MG Oral Tablet [...] ; Start Date: 07/11/2012 (Active) Active 07/11/2012 [facility] AmLODIPine Besylate 2.5 MG Oral Tablet ; Start Date: 07/11/2012 (Active) Active 07/11/2012 [facility] Clopidogrel Bisulfate not defi wesly NA [...] YVON Humalog Unknown Subcutaneous Active 100 UNIT/[facility] Isabela Mar MD, YVON Fish [...] MD, PA Furosemide TAKE 1 TABLET BY [facility] ONCE DAILY FOR 30 DAYS Orally Active [...] drug a llergy drug aller gy Active [facility] Immunizations Immunization Date Given Site Status Last Updated Comments Source 2019 - 2020 FLUZONE IIV4 08/02 completed Enayet Rahim 2019 Single Syringe Fluecelvax Quad 08/17/2019 completed Enayet Rahim Fluzone Intramuscular Injectable 05/18/2013 completed [facility] Influenza completed [facility] Results No Data Provided for This [...] PA Systolic (mm Hg) 119 04/27/2020 Gil Mra MD, PA Weight 245 03/03/2020 Enayet Rahim [...] ADM Date DC Date Status Source AUDIT [id number] 12/18/2012 12/19/2012 [facility] AUDIT [id number] 02/10/2013 02/10/2013 [facility] E30, Provi itzel: WALLY,MOLLY, Status: Pen, Time: 10:15 AM [id number] 02/11/20 13 12/19/2012 [facility] AUDIT [id number] 05/16/2013 05/16/2013 [facility] E30, Provi itzel: WALLY,MOLLY, Status: Pen, Time: 9:45 AM [id number] 05/18/20 13 05/16/2013 [facility] AUDIT [id number] 05/18/2013 05/18/2013 [facility] AUDIT [id number] 05/20/2013 05/20/2013 [facility] E30, Provi itzel: WALLY,MOLLY, Status: Pen, Time: 1:00 PM [id number] 08/24/20 13 05/20/2013 [facility] AUDIT [id number] 08/27/2013 08/27/2013 [facility] AUDIT [id number] 11/04/2013 11/04/2013 [facility] AUDIT [id number] 11/18/2013 11/18/2013 [facility] E30, Provi itzel: WALLY,MOLLY, Status: Pen, Time: 10:15 AM [id number] 11/21/19 14 11/04/2013 [facility] WME, Provi itzel: CAS ARCOS, Status: Pen, Time: 10:15 AM [id number] 11/26/19 14 11/18/2013 [facility] E30, Provi itzel: WALLY,MOLLY, Status: Pen, Time: 1:00 PM [id number] 02/20/20 14 11/18/2013 [facility] TROUBLE URINATING [id number] 03/14/20 15 03/14/2015 Gil Mar MD, PA [facility] TROUBLE URINATING [id number] 03/14/20 15 03/14/2015 Gil Mar MD, PA [facility] TROUBLE URINATING [id number] 03/14/20 15 03/14/2015 Griselda Jesus [facility] TROUBLE URINATING [id number] 03/14/20 15 03/14/2015 Gil Mar MD, PA [facility] TROUBLE URINATING [id number] 03/14/20 15 03/14/2015 Gil Mar MD, PA [facility] Unknown [id number] 06/03/20 15 06/03/2015 Gil Mar MD, PA [facility] Unknown [id number] 06/03/20 15 06/03/2015 Gil Mar MD, PA [facility] Unknown [id number] 06/03/20 15 06/03/2015 [facility] [id number] 06/03/20 15 06/03/2015 Gil Mar MD, PA [facility] Unknown [id number] 06/03/20 15 06/03/2015 Gil Mar MD, PA Gil Mar MD, PA Follow-Up [id number] 09/12/19 16 09/12/2015 Gil Mar MD, PA Gil Mar MD, PA Follow-Up [id number] 09/12/19 16 09/12/2015 Gil Mar MD, PA Gil Mar MD, PA Follow-Up [id number] 09/12/19 16 09/12/2015 Griselda Mar MD, PA Follow-Up [id number] 09/12/19 16 09/12/2015 Gil Mar MD, PA Gil Mar MD, PA Follow-Up [id number] 09/12/19 16 09/12/2015 Gil Mar MD, PA Gil Mar MD, PA Follow-Up [id number] 03/15/20 16 03/15/2016 Gil Mar MD, PA Gil Mar MD, PA echo/carotid/arterial dopplers [id number] 03/15/2016 03/15/2016 Gil Mar MD, PA Gil Mar MD, PA echo/carotid/arterial dopplers [id number] 03/15/2016 03/15/2016 Gil Mar MD, PA Gil Mar MD, PA Follow-Up [id number] 03/15/20 16 03/15/2016 Griselda Mar MD, PA Follow-Up [id number] 03/15/20 16 03/15/2016 Gil Mar MD, PA Gil Mar MD, PA echo/carotid/arterial dopplers [id number] 03/15/2016 03/15/2016 Griselda Mar MD, PA echo/carotid/arterial dopplers [id number] 03/15/2016 03/15/2016 Gil Mar MD, PA Griselda Jesus MD, PA NEW PT [id number] 04/27/20 16 04/27/2016 Griselda Mar MD, PA Follow-Up [id number] 09/13/19 17 09/13/2016 Griselda Mar MD, PA Follow-Up [id number] 09/13/19 17 09/13/2016 Gil Mar MD, PA Procedures No Data Provided for This Section Assessment and Plan No Data Provided for This Section Plan of Care Plan of Care Date Source [QLH] TSH, 3RD GENERATION 05/18/2013 Rou brant[QLH] T4, FREE 05/18/2013 Routine[QLH] CMP W/EGFR 05/18/2013 Routine[QL] VITAMIN D, 25-HYDROXY, LC/MS/MS 05/18/2013 Routine 05/18/2013 [facility] Social History Social History Date Source [...] (Active) Marital History - (V61.03); (Active) 11/18/2013 [facility] Family History Value Date S ource [...] Family history of Bladder Cancer (Denied) 11/18/2013 [facility] Family history of Coronary Artery Diseas e (V17.49); (Active) Family history of Cerebral Artery Occlusion (Active) Family history of Diabetes Mellitus (V18.0); (Active) Family history of Hypertension (V17.49); (Active) Family history of Hyperlipidemia (Active) No Family history of Pancreatitis (Denied) No Family history of Thyroid Cancer (Denied) 11/04/2013 [facility] Family history of Coronary Artery Diseas e (V17.49); (Active) Family history of Cerebral Artery Occlusion (Active) Family history of Diabetes Mellitus (V18.0); (Active) Family history of Hypertension (V17.49); (Active) Family history of Hyperlipidemia (Active) No Family history of Pancreatitis (Denied) No Family history of Thyroid Cancer (Denied) 08/27/2013 [facility] Family history of Coronary Artery Diseas e (V17.49); (Active) Family history of Cerebral Artery Occlusion (Active) Family history of Diabetes Mellitus (V18.0); (Active) Family history of Hypertension (V17.49); (Active) Family history of Hyperlipidemia (Active) No Family history of Pancreatitis (Denied) 05/20/2013 [facility] Family history of Coronary Artery Diseas e (V17.49); (Active) Family history of Cerebral Artery Occlusion (Active) Family history of Diabetes Mellitus (V18.0); (Active) Family history of Hypertension (V17.49); (Active) Family history of Hyperlipidemia (Active) No Family history of Pancreatitis (Denied) 05/18/2013 [facility] Family history of Coronary Artery Diseas e (V17.49); (Active) Family history of Cerebral Artery Occlusion (Active) Family history of Diabetes Mellitus (V18.0); (Active) Family history of Hypertension (V17.49); (Active) Family history of Hyperlipidemia (Active) No Family history of Pancreatitis (Denied) 05/16/2013 [facility] Family history of Coronary Artery Diseas e (V17.49); (Active) Family history of Cerebral Artery Occlusion (Active) Family history of Diabetes Mellitus (V18.0); (Active) Family history of Hypertension (V17.49); (Active) Family history of Hyperlipidemia (Active) No Family history of Pancreatitis (Denied) 02/10/2013 [facility] Family history of Cerebral Artery Occlus ion (Active) Family history of Coronary Artery Disease (V17.49); (Active) Family history of Diabetes Mellitus (V18.0); (Active) Family history of Hypertension (V17.49); (Active) Family history of Hyperlipidemia (Active) 12/19/2012 [facility] Advance Directives Order Name Results Value Date Source Advance Directives Advance Dir ectives No Advance Directives available. 11/18/2013 [facility] Advance Directives Advance Dir ectives No Advance Directives available. 11/04/2013 [facility] Advance Directives Advance Dir ectives No Advance Directives available. 08/27/2013 [facility] Advance Directives Advance Dir ectives No Advance Directives available. 05/20/2013 [facility] Advance Directives Advance Dir ectives No Advance Directives available. 05/18/2013 [facility] Advance Directives Advance Dir ectives No Advance Directives available. 05/16/2013 [facility] Advance Directives Advance Dir ectives No Advance Directives available. 02/10/2013 [facility] Advance Directives Advance Dir ectives No Advance Directives available. 12/19/2012 [facility] Functional Status No Data Provided for This Section
--- OUTSIDE RECORDS SUMMARY | 2020-08-06 16:18 | XMS REPORT | Continuity of Care Document ---
Author Author [facility] t Organization [facility] Address [address] [place] [address] [address] [place] [address] Phone Unavailable Care Team Providers Care Industrial Engineer Name Role Phone LUZ ELENA ELLISON M.D. PCP Robinson EARLY Attphys Unavailable AGATA, BARBIE Attphys Unavailable DENNY, MARCOS Attphys Unavailable AGATA, BARBIE Admphys Unavailable DENNY, MARCOS Admphys Unavailable Payers Payer Name Policy Type Policy Number Effective Date Expiration Date Dia mahan Miscellaneous o [id number] 2015 00:00:00 [facility] Medicare A & B [id number] 2010 00:00:[address] [facility] Problems Condition Name Condition Details Condition Category Status Onset Date Resolution Date Last Treatment Date Treating Clinician Comments Source Congestive heart failure CHF (congestive heart failure) Problem Active [facility] Hypotension Hypotension Problem Active [facility] Acute respiratory failure Acute respiratory failure Problem Active [facility] Dyspnea Dyspnea Problem Active [facility] Sepsis Sepsis Problem Active [facility] Diabetes Diab etes Active Problem 08/03/2020 Enayet Rahim Problem Active 2020-08-03 05:11:04 [facility] BPH (benign prostatic hyperplasia) BPH (benign prostatic hyperplasia) Active Problem 08/03/2020 Enayet Rahim Problem Active 2020-08-03 05:11:04 [facility] HTN (hypertension) HTN (hypertension) Active Problem 08/03/2020 Enayet Rahim Problem Active 2020-08-03 05:11:04 [facility] Carotid arterial disease Chicas tid arterial disease Active Problem 08/03/2020 Griselda Jesus Problem Active 2020-08-03 05:1 1:04 Kita Pickering PAD (peripheral artery disease) PAD (peripheral artery disease) Active Problem 08/03/2020 Griselda Jesus Problem Active 2020-08-03 05:11:04 Kita Dwyer Pain in left knee Pain in left knee Active Diagnosis 08/21/2017 Griselda Jesus Diagnosis Active 2017-08-21 05:10:49 Kita Shortann Other chronic pain Othe r chronic pain Active Problem 08/03/2020 Griselda Jesus Problem Active 2020-08-03 05:11:04 Kita Dwyer Fall, initial encounter Fall , initial encounter Active Diagnosis 08/03/2020 Griselda Jesus Diagnosis Active 2020-08-03 05 :10:53 Kita Reymundo Acute pain of right shoulder A cute pain of right shoulder Active Diagnosis 02/13/2018 Griselda Jesus Diagnosis Active 2018-02-13 04:11:19 Kita Dwyer Chronic diastolic heart failure Chronic diastolic heart failure Active Problem 05/20/2020 Gil Mar MD, PA Problem Active 2020-05-20 04:10:09 Kita Dwyre Occlusion and stenosis of right carotid artery [...] MD, PA Problem Active 2020-05-20 04 :10:09 [facility] Body mass index (BMI) 38.0-38.9, adult Body mass index (BMI) 38.0-38.9, adult Active Problem 05/20/2020 Gil Mar MD, PA Problem Active 2020-05-20 04:10:09 Bea Dwyer Type 2 diabetes mellitus with diabetic peripheral juany opathy without gangrene Type 2 diabetes mellitus with 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 gangrene Active Problem 05/20/2020 Gil Mar MD, PA Problem Active 2020-05-20 04:10:09 [facility] Coronary angioplasty status Co ronary angioplasty status Active Problem 05/20/2020 Gil Mar MD, PA Problem Active 2020-05-20 04:10:09 [facility] Coronary atherosclerosis of [place] coronary artery Coronary atherosclerosis of [place] coronary artery Active Problem 05/20/2020 Gil Mar MD, PA Problem Active 2020-05-20 04:10:09 [facility] Peripheral vascular disease Pe ripheral vascular disease Active Problem 05/20/2020 Gil Mar MD, PA Problem Active 2020-05-20 04:10:09 [facility] Diabetes mellitus type II Diab etes mellitus type II Active Problem 05/20/2020 Gil Mar MD, PA Problem Active 2020-05-20 04:10:09 [facility] Abnormal ECG Abno rmal ECG Active Problem 05/20/2020 Gil Mar MD, PA Problem Active 2020-05-20 04:10:09 [facility] Morbid obesity Morb id obesity Active Problem 05/20/2020 Gil Mar MD, PA Problem Active 2020-05-20 04:10:09 [facility] Postprocedural PCI status Post procedural PCI status Active Problem 05/20/2020 Gil Mar MD, PA Problem Active 2020-05-20 04:10:09 [facility] Mixed hyperlipidemia Mixe d hyperlipidemia Active Problem 05/20/2020 Gil Mar MD, PA Problem Active 2020-05-20 04 :10:09 [facility] Carotid stenosis Chicas tid stenosis Active Problem 05/20/2020 Gil Mar MD, PA Problem Active 2020-05-20 04:10:09 [facility] Chronic systolic CHF (congestive heart failure) Chronic systolic CHF (congestive heart failure) Active Problem 08/03/2020 Enjhet Rahim Problem Active 2020-08-03 05:11:04 [facility] PAF (paroxysmal atrial fibrillation) PAF (paroxysmal atrial fibrillation) Active Problem 08/03/2020 Enayet Rahim Problem Active 2020-08-03 05:11:04 [facility] Atrial fibrillation- Chronic A trial fibrillation- Chronic Active Problem 05/20/2020 Gil Mar MD, PA Problem Active 2020-05-20 04:10:09 [facility] Perforated right tympanic membrane on examination Perforated right tympanic membrane on examination Active Diagnosis 07/02/2018 Enayet Rahim Diagnosis Active 2018-07-02 04:10:34 [facility] Body mass index (BMI) 37.0-37.9, adult Body mass index (BMI) 37.0-37.9, adult Active Problem 05/20/2020 Gil Mar MD, PA Problem Active 2020-05-20 04:10:09 Memcharlene Dwyer Other bilateral secondary osteoarthritis of knee [...] PA Problem Active 2020-05-20 04:10:09 Memor ialorna Dwyer BMI 35.0-35.9,adult BMI 35.0-35.9,adult Active Problem 08/03/2020 Endougie Bowlingm Problem Active 2020-08-03 05:11:04 Kita Dwyer Flu vaccine need Flu vaccine need Active Diagnosis 08/21/2019 Enjhet him Diagnosis Active 2019-08-21 05:11:17 Kita Dwyer Risk for falls Risk for falls Active Diagnosis 08/03/2020 Endougie Bowlingm Diagnosis Active 2020-08-03 05:10:53 Kita Dwyer Eye exam abnormal Eye exam abnormal Active Diagnosis 05/19/2019 Endougie Bowlingm Diagnosis Active 2019-05-19 04:10:50 Kita Dwyer Pulmonary hypertension, unspecified Pulmonary hypertension, unspecified Active Problem 05/20/2020 Gil Mar MD, PA Problem Active 2020-05-20 04:10:09 Kita Dwyer CAD (coronary artery disease) CAD (coronary artery disease) Active Problem 08/03/2020 Enayet Rahim Problem Active 2020-08-03 05:11:04 Kita Dwyer Bilateral leg edema Bila teral leg edema Active Diagnosis 12/03/2019 Enjhet Rahim Diagnosis Active 2019-12-03 04:11:12 [facility] BMI 36.0-36.9,adult BMI 36.0-36.9,adult Active Problem 08/03/2020 Griselda Jesus Problem Active 2020-08-03 05:11:04 Kita Dwyer Cellulitis of leg without foot, left Cellulitis of leg without foot, left Active Diagnosis 07/27/2020 Griselda Jesus Diagnosis Acti ve 2020-07-27 05:11:08 Kita golden Hematoma of left lower extremity, initial encounter Hematoma of left lower extremity, initial encounter Active Diagnosis 08/03/2020 Griselda Jesus Diagnosis Active 2020-08-03 05:10:53 [facility] Transient Ischemic Attack Wilder sient Ischemic Attack Active 11/18/2013 [facility] Problem Active 2013-11-18 22:03: 04 [facility] Diabetes Mellitus With Peripheral Circulatory Disorder 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 11/18/2013 [facility] Problem Active 2013-11-18 22:03:04 [facility] Hypertension Hype rtension Active 11/18/2013 [facility] Problem Active 2013-11-18 22:03:04 [facility] Coronary Artery Disease Sia nary Artery Disease Active 11/18/2013 [facility] Problem Active 2013-11-18 22:03: 04 [facility] Thyroid Function Tests Nonspecific Abnormal Findings Thyroid Function Tests Nonspecific Abnormal Findings Active 11/18/2013 [facility] Problem Active 2013-11-18 22:03:04 [facility] Vaccines Prophylactic Need Against Influenza Vaccines Prophylactic Need Against Influenza Active 11/18/2013 [facility] Problem Active 2013-11-18 22:03:04 Bea Dwyer Vitamin D Deficiency Cece min D Deficiency Active 11/18/2013 [facility] Problem Active 2013-11-18 22:03:04 [facility] Acute Bronchitis Acut e Bronchitis Active 11/18/2013 [facility] Problem Active 2013-11-18 22:03:04 [facility] Allergies, Adverse Reactions, Alerts Allergy Name Allergy Type Status Severity Reaction(s) Onset Date Inacti ve Date Treating Clinician Comments Source N.K.D.A. N.K.D.A. Active Info Not Available 2020-08-02 00:00:00 Kita Dwyer No Known Drug Allergies No Known Drug Allergies Active [facility] Family History Family Member Diagnosis Comments Start Date Stop Date Source Unknown Family Member Family History 2012-12-19 04:46:23 2 04:46:23 [facility] Social History Social Habit Start Date Stop Date Quantity Comments Source TobaccoUse: 2016-04-27 00:00:00 2016-04-27 00:00:00 [facility] Social History 2013-11-18 22:03:04 2013-11-18 22:03:04 [facility] Medications Ordered Medication Name Filled Medication Name Start Date Stop Da te Current Medication? Ordering Clinician Indication Dosage Frequency Signature (SIG) Comments Components Source Metformin HCl 2020-08-03 05:10:53 Yes Luz Elena Rocío 1 tablet with meals [facility] Clopidogrel Bisulfate 2020-08-03 05:10:53 Yes Luz Elena Rocío 1 tablet [facility] Losartan Potassium 2020-08-03 05:10:53 Yes Luz Elena Rocío 1 tablet [facility] Furosemide 2020-08-03 05:10:53 Yes Luz Elena Rocío 1 tablet [facility] Novolin N 2020-08-03 05:10:53 Yes Luz Elena Rocío 20 -25 units [facility] Novolin R 2020-08-03 05:10:53 Yes Luz Elena Rocío 36 units [facility] Eliquis 2020-08-03 05:10:53 Yes Luz Elena Rocío 1 ta blet [facility] Simvastatin 2020-08-03 05:10:53 Yes Luz Elena Rocío 1 tablet in the evening [facility] Tamsulosin HCl 2020-08-03 05:10:53 Yes Luz Elena Rocío 1 capsule [facility] Cephalexin 2020-07-19 00:00:00 Yes Luz Elena Rocío 1 capsule [facility] Fish Oil 2020-05-20 04:10:09 Yes Gil Minan Tayyan 1 capsule [facility] Metformin HCl 2020-05-20 04:10:09 Yes Gil Chiang n 1 tablet with meals [facility] Humalog 2020-05-20 04:10:09 Yes Gil Billingswan Tayyan not defined [facility] Tradjenta 2020-05-20 04:10:09 Yes Gil Marwan Tayyan 1 tablet [facility] Levemir 2020-05-20 04:10:09 Yes Gil Billingswan Tayyan not defined [facility] Losartan Potassium 2020-05-20 04:10:09 Yes iGl Billingswan Tayyan 1 tablet [facility] Simvastatin 2020-05-20 04:10:09 Yes Gilsilas Billingswan Tayyan 1 tablet in the evening [facility] Furosemide 2020-05-20 04:10:09 Yes Gil Marwan Tayyan 1 tablet [facility] Metoprolol Succinate ER 2020-05-20 04:10:09 Yes Gil ocampo Foxyan 1 tablet [facility] Metoprolol Succinate ER 2020-04-30 04:10:12 Yes Gil ocampo Foxyan 1 tablet [facility] Furosemide 2020-03-29 04:10:27 Yes Gil Billingsrowena Foxconstanza TAKE 1 TABLET BY MOUTH ONCE DAILY FOR 30 DAYS [facility] Tamsulosin HCl 2020-03-04 04:11:14 Yes Luz Elena Rocío 1 capsule [facility] Simvastatin 2020-03-04 04:11:14 Yes Luz Elena Rocío 1 tablet in the evening [facility] Tamsulosin HCl 2020-02-13 00:00:00 Yes Luz Elena Rocío 1 capsule [facility] Isosorbide Mononitrate 2019-10-28 00:00:00 Yes Gil Awa Mar 1 tablet [facility] Metoprolol Succinate ER 2018-12-10 04:10:07 Yes Gilsilas ocampo Isabela 1 tablet [facility] Simvastatin 2018-08-23 05:10:52 Yes Luz Elena Rocío not defined [facility] Losartan Potassium 2018-08-23 05:10:52 Yes Luz Elena Rocío not defined [facility] Azithromycin 2018-08-15 00:00:00 Yes Luz Elena Rocío 2 tablets on the first day, then 1 tablet daily for 4 days [facility] PredniSONE 2018-08-15 00:00:00 Yes Luz Elena Rocío 1 tablet [facility] Ciprodex 2018-06-26 00:00:00 Yes Luz Elenaleta Stoddardwar 4 drops into affected ear [facility] Furosemide 2018-03-13 00:00:00 Yes Gil Braxtonyan 1 tablet [facility] Eliquis 2018-03-13 00:00:00 Yes Gil Mar 1 tablet [facility] Aspirin 2018-03-13 00:00:00 Yes Gil Mar 1 tablet [facility] Clopidogrel Bisulfate 2018-02-13 04:11:19 Yes Luz Elenaleta Stoddardw ar not defined [facility] Ramipril 2018-02-13 04:11:19 Yes Luz Elena Rocío not defined [facility] Metoprolol Succinate ER 2018-02-13 04:11:19 Yes Luz Elena Sa rwar not defined [facility] Tramadol HCl 2018-02-06 00:00:00 Yes Luz Elena Ellison 1 tablet as needed [facility] Aspirin 2017-12-27 04:10:10 Yes Gil Braxtonyan 1 tablet [facility] Metoprolol Succinate ER 2017-12-27 04:10:10 Yes Gil ocampo Tayyan 1 tablet [facility] Simvastatin 2017-08-21 05:10:49 Yes Luz Elena Rocío not defined [facility] Metoprolol Succinate ER 2017-08-21 05:10:49 Yes Luz Elena Sa rwar not defined [facility] Metformin HCl 2017-08-21 05:10:49 Yes Luz Elena Rocío not defined [facility] Ramipril 2017-06-21 04:10:15 Yes Gil Braxtonyan 1 capsule [facility] Tamsulosin HCl 2017-01-26 04:10:17 Yes Luz Elena Stoddardwar 1 capsule [facility] Tamsulosin HCl 2016-10-24 00:00:00 Yes Luz Elena Rocío 1 capsule [facility] Ramipril 2016-09-14 05:14:09 Yes Gil Braxtonyan 1 capsule [facility] Metoprolol Succinate ER 2016-09-14 05:14:09 Yes Gil legernivia Tayyan 1 tablet [facility] Levemir 2016-09-14 05:14:09 Yes Gil Braxtonyan Unknown [facility] Metformin HCl 2016-09-14 05:14:09 Yes Gil Chiang n 1 tablet with meals [facility] Clopidogrel Bisulfate 2016-09-14 05:14:09 Yes Gil gonzáles Tayyan 1 tablet [facility] Humalog 2016-09-14 05:14:09 Yes Gil Braxtonyan Unknown [facility] Fish Oil 2016-09-14 05:14:09 Yes Gil Braxtonyan 1 capsule [facility] Simvastatin 2016-09-14 05:14:09 Yes Gil Braxtonyan 1 tablet in the evening [facility] Tradjenta 2016-09-14 05:14:09 Yes Gil Braxtonyan 1 tablet [facility] Aspirin 2016-09-14 05:14:09 Yes Gil Summers Tayyan 1 tablet [facility] Januvia 2015-09-14 05:14:14 Yes Gil Braxtonyan 2 tablets [facility] Azithromycin 250 MG Oral Tablet 2013-08-27 06:00:00 Yes ; Start Date: 08/27/2013; End Date: (Active) Kita [facility]ym[facility] Dexamethasone 4 MG Oral Tablet 2013-08-27 06:00:00 Yes ; Start Date: 08/27/2013; End Date: 09/06/2013 (Active) Kita Dwyer Accu-Chek Kamila In Vitro Strip 2012-07-11 05:00:00 Yes ; Start Date: 07/11/2012 (Active) Kita Dwyer Accu-Chek Multiclix Lancets Miscellaneous 2012-07-11 05:00:00 Yes ; Start Date: 07/11/2012 (Active) Kita Dwyer [place] 5/16" 31G X 8 MM Miscellaneous 2012-07-11 [...] ; Start Date: 07/11/2012 (Active) Kita Dwyer Vitamin D 2000 UNIT Oral Capsule 2012-07-11 05:00:00 Yes ; Start Date: 07/11/2012 (Active) Kita Patel nn AmLODIPine Besylate 2.5 MG Oral Tablet 2012-07-11 05:00:00 Yes ; Start Date: 07/11/2012 (Active) Kita Shortann Eliquis Eliquis Yes 5 Twice A Day [facility] Furosemide 40 Mg Tablet Furosemide 40 Mg Tablet Yes 40 Daily [facility] Losartan Potassium 50 Mg Tablet Losartan Potassium 50 Mg Tablet Yes 50 Daily [facility] Metformin Hcl 500 Mg Tablet Metformin Hcl 500 Mg Tablet Yes 500 Twice A Day [facility] Metoprolol Succinate 100 Mg Tab.er.24h Metoprolol Succinate 100 Mg Tab.er.24h Yes 100 Daily [facility] Simvastatin 20 Mg Tablet Simvastatin 20 Mg Tablet Yes 20 Today At 9:00PM [facility] Tamsulosin Hcl 0.4 Mg Cap.er.24h Tamsulosin Hcl 0.4 Mg Cap.er.24h Yes .4 Daily [facility] Insulin Regular, Human (Novolin R) 100 Unit/1 Ml Vial, 36 Units Sub-Q Insulin Regular, Human (Novolin R) 100 Unit/1 Ml Vial, 36 Units Sub-Q 2018-08-24 00:00:00 No 36 Before Meals [facility] Levofloxacin (Levaquin) 500 Mg Tablet, 500 Mg Oral Lev ofloxacin (Levaquin) 500 Mg Tablet, 500 Mg Oral 2018-08-21 00:00:00 No 500 D aily [facility] Vital Signs Vital Name Observation Time Observation Value Comments Source Weight 2020-08-02 21:15:00 [facility] Height 2020-08-02 21:15:00 Kita Dwyer Temperature Oral (F) 2020-08-02 21:15:00 97.4 F [facility] Diastolic (mm Hg) 2020-08-02 21:15:00 [facility] Systolic (mm Hg) 2020-08-02 21:15:00 [facility] Weight 2020-07-19 20:30:00 [facility] Height 2020-07-19 20:30:00 [facility] Temperature Oral (F) 2020-07-19 20:30:00 98 F [facility] Diastolic (mm Hg) 2020-07-19 20:30:00 [facility] Systolic (mm Hg) 2020-07-19 20:30:00 Robert rial [facility] Weight 2020-07-05 21:15:00 [facility] Height 2020-07-05 21:15:00 [facility] Temperature Oral (F) 2020-07-05 21:15:00 97.5 F [facility] Diastolic (mm Hg) 2020-07-05 21:15:00 [facility] Systolic (mm Hg) 2020-07-05 21:15:00 Robert [facility] Weight 2020-04-27 18:15:00 [facility] Heart Rate 2020-04-27 18:15:00 [facility] Diastolic (mm Hg) 2020-04-27 18:15:00 [facility] Systolic (mm Hg) 2020-04-27 18:15:00 Robert [facility] [place] Weight 2020-03-03 20:00:00 [facility] Height 2020-03-03 20:00:00 [facility] Temperature Oral (F) 2020-03-03 20:00:00 97.3 F [facility] Diastolic (mm Hg) 2020-03-03 20:00:00 [facility] Systolic (mm Hg) 2020-03-03 20:00:00 Robert [facility] Weight 2019-12-10 19:00:00 [facility] Heart Rate 2019-12-10 19:00:00 [facility] Diastolic (mm Hg) 2019-12-10 19:00:00 [facility] Systolic (mm Hg) 2019-12-10 19:00:00 Robert [facility] Weight 2019-11-23 14:00:00 [facility] Height 2019-11-23 14:00:00 [facility] Temperature Oral (F) 2019-11-23 14:00:00 97.5 F [facility] Diastolic (mm Hg) 2019-11-23 14:00:00 [facility] Systolic (mm Hg) 2019-11-23 14:00:00 Robert [facility] Weight 2019-10-28 20:15:00 [facility] Heart Rate 2019-10-28 20:15:00 [facility] Diastolic (mm Hg) 2019-10-28 20:15:00 [facility] Systolic (mm Hg) 2019-10-28 20:15:00 [facility] Weight 2019-10-07 20:15:00 [facility] Heart Rate 2019-10-07 20:15:00 [facility] Diastolic (mm Hg) 2019-10-07 20:15:00 [facility] Systolic (mm Hg) 2019-10-07 20:15:00 Robert [facility] Weight 2019-08-17 19:45:00 [facility] Height 2019-08-17 19:45:00 [facility] Temperature Oral (F) 2019-08-17 19:45:00 97.5 F [facility] Diastolic (mm Hg) 2019-08-17 19:45:00 [facility] Systolic (mm Hg) 2019-08-17 19:45:00 Robert [facility] Weight 2019-06-10 18:30:00 [facility] Heart Rate 2019-06-10 18:30:00 [facility] Diastolic (mm Hg) 2019-06-10 18:30:00 [facility] Systolic (mm Hg) 2019-06-10 18:30:00 [facility] darwinl [facility] Weight 2019-05-13 21:00:00 [facility] Height 2019-05-13 21:00:00 [facility] Temperature Oral (F) 2019-05-13 21:00:00 98.2 F [facility] Diastolic (mm Hg) 2019-05-13 21:00:00 [facility] Systolic (mm Hg) 2019-05-13 21:00:00 [facility] Weight 2019-03-05 20:15:00 [facility] Height 2019-03-05 20:15:00 [facility] Temperature Oral (F) 2019-03-05 20:15:00 97.0 F [facility] Diastolic (mm Hg) 2019-03-05 20:15:00 [facility] Systolic (mm Hg) 2019-03-05 20:15:00 Robert [facility] Weight 2018-12-09 15:15:00 [facility] Heart Rate 2018-12-09 15:15:00 [facility] Diastolic (mm Hg) 2018-12-09 15:15:00 [facility] Systolic (mm Hg) 2018-12-09 15:15:00 [facility] Weight 2018-08-15 15:45:00 [facility] Height 2018-08-15 15:45:00 [facility] Temperature Oral (F) 2018-08-15 15:45:00 102.1 F [facility] Diastolic (mm Hg) 2018-08-15 15:45:00 [facility] Systolic (mm Hg) 2018-08-15 15:45:00 Robert [facility] Weight 2018-08-13 20:00:00 [facility] Height 2018-08-13 20:00:00 [facility] Temperature Oral (F) 2018-08-13 20:00:00 98.6 F [facility] Diastolic (mm Hg) 2018-08-13 20:00:00 [facility] Systolic (mm Hg) 2018-08-13 20:00:00 Robert [facility] Weight 2018-07-01 16:00:00 [facility] Heart Rate 2018-07-01 16:00:00 [facility] Diastolic (mm Hg) 2018-07-01 16:00:00 [facility] Systolic (mm Hg) 2018-07-01 16:00:00 [facility] Weight 2018-06-26 18:45:00 [facility] Height 2018-06-26 18:45:00 [facility] Temperature Oral (F) 2018-06-26 18:45:00 98.7 F [facility] Diastolic (mm Hg) 2018-06-26 18:45:00 [facility] Systolic (mm Hg) 2018-06-26 18:45:00 Robert [facility] Weight 2018-03-27 19:15:00 [facility] Heart Rate 2018-03-27 19:15:00 [facility] Diastolic (mm Hg) 2018-03-27 19:15:00 [facility] Systolic (mm Hg) 2018-03-27 19:15:00 Robert [facility] Weight 2018-03-13 21:00:00 [facility] Heart Rate 2018-03-13 21:00:00 [facility] Diastolic (mm Hg) 2018-03-13 21:00:00 [facility] Systolic (mm Hg) 2018-03-13 21:00:00 Robert he[facility] Weight 2018-02-06 18:15:00 [facility] Height 2018-02-06 18:15:00 [facility] Temperature Oral (F) 2018-02-06 18:15:00 98.4 F [facility] Diastolic (mm Hg) 2018-02-06 18:15:00 [facility] Systolic (mm Hg) 2018-02-06 18:15:00 [facility] Weight 2017-12-26 18:15:00 [facility] Heart Rate 2017-12-26 18:15:00 [facility] Diastolic (mm Hg) 2017-12-26 18:15:00 [facility] Systolic (mm Hg) 2017-12-26 18:15:00 Robert he[facility] Weight 2017-08-13 20:45:00 [facility] Height 2017-08-13 20:45:00 [facility] Temperature Oral (F) 2017-08-13 20:45:00 97.5 F [facility] Diastolic (mm Hg) 2017-08-13 20:45:00 [facility] Systolic (mm Hg) 2017-08-13 20:45:00 Robert he[facility] Weight 2017-06-13 18:45:00 [facility] Heart Rate 2017-06-13 18:45:00 [facility] Diastolic (mm Hg) 2017-06-13 18:45:00 [facility] Systolic (mm Hg) 2017-06-13 18:45:00 Robert [facility] Weight 2017-01-24 15:45:00 [facility] Height 2017-01-24 15:45:00 [facility] Temperature Oral (F) 2017-01-24 15:45:00 98.3 F [facility] Diastolic (mm Hg) 2017-01-24 15:45:00 [facility] Systolic (mm Hg) 2017-01-24 15:45:00 Robert [facility] Weight 2016-09-13 20:00:00 [facility] Heart Rate 2016-09-13 20:00:00 [facility] Diastolic (mm Hg) 2016-09-13 20:00:00 [facility] Systolic (mm Hg) 2016-09-13 20:00:00 Robert [facility] Weight 2016-04-27 22:02:00 [facility] Height 2016-04-27 22:02:00 [facility] Temperature Oral (F) 2016-04-27 22:02:00 99.1 F [facility] Diastolic (mm Hg) 2016-04-27 22:02:00 [facility] Systolic (mm Hg) 2016-04-27 22:02:00 [facility] Weight 2016-03-15 19:15:00 [facility] Heart Rate 2016-03-15 19:15:00 [facility] Diastolic (mm Hg) 2016-03-15 19:15:00 [facility] Systolic (mm Hg) 2016-03-15 19:15:00 [facility] Weight 2015-09-12 20:30:00 [facility] Heart Rate 2015-09-12 20:30:00 [facility] Diastolic (mm Hg) 2015-09-12 20:30:00 [facility] Systolic (mm Hg) 2015-09-12 20:30:00 [facility] Procedures Procedure Date / Time Performed Performing Clinician [facility] e EGD with biopsy 2018-08-29 00:00:00 ÁNGEL ANDREW [facility] X-ray of chest, two views 2018-08-28 00:00:00 MARIA G BROOKS [facility] Computed tomography of chest with contrast 2018-08-21 00:00:00 JUS TORRES [facility] X-ray of chest, two views 2017-11-10 00:00:00 MARIA G BROOKS [facility] Magnetic resonance imaging of brain without contrast 2017-11 00:00:00 HEMANT BALDWIN [facility] Plan of Care Planned Activity Planned Date Details Comments Source Future Scheduled Test 2013-05-18 15:34:07 Plan of Care [code = 1877 6-5] [facility] Encounters Start Date/Time End Date/Time Encounter Type Admission Type [facility] Care Facility Care Department Encounter ID Source 2020-08-02 15:15:00 2020-08-02 15:15:00 Outpatient Inpatient Providers [facility] Inpatient [facility] [id number] eClinicalWo rk 2020-08-02 15:03:00 2020-08-02 15:03:00 Outpatient Inpatient Providers [facility] [id number] eClinicalWo rk 2020-07-19 14:30:00 2020-07-19 14:30:00 Outpatient Inpatient Providers [facility] Inpatient [facility] [id number] eClinicalWo rk 2020-07-05 15:15:00 2020-07-05 15:15:00 Outpatient Inpatient Providers [facility] [id number] eClinicalWo rk 2020-05-19 13:00:00 2020-05-19 13:00:00 [place] [id number] eClinicalWorks 2020-04-27 13:15:00 2020-04-27 13:15:00 [place] [id number] eClinicalWorks 2020-03-28 16:20:00 2020-03-28 16:20:00 [place] [id number] eClinicalWorks 2020-03-03 15:00:00 2020-03-03 15:00:00 Outpatient Inpatient Providers [facility] [id number] eClinicalWo rks 2019-12-10 14:00:00 2019-12-10 14:00:00 [place] [id number] eClinicalWorks 2019-11-23 09:00:00 2019-11-23 09:00:00 Outpatient Inpatient Providers [facility] [id number] eClinicalWo rks 2019-11-03 14:00:00 2019-11-03 14:00:00 [place] [id number] eClinicalWorks 2019-10-28 14:15:00 2019-10-28 14:15:00 [place] [id number] eClinicalWorks 2019-10-15 08:03:00 2019-10-15 08:03:00 Outpatient [id number] 2019-10-07 14:15:00 2019-10-07 14:15:00 Outpatient Gil Mello [id number] eClinicalWorks 2019-08-17 13:45:00 2019-08-17 13:45:00 [facility] [place] [facility] [id number] eClinicalWo rks 2019-06-11 10:00:00 2019-06-11 10:00:00 [place] [id number] eClinicalWorks 2019-06-10 13:30:00 2019-06-10 13:30:00 [place] [id number] eClinicalWorks 2019-05-13 16:00:00 2019-05-13 16:00:00 [facility]patient [facility] [place] [facility] [id number] eClinicalWo rks 2019-03-05 15:15:00 2019-03-05 15:15:00 [facility]patient [facility] [place] [facility] [id number] eClinicalWo rks 2019-03-05 09:15:00 2019-03-05 09:15:00 [place] [id number] eClinicalWorks 2018-12-09 10:15:00 2018-12-09 10:15:00 [place] [id number] eClinicalWorks 2018-09-18 10:22:00 2018-09-18 10:22:00 Outpatient [facility] [id number] eClinicalWor wi 2018-08-21 12:15:00 2018-08-29 19:21:00 Discharged Inpatient [address] [facility] [id number] [facility] 2018-08-15 09:45:00 2018-08-15 09:45:00 [facility]patient [facility] [place] [facility] [id number] eClinicalWo rks 2018-08-13 14:00:00 2018-08-13 14:00:00 [facility]patient [facility] [place] [facility] [id number] eClinicalWo rks 2018-07-01 11:00:00 2018-07-01 11:00:00 Outpatient Gil Mello [id number] eClinicalWorks 2018-06-26 13:45:00 2018-06-26 13:45:00 [facility]patient [facility] [place] [facility] [id number] eClinicalWo rks 2018-06-17 10:00:00 2018-06-17 10:00:00 [place] [id number] eClinicalWorks 2018-03-27 14:15:00 2018-03-27 14:15:00 [place] [id number] eClinicalWorks 2018-03-13 16:00:00 2018-03-13 16:00:00 [place] [id number] eClinicalWorks 2018-02-06 13:15:00 2018-02-06 13:15:00 Outpatient Inpatient Providers [facility] [id number] eClinicalWo rks 2017-12-26 13:15:00 2017-12-26 13:15:00 [place] [id number] eClinicalWorks 2017-11-12 11:47:00 2017-11-12 11:47:00 [place] [id number] eClinicalWorks 2017-11-07 20:20:00 2017-11-10 15:17:00 Discharged Inpatient HEMANT MANN [facility] [id number] [facility] 2017-08-13 14:45:00 2017-08-13 14:45:00 Outpatient [facility]patient [facility] Providers [facility] [id number] eClinicalWo rks 2017-06-25 11:00:00 2017-06-25 11:00:00 [place] [id number] eClinicalWorks 2017-06-13 13:45:00 2017-06-13 13:45:00 [place] [id number] eClinicalWorks 2017-01-24 10:45:00 2017-01-24 10:45:00 Outpatient Inpatient Providers [facility] Inpatient [facility] [id number] eClinicalWo rks 2016-09-13 14:00:00 2016-09-13 14:00:00 Outpatient [place], [place] [id number] eClinicalWorks 2016-04-27 16:02:00 2016-04-27 16:02:00 Outpatient Griselda Jesus [place], [place] [id number] eClinicalWorks 2016-03-15 15:00:00 2016-03-15 15:00:00 Outpatient [place], [place] [id number] eClinicalWorks 2016-03-15 14:15:00 2016-03-15 14:15:00 Outpatient [place], [place] [id number] eClinicalWorks 2015-09-12 14:30:00 2015-09-12 14:30:00 Outpatient [place], [place] [id number] eClinicalWorks 2013-11-18 17:03:05 2013-11-18 17:03:04 Outpatient [facility] [id number] 2013-11-04 15:22:58 2013-11-04 15:22:57 Outpatient [facility] [id number] 2013-08-27 11:33:13 2013-08-27 11:33:13 Outpatient [facility] [id number] 2013-05-20 07:00:13 2013-05-20 07:00:13 Outpatient [facility] [id number] 2013-05-18 10:34:08 2013-05-18 10:34:07 Outpatient [facility] [id number] 2013-05-16 06:30:15 2013-05-16 06:30:14 Outpatient [facility] [id number] 2013-02-10 04:14:03 2013-02-10 04:13:44 Outpatient [facility] [id number] 2012-12-18 23:46:52 2012-12-18 23:46:23 Outpatient [facility] [id number] Results Test Description Test Time Test Comments Results Result Comments Source CT LEFT LOWER EXTREMITY W 2020-08-06 15:41:00 [facility] 1945 Sex: M [facility] [address] [address] Patient Name: VILLA LINDSAY JR MR #: [id number] : 1945 Age/Sex: 75/M Req #: [id number] [facility] Physician: Ordered by: SERENITY EARLY MD Report #: [id number] Location: ER Room/Bed: Procedure: [id number] CT/CT LEFT LOWER EXTREMITY W Exam Date: 08/06/20 Exam Time: 1425 REPORT STATUS: Signed EXAM: CT of the site without contrast INDICATION: Status post fall with left lower extremity pain and difficulty bearing weight. COMPARISON: None available. TECHNIQUE: Multidetector CT scanning of the site was performed. Coronal and sagittal multiplanar reformations were obtained. RADIATION DOSE: Total DLP: mGy*cm Estimated effective dose: (DLP x 0.014 x size factor) mSv CTDIvol has been reviewed. It is below the limits set by the Radiation Protocol Committee (RPC). Dose modulation, iterative reconstruction, and/or weight based adjustment of the mA/kV was utilized to reduce the rad iation dose to as low as reasonably achievable. FINDINGS: Bones: No acute displaced fracture identified. Joints: There are mild to moderate degenerative changes of the left hip characterized by joint space narrowing and marginal osteophytes. There are severe tricompartmental degenerative changes of the left knee characterized by severe joint space narrowing, subchondral cystic changes, subchondral sclerosis and marginal/fragmented osteophytes. Soft Tissues: There is ill-defined mild prominence of the mid deep quadriceps muscles suggestive of intramuscular hematoma. No evidence of active extravasation. There is moderate to severe atherosclerotic calcification of the lower extremity vasculature. Others: The partially imaged pelvis is normal. IMPRESSION: 1. Ill-defined mild prominence of the mid deep quadriceps muscles suggestive of intramuscular hematoma. No evidence of active extravasation. 2. No acute fracture or evidence of dislocation. 3. Severe tricompartmental osteoarthritis of the left knee. Signed by: Kita Man MD on 08/06/2020 3:51 PM Dictated By: KITA MAN MD 50 Transcribed By: MARIEL on 08/06/201550 COPY TO: SERENITY EARLY MD [facility] SINGLE (PORTABLE) 2020-08-06 15:38:00 [facility] 1945 Sex: M [facility] [address] [place] [address] Patient Name: VILLA LINDSAY JR MR #: [id number] : 1945 Age/Sex: 75/M Req #: [id number] Adm Physician: Ordered by: SERENITY EARLY MD Report #: [id number] Location: Room/Bed: Procedure: [id number] DX/CHEST SINGLE (PORTABLE) Exam Date: 08/06/20 Exam Time: 1415 REPORT STATUS: Signed EXAMINATION: CHEST SINGLE (PORTABLE) INDICATION: FALL 9 D AGO [id number] COMPARISON: Multiple prior chest radiograph including most recent on 08/28/2018. Chest CT on 08/21/2018. FINDINGS: TUBES and LINES: None. LUNGS: Low lung volumes with bronchovascular crowding. There is diffuse patchy airspace opacities and interstitial prominence bilaterally. PLEURA: No pleural effusion or pneumothorax. Left pleural scarring, unchanged. HEART AND MEDIASTINUM: The cardiomediastinal silhouette is unremarkable. There are atherosclerotic calcifications within the aorta. BONES AND SOFT TISSUES: No acute osseous lesion. Soft tissues are unremarkable. UPPER ABDOMEN: No free air under the diaphragm. IMPRESSION: Diffuse interstitial and patchy airspace opacities which may represent combination of bronchovascular crowding and subsegmental atelectasis. However, multifocal pneumonia can have a similar appearance and should be considered in the proper clinical context. Signed by: Kita Man MD on 08/06/2020 3:41 PM Dictated By: KITA MAN MD 40 Transcribed By: MARIEL on 08/06/201540 COPY TO: SERENITY EARLY MD CT BRAIN WO 2020-08-06 14:53:00 [facility] : 1945 Sex: M [facility] [address] [address] Patient Name: VILLA LINDSAY JR MR #: [id number] : 1945 Age/Sex: 75/M Req #: [id number] Adm Physician: Ordered by: SERENITY EARLY MD Report #: [id number] Location: ER Room/Bed: Procedure: [id number] CT/CT BRAIN WO Exam Date: 08/06/20 Exam Time: 1425 REPORT STATUS: Signed Exam: Head CT without contrast History: Trauma, fall on [place] Comparison studies: Brain MRI 11/08/2017 Technique: Axial images were obtained from the skull base to the vertex. Coronal and sagittal images reconstructed from the axial data. Dose modulation, iterative reconstruction, and/or weight based adjustment of the mA/kV was utilized to reduce the radiation dose to as low as reasonably achievable. Radiation dose: Total DLP: 921 mGy*cm. Estimated effective dose: DLP x 0.015 Intravenous contrast: None Findings: Scalp: No abnormalities. Bones: No fractures, blastic or lytic lesions. Brain sulci: Mildly prominent. Ventricles: Mild compensatory dilatation. No hydrocephalus. Extra-axial spaces: No masses, no fluid collection. Parenchyma: A few scattered hypodensities in the supratentorial white matter are nonspecific but are most compatible with chronic microvascular ischemic changes. Small chronic lacunar infarct in the left lateral putamen is unchanged. No mass, acute hemorrhage or acute or chronic cortical insults. Sellar/suprasellar region: No abnormalities. Craniocervical junction: Patent foramen magnum. No Chiari one malformation. Incidental findings: Bilate ral intraocular lens replacements Atherosclerotic calcifications in the distal right cervical internal carotid artery, bilateral carotid siphons and left intradural vertebral artery. IMPRESSION: No acute intracranial abnormalities. Specifically, no acute intracranial hemorrhage. Chronic findings: 1. Minimal generalized parenchymal volume loss. 2. Chronic lacunar infarct in the left putamen. 3. Mild microvascular ischemic changes. Signed by: Dr. Maria G Valenzuela M.D. on 08/06/2020 3:00 PM Dictated By: MARIA G VALENZUELA MD 99 Transcribed By: MARIEL on 08/06/20 1500 COPY TO: SERENITY EARLY MD Bedside Glucose 2018-08-29 17:35:00 Test Item Bedside Glucose (test code = 83709-6) 257 70-120 H Meter ID: [id number] [facility] Tyler[facility] Level 2018-08-29 16:41:00* Test Item Value Reference Range Interpretation Comments Magnesium Level (test code = 41365-0) 1.6 1.3-2.1 [facility] HospitalVancomycin Level Toqtkn3289-73-99 11:10:00* Test Item Value Reference Range Interpretation Comments Vancomycin Level Trough (test code = 4092-3) 6.7 5.0-10.0 [facility] HospitalCHEST 2 QTPNX4194-83-34 06:03:[address] [address] Patient Name: VILLA LINDSAY JR MR #: [id number] : 1945 Age/Sex: 73/M Req #: [id number] Adm Physician: BARBIE PARMAR MD Ordered by: MARIA G BROOKS MD Report #: [id number] Location: [facility] Room/Bed: [address] [address] Procedure: [id number] DX/ CHEST 2 VIEWS Exam Date: 08/28/18 [...] Level (test code = 2951-2) 138 136-145 [facility] HospitalPotassium Cdezy8482-14-46 05:41:00* Test Item Value Reference Range Interpretation Comments Potassium Level (test code = 2823-3) 3.7 3.5-5.1 [facility] HospitalChloride Djwhk0148-09-43 05:41:00* Test Item Value Reference Range Interpretation Comments Chloride Level (test code = 2075-0) 96 98-107 L [facility] HospitalCarbon Dioxide Brrsr9342-11-73 05:41:00* Test Item Value Reference Range Interpretation Comments Carbon Dioxide Level (test code = 2028-9) 31 22-29 H [facility] HospitalAnion Uci0703-43-02 05:41:00* Test Item Value Reference Range Interpretation Comments Anion Gap (test code = 37776-0) 14.7 8-16 [facility] HospitalBlood Urea Yewdmsru0044-34-36 05:41:00* Test Item Value Reference Range Interpretation Comments Blood Urea Nitrogen (test code = 3094-0) 20 7-26 [facility] HospitalCreatinine2018-12-20 05:41:00* Test Item Value Reference Range Interpretation Comments Creatinine (test code = 2160-0) 0.85 0.72-1.25 [facility] HospitalBUN/Creatinine Zieew3595-79-64 05:41:00* Test Item Value Reference Range Interpretation Comments BUN/Creatinine Ratio (test code = 3097-3) 24 6-25 [facility] HospitalEstimat Glomerular Filtration Rate 2018-08-28 05:41:00* Test Item Value Reference Range Interpretation Comments Estimat Glomerular Filtration Rate (test code = 141200055) > 60 >60 Ranges were taken from the National Kidney Disease Education Program and the [facility] Kidney Foundation literature.Reference ranges:60 or greater: Jtgodz37-95 ( for 3 consecutive months): Chronic kidney disease 15 or less: Kidney failureGonzales Memorial HospitalGlucose Ajhww0413-58-90 05:41:00* Test Item Value Reference Range Interpretation Comments Glucose Level (test code = PLI3596) 207 74-118 H [facility] HospitalCalcium Jjnpz2791-91-44 05:41:00* Test Item Value Reference Range Interpretation Comments Calcium Level (test code = 31569-7) 9.1 8.4-10.2 [facility] HospitalWhite Blood Akaft9446-24-40 05:12:00* Test Item Value Reference Range Interpretation Comments White Blood Count (test code = 6690-2) 10.63 4.8-10.8 [facility] HospitalRed Blood Gujtc9752-32-25 05:12:00* Test Item Value Reference Range Interpretation Comments Red Blood Count (test code = 789-8) 4.15 4.3-5.7 L [facility] HospitalHemoglobin2018-12-20 05:12:00* Test Item Value Reference Range Interpretation Comments Hemoglobin (test code = 58500-5) 13.4 14.0-18.0 L [facility] HospitalHematocrit2018-12-20 05:12:00* Test Item Value Reference Range Interpretation Comments Hematocrit (test code = 4544-3) 41.6 38.2-49.6 [facility] HospitalMean Corpuscular Znzthn7110-19-43 05:12:00* Test Item Value Reference Range Interpretation Comments Mean Corpuscular Volume (test code = 787-2) 100.2 81-99 H [facility] HospitalMean Corpuscular Ftfxmbsbmf9518-26-92 05:12:00* Test Item Value Reference Range Interpretation Comments Mean Corpuscular Hemoglobin (test code = 785-6) 32.3 28-32 H [facility] HospitalMean Corpuscular Hemoglobin Concent 2018-08-28 05:12:00* Test Item Value Reference Range Interpretation Comments Mean Corpuscular Hemoglobin Concent (test code = 786-4) 32.2 31-35 [facility] HospitalRed Cell Distribution Suzbw5604-63-14 05:12:00* Test Item Value Reference Range Interpretation Comments Red Cell Distribution Width (test code = 47017-8) 13.7 11.7 -14.4 [facility] HospitalPlatelet Sfiry5809-56-33 05:12:00* Test Item Value Reference Range Interpretation Comments Platelet Count (test code = 777-3) 265 140-360 [facility] HospitalNeutrophils (%) (Auto)2018-08-28 05:12:00 * Test Item Value Reference Range Interpretation Comments Neutrophils (%) (Auto) (test code = 02198-6) 76.9 38.7-80.0 [facility] HospitalLymphocytes (%) (Auto)2018-08-28 05:12:00 * Test Item Value Reference Range Interpretation Comments Lymphocytes (%) (Auto) (test code = 736-9) 11.8 18.0-39.1 L [facility] HospitalMonocytes (%) (Auto)2018-08-28 05:12:00* Test Item Value Reference Range Interpretation Comments Monocytes (%) (Auto) (test code = 5905-5) 8.9 4.4-11.3 [facility] HospitalEosinophils (%) (Auto)2018-08-28 05:12:00 * Test Item Value Reference Range Interpretation Comments Eosinophils (%) (Auto) (test code = 713-8) 1.3 0.0-6.0 [facility] HospitalBasophils (%) (Auto)2018-08-28 05:12:00* Test Item Value Reference Range Interpretation Comments Basophils (%) (Auto) (test code = 706-2) 0.4 0.0-1.0 [facility] HospitalIM GRANULOCYTES %2018-08-28 05:12:00* Test Item Value Reference Range Interpretation Comments IM GRANULOCYTES % (test code = IM GRANULOCYTES %) 0.7 0.0- 1.0 [facility] HospitalNeutrophils # (Auto)2018-08-28 05:12:00* Test Item Value Reference Range Interpretation Comments Neutrophils # (Auto) (test code = 751-8) 8.2 2.1-6.9 H [facility] HospitalLymphocytes # (Auto)2018-08-28 05:12:00* Test Item Value Reference Range Interpretation Comments Lymphocytes # (Auto) (test code = 26948-0) 1.3 1.0-3.2 [facility] HospitalMonocytes # (Auto)2018-08-28 05:12:00* Test Item Value Reference Range Interpretation Comments Monocytes # (Auto) (test code = 742-7) 1.0 0.2-0.8 H [facility] HospitalEosinophils # (Auto)2018-08-28 05:12:00* Test Item Value Reference Range Interpretation Comments Eosinophils # (Auto) (test code = 711-2) 0.1 0.0-0.4 [facility] HospitalBasophils # (Auto)2018-08-28 05:12:00* Test Item Value Reference Range Interpretation Comments Basophils # (Auto) (test code = 704-7) 0.0 0.0-0.1 [facility] HospitalAbsolute Immature Granulocyte (auto 2018-08-28 05:12:00* Test Item Value Reference Range Interpretation Comments Absolute Immature Granulocyte (auto (nikole t code = Absolute Immature Granulocyte (auto) 0.07 0-0.1 [facility] Centerputum Hmphudm0386-07-08 07:56:00* Test Item Value Reference Range Interpretation Comments Sputum Culture (test code = 624-7) Organism: PAMELA ALBICANS [facility] HospitalBlood Ffoklcm8208-25-55 11:21:00* Test Item Value Reference Range Interpretation Comments Blood Culture (test code = 74492238) NO GROWTH AFTER 5 DAYS, FINAL REPORT [facility] HospitalHomocysteine2018-12-18 11:19:00* Test Item Value Reference Range Interpretation Comments Homocysteine (test code = 84540-6) 11.3 0.0-15.0 Performed at: [facility] [id number] Director: Isra Carrizales MD, Phone: [phone] Memorial HospitalBARIUM QFYSTIT0947-25-53 17:00:00 [facility] [address] [place] [address] Patient Name: VILLA LINDSAY JR MR #: [id number] : 1945 Age/Sex: 73/M Req #: [id number] Adm Physician: BARBIE PARMAR MD Ordered by: ÁNGEL ANDREW MD Report #: [id number] Location: [facility] Room/Bed: [address] [address] Procedure: [id number] DX/BARIUM SWALLOW Exam Date: 08/25/18 Exam Time: [...] Small hiatal hernia. 2. No esophageal mass. Mdaie Orellana D.O. Dictated by: César Orellana D.O. on 08/25/2018 at 17:00 Electronically approved by: César Orellana D.O. on 08/25/2018 at 17:00 Dictated By: CÉSAR ORELLANA DO 99 Transcribed By: LORRAINE on 08/25/181699 COPY T O: ÁNGEL ANDREW MD Vitamin B12 Mnice5951-57-24 11:44:00* Test Item Value Reference Range Interpretation Comments Vitamin B12 Level (test code = 31587-1) 1225 213-816 H [facility] HospitalFolate2018-12-17 11:44:00* Test Item Value Reference Range Interpretation Comments Folate (test code = 2284-8) 16.4 7.0-15.4 H [facility] HospitalFree Thyroxine Gddpa0384-85-82 05:15:00* Test Item Value Reference Range Interpretation Comments Free Thyroxine Index (test code = 74359-0) 3.9694 1.4-3.8 H [facility] HospitalThyroxine (T4)2018-08-24 05:15:00* Test Item Value Reference Range Interpretation Comments Thyroxine (T4) (test code = 3026-2) 9.51 4.5-10.9 [facility] HospitalTriiodothyronine (T3) Skydwd7525-12-03 05:15:00* Test Item Value Reference Range Interpretation Comments Triiodothyronine (T3) Uptake (test code = 3050-2) 41.74 22.5 -37.0 H [facility] HospitalThyroid Stimulating Hormone (TSH) 2018-08-24 05:15:00* Test Item Value Reference Range Interpretation Comments Thyroid Stimulating Hormone (TSH) (test code = 37259-5) 0.031 0.350-4.940 L [facility] HospitalHemoglobin A1c Ysojmul4017-06-17 07:40:00 * Test Item Value Reference Range Interpretation Comments Hemoglobin A1c Percent (test code = Hemoglobin A1c Percent) 7.2 4.0-7.0 H [facility] HospitalDifferential Total Cells Counted 2018-08-22 09:55:00* Test Item Value Reference Range Interpretation Comments Differential Total Cells Counted (test code = Differen tial Total Cells Counted) 100 [facility] HospitalNeutrophils % (Manual)2018-08-22 09:55:00 * Test Item Value Reference Range Interpretation Comments Neutrophils % (Manual) (test code = 80721-0) 82 40-74 H [facility] HospitalLymphocytes % (Manual)2018-08-22 09:55:00 * Test Item Value Reference Range Interpretation Comments Lymphocytes % (Manual) (test code = 737-7) 7 19-48 L [facility] HospitalMonocytes % (Manual)2018-08-22 09:55:00* Test Item Value Reference Range Interpretation Comments Monocytes % (Manual) (test code = 744-3) 7 3.4-9.0 [facility] HospitalMyelocytes %2018-08-22 09:55:00* Test Item Value Reference Range Interpretation Comments Myelocytes % (test code = 749-2) 1 0-0 H [facility] HospitalReactive Baiumemupuj5100-19-38 09:55:00* Test Item Value Reference Range Interpretation Comments Reactive Lymphocytes (test code = 50719-1) 3 [facility] HospitalNucleated Red Blood Ejrpm1318-56-26 09:55:00* Test Item Value Reference Range Interpretation Comments Nucleated Red Blood Cells (test code = 37933-7) 2 [facility] HospitalPlatelet Xxafmsrf4909-54-83 09:55:00* Test Item Value Reference Range Interpretation Comments Platelet Estimate (test code = 42514-5) ADEQUATE [facility] HospitalPlatelet Morphology Cetpcdo8489-49-75 09:55:00* Test Item Value Reference Range Interpretation Comments Platelet Morphology Comment (test code = 41596-3) NORMAL [facility] HospitalHypochromasia2018-12-14 09:55:00* Test Item Value Reference Range Interpretation Comments Hypochromasia (test code = 728-6) [facility]IGHT [facility] HospitalAnisocytosis2018-12-14 09:55:00* Test Item Value Reference Range Interpretation Comments Anisocytosis (test code = 702-1) [facility]IGHT [facility] HospitalRed Cell Morphology Flqtqge3885-36-43 09:55:00* Test Item Value Reference Range Interpretation Comments Red Cell Morphology Comment (test code = 6742-1) NORMAL [facility] HospitalCreatine Kinase EC2790-49-02 09:22:00* Test Item Value Reference Range Interpretation Comments Creatine Kinase MB (test code = 39216-2) 9.50 0-5.0 H [facility] HospitalTroponin J6552-99-80 09:22:00* Test Item Value Reference Range Interpretation Comments Troponin I (test code = PMW8330) 0.054 0-0.300 [facility] HospitalCreatine Rimiaa4390-44-75 09:18:00* Test Item Value Reference Range Interpretation Comments Creatine Kinase (test code = 2157-6) 497 30-200 H [facility] HospitalArterial Blood bN9117-67-04 08:07:00* Test Item Value Reference Range Interpretation Comments Arterial Blood pH (test code = 2744-1) 7.31 7.31-7.41 [facility] HospitalArterial Blood Partial Pressure CO2 2018-08-22 08:07:00* Test Item Value Reference Range Interpretation Comments Arterial Blood Partial Pressure CO2 (test code = 2019-8) 54 41-51 H [facility] HospitalArterial Blood Partial Pressure O2 2018-08-22 08:07:00* Test Item Value Reference Range Interpretation Comments Arterial Blood Partial Pressure O2 (test code = 2019-8) 114 80-105 H [facility] HospitalArterial Blood RRN12951-47-15 08:07:00* Test Item Value Reference Range Interpretation Comments Arterial Blood HCO3 (test code = 1960-4) 27 23-28 [facility] HospitalArterial Blood Base Yppicp7499-25-40 08:07:00* Test Item Value Reference Range Interpretation Comments Arterial Blood Base Excess (test code = 1925-7) 1.0 -2-3 [facility] HospitalArterial Blood Oxygen Saturation 2018-08-22 08:07:00* Test Item Value Reference Range Interpretation Comments Arterial Blood Oxygen Saturation (test code = 2708-6) 98.0 95-98 [facility] HospitalFiO22018-12-14 08:07:00* Test Item Value Reference Range Interpretation Comments FiO2 (test code = FiO2) 50 PT ON BIPAP AT 14/6,R14,50%JSG0MIXGonzales Memorial HospitalUrine WBC 2018-08-21 14:17:00* Test Item Value Reference Range Interpretation Comments Urine WBC (test code = 5821-4) NONE 0-5 [facility] HospitalUrine HVM2767-44-72 14:17:00* Test Item Value Reference Range Interpretation Comments Urine RBC (test code = 71742-6) 0-5 0-5 [facility] HospitalUrine Goswxzei1174-38-88 14:17:00* Test Item Value Reference Range Interpretation Comments Urine Bacteria (test code = 49848-7) MODERATE NONE H [facility] HospitalUrine Epithelial Loejq4817-09-35 14:17:00 * Test Item Value Reference Range Interpretation Comments Urine Epithelial Cells (test code = 28083-5) FEW NONE [facility] HospitalUrine Hyaline Ujsqh6548-71-15 14:17:00* Test Item Value Reference Range Interpretation Comments Urine Hyaline Casts (test code = 17822-6) 6-10 0-1 H [facility] HospitalUrine Rhqoj4025-59-97 14:07:00* Test Item Value Reference Range Interpretation Comments Urine Color (test code = 5778-6) YELLOW YELLOW [facility] HospitalUrine Nolfxwc0538-61-21 14:07:00* Test Item Value Reference Range Interpretation Comments Urine Clarity (test code = 98529-8) SL CLOUDY CLEAR H [facility] HospitalUrine Specific Qmtkcms5667-18-26 14:07:00 * Test Item Value Reference Range Interpretation Comments Urine Specific Colony (test code = 5811-5) 1.010 1.010-1.02 5 [facility] HospitalUrine kY1064-30-29 14:07:00* Test Item Value Reference Range Interpretation Comments Urine pH (test code = 34693-7) 6 5-7 [facility] HospitalUrine Leukocyte Hegczchn6418-56-10 14:07:00* Test Item Value Reference Range Interpretation Comments Urine Leukocyte Esterase (test code = 5799-2) NEGATIVE NEGATIVE [facility] HospitalUrine Avadwpm2170-38-15 14:07:00* Test Item Value Reference Range Interpretation Comments Urine Nitrite (test code = 51161-0) NEGATIVE NEGATIVE [facility] HospitalUrine Macjflz8747-85-85 14:07:00* Test Item Value Reference Range Interpretation Comments Urine Protein (test code = 5804-0) NEGATIVE NEGATIVE [facility] Glucose (UA)2018-08-21 14:07:00* Test Item Value Reference Range Interpretation Comments Urine Glucose (UA) (test code = 2349-9) 2+ NEGATIVE H [facility] HospitalUrine Sbersvj2620-05-76 14:07:00* Test Item Value Reference Range Interpretation Comments Urine Ketones (test code = 02094-3) 1+ NEGATIVE H [facility] Uduszxqqwybi0354-00-20 14:07:00* Test Item Value Reference Range Interpretation Comments Urine Urobilinogen (test code = 09137-6) 0.2 0.2-1 [facility] HospitalUrine Eqmkbgexr1861-30-87 14:07:00* Test Item Value Reference Range Interpretation Comments Urine Bilirubin (test code = 1978-6) NEGATIVE NEGATIVE [facility] HospitalUrine Nekkl3176-63-41 14:07:00* Test Item Value Reference Range Interpretation Comments Urine Blood (test code = 13801-0) 1+ NEGATIVE H [facility] HospitalCT CHEST G5940-12-28 12:56:00 [place] [address] Patient Name: VILLA LINDSAY JR MR #: [id number] : 1945 Age/Sex: 73/M Req #: [id number] [facility] Physician: BARBIE PARMAR MD Ordered by: JUS LITTLEJOHN MD Report #: [id number] Location: [facility] Room/Bed: [place] [address] Procedure: [id number] CT/CT CHEST W Exam Date: 08/21/18 Exam [...] vessel origins, with great vessel origin tortuosity. [place] coronary artery calcifications. Lungs: Groundglass and reticular [...] Neutrophils % (test code = 764-1) 1 [facility] HospitalPolychromasia2018-12-13 12:46:00* Test Item Value Reference Range Interpretation Comments Polychromasia (test code = 64212-9) FEW [facility] HospitalB-Type Natriuretic Stnjsxk4109-32-10 11:55:00* Test Item Value Reference Range Interpretation Comments B-Type Natriuretic Peptide (test code = 81819-5) 338.7 0-100 H [facility] HospitalProthrombin Gxwt3810-62-73 11:53:00* Test Item Value Reference Range Interpretation Comments Prothrombin Time (test code = 5902-2) 21.9 11.9-14.5 H [facility] HospitalProthromb Time International Ratio 2018-08-21 11:53:00* Test Item Value Reference Range Interpretation Comments Prothromb Time International Ratio (test code = 6301-6) 1.76 Oral Anticoagulant Therapy INR Values:1. Low Intensity Therapy 1.5 - 2.02 . Moderate Intensity Therapy 2.0 - 3.03. High Intensity Therapy(1) 2.5 - 3. 54. High Intensity Therapy(2) 3.0 - 4.05. Panic Value INR > 5.0 [facility] HospitalActivated Partial Thromboplast Time 2018-08-21 11:53:00* Test Item Value Reference Range Interpretation Comments Activated Partial Thromboplast Time (test code = 93288-0) 30.9 23.8-35.5 [facility] Rgxnqcplg4905-93-11 11:52:00* Test Item Value Reference Range Interpretation Comments Total Bilirubin (test code = 1975-2) 1.8 0.2-1.2 H [facility] HospitalAspartate Amino Transf (AST/SGOT) 2018-08-21 11:52:00* Test Item Value Reference Range Interpretation Comments Aspartate Amino Transf (AST/SGOT) (test code = Aspartate Amino Transf (AST/SGOT)) 45 5-34 H [facility] HospitalAlanine Aminotransferase (ALT/SGPT) 2018-08-21 11:52:00* Test Item Value Reference Range Interpretation Comments Alanine Aminotransferase (ALT/SGPT) (test code = 1742-6) 60 0-55 H [facility] Nitkeii9000-11-49 11:52:00* Test Item Value Reference Range Interpretation Comments Total Protein (test code = 2885-2) 7.4 6.5-8.1 [facility] HospitalAlbumin2018-12-13 11:52:00* Test Item Value Reference Range Interpretation Comments Albumin (test code = 1751-7) 2.6 3.5-5.0 L [facility] HospitalGlobulin2018-12-13 11:52:00* Test Item Value Reference Range Interpretation Comments Globulin (test code = 30195-2) 4.8 2.3-3.5 H [facility] HospitalAlbumin/Globulin Udyea6564-41-10 11:52:00 * Test Item Value Reference Range Interpretation Comments Albumin/Globulin Ratio (test code = 1759-0) 0.5 0.8-2.0 L [facility] HospitalAlkaline Wlkvkmplpej1666-95-92 11:52:00* Test Item Value Reference Range Interpretation Comments Alkaline Phosphatase (test code = 6768-6) 83 40-150 [facility] HospitalLactic Acid Dppbh9782-85-52 11:40:00* Test Item Value Reference Range Interpretation Comments Lactic Acid Level (test code = Lactic Acid Level) 21.1 4.5- 19.8 NOTIFIED MADDI LOWERY 1140 on 08/21/18 by AN P[facility]2018-08-21 11:40:00 [facility] [address] [address] Patient Name: VILLA LINDSAY JR MR #: [id number] : 1945 Age/Sex: 73/M Req #: [id number] Adm Physician: Ordered by: KIERRA LOWERY [employer] ENGINEER Report #: [id number] Location: ER Room/Bed: Procedure: [id number] DX/CHEST SINGLE (PORTABLE) Exam Date: Exam Time: REPORT STATUS: Signed Examinati on: Single AP view of the chest. COMPARISON: 11/10/2017 INDICATION: Shor t of breath DISCUSSION: Lungs are well-inflated. No consolidation , pleural effusion, or pneumothorax. Tortuosity of the thoracic aorta with oth erwise normal cardiomediastinal contour for portable, AP technique. No ac [place] osseous abnormality. IMPRESSION: 1. No acute cardiopulmonary ab normalities. Signed by: Dr. Maria G Alvarenga M.D. on 08/21/2018 11:41 AM Dictated By: MARIA G ALVARENGA MD 1141 Transcribed By: MARIEL on 08/21/18 1141 COPY TO: KIERRA LOWERY NP Bedside Jyvqwzr7308-16-38 12:03:00* Test Item Value Reference Range Interpretation Comments Bedside Glucose (test code = 44488-9) 160 70-120 H Meter ID: [id number] Scott & [facility] Marble FallsUrine Culture 2017-11-10 08:06:00* Test Item Value Reference Range Interpretation Comments Urine Culture (test code = 630-4) Organism: ESCHERICHIA COLI [facility] HospitalUrine Vaknnei7548-04-56 08:06:00* Test Item Value Reference Range Interpretation Comments Urine Culture (test code = 630-4) Organism: ESCHERICHIA COLI [facility] HospitalB-Type Natriuretic Hbsuryp7590-61-51 11:25:00* Test Item Value Reference Range Interpretation Comments B-Type Natriuretic Peptide (test code = 55356-1) 115.9 0-100 H [facility] HospitalD-Dimer Quantitative (PE/DVT)2017-11-09 11:09:00* Test Item Value Reference Range Interpretation Comments D-Dimer Quantitative (PE/DVT) (test code = 77523-1) 0.48 0. 00-0.45 H [facility] HospitalD-Dimer Quantitative (PE/DVT)2017-11-09 11:09:00* Test Item Value Reference Range Interpretation Comments D-Dimer Quantitative (PE/DVT) (test code = 31673-4) 0.48 0. 00-0.45 [facility] Pmvds6788-17-18 06:58:00* Test Item Value Reference Range Interpretation Comments Sodium Level (test code = 2951-2) 140 136-145 [facility] HospitalPotassium Ranpj0684-51-84 06:58:00* Test Item Value Reference Range Interpretation Comments Potassium Level (test code = 2823-3) 4.5 3.5-5.1 [facility] HospitalChloride Lpywa9430-27-04 06:58:00* Test Item Value Reference Range Interpretation Comments Chloride Level (test code = 2075-0) 105 98-107 [facility] HospitalCarbon Dioxide Pwxxb2222-59-51 06:58:00* Test Item Value Reference Range Interpretation Comments Carbon Dioxide Level (test code = 2028-9) 27 22-29 [facility] HospitalAnion Gbf9297-79-34 06:58:00* Test Item Value Reference Range Interpretation Comments Anion Gap (test code = 93073-1) 12.5 8-16 [facility] HospitalBlood Urea Tckvqxiz8788-20-53 06:58:00* Test Item Value Reference Range Interpretation Comments Blood Urea Nitrogen (test code = 3094-0) 27 7-26 H [facility] HospitalCreatinine2018-03-03 06:58:00* Test Item Value Reference Range Interpretation Comments Creatinine (test code = 2160-0) 0.92 0.72-1.25 [facility] HospitalBUN/Creatinine Yasht7061-46-82 06:58:00* Test Item Value Reference Range Interpretation Comments BUN/Creatinine Ratio (test code = 3097-3) 29 6-25 H [facility] HospitalEstimat Glomerular Filtration Rate 2017-11-09 06:58:00* Test Item Value Reference Range Interpretation Comments Estimat Glomerular Filtration Rate (test code = 97786-4) 60- >60 Ranges were taken from the National Kidney Disease Education Program and the [facility] Kidney Foundation literature.Reference ranges:60 or greater: Bznqgw94-77 ( for 3 consecutive months): Chronic kidney disease 15 or less: Kidney failureGonzales Memorial HospitalGlucose Hjlmn6124-40-07 06:58:00* Test Item Value Reference Range Interpretation Comments Glucose Level (test code = QFT7917) 159 74-118 H [facility] HospitalCalcium Hmdbg9719-58-01 06:58:00* Test Item Value Reference Range Interpretation Comments Calcium Level (test code = 77406-2) 9.2 8.4-10.2 [facility] HospitalWhite Blood Jpgbm8785-77-84 06:45:00* Test Item Value Reference Range Interpretation Comments White Blood Count (test code = 6690-2) 9.34 4.8-10.8 [facility] HospitalRed Blood Fomkh0612-46-85 06:45:00* Test Item Value Reference Range Interpretation Comments Red Blood Count (test code = 789-8) 4.64 4.3-5.7 [facility] HospitalHemoglobin2018-03-03 06:45:00* Test Item Value Reference Range Interpretation Comments Hemoglobin (test code = 70228-7) 14.7 14.0-18.0 [facility] HospitalHematocrit2018-03-03 06:45:00* Test Item Value Reference Range Interpretation Comments Hematocrit (test code = 4544-3) 45.3 38.2-49.6 [facility] HospitalMean Corpuscular Spwwen2420-21-79 06:45:00* Test Item Value Reference Range Interpretation Comments Mean Corpuscular Volume (test code = 787-2) 97.6 81-99 [facility] HospitalMean Corpuscular Ahzkoswiko9794-23-55 06:45:00* Test Item Value Reference Range Interpretation Comments Mean Corpuscular Hemoglobin (test code = 785-6) 31.7 28-32 [facility] HospitalMean Corpuscular Hemoglobin Concent 2017-11-09 06:45:00* Test Item Value Reference Range Interpretation Comments Mean Corpuscular Hemoglobin Concent (test code = 786-4) 32.5 31-35 [facility] HospitalRed Cell Distribution Bykdq2910-13-63 06:45:00* Test Item Value Reference Range Interpretation Comments Red Cell Distribution Width (test code = 27270-6) 13.8 11.7 -14.4 [facility] HospitalPlatelet Hjgvf1430-28-35 06:45:00* Test Item Value Reference Range Interpretation Comments Platelet Count (test code = 777-3) 237 140-360 [facility] HospitalNeutrophils (%) (Auto)2017-11-09 06:45:00 * Test Item Value Reference Range Interpretation Comments Neutrophils (%) (Auto) (test code = 30154-4) 71.6 38.7-80.0 [facility] HospitalLymphocytes (%) (Auto)2017-11-09 06:45:00 * Test Item Value Reference Range Interpretation Comments Lymphocytes (%) (Auto) (test code = 736-9) 16.2 18.0-39.1 L [facility] HospitalMonocytes (%) (Auto)2017-11-09 06:45:00* Test Item Value Reference Range Interpretation Comments Monocytes (%) (Auto) (test code = 5905-5) 9.4 4.4-11.3 [facility] HospitalEosinophils (%) (Auto)2017-11-09 06:45:00 * Test Item Value Reference Range Interpretation Comments Eosinophils (%) (Auto) (test code = 713-8) 2.0 0.0-6.0 [facility] HospitalBasophils (%) (Auto)2017-11-09 06:45:00* Test Item Value Reference Range Interpretation Comments Basophils (%) (Auto) (test code = 706-2) 0.3 0.0-1.0 [facility] HospitalIM GRANULOCYTES %2017-11-09 06:45:00* Test Item Value Reference Range Interpretation Comments IM GRANULOCYTES % (test code = IM GRANULOCYTES %) 0.5 0.0- 1.0 [facility] HospitalNeutrophils # (Auto)2017-11-09 06:45:00* Test Item Value Reference Range Interpretation Comments Neutrophils # (Auto) (test code = 751-8) 6.7 2.1-6.9 [facility] HospitalLymphocytes # (Auto)2017-11-09 06:45:00* Test Item Value Reference Range Interpretation Comments Lymphocytes # (Auto) (test code = 93846-5) 1.5 1.0-3.2 [facility] HospitalMonocytes # (Auto)2017-11-09 06:45:00* Test Item Value Reference Range Interpretation Comments Monocytes # (Auto) (test code = 742-7) 0.9 0.2-0.8 H [facility] HospitalEosinophils # (Auto)2017-11-09 06:45:00* Test Item Value Reference Range Interpretation Comments Eosinophils # (Auto) (test code = 711-2) 0.2 0.0-0.4 [facility] HospitalBasophils # (Auto)2017-11-09 06:45:00* Test Item Value Reference Range Interpretation Comments Basophils # (Auto) (test code = 704-7) 0.0 0.0-0.1 [facility] HospitalAbsolute Immature Granulocyte (auto 2017-11-09 06:45:00* Test Item Value Reference Range Interpretation Comments Absolute Immature Granulocyte (auto (nikole t code = Absolute Immature Granulocyte (auto) 0.05 0-0.1 [facility] HospitalFr Aedhtdrys7327-90-68 14:26:00* Test Item Value Reference Range Interpretation Comments Free Thyroxine (test code = 3024-7) 0.99 0.9-1.8 [facility] HospitalThyroid Stimulating Hormone (TSH) 2017-11-08 14:26:00* Test Item Value Reference Range Interpretation Comments Thyroid Stimulating Hormone (TSH) (test code = 87760-7) 0.803 0.350-4.940 [facility] HospitalFr Mchdrthvr3146-89-79 14:26:00* Test Item Value Reference Range Interpretation Comments Free Thyroxine (test code = 3024-7) 0.99 0.9-1.8 [facility] HospitalHemoglobin A1c Pxqlarl7855-60-42 14:07:00 * Test Item Value Reference Range Interpretation Comments Hemoglobin A1c Percent (test code = Hemoglobin A1c Percent) 6.9 4.0-7.0 [facility] HospitalCreatine Kinase AO0923-21-44 06:59:00* Test Item Value Reference Range Interpretation Comments Creatine Kinase MB (test code = 16236-0) 4.30 0-5.0 [facility] HospitalTroponin N7411-78-43 06:59:00* Test Item Value Reference Range Interpretation Comments Troponin I (test code = CPF5337) 0.047 0-0.300 [facility] HospitalCreatine Zxeilg9695-63-03 06:48:00* Test Item Value Reference Range Interpretation Comments Creatine Kinase (test code = 2157-6) 236 30-200 H [facility] HospitalUrine NVW6443-98-94 05:47:00* Test Item Value Reference Range Interpretation Comments Urine WBC (test code = 5821-4) 50- 0-5 H [facility] HospitalUrine KWE7070-40-63 05:47:00* Test Item Value Reference Range Interpretation Comments Urine RBC (test code = 42592-9) 11-20 0-5 H [facility] HospitalUrine Bsypklez5990-50-14 05:47:00* Test Item Value Reference Range Interpretation Comments Urine Bacteria (test code = 70846-8) MODERATE NONE H [facility] HospitalUrine Epithelial Naojg0046-46-93 05:47:00 * Test Item Value Reference Range Interpretation Comments Urine Epithelial Cells (test code = 68010-5) RARE NONE [facility] HospitalUrine Zjllo7158-35-44 05:34:00* Test Item Value Reference Range Interpretation Comments Urine Color (test code = 5778-6) YELLOW YELLOW [facility] HospitalUrine Yhmdnef4582-73-18 05:34:00* Test Item Value Reference Range Interpretation Comments Urine Clarity (test code = 42666-7) CLOUDY CLEAR H [facility] HospitalUrine Specific Voesyhq7108-88-20 05:34:00 * Test Item Value Reference Range Interpretation Comments Urine Specific Colony (test code = 5811-5) 1.020 1.010-1.02 5 [facility] HospitalUrine gK8763-29-40 05:34:00* Test Item Value Reference Range Interpretation Comments Urine pH (test code = 68170-4) 5 5-7 [facility] HospitalUrine Leukocyte Qjmhmrwc3675-64-22 05:34:00* Test Item Value Reference Range Interpretation Comments Urine Leukocyte Esterase (test code = 5799-2) 2+ NEGATIVE H [facility] HospitalUrine Rvlrgwi5808-32-60 05:34:00* Test Item Value Reference Range Interpretation Comments Urine Nitrite (test code = 78317-7) POSITIVE NEGATIVE H [facility] HospitalUrine Miwlakw8135-97-23 05:34:00* Test Item Value Reference Range Interpretation Comments Urine Protein (test code = 5804-0) 1+ NEGATIVE H [facility] HospitalUrine Glucose (UA)2017-11-08 05:34:00* Test Item Value Reference Range Interpretation Comments Urine Glucose (UA) (test code = 2349-9) NEGATIVE NEGATIVE [facility] HospitalUrine Bwjvwaz1655-59-05 05:34:00* Test Item Value Reference Range Interpretation Comments Urine Ketones (test code = 73280-2) NEGATIVE NEGATIVE [facility] HospitalUrine Pdtrnuaaywbl4321-49-33 05:34:00* Test Item Value Reference Range Interpretation Comments Urine Urobilinogen (test code = 93697-2) 0.2 0.2-1 [facility] HospitalUrine Dbwerurpg4639-57-64 05:34:00* Test Item Value Reference Range Interpretation Comments Urine Bilirubin (test code = 1978-6) NEGATIVE NEGATIVE [facility] HospitalUrine Whboq1093-73-42 05:34:00* Test Item Value Reference Range Interpretation Comments Urine Blood (test code = 62763-8) 4+ NEGATIVE H [facility] Occult Ghvxm7054-01-99 13:16:00* Test Item Value Reference Range Interpretation Comments Stool Occult Blood (test code = 2335-8) NEGATIVE NEGATIVE [facility] Occult Rqoso3179-32-19 13:16:00* Test Item Value Reference Range Interpretation Comments Stool Occult Blood (test code = 2335-8) NEGATIVE NEGATIVE [facility] HospitalInfluenza Virus Types A,B Antigen 2017-11-07 12:42:00* Test Item Value Reference Range Interpretation Comments Influenza Virus Types A,B Antigen (test code = 15414-5) NEGATIVE NEGATIVE [facility] HospitalInfluenza Virus Types A,B Antigen 2017-11-07 12:42:00* Test Item Value Reference Range Interpretation Comments Influenza Virus Types A,B Antigen (test code = 93706-4) NEGATIVE NEGATIVE [facility] HospitalMagnesium Htdzn5590-56-00 12:16:00* Test Item Value Reference Range Interpretation Comments Magnesium Level (test code = 42787-5) 1.9 1.3-2.1 [facility] HospitalTotal Kuevdqclu8660-08-16 12:16:00* Test Item Value Reference Range Interpretation Comments Total Bilirubin (test code = 1975-2) 0.9 0.2-1.2 [facility] HospitalAspartate Amino Transf (AST/SGOT) 2017-11-07 12:16:00* Test Item Value Reference Range Interpretation Comments Aspartate Amino Transf (AST/SGOT) (test code = Aspartate Amino Transf (AST/SGOT)) 24 5-34 [facility] HospitalAlanine Aminotransferase (ALT/SGPT) 2017-11-07 12:16:00* Test Item Value Reference Range Interpretation Comments Alanine Aminotransferase (ALT/SGPT) (test code = 1742-6) 27 0-55 [facility] HospitalToacadia healthcare Sgaogfr2248-04-34 12:16:00* Test Item Value Reference Range Interpretation Comments Total Protein (test code = 2885-2) 7.4 6.5-8.1 [facility] HospitalAlbumin2018-03-01 12:16:00* Test Item Value Reference Range Interpretation Comments Albumin (test code = 1751-7) 3.8 3.5-5.0 [facility] HospitalGlobulin2018-03-01 12:16:00* Test Item Value Reference Range Interpretation Comments Globulin (test code = 73706-2) 3.6 2.3-3.5 H [facility] HospitalAlbumin/Globulin Uuivj2511-86-27 12:16:00 * Test Item Value Reference Range Interpretation Comments Albumin/Globulin Ratio (test code = 1759-0) 1.1 0.8-2.0 [facility] HospitalAlkaline Wqqkzybrdwv3468-91-88 12:16:00* Test Item Value Reference Range Interpretation Comments Alkaline Phosphatase (test code = 6768-6) 46 40-150 [facility] HospitalProthrombin Daxe0546-74-39 12:07:00* Test Item Value Reference Range Interpretation Comments Prothrombin Time (test code = 5902-2) 13.3 11.9-14.5 [facility] HospitalProthromb Time International Ratio 2017-11-07 12:07:00* Test Item Value Reference Range Interpretation Comments Prothromb Time International Ratio (test code = 6301-6) 1.09 Oral Anticoagulant Therapy INR Values:1. Low Intensity Therapy 1.5 - 2.02 . Moderate Intensity Therapy 2.0 - 3.03. High Intensity Therapy(1) 2.5 - 3. 54. High Intensity Therapy(2) 3.0 - 4.05. Panic Value INR > 5.0 [facility] HospitalActivated Partial Thromboplast Time 2017-11-07 12:07:00* Test Item Value Reference Range Interpretation Comments Activated Partial Thromboplast Time (test code = 91355-6) 24.9 23.8-35.5 [facility] HospitalCHEST 2 VIEWS [facility] [address] [place] [address] Patient Name: VILLA LINDSAY JR MR #: [id number] : 1945 Age/Sex: 72/M Req #: [id number] Adm Physician: HEMANT BALDWIN MD Ordered by: MARIA G BROOKS MD Report #: [id number] Location: [facility] Room/Bed: [place] [address] Procedure: [id number] DX/CHEST 2 VIEWS Exam Date: 11/10/17 Exam [...] 7:55 AM Dictated By: CHIDI MCNEAL MD 4 Transcribed By: MARIEL on 11/10/17754 COPY TO: MARIA G BROOKS MD MRI BRAIN WO [place] [address] Patient Name: VILLA LINDSAY JR MR #: [id number] : 1945 Age/Sex: 72/M Req #: [id number] Adm Physician: HEMANT BALDWIN MD Ordered by: HEMANT BALDWIN MD Report #: [id number] Location: [facility] Room/Bed: [place] [address] Procedure: [id number] MRI/MRI BRAIN WO Exam [...] 1:07 PM Dictated By: ERIC MCMAHON MD 1307 Transcribed By: MARIEL on 11/08/17 1307 COPY TO: HEMANT BALDWIN MD CAROTID DOPPLER [place] [address] Patient Name : VILLA LINDSAY JR MR #: [id number] : 1945 Age/Sex: 72/M Adm Physician : HEMANT BALDWIN MD Admit Date : 11/07/17 Location : [facility] Room/Bed : [place] [address] REPORT: Cardiology R eport DATE OF STUDY: [...] be in nor mal direction bilaterally. Job#: [id number] cc: HEMANT BALDWIN M.D. Signature Date Dictated By: GEOFFREY GAN MD Transcribed By: EDS on 11/09/17 <Electronically signed by GEOFFREY GAN MD><<Signature on File>>11/11/17 1057 COPY TO: CHEST SINGLE (PORTABLE) [place] [address] Patient Name: VILLA LINDSAY JR MR #: [id number] : 1945 Age/Sex: 72/M Req #: [id number] Adm Physician: HEMANT BALDWIN MD Ordered by: HEMANT BALDWIN MD Report #: [id number] Location: [facility] Room/Bed: [place] [address] Procedure: [id number] DX/CHEST SINGLE (PORTABLE) Exam Date: 11/08/17 E xam Time: 1000 REPORT STATUS: Signed PROCEDURE: CHEST SINGLE (PORTABLE) COMPARISON: [facility], DX, CHEST SINGLE (PORTABLE), 8, 11:58. [...] TO: HEMANT BALDWIN MD CHEST SINGLE (PORTABLE) [place] [address] Patient Name: VILLA LINDSAY JR MR #: [id number] : 1945 Age/Sex: 72/M Req #: [id number] Adm Physician: Ordered by: VILLA WHELAN SLAB LIFTING ENGINEER Report #: [id number] Location: ER Room/Bed: Procedure: [id number] DX/CHEST SINGLE (PORTABLE) Exam Date: 11/07/17 Exam Time: [address] ATUS: Signed PROCEDURE: CHEST SINGLE (PORTABLE) TECHNIQUE: Portable AP chest INDICATION: Low blood pressure COMPARISON: None. FINDINGS: Lungs are clear and symmetrically inflated. No pleural effusions. Normal hea rt size, mediastinal contour, and pulmonary vasculature for technique. Mild a ortic arch calcification. Grossly intact skeleton. CONCLUSION: No ac [place] abnormality. Dictated by: Timo Schrader M.D. on 11/08/19 18 at 12:25 Electronically approved by: Timo Schrader M.D. on 11/07 at 12:25 Dictated By: TIMO SCHRADER MD 1226 Transcribed By: LORRAINE on 11/07/17 1226 COPY TO: VILLA WHELAN NP
--- NOTE | 2020-08-06 16:23 | Emergency Department Note ---
History of Present Illnes History of Present Illness Chief Complaint: Extremity Trauma/Pain History of Present Illness This is a 75 year old male pt came in via [facility] for c/o left leg pain, pt fell 10 days ago at the grocery store after a syncope episode, pt noticed the bruising and swelling to his left leg about 3 days ago, pain exacerbated by weight bearing and movement, pt takes Plavix and Eliquis for A- Fib. 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 Any updates have been documented here. Past Medical History Recent Fever: No Clinical Suspicion of Infectio: No New/Unexplained Change in Ment: No Past Medical History: Hypertension, Diabetes, CHF, GERD, Hyperlipedemia Other Medical History: carotid disease Other Surgery: TONSILS KNEES Social History Smoking Cessation: Never Smoker Counseling Performed: No Alcohol Use: None Any Illegal Drug Use: No TB Exposure/Symptoms: No Physically hurt or threatened: No Family History Family history of heart diseas: No Other Last Tetanus: UNKNOWN Any Pre-Existing Lines (PICC,: No Review of Systems Review of Systems Constitutional: Reports no symptoms EENTM: Reports no symptoms Cardiovascular: Reports no symptoms Respiratory: Reports no symptoms Gastrointestinal: Reports no symptoms Genitourinary: Reports no symptoms Musculoskeletal: Reports as per HPI Integumentary: Reports no symptoms Neurological: Reports no symptoms Psychological: Reports no symptoms Endocrine: Reports no symptoms Hematological/Lymphatic: Reports no symptoms Physical Exam Related Data Allergies: Coded Allergies: No Known Allergies (Unverified , 11/07/17) Triage Vital Signs Vital Signs Date Time Temp Pulse Resp B/P (MAP) Pulse Ox O2 Delivery O2 Flow Rate FiO2 08/06/20 12:41 Room Air 08/06/20 12:55 98.9 80 16 98 2.0 Vital signs reviewed: Yes Physical Exam CONSTITUTIONAL Constitutional: Present well-developed, Present well-nourished HENT HENT: Present normocephalic, Present atraumatic, Present oropharynx clear/moist, Present nose normal HENT L/R: Present left ext ear normal, Present right ext ear normal EYES Eyes: Reports PERRL, Reports conjunctivae normal NECK Neck: Present ROM normal PULMONARY Pulmonary: Present effort normal, Present breath sounds normal CARDIOVASCULAR Cardiovascular: Present irregular rhythm, Present heart sounds normal, Present capillary refill normal, Present normal rate GASTROINTESTINAL Abdominal: Present soft, Present nontender, Present bowel sounds normal GENITOURINARY Genitourinary: Present exam deferred SKIN Skin: Present warm, Present dry MUSCULOSKELETAL Musculoskeletal: Present edema, Present other (left leg with ecchymosis and marked swelling compared to right involving entire leg, good distal pulses DP/PT and good cap refill) NEUROLOGICAL Neurological: Present alert, Present oriented x 3, Present no gross motor or sensory deficits PSYCHOLOGICAL Psychological: Present mood/affect normal, Present judgement normal Results Laboratory Result Diagram: 08/06/20 1253 08/06/20 1253 Laboratory Laboratory Tests Test 08/06/20 14:09 08/06/20 12:53 Urine Color Yellow (YELLOW) Urine Clarity Sl cloudy (CLEAR) Urine pH 5.5 (5 - 7) Urine Specific [place] >=1.030 (1.010-1.025) Urine Protein Negative (NEGATIVE) Urine Glucose (UA) Negative (NEGATIVE) Urine Ketones Trace (NEGATIVE) Urine Blood Trace (NEGATIVE) Urine Nitrite Negative (NEGATIVE) Urine Bilirubin Negative (NEGATIVE) Urine Urobilinogen 1 mg/dL (0.2 - 1) Urine Leukocyte Esterase Negative (NEGATIVE) Urine RBC 6-10 /HPF (0-5) Urine WBC 0-5 /HPF (0-5) Urine Epithelial Cells Few /LPF (NONE) Urine Bacteria Rare /HPF (NONE) White Blood Count 9.87 x10e3/uL (4.8-10.8) Red Blood Count 3.60 x10e6/uL (4.3-5.7) Hemoglobin 11.8 g/dL (14.0-18.0) Hematocrit 37.2 % (38.2-49.6) Mean Corpuscular Volume 103.3 fL (81-99) Mean Corpuscular Hemoglobin 32.8 pg (28-32) Mean Corpuscular Hemoglobin Concent 31.7 g/dL (31-35) Red Cell Distribution Width 16.6 % (11.7-14.4) Platelet Count 293 x10e3/uL (140-360) Neutrophils (%) (Auto) 73.6 % (38.7-80.0) Lymphocytes (%) (Auto) 14.7 % (18.0-39.1) Monocytes (%) (Auto) 10.2 % (4.4-11.3) Eosinophils (%) (Auto) 0.3 % (0.0-6.0) Basophils (%) (Auto) 0.3 % (0.0-1.0) Neutrophils # (Auto) 7.3 (2.1-6.9) Lymphocytes # (Auto) 1.5 (1.0-3.2) Monocytes # (Auto) 1.0 (0.2-0.8) Eosinophils # (Auto) 0.0 (0.0-0.4) Basophils # (Auto) 0.0 (0.0-0.1) Absolute Immature Granulocyte (auto 0.09 x10e3/uL (0-0.1) Prothrombin Time 15.7 seconds (11.9-14.5) Prothromb Time International Ratio 1.19 Activated Partial Thromboplast Time 26.3 seconds (23.8-35.5) Sodium Level 142 mmol/L (136-145) Potassium Level 4.5 mmol/L (3.5-5.1) Chloride Level 104 mmol/L (98-107) Carbon Dioxide Level 30 mmol/L (22-29) Anion Gap 12.5 mmol/L (8-16) Blood Urea Nitrogen 32 mg/dL (7-26) Creatinine 1.18 mg/dL (0.72-1.25) Estimat Glomerular Filtration Rate 60 ML/MIN (60-) BUN/Creatinine Ratio 27 (6-25) Glucose Level 186 mg/dL (74-118) Calcium Level 8.8 mg/dL (8.4-10.2) Total Bilirubin 2.3 mg/dL (0.2-1.2) Aspartate Amino Transf (AST/SGOT) 38 IU/L (5-34) Alanine Aminotransferase (ALT/SGPT) 39 IU/L (0-55) Alkaline Phosphatase 62 IU/L (40-150) Creatine Kinase < 7 IU/L (30-200) Creatine Kinase MB 6.80 ng/mL (0-5.0) Troponin I 0.063 ng/mL (0-0.300) B-Type Natriuretic Peptide 465.1 pg/mL (0-100) Total Protein 6.5 g/dL (6.5-8.1) Albumin 3.2 g/dL (3.5-5.0) Globulin 3.3 g/dL (2.3-3.5) Albumin/Globulin Ratio 1.0 (0.8-2.0) Lab results reviewed: Yes Imaging Imaging results reviewed: Yes Impressions EXAM: CT of the site without contrast INDICATION: Status post fall with left lower extremity pain and difficulty bearing weight. COMPARISON: None available. TECHNIQUE: Multidetector CT scanning of the site was performed. Coronal and sagittal multiplanar reformations were obtained. RADIATION DOSE: Total DLP: mGy*cm Estimated effective dose: (DLP x 0.014 x size factor) mSv CTDIvol has been reviewed. It is below the limits set by the Radiation Protocol Committee (RPC). Dose modulation, iterative reconstruction, and/or weight based adjustment of the mA/kV was utilized to reduce the radiation dose to as low as reasonably achievable. FINDINGS: Bones: No acute displaced fracture identified. Joints: There are mild to moderate degenerative changes of the left hip characterized by joint space narrowing and marginal osteophytes. There are severe tricompartmental degenerative changes of the left knee characterized by severe joint space narrowing, subchondral cystic changes, subchondral sclerosis and marginal/fragmented osteophytes. Soft Tissues: There is ill-defined mild prominence of the mid deep quadriceps muscles suggestive of intramuscular hematoma. No evidence of active extravasation. There is moderate to severe atherosclerotic calcification of the lower extremity vasculature. Others: The partially imaged pelvis is normal. IMPRESSION: 1. Ill-defined mild prominence of the mid deep quadriceps muscles suggestive of intramuscular hematoma. No evidence of active extravasation. 2. No acute fracture or evidence of dislocation. 3. Severe tricompartmental osteoarthritis of the left knee. Signed by: Yudy Weldon MD on 08/06/2020 3:51 PM EXAMINATION: CHEST SINGLE (PORTABLE) INDICATION: ^FALL 9 D AGO ^[id number] ^1415 COMPARISON: Multiple prior chest radiograph including most recent on 08/28/2018. Chest CT on 08/21/2018. FINDINGS: TUBES and LINES: None. LUNGS: Low lung volumes with bronchovascular crowding. There is diffuse patchy airspace opacities and interstitial prominence bilaterally. PLEURA: No pleural effusion or pneumothorax. Left pleural scarring, unchanged. HEART AND MEDIASTINUM: The cardiomediastinal silhouette is unremarkable. There are atherosclerotic calcifications within the aorta. BONES AND SOFT TISSUES: No acute osseous lesion. Soft tissues are unremarkable. UPPER ABDOMEN: No free air under the diaphragm. IMPRESSION: Diffuse interstitial and patchy airspace opacities which may represent combination of bronchovascular crowding and subsegmental atelectasis. However, multifocal pneumonia can have a similar appearance and should be considered in the proper clinical context. Signed by: Yudy Weldon MD on 08/06/2020 3:41 PM Procedures 12 Lead ECG Interpretation ECG Interpretation : ECG: ECG 1 Peanut Cleaner: Interpreted by ED physician Date: Aug 06, 2020 Time: 12:53 Rhythm: sinus rhythm (1st degree avb) Ectopy: multifocal PVC's Rate: normal BPM: 78 QRS axis: normal T wave inversion: II, III, aVF, V3, V4, V5, V6 Other findings: prolonged QTc interval Clinical Impression: abnormal ECG Assessment & Plan Medical Decision Making MDM swelling/pain left leg after fall 10 days ago on Eliquis, had syncope at that time - check cbc, chem, coag's, cardiacs, ecg, ct brain, ct left leg, doppler - r/o hematoma of left leg, dvt, renal insuff, a-fib, cerebral bleed Reassessment Reassessment admit to dr carter Assessment & Plan Final Impression: (1) Hematoma of left lower extremity Depart Disposition: ADMITTED Last Vital Signs Date Time Temp Pulse Resp B/P (MAP) Pulse Ox O2 Delivery O2 Flow Rate FiO2 08/06/20 15:07 70 19 139/87 95 Nasal Cannula 2.0 08/06/20 12:55 98.9 Home Meds Reported Medications [Eliquis] No Conflict Check, 5 MG PO BID 08/21/18 Losartan Potassium (LOSARTAN POTASSIUM) 50 Mg Tablet, 50 MG PO DAILY 08/21/18 Metoprolol Succinate (METOPROLOL SUCCINATE) 100 Mg Tab.er.24h, 100 MG PO DAILY 08/21/18 Furosemide (FUROSEMIDE) 40 Mg Tablet, 40 MG PO DAILY 08/21/18 Tamsulosin Hcl (TAMSULOSIN HCL) 0.4 Mg Cap.er.24h, 0.4 MG PO DAILY 08/21/18 Metformin Hcl (METFORMIN HCL) 500 Mg Tablet, 500 MG PO BID, #60 TAB 11/07/17 Simvastatin (SIMVASTATIN) 20 Mg Tablet, 20 MG PO 2100, EA 11/07/17 Medications in the ED Sodium Chloride 50 ml @ ud STK-MED ONCE .ROUTE ; Start 08/06/20 at 14:07; Stop 08/06/20 at 14:00; Status DC Iopamidol 74,000 mg STK-MED ONCE INJ ; Start 08/06/20 at 14:08; Stop 08/06/20 at 14:01; Status DC SERENITY EARLY MD Aug 06, 2020 16:23
[2020-08-06 18:25] VITALS: BP 155/82
[2020-08-06 19:30] VITALS: BP 162/69
[2020-08-06 20:00] LABS: CREATINE KINASE MB 6.2 ng/mL (0-5.0)
--- NOTE | 2020-08-06 20:30 | NUR ---
RECEIVED PT IN BED AOX3 .RESPIRATIONS ARE EVEN AND UNLABORED ,LEFT LEG SWOLLEN AND BRUISED ,BOTH LOWER LEGS NOTED BLISTERS DENIES PAIN RT AC 20 G S/L .ASSESSMENT DONE ORIENTED THE PT TO THE ENVIRONMENT .CALL LIGHT WITH IN REACH ,CONTINUE TO MONITOR
[2020-08-06] MEDS ORDERED: ACETAMINOPHEN 325 MG TAB PO PRN (20:45)
[2020-08-06] MEDS ORDERED: POLYETHYLENE GLYCOL 3350 17 GM PACK PO PRN (20:45)
[2020-08-06] MEDS ORDERED: METOPROLOL TARTRATE INJ 1 MG/ML VIAL IV PRN (20:45)
[2020-08-06] MEDS ORDERED: DEXTROSE 50% SYRINGE 50 ML IV PRN (20:45)
[2020-08-06] MEDS ORDERED: TEMAZEPAM 7.5 MG CAP PO PRN (20:45)
[2020-08-06] MEDS: SIMVASTATIN 20 MG TAB PO SCH (21:00)
[2020-08-06] MEDS: INSULIN REGULAR, HUMAN 100 UNIT/1 ML 3ML VIAL SQ SCH (21:30)
[2020-08-06 22:28] VITALS: BP 162/69
--- NOTE | 2020-08-06 23:45 | History and Physical ---
CONSULTING PHYSICIAN: Dr. Blanc with General Surgery. PRIMARY CARE PHYSICIAN: Dr. Yareli Alford. OUTPATIENT TUBE WINDER: Dr. Imelda Duke. OUTPATIENT FINISHED YARN EXAMINER: Dr. Mar at [facility]. CHIEF COMPLAINT: Left leg pain. HISTORY OF PRESENT ILLNESS: The patient is a 75-year-old male, admitted through the emergency room via [facility] with complaints of left leg pain, who fell 10 days ago at the grocery store after a syncopal episode. He takes Plavix and Eliquis at home for atrial fibrillation and about 3 days ago, he noticed bruising and swelling of the left leg with pain there, exacerbated with movement and weightbearing. The patient is currently seen in room 103 alone without any distress. PAST MEDICAL HISTORY: Atrial fibrillation, on long-term current anticoagulant Eliquis; chronic diastolic congestive heart failure; hypertension; hyperlipidemia; coronary artery disease; carotid artery disease; type 2 diabetes mellitus; probable obstructive sleep apnea; GERD; sepsis; UTI; obesity. PAST SURGICAL HISTORY: Bilateral carotid stenting, coronary stenting x1 vessel, tonsillectomy and adenoidectomy, bilateral cataract removal, detached retina repair of the left eye, major right knee surgery in the 1970s. FAMILY HISTORY: Father had CHF and atrial fibrillation. Mother had Alzheimer's. Sister had COPD. Another sister had a liver transplant. SOCIAL HISTORY: The patient is , lives alone. 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 He denies any previous use of tobacco or illicit drugs. He has not drank alcohol in 40 years, although he drank a lot in college. ALLERGIES: NO KNOWN ALLERGIES. HOME MEDICATIONS: Furosemide 40 mg daily, losartan potassium 50 mg daily, metformin 500 mg b.i.d., metoprolol succinate 100 mg daily, simvastatin 20 mg at bedtime, tamsulosin 0.4 mg daily, Eliquis 5 mg b.i.d. REVIEW OF SYSTEMS: Fourteen-point review of systems was completed and the patient denied any complaints regarding constitutional, eyes, ears, nose, throat, psychiatric, neurologic, or allergic/immunological systems. RESPIRATORY: He has chronic shortness of breath and chronic cough with phlegm. GENITOURINARY: He is on Flomax. He has a history of difficulty urinating. INTEGUMENTARY: Scabs on right lower extremity. CARDIOVASCULAR: History of atrial fibrillation, irregular heartbeat, and poor energy levels, likely related to history of congestive heart failure. GASTROINTESTINAL: No complaints of nausea, vomiting, diarrhea, or constipation. His last bowel movement was 08/05. MUSCULOSKELETAL: Left lower extremity pain, currently rated 6/10, but if he or someone else is pushing on the quadriceps muscle, it increases the pain at 8/10 on a 0-10 pain scale. ENDOCRINE: Known diabetic. HEMATOLOGIC: Bruising on the right lower extremity as well as bruising above the left eye. PHYSICAL EXAMINATION: VITAL SIGNS: Temperature 98.9, pulse 78, blood pressure 132/107, respirations 18, and oxygen saturation 98%. Height 5 feet 9 inches, weight 252 pounds, BMI 37.2. GENERAL: Supine in bed with head of bed elevated, in no acute distress. LUNGS: Generally clear to auscultation. Respiratory pattern even and unlabored. He is on oxygen at 2 L/minute via nasal cannula. HEENT: EOMI. Oropharynx clear. Left supraorbital hematoma noted. NECK: Supple. No lymphadenopathy, thyromegaly, or JVD. CARDIOVASCULAR: Irregularly irregular rhythm. No murmur. ABDOMEN: Bowel sounds positive. Soft, nontender, obese. EXTREMITIES: With 2+ pitting edema in bilateral lower extremities, slightly more edematous on the left leg. He has scattered bruising over the entire left leg and scattered scabs over the right lower extremity. NEUROLOGICAL: GCS 15. Nonfocal. LABORATORY DATA: WBC 9.87, hemoglobin 11.8, hematocrit 37.2, platelets 293, neutrophils 73.6%. PT 15.7, INR 1.19, PTT 26.3. Sodium 142, potassium 4.5, chloride 104, CO2 of 30, anion gap 12.5, BUN 32, creatinine 1.18, estimated GFR 60, glucose 186, calcium 8.8, total bilirubin 2.3, AST 38, ALT 39, alkaline phosphatase 62. Creatine kinase less than 7, then subsequently 243; CK-MB 6.8, then subsequently 6.2; troponin I 0.063 twice. B-type natriuretic peptide 465.1. Total protein 6.5, albumin 3.2, globulin 3.3. Urinalysis with yellow, slightly cloudy urine, pH 5.5. Urine specific gravity greater than or equal to 1.03, trace amount of ketones, trace amount of blood, negative for nitrites, negative for leukocyte esterase, rbc 6 to 10, few epithelial cells, rare urine bacteria. Coronavirus PCR was not detected. Urine cultures pending. IMAGING/OTHER: A 12-lead EKG showed sinus rhythm with first-degree AV block, multifocal PVCs and a heart rate of 78. Chest x-ray showed diffuse interstitial and patchy airspace opacities, which may represent combination of bronchovascular crowding and subsegmental atelectasis, however, multifocal pneumonia can have a similar appearance and should be considered in the proper clinical context. CT of the brain showed no acute intracranial abnormality, specifically no acute intracranial hemorrhage. Minimal generalized parenchymal volume loss, chronic lacunar infarct in the left putamen, mild microvascular ischemic changes. CT of the left lower extremity showed ill-defined mild prominence of the mid deep quadriceps muscle, suggestive of intramuscular hematoma. No evidence of acute extravasation. No acute fracture or evidence of dislocation. Severe tricompartmental osteoarthritis of the left knee. Echocardiogram has been ordered and Dr. Ritter has seen the patient in the past. We will ask him to interpret. Venous Doppler ultrasound of the left lower extremity was negative for DVT. ASSESSMENT AND PLAN: 1. Intramuscular hematoma of the left lower extremity. Venous Doppler ultrasound negative for deep venous thrombosis in the left leg. We will ask Dr. Blanc with General Surgery to evaluate to ensure surgery is not required. Monitor for improvement in hematoma. 2. Witnessed syncope with fall on 07/28/2020, ambulatory dysfunction, severe tricompartmental osteoarthritis of the right knee, history of carotid disease. Given that the patient had witnessed syncope and has significant cardiac history, we will go ahead and check an echocardiogram. The patient also previously had a history of stenting of bilateral carotid arteries. We will go ahead and get a bilateral carotid Doppler ultrasound and ask Dr. Ritter to read. Physical Therapy eval and treat. Fall precautions. 3. Chronic diastolic congestive heart failure. B-type natriuretic peptide 465.1. Chest x-ray shows interstitial and patchy airspace opacities. Continue to monitor chest x-ray results. Lasix 40 mg p.o. daily resumed as well as metoprolol succinate 100 mg daily. 4. Paroxysmal atrial fibrillation, heart rate controlled, long-term current use of anticoagulant Eliquis. Monitor telemetry. Consider Cardiology consultation. Continue Eliquis for now. 5. Controlled hypertension with diastolic congestive heart failure, losartan potassium 50 mg daily and metoprolol succinate resumed. 6. Uncontrolled type 2 diabetes mellitus with hyperglycemia. We will check hemoglobin A1c in the morning, serum glucose 186. Metformin 500 mg b.i.d. resumed. Low dose regular insulin sliding scale started. Monitor fingerstick blood glucose level before meals and at bedtime. 7. Hyperlipidemia. Home dose of simvastatin resumed. 8. Coronary artery disease, history of coronary stenting. We will check lipid panel. 9. Obesity with BMI of 37.2, probable obstructive sleep apnea. Dietary restrictions. Monitor sleeping pattern for signs of obstructive sleep apnea. 10. Gastroesophageal reflux disease/prophylaxis. Protonix, Eliquis. History and physical dictated, observation status, billing code [id number], time spent greater than 70 minutes. Dictated by Christophe Mazariegos NP Dionicio Hernandez MD [facility]/MATTEOL /[id number]
[2020-08-07] VITALS (9 sets, daily range): BP systolic 120–162; BP diastolic 60–73
[2020-08-07] MEDS ORDERED: ISOSORBIDE MONO20 MG PO (03:52)
[2020-08-07 05:38] LABS: BASOPHILS % 0.3 % (0.0-1.0); EOSINOPHILS # (AUTO) 0.1 (0.0-0.4); EOSINOPHILS % 1.1 % (0.0-6.0); HEMATOCRIT 42.6 % (38.2-49.6); HEMOGLOBIN 13.6 g/dL (14.0-18.0); LYMPHOCYTES # (AUTO) 1.1 (1.0-3.2); LYMPHOCYTES % 11.6 % (18.0-39.1); MEAN CORPUSCULAR HEMOGLOBIN 33.1 pg (28-32); MEAN CORPUSCULAR HGB CONC 31.9 g/dL (31-35); MEAN CORPUSCULAR VOLUME 103.6 fL (81-99); MONOCYTES % 10.7 % (4.4-11.3); NEUTROPHILS # (AUTO) 7.2 (2.1-6.9); NEUTROPHILS % 75.6 % (38.7-80.0); PLATELET COUNT 305 x10e3/uL (140-360); RED BLOOD COUNT 4.11 x10e6/uL (4.3-5.7); RED CELL DISTRIBUTION WIDTH 16.4 % (11.7-14.4)
--- NOTE | 2020-08-07 05:49 | NUR ---
LESLIE LOMBARDO HAS SEEN TH EPT AND RENEWED HOME MEDICATION ,PT RESTING .CALL LIGHT WITH IN REACH ,CONTINUE TO MONITOR
[2020-08-07 06:00] LABS: CHOL/HDL RATIO 3.5 (3.9-4.7); MAGNESIUM 2.2 MG/DL (1.3-2.1); PHOSPHORUS 3.3 MG/DL (2.3-4.7)
[2020-08-07 06:10] LABS: CREATINE KINASE MB 5.7 ng/mL (0-5.0)
[2020-08-07 06:20] LABS: ALANINE AMINOTRANSFERASE 35 IU/L (0-55); ALBUMIN 3.1 g/dL (3.5-5.0); ALKALINE PHOSPHATASE 59 IU/L (40-150); ANION GAP 12.2 mmol/L (8-16); BLOOD UREA NITROGEN 27 mg/dL (7-26); BUN/CREATININE RATIO 29 (6-25); CALCIUM 8.8 mg/dL (8.4-10.2); CARBON DIOXIDE 28 mmol/L (22-29); CHLORIDE 106 mmol/L (98-107); CREATININE, SERUM 0.93 mg/dL (0.72-1.25); EST GLOMERULAR FILTRATION RATE > 60 ML/MIN (60-); GLUCOSE 176 mg/dL (74-118); POTASSIUM 4.2 mmol/L (3.5-5.1); SODIUM 142 mmol/L (136-145)
[2020-08-07 06:23] LABS: THYROID STIMULATING HORMONE 2.165 uIU/mL (0.350-4.940)
--- NOTE | 2020-08-07 07:06 | NUR ---
GAVE BEDSIDE SHIFT REPORT TO ONCOMING NURSE. CALL LIGHT WITHIN REACH. PATIENT IN BED. HOURLY ROUND ONE
[2020-08-07] MEDS: PANTOPRAZOLE SOD 40 MG TABEC PO SCH (08:08)
[2020-08-07] MEDS: DOCUSATE SODIUM 100 MG CAP PO SCH ×2 (08:19→17:12)
[2020-08-07] MEDS: LOSARTAN POTASSIUM 25 MG TAB PO SCH (08:20)
[2020-08-07] MEDS: METFORMIN HCL 500 MG TAB PO SCH ×2 (08:20→17:12)
[2020-08-07] MEDS: METOPROLOL SUCCINATE 50 MG TAB XL PO SCH (08:20)
[2020-08-07] MEDS: FUROSEMIDE 40 MG TAB PO SCH (08:20)
[2020-08-07] MEDS: TAMSULOSIN HCL 0.4 MG CAP PO SCH (08:20)
[2020-08-07] MEDS: INSULIN REGULAR, HUMAN 100 UNIT/1 ML 3ML VIAL SQ SCH ×4 (08:21→21:00)
[2020-08-07] MEDS ORDERED: FAMOTIDINE 20 MG/2 ML VIAL IV SCH (09:00)
--- NOTE | 2020-08-07 09:41 | Consultation ---
DATE OF CONSULTATION: 08/07/2020 HISTORY OF PRESENT ILLNESS: The patient is a 75-year-old male, history of atrial fibrillation, who is on Plavix and Eliquis, who fell about 10 days ago. He developed swelling in the left leg. He says he has some pain in the left leg, but he is able to walk on it. He was evaluated in the emergency room and there was found to be bleeding into the muscle of the quadriceps on the left, but no discrete hematoma. PAST MEDICAL HISTORY: Significant for atrial fibrillation on anticoagulation, congestive heart failure, hypertension, hyperlipidemia, coronary artery disease, carotid artery disease, and type 2 diabetes. PAST SURGICAL HISTORY: Previous surgery includes bilateral carotid stents, coronary artery disease, stents, tonsillectomy, cataract surgery, and previous bilateral knee surgery. MEDICATIONS: Listed in the chart. ALLERGIES: HE HAS NO KNOWN ALLERGIES. FAMILY HISTORY: Noncontributory. SOCIAL HISTORY: The patient lives alone. He does not smoke cigarettes, drink alcohol, or use any other drugs. REVIEW OF SYSTEMS: He has not had any fever. PHYSICAL EXAMINATION: GENERAL: The patient is awake and alert. VITAL SIGNS: Normal. He is afebrile. HEENT: Sclerae are not icteric. NECK: Had no masses. LUNGS: Equal breath sounds, clear bilaterally. CARDIAC: Regular rhythm. ABDOMEN: Soft without tenderness. EXTREMITIES: Left leg, there is some ecchymosis and some swelling of the left leg. There is no discrete hematoma is palpable. There is mild tenderness, but no crepitus. The left foot is warm. Peripheral pulses not definitely palpable. ASSESSMENT: A 75-year-old male status post fall with intramuscular bleeding in the left leg and some diffuse ecchymosis. There is no discrete hematoma on imaging or on exam that would benefit from surgical intervention. At this point, I recommend keep the patient elevating his leg as much as possible. Most likely the swelling will resolve over time. Thank you for asking me to see Mr. Mackey. MD CROW [place]/MAU /[id number]
--- NOTE | 2020-08-07 10:26 | NUR ---
OK with Dr Blanc for patient to have eliquis
[2020-08-07] MEDS: APIXABAN 5 MG TABLET PO SCH ×2 (10:34→17:12)
--- NOTE | 2020-08-07 19:31 | NUR ---
RECEIVED PT IN RESTROOM .RESPIRATIONS ARE EVEN AND UNLABORED ,DR GOODRICH CALLED AND TOLD TO DC ASAF CALL LIGHT WITH IN REACH ,CONTINUE TO MONITOR
[2020-08-07] MEDS: SIMVASTATIN 20 MG TAB PO SCH (21:00)
[2020-08-08 01:02] VITALS: BP 133/75
[2020-08-08 05:47] VITALS: BP_SYST 129; BP_SYST 133; BP_DIAS 62; BP_DIAS 68
[2020-08-08 06:10] LABS: BASOPHILS % 0.4 % (0.0-1.0); EOSINOPHILS # (AUTO) 0.2 (0.0-0.4); EOSINOPHILS % 1.8 % (0.0-6.0); HEMATOCRIT 40.2 % (38.2-49.6); HEMOGLOBIN 12.8 g/dL (14.0-18.0); LYMPHOCYTES # (AUTO) 1.3 (1.0-3.2); LYMPHOCYTES % 14.3 % (18.0-39.1); MEAN CORPUSCULAR HGB CONC 31.8 g/dL (31-35); MEAN CORPUSCULAR VOLUME 103.6 fL (81-99); MONOCYTES # (AUTO) 1.1 (0.2-0.8); MONOCYTES % 11.9 % (4.4-11.3); NEUTROPHILS # (AUTO) 6.4 (2.1-6.9); NEUTROPHILS % 70.9 % (38.7-80.0); PLATELET COUNT 294 x10e3/uL (140-360); RED BLOOD COUNT 3.88 x10e6/uL (4.3-5.7); RED CELL DISTRIBUTION WIDTH 16.3 % (11.7-14.4)
--- NOTE | 2020-08-08 06:14 | NUR ---
PT RESTING AND DENIES PAIN .CONTINUE TO [place]
[2020-08-08 06:40] LABS: ANION GAP 10.2 mmol/L (8-16); BLOOD UREA NITROGEN 26 mg/dL (7-26); BUN/CREATININE RATIO 27 (6-25); CALCIUM 8.1 mg/dL (8.4-10.2); CARBON DIOXIDE 31 mmol/L (22-29); CHLORIDE 106 mmol/L (98-107); CREATININE, SERUM 0.96 mg/dL (0.72-1.25); EST GLOMERULAR FILTRATION RATE > 60 ML/MIN (60-); GLUCOSE 140 mg/dL (74-118); POTASSIUM 4.2 mmol/L (3.5-5.1); SODIUM 143 mmol/L (136-145)
--- NOTE | 2020-08-08 07:27 | NUR ---
BEDSIDE REPORT GIVEN TO ONCOMING NURSE FOR CONTINUED CARE OF PATIENT
--- NOTE | 2020-08-08 07:31 | NUR ---
BEDSIDE REPORT GIVEN TO ONCOMING NURSE FOR CONTINUED CARE OF PATIENT
[2020-08-08 08:02] VITALS: BP 129/68
[2020-08-08] MEDS: INSULIN REGULAR, HUMAN 100 UNIT/1 ML 3ML VIAL SQ SCH ×2 (08:08→11:30)
[2020-08-08 08:51] VITALS: BP 113/84
[2020-08-08] MEDS: DOCUSATE SODIUM 100 MG CAP PO SCH (10:47)
[2020-08-08] MEDS: PANTOPRAZOLE SOD 40 MG TABEC PO SCH (10:47)
[2020-08-08] MEDS: LOSARTAN POTASSIUM 25 MG TAB PO SCH (10:48)
[2020-08-08] MEDS: TAMSULOSIN HCL 0.4 MG CAP PO SCH (10:49)
[2020-08-08] MEDS: FUROSEMIDE 40 MG TAB PO SCH (10:49)
[2020-08-08] MEDS: METFORMIN HCL 500 MG TAB PO SCH (10:49)
[2020-08-08] MEDS: METOPROLOL SUCCINATE 50 MG TAB XL PO SCH (10:50)
[2020-08-08] MEDS ORDERED: COLACE100 MG PO (11:04)
[2020-08-08] MEDS ORDERED: ACETAMINOPHEN325 M1 PO (11:04)
--- NOTE | 2020-08-08 11:10 | NUR ---
ORDERS FOR HOME HEALTH SKILLED NURSE AND HOME PT/OT PT ALREADY HAS [facility] AND WISHES TO CONTINUE WITH THEIR SERVICES CALLED AND SPOKE WITH DONNA AT [facility] PH: [phone] FAXED CLINICAL TO [facility] AT [phone]; CONFIRMATION REC'D CHOICE LETTER SIGNED AND ON CHART IMM EXPLAINED TO PT, SIGNED BY PT AND PLACED ON CHART ORDER FOR ROLLING WALKER PAPERWORK SIGNED FOR ROLLING WALKER, COPY OF PAPERWORK TO PT ROLLING WALKER DELIVERED TO PT IN ROOM TO TAKE HOME NURSE DOING HOME 02 EVAL TO SEE IF PT REQUIRES HOME 02 COPY OF CHOICE LETTER AND IMM GIVEN TO PT IN CARE TRANSITIONS FOLDER
[2020-08-08] MEDS ORDERED: FUROSEMIDE40 MG PO ×2 (11:11→11:34)
--- NOTE | 2020-08-08 12:15 | Progress Note ---
DATE: 08/07/2020 CONSULTING PHYSICIAN: Dr. Gus Blanc with General Surgery. SUBJECTIVE: The patient is seen out of bed in the bathroom sitting on the toilet, has no new complaints. He states his pain level is currently 4 to 5/10 generally. The patient knows to keep his left lower extremity elevated while he is in bed. Last bowel movement was today. OBJECTIVE: Vital Signs: Temperature 97.4 afebrile, pulse 50 at one point earlier today with generally around 74, blood pressure 133/73, respirations 20, oxygen saturation 94% on room air. GENERAL: In no acute distress. LUNGS: Clear to auscultation. No supplemental oxygen at present. HEENT: EOMI. Left supraorbital hematoma noted. NECK: Supple. No lymphadenopathy, thyromegaly, or JVD. CARDIOVASCULAR: Irregularly irregular rhythm. No murmur. ABDOMEN: Bowel sounds positive. Soft, nontender, obese. EXTREMITIES: With 2+ pitting edema bilateral lower extremities slightly more edematous on the left leg. Diffuse ecchymosis left leg. Scattered scabs over the right lower extremity. NEUROLOGICAL: GCS 15. Nonfocal. LABORATORY DATA: WBCs 9.5, hemoglobin 13.6, hematocrit 42.6, platelets 305,000, neutrophils 75.6%. Sodium 142, potassium 4.2, chloride 106, CO2 28, BUN 27, creatinine 0.93, estimated GFR greater than 60, glucose 176. Hemoglobin A1c 6.8%. Calcium 8.8, phosphorus 3.3, magnesium 2.2, total bilirubin 2.0, AST 31, ALT 35, alkaline phosphatase 59, creatine kinase 243 then 219, CK-MB 6 then 5.7, troponin I 0.058 then 0.056. Total protein 6.1, albumin 3.1, globulin 3.0. Triglyceride 77, cholesterol 94, LDL 52, HDL 27. Thyroid-stimulating hormone 2.165. Coronavirus PCR collected on 08/06 was not detected. Preliminary urine culture and sensitivity shows 10,000 to 50,000 CFU per mL mixed yovani contamination. IMAGING/OTHER: The 08/06 venous Doppler ultrasound of the left leg was negative for DVT. The 08/06 bilateral carotid Doppler ultrasound showed evidence of carotid disease without stenosis. The 08/06 echocardiogram showed an ejection fraction of 30% to 35%. ASSESSMENT/PLAN: 1. Intramuscular hematoma of the left lower extremity. Please see diagnostic studies above per Dr. Blanc with General Surgery. The patient has no discrete hematoma and surgery is not required. Per patient hematoma seems to be improving. 2. Witnessed syncope with fall on 07/28/2020, ambulatory dysfunction, severe tricompartmental osteoarthritis of the right knee, history of carotid disease. Please see diagnostic studies above. Dr. Ritter with Cardiology consulted to see patient as recommended by Dr. Lamin Adams, who is covering for Dr. Hernandez today. This is weekend thus physical therapy unavailable to eval and treat, they will likely see the patient tomorrow on Saturday. Maintain fall precautions. 3. Chronic diastolic congestive heart failure. BNP 465.1 on 08/06. Chest x-ray showed interstitial and patchy airspace opacities. Continue Lasix 40 mg daily and metoprolol succinate 100 mg daily. 4. Paroxysmal atrial fibrillation, heart rate controlled, long-term current use of anticoagulant Eliquis. Monitor telemetry. Anticoagulation continued, appreciate input from Cardiology regarding anticoagulation as well. 5. Per telemetry, the patient has been in atrial fibrillation and per strep had two unifocal PVCs with a heart rate of 79 today. 6. Controlled hypertension with diastolic congestive heart failure. Losartan, potassium and metoprolol succinate resumed. Monitor BP. 7. Uncontrolled type 2 diabetes mellitus with hyperglycemia. Hemoglobin A1c 6.8%. Serum glucose 176. Monitor fingerstick blood glucose levels before meals and at bedtime. 8. Hyperlipidemia. Simvastatin resumed. 9. Coronary artery disease, history of coronary stenting. Cardiology to follow. 10. Obesity with BMI of 37.2, probable obstructive sleep apnea. Dietary restrictions, outpatient sleep study recommended. 11. Gastroesophageal reflux disease/prophylaxis. Protonix and Eliquis. 12. Inpatient, billing code [id number], time spent greater than 35 minutes. Dictated by Christophe Mazariegos, CONCRETE GUN OPERATOR Dionicio Hernandez MD HWP/MODL /[id number]
[2020-08-08 12:19] VITALS: BP 100/82
--- NOTE | 2020-08-08 12:30 | Discharge Summary ---
CONSULTING PHYSICIAN: Dr. Blanc with General Surgery and Dr. Abilio Ritter with Cardiology. LISTED PRIMARY CARE PHYSICIAN: Dr. Yareli Alford. OUTPATIENT INDEPENDENT LIVING ADVISOR: Dr. Imelda Duke. OUTPATIENT TIME PIECE REPAIRER: Dr. Mar at [facility]. CHIEF COMPLAINT: Left leg pain. HISTORY OF PRESENT ILLNESS: The patient is a 75-year-old male, admitted through the emergency room via [facility] with complaints of left leg pain, who fell 10 days prior to admission at the grocery store after a syncopal episode. The patient takes Plavix and Eliquis at home for atrial fibrillation in about 3 days prior to admission. He noticed bruising and swelling of the left leg with pain there. Exacerbated with movement and weightbearing. Please see history and physical for past medical, surgical, family, and social history. ALLERGIES: HE HAS NO ALLERGIES. ADMITTING DIAGNOSES: 1. Intramuscular hematoma of the left lower extremity. 2. Witnessed syncope with fall on 07/28/2020, ambulatory dysfunction, severe tricompartmental osteoarthritis of the right knee, history of carotid disease. 3. Chronic diastolic congestive heart failure. 4. Paroxysmal atrial fibrillation, heart rate controlled, long-term current use of anticoagulant Eliquis. 5. Controlled hypertension with diastolic congestive heart failure. 6. Uncontrolled type 2 diabetes mellitus with hyperglycemia. 7. Hyperlipidemia. 8. Coronary artery disease, history of coronary stenting. 9. Obesity with BMI of 37.2, probable obstructive sleep apnea. 10. Gastroesophageal reflux disease/prophylaxis. DISCHARGE DIAGNOSES: 1. Intramuscular hematoma of the left lower extremity. 2. Witnessed syncope with fall on 07/28/2020, ambulatory dysfunction, severe tricompartmental osteoarthritis of the right knee, history of carotid disease. 3. Chronic diastolic congestive heart failure. 4. Paroxysmal atrial fibrillation, heart rate controlled, long-term current use of anticoagulant Eliquis. 5. Controlled hypertension with diastolic congestive heart failure. 6. Uncontrolled type 2 diabetes mellitus with hyperglycemia. 7. Hyperlipidemia. 8. Coronary artery disease, history of coronary stenting. 9. Obesity with BMI of 37.2, probable obstructive sleep apnea. 10. Gastroesophageal reflux disease/prophylaxis. Please see history and physical for admitting laboratory data. His initial 12-lead EKG showed sinus rhythm with first-degree AV block, multifocal PVCs and a heart rate of 78. Chest x-ray showed diffuse interstitial and patchy airspace opacities which may represent combination of bronchovascular crowding and subsegmental atelectasis, however, multifocal pneumonia can have a similar appearance and should be considered in the proper clinical context. CT of the brain showed no acute intracranial abnormality, specifically no acute intracranial hemorrhage. CT of the left lower extremity showed ill-defined mild prominence of the mid deep quadriceps muscle, suggestive of intramuscular hematoma. No evidence of acute extravasation. No acute fracture or evidence of dislocation. Severe tricompartmental osteoarthritis of the left knee. Considering that the patient had syncope bilateral carotid Doppler ultrasound was done, which showed evidence of cardiac disease bilaterally without any significant carotid stenosis. Echocardiogram showed estimated ejection fraction of 30% to 35%. The patient was seen by chronic condition nurse, Dr. Abilio Ritter, who increased his Lasix to 60 mg b.i.d. The patient does enjoy a drinking water, fluid restriction is encouraged, although he likely will not follow at home. The patient will be on 40 mg of Lasix b.i.d. The patient is to continue on 1800 calorie ADA diet. Activity level as tolerated. He is able to ambulate with a walker. He is to hold his Eliquis for 3 days to keep his left lower extremity elevated while sitting or in bed. On the day of discharge, vital signs; temperature 97.8, pulse 76, blood pressure 113/84, respirations 20, oxygen saturation 96%. He has been using 3 L of oxygen via nasal cannula during his stay and thus a home oxygen evaluation was done. An oxygen saturation at rest was 91%. Oxygen saturation with activity was 86% on exertion. Thus, we will have home oxygen set up. On the day of discharge, sodium 143, potassium 4.2, chloride 106, CO2 31, BUN 26, creatinine 0.96. WBC 8.98 (9.5), hemoglobin 12.8, hematocrit 40.2, platelets 294. On 08/06, PT 15.7, PTT 26.3, INR 1.19. Yesterday, total bilirubin 2.0, AST 31, ALT 35, alkaline phosphatase 59. Per Dr. Blanc with General surgery, there was no discrete hematoma and surgery is not required. During his stay, B type natriuretic peptide was 465.1. On 08/07, hemoglobin A1c 6.8%. Triglyceride 77, cholesterol 94, LDL 52, HDL 27. TSH 2.165. Also patient will need to follow up with his PCP in 1-[address] Ritter office to set up appointment. Dictated by Christophe Mazariegos, LEAN FACILITATOR MD GUDELIA Funez/MAU /[id number]
--- NOTE | 2020-08-08 12:40 | NUR ---
HOME 02 EVAL DONE AND PT QUALIFIED FOR 02 WITH SATS 86% ON ROOM AIR WITH EXERTION CHOICE LETTER SIGNED FOR [facility] AT [phone] COPY OF CHOICE LETTER WITH MY BUSINESS CARD GIVEN TO PT INSTRUCTED PT TO CALL [facility] AT [address] NUMBER WHEN HE GETS HOME TO HAVE CONCENTRATOR DELIVERED CM FAXED CLINICAL TO [facility] AT [phone]; CONFIRMATION REC'D NOTIFIED GINI ELLISON WITH [facility] OF REFERRAL AND APPROVAL GIVEN TO GIVE PT PORTABLE TANK PORTABLE TANK DELIVERED TO PT'S ROOM FOR DISCHARGE NURSE ALDA AWARE OF ABOVE
[2020-08-08] MEDS ORDERED: ONDANSETRON HCL 4 MG ORAL DISINTEGRATING TAB PO PRN (13:00)
[2020-08-08] MEDS ORDERED: METFORMIN HCL 500 MG TAB PO SCH (17:00)
--- NOTE | 2020-08-08 17:47 | Consultation ---
DATE OF CONSULTATION: 08/08/2020 Cardiology Consultation Thank you so much for asking me to see this nice man again in consultation. Mr. Mackey is an elderly 75-year-old man, who presented to the emergency room on the with a complaint of swelling of the left leg. HISTORY OF PRESENT ILLNESS: The patient reports that on the before , which was July 28 that he was walking in the grocery store, pushing an almost empty grocery cart. He became short of breath and weak and fell to the floor. He struck his left knee and his left forehead on the floor. The patient spoke to his sister later, who thought he might have fainted, even visited with his family doctor later on, who had no particular suggestions apparently and now comes to the emergency room with his left knee continues to hurt. PAST MEDICAL HISTORY: Long and complex with previous diagnoses of atrial fibrillation, coronary artery disease. He has had coronary stent in 2002 in [facility] by Dr. Bartlett. He reports carotid stenting. He had a left knee surgery in . He has had bilateral cataract surgeries. Uses eye drops. Takes metformin for type 2 adult onset diabetes and simvastatin for hyperlipidemia. He is on Novolin and regular insulin. PERSONAL AND SOCIAL HISTORY: He does not smoke or drink. He lives alone. REVIEW OF SYSTEMS: CARDIAC: He admits ankle swelling and takes furosemide only once a day. He has had no chest pain or palpitations. PHYSICAL EXAMINATION: GENERAL: At this time shows a pleasant, alert man. VITAL SIGNS: Blood pressure 113/84. He has purpura above his left eyebrow. HEAD, EYES, EARS, NOSE, AND THROAT: Otherwise unremarkable. THORAX: Heart sounds S1 and S2 are equal. No murmurs. LUNGS: Relatively clear. ABDOMEN: Protuberant. EXTREMITIES: Show that the left knee has healed incisions, purpura and both legs have 4+ edema. LABORATORY DATA: His troponins are normal. Telemetry strips show sinus rhythm with PVCs. CAT scan of the leg without contrast suggests intramuscular hematoma. ASSESSMENT: 1. Fall with contusion to the left knee and the left forehead with possible intramuscular hematoma in the left leg. 2. History of atrial fibrillation, but now sinus rhythm. 3. Congestive heart failure with current echocardiogram suggesting EF 30% to 35%. 4. Type 2 adult onset diabetes. PLAN: Recommend withholding anticoagulants at this time. Especially he is in sinus rhythm and increasing his furosemide to twice daily so that he can eliminate the 10 to 15 pounds of extra fluid. He has not board today based on congestive heart failure and reduced ejection fraction. I think he could be discharged and monitored as an outpatient. Thank you for asking me to see him again in consultation. MD RENEA Lozano/MAU /[id number]
== END 2020-08-08 16:00 | disposition home or self-care (01) | DRG 605 ==
LOC: ER 12:45 → ERHOLD 16:14 → MED/SURG 18:32 → OBSVTOIN 08-07 18:37
PROVIDERS: ADMIT Internal Medicine; ATTEND Internal Medicine
DX: S80.02XA Contusion of left knee, initial encounter (principal); I50.32 Chronic diastolic (congestive) heart failure; R55 Syncope and collapse; I11.0 Hypertensive heart disease with heart failure; I48.0 Paroxysmal atrial fibrillation; E11.65 Type 2 diabetes mellitus with hyperglycemia; S80.12XA Contusion of left lower leg, initial encounter; W19.XXXA Unspecified fall, initial encounter; Z74.09 Other reduced mobility; Z79.01 Long term (current) use of anticoagulants; E66.9 Obesity, unspecified; Z68.37 Body mass index [BMI] 37.0-37.9, adult; K21.9 Gastro-esophageal reflux disease without esophagitis; E78.5 Hyperlipidemia, unspecified; I25.10 Atherosclerotic heart disease of native coronary artery without angina pectoris; G47.33 Obstructive sleep apnea (adult) (pediatric); I44.0 Atrioventricular block, first degree; S00.83XA Contusion of other part of head, initial encounter; I49.3 Ventricular premature depolarization; Z95.5 Presence of coronary angioplasty implant and graft; Z20.828 Contact with and (suspected) exposure to other viral communicable diseases
CPT/HCPCS: 36415; 70450; 71045; 73701; 80048; 80053; 80061; 81001; 82550; 82553; 83036; 83735; 83880; 84100; 84443; 84484; 85025; 85610; 85730; 87086; 93005; 93306; 93880; 93971; 99284; G0378; J1817; Q9967; U0002